=== PATIENT | female | born 1945 | race Caucasian/White ===

== ENCOUNTER 2022-05-23 09:41 | Emergency (ER) | payer MEDICARE, SELFPAY ==
--- NOTE | 2022-05-23 09:43 | ED.EYEPROB ---
HPI - Eye Problem General Chief complaint: Eye Problems Stated complaint: EYE REDNESS Time Seen by Provider: 05/23/22 09:43 Source: patient and RN notes reviewed History of Present Illness HPI Narrative: Patient is 76-year-old female presents the urgent care with her spouse with complaints of ecchymosis to the left eye. Patient states that bruising is unexplained without trauma or injury. Patient denies any vision changes. Denies any headaches, nausea, ear pain. No other acute complaints. No acute distress noted. Patient and spouse aware of the plan of care. Some parts of this dictation were generated by voice recognition software and may contain typographical and/or grammatical inaccuracies. Related Data Home Medications Medication Instructions Recorded Confirmed ascorbic acid (vitamin C) 1,000 mg 1 g PO DAILY 11/01/20 08/03/21 tablet aspirin 81 mg chewable tablet 81 mg PO DAILY 11/01/20 08/03/21 cholecalciferol (vitamin D3) 25 25 mcg PO DAILY 11/01/20 08/03/21 mcg (1,000 unit) capsule multivitamin 1 tablet PO DAILY 11/01/20 08/03/21 zinc 50 mg tablet 50 mg PO DAILY 11/01/20 08/03/21 Allergies Allergy/AdvReac Type Severity Reaction Status Date / Time No Known Allergies Allergy Verified 08/17/21 09:08 Review of Systems Review of Systems: CONSTITUTIONAL: Denies fever, chills, or sweats. EYES: Reports of left eye bruising without trauma or injury ENT: Denies rhinorrhea, congestion, sore throat, or otalgia. CARDIOVASCULAR: Denies chest pain, palpitations, or edema. RESPIRATORY: Denies cough or dyspnea. GASTROINTESTINAL: Denies abdominal pain, nausea, vomiting, or diarrhea. GENITOURINARY: Denies dysuria or hematuria. SKIN: Denies rash or itching. MUSCULOSKELETAL: Denies back pain, joint pain, or myalgia. NEUROLOGIC: Denies headache, numbness, or weakness. All other systems reviewed are negative, except as documented in HPI. [facility] Past Medical History Medical History Memory loss Sleep apnea Surgical History Surgical History H/O abdominal hysterectomy 2005 H/O breast surgery 1967 H/O tubal ligation 1979 History of surgery on arm 2016 Family History Family History Father Malignant neoplasm of prostate Mother Bone cancer Sibling Parkinson disease Social History Social History Smoking status: Never smoker Second hand tobacco smoke exposure: No Alcohol intake: never Substance use: never Gender identity (if verbalized by the patient): Female Spiritual care concerns: No Agree to blood products: Yes Comments At the time of my signature, I reviewed and agree with the nursing past medical, surgical, social, and family history. There is no relevant family history pertinent to the patient complaint. Exam Narrative: GENERAL: This is a well-nourished, well-developed patient, in no apparent distress. HEAD: normocephalic, atraumatic. EYES: PERRL. Sclera clear/white. Vision is grossly intact. Left orbital ecchymosis without trauma or injury EARS: External ears normal, auditory canals clear and without drainage, TMs normal without perforation. Hearing grossly intact. NOSE: External nose normal with no obvious nasal discharge, nares without redness, no rhinorrhea. THROAT: Mucous membranes moist NECK: Neck supple CARDIOVASCULAR: Regular rate and rhythm RESPIRATORY: Clear to auscultation. Breath sounds equal bilaterally. No wheezes, rales, or rhonchi. SKIN: warm, intact with no suspicious lesions or rash, good texture and turgor. NEURO: awake, alert, and oriented to person, place and time. There were no obvious focal neurologic abnormalities. EXTREMITIES: No clubbing, cyanosis, or edema. Course Course Level of Care: Express Care Visit Vital Signs Vit
[2022-05-23 09:52] VITALS: BP 117/73; PULSE 86; RESP 16; TEMP 36.5; O2SAT 98
== END 2022-05-23 10:09 | disposition short-term general hospital (02) ==
PROVIDERS: Emergency Provider Nurse Practitioner Family; PCP Family Medicine
DX: S05.12XA Contusion of eyeball and orbital tissues, left eye, initial encounter (principal); X58.XXXA Exposure to other specified factors, initial encounter; G47.30 Sleep apnea, unspecified; R41.3 Other amnesia
CPT/HCPCS: 99212; G0463

== ENCOUNTER 2022-05-23 10:18 | Emergency (ER) | payer MEDICARE, SELFPAY ==
--- NOTE | ~2022-05-23 | CT_ITS ---
EXAMINATION: CT brain wo con, CT facial bones wo con DATE: 05/23/2022 12:57 INDICATION: head injury with left eye ecchymoses. TECHNIQUE: 1. Computed tomography (CT) of the head was performed without intravenous contrast. Sagittal and whit nal reconstructions were performed. The mA was adjusted according to patient size. Iterative reconstr uction technique was employed. The dose-length product was 605.33 (accession [id number]), 279.37 (accession [id number]) mGy-cm. 2. CT of the maxillofacial bones was performed without intravenous contrast. Sagittal and coronal rec onstructions were performed. Automated exposure control and iterative reconstruction technique were e mployed. The dose length product was 279.37 mGy-cm. COMPARISON: None FINDINGS: Head CT: No calvarial fracture. Small old lacunar infarcts at the head of the right caudate nucleus and at the anterior limb of the left internal capsule and adjacent anterior left lentiform nucleus. Additional moderate scattered white matter hypoattenuation consistent with chronic small vessel ischemic disease . No acute intracranial hemorrhage, acute infarction or abnormal extra axial fluid collection. Ventri cles are normal and symmetric. No mass/mass effect. Maxillofacial CT: No maxillofacial fractures. Normal alignment and mild osteoarthritis at the bilateral temporomandibul ar joints. Likely developmental slight rightward bowing of the nasal septum which parallels the conto urs of the turbinates. Mucosal thickening in the left ethmoid and maxillary sinuses. There is likely fluid/mucus which nearly fills the left maxillary sinus. There is a fracture across the base of one o f the roots of the posterior most remaining left mandibular molar with prominent periapical erosions which extends into the left maxillary sinus. The orbits are normal. The mastoid air cells and middle ear cavities are clear. Moderate to severe spondylosis in the visualized upper cervical spine. IMPRESSION: 1. Fluid versus mucous nearly completely filling the left maxillary sinus suggestive of sinusitis. Th is could be related to a fracture across the base with roots of the posterior most left mandibular mo lar and secondary periapical abscess which appears to erode into the left maxillary sinus 2. No fracture or acute intracranial process. 3. A couple small old lacunar infarcts at the bilateral basal ganglia with scattered additional scatt ered white matter hypoattenuation consistent with chronic small vessel ischemic disease. No other acu te intracranial process. Reviewed, dictated and finalized at location A. IMPRESSION: 1. Fluid versus mucous nearly completely filling the left maxillary sinus sugge stive of sinusitis. This could be related to a fracture across the base with ro ots of the posterior most left mandibular molar and secondary periapical absces s which appears to erode into the left maxillary sinus 2. No fracture or acute intracranial process. 3. A couple small old lacunar infarcts at the bilateral basal ganglia with scat tered additional scattered white matter hypoattenuation consistent with chronic small vessel ischemic disease. No other acute intracranial process.
[2022-05-23 10:22] VITALS: BP 177/85; PULSE 76; RESP 16; TEMP 36.3; O2SAT 98
[2022-05-23 11:15] VITALS: BP 160/83; PULSE 73; RESP 21; O2SAT 98
--- NOTE | 2022-05-23 12:32 | ECG_ITS ---
Measurements Intervals [place] Rate: 66 P: 85 CA: 141 QRS: -10 QRSD: 94 T: 139 QT: 412 QTc: 434 Interpretive Statements SINUS RHYTHM WITH OCCASIONAL SUPRAVENTRICULAR PREMATURE COMPLEXES POSSIBLE RIGHT VENTRICULAR CONDUCTION DELAY [RSR (QR) IN V1/V2] VOLTAGE CRITERIA FOR LVH [MEETS CRITERIA IN ONE OF: R(aVL), S(V1), R(V5), R(V5/V6)+S(V1)] ST DEVIATION AND MODERATE T-WAVE ABNORMALITY, CONSIDER LATERAL ISCHEMIA [-0.1+ mV T WAVE IN I/aVL/V5/V6] ABNORMAL ECG NO PREVIOUS ECG AVAILABLE FOR COMPARISON Electronically Signed On 05-23-2022 13:58:11 CDT by Alan Tinajero M.D.
--- NOTE | 2022-05-23 12:34 | ED.EYEPROB ---
HPI - Eye Problem General Chief complaint: Eye Problems <PANTERA Epstein Last Filed: 05/23/22 14:50> Stated complaint: L. eye bruising <PANTERA Epstein Last Filed: 05/23/22 14:50> Time Seen by Provider: 05/23/22 12:03 <PANTERA Epstein Last Filed: 05/23/22 14:50> Source: patient and family <PANTERA Epstein Last Filed: 05/23/22 14:50> Mode of arrival: ambulatory <PANTERA Epstein Last Filed: 05/23/22 14:50> Limitations: dementia <PANTERA Epstein Last Filed: 05/23/22 14:50> History of Present Illness HPI Narrative: This is a 76 year old female that presents to the ER for left eyelid ecchymosis. Reports no known injury or trauma. Her noted a little bit of bruising around the eye yesterday. When she woke up she had increasing bruising. She denies any pain or any other symptoms. Denies vision changes, vomiting, numbness, or weakness <PANTERA Epstein Last Filed: 05/23/22 14:50> Related Data Home medications: Home Medications Medication Instructions Recorded Confirmed ascorbic acid (vitamin C) 1,000 mg 1 g PO DAILY 11/01/20 08/03/21 tablet aspirin 81 mg chewable tablet 81 mg PO DAILY 11/01/20 08/03/21 cholecalciferol (vitamin D3) 25 25 mcg PO DAILY 11/01/20 08/03/21 mcg (1,000 unit) capsule multivitamin 1 tablet PO DAILY 11/01/20 08/03/21 zinc 50 mg tablet 50 mg PO DAILY 11/01/20 08/03/21 <PANTERA Epstein Last Filed: 05/23/22 14:50> Allergies/adverse reactions: Allergies Allergy/AdvReac Type Severity Reaction Status Date / Time No Known Allergies Allergy Verified 05/23/22 11:15 <PANTERA Epstein Last Filed: 05/23/22 14:50> Review of Systems Review of Systems: CONSTITUTIONAL: Denies fever EYES: Denies visual changes GASTROINTESTINAL: Denies vomiting MUSCULOSKELETAL: Denies joint pain, or myalgia. NEUROLOGIC: Denies headache, numbness, or weak. <Susana Nicholas PA-C - Last Filed: 05/23/22 14:50> All systems reviewed & are unremarkable except as noted in HPI and below <Susana Nicholas PA-C - Last Filed: 05/23/22 14:50> PMFSH Past Medical History Medical History: Medical History Memory loss Sleep apnea <Susana Nicholas PA-C - Last Filed: 05/23/22 14:50> Surgical History Surgical History: Surgical History H/O abdominal hysterectomy 2004 H/O breast surgery 1966 H/O tubal ligation 1979 History of surgery on arm 2015 <Susana Nicholas PA-C - Last Filed: 05/23/22 14:50> Family History Family History: Family History Father Malignant neoplasm of prostate Mother Bone cancer Sibling Parkinson disease <Susana Nicholas PA-C - Last Filed: 05/23/22 14:50> Social History Social History: Social History Smoking status: Never smoker Second hand tobacco smoke exposure: No Alcohol intake: never Substance use: never Gender identity (if verbalized by the patient): Female Spiritual care concerns: No Agree to blood products: Yes <PANTERA Epstein Last Filed: 05/23/22 14:50> Exam Narrative: GENERAL: Well-appearing, well-nourished, and in no acute distress. HEAD: Normocephalic. Left eye ecchymosis EYES: PERRLA and EOMI. ENT: Nares clear, no rhinorrhea or epistaxis. Mucous membranes moist. Oropharynx without tonsillar hypertrophy exudate or other lesions. Bilateral TMs pearly ness non-bulging NECK: Supple. No adenopathy or masses. No midline spinal tenderness CHEST: Clear to auscultation. No respiratory distress. No wheezes rales or rhonchi HEART: Regular rate, irregular rhythm. No murmur heard. Normal peripheral pulses. EXTREMITIES: Normal range of motion. No edema. SKIN: Warm, dry, no rash.
[2022-05-23 12:36] VITALS: BP 132/106; PULSE 67; RESP 18; O2SAT 97
[2022-05-23 13:24] VITALS: BP 134/67; PULSE 78; RESP 18; O2SAT 96
[2022-05-23 13:33] LABS: Basophils Absolute Auto 0.1 K/mm3 (0.0-0.1); Basophils Percent Auto 0.7 % (0.2-1.2); Eosinophils Absolute Auto 0.2 K/mm3 (0-0.3); Eosinophils Percent Auto 2.2 % (0-4.4); Hematocrit 43.8 % (37.0-47.0); Immature Granulocyte Absolute 0.02 K/mm3 (0.00-0.031); Immature Granulocyte Percent A 0.3 % (0-0.5); Lymphocytes Absolute Auto 1.75 K/mm3 (0.9-3.2); Lymphocytes Percent Auto 23.7 % (18.3-44.2); Mean Corpuscular Hemoglobin 29.4 pg (26-34); Mean Platelet Volume 9.8 fl (7.4-10.4); Monocytes Absolute Auto 0.6 K/mm3 (0.1-0.6); Monocytes Percent Auto 7.5 % (2.6-8.5); Neutrophils Absolute Auto 4.8 K/mm3 (1.3-6.7); Neutrophils Percent Auto 65.6 % (45.5-73.1); Platelet Count Result 292 k/mm3 (150-375); Red Blood Count 4.76 M/mm3 (4.2-5.4); Red Cell Distribution Width 14.6 % (11.5-14.5); White Blood Count 7.4 K/mm3 (4.5-10.0)
[2022-05-23 13:41] LABS: Alanine Aminotransferase 17 U/L (6-35); Albumin Level 4.3 g/dL (3.5-5.1); Alkaline Phosphatase 81 U/L (38-126); Anion Gap 8 mmol/L (8-16); Aspartate Amino Transferase 22 U/L (14-36); Bilirubin,Total 0.5 mg/dL (0.2-1.3); Blood Urea Nitrogen 17 mg/dL (7-17); Calcium 9.2 mg/dL (8.4-10.2); Carbon Dioxide 27 mmol/L (22-30); Chloride 105 mmol/L (98-107); Estimated CRCL calculation 41 ml/min; Estimated Glomerular Filt Rate > 60; Glucose 81 mg/dL (65-110); Potassium 3.9 mmol/L (3.4-5.0); Sodium 140 mmol/L (137-145)
[2022-05-23 13:46] LABS: Prothrombin Time 12.5 Seconds (11.1-14.7)
[2022-05-23 13:47] LABS: Partial Thromboplastin Time 27.2 SECONDS (22.3-36.8)
[2022-05-23 14:57] VITALS: BP 114/79; PULSE 78; RESP 14; O2SAT 95
== END 2022-05-23 15:11 | disposition home or self-care (01) ==
PROVIDERS: Physician Assistant; Emergency Provider Emergency Medicine; PCP Family Medicine
DX: R23.3 Spontaneous ecchymoses (principal); K04.7 Periapical abscess without sinus; G47.30 Sleep apnea, unspecified; I49.1 Atrial premature depolarization; R94.31 Abnormal electrocardiogram [ECG] [EKG]
CPT/HCPCS: 36415; 70450; 70486; 80053; 85025; 85610; 85730; 93005; 99284

== ENCOUNTER 2022-06-11 09:17 | Emergency (ER) | payer MEDICARE, SELFPAY ==
--- NOTE | ~2022-06-11 | XR_ITS ---
EXAMINATION: XR foot RT min 3V DATE: 06/11/2022 11:59 INDICATION: Right foot pain. Fall. TECHNIQUE: 4 views of right foot were obtained. COMPARISON: None. FINDINGS: There is an old healed fracture of diaphysis of fifth metatarsal. No acute fracture. There is mild osteoarthritis of talonavicular joint. There is an enthesophyte at plantar aspect of calcanea l tuberosity. IMPRESSION: 1. No acute fracture. Reviewed, dictated and finalized at location A. IMPRESSION: 1. No acute fracture.
--- NOTE | ~2022-06-11 | XR_ITS ---
EXAMINATION: XR knee RT min 4V DATE: 06/11/2022 11:59 INDICATION: Right knee injury and pain. TECHNIQUE: 4 views of right knee were obtained. COMPARISON: None. FINDINGS: Bone alignment is normal. No fracture. There is mild osteoarthritis of medial compartment. No knee joint effusion. IMPRESSION: 1. Mild right knee osteoarthritis. Reviewed, dictated and finalized at location A.
--- NOTE | ~2022-06-11 | US_ITS ---
EXAMINATION: US venous doppler LE RT DATE: 06/11/2022 11:00 INDICATION: Right lower limb swelling. TECHNIQUE: Grayscale ultrasound images without and with compression and Doppler ultrasound images of the right lower extremity veins were obtained. COMPARISON: None. FINDINGS: The visualized portions of right common femoral vein, profunda (deep) femoral vein, femoral vein, pop liteal vein, peroneal veins, posterior tibial veins, and greater saphenous vein outflow are patent. IMPRESSION: 1. No deep venous thrombosis. Reviewed, dictated and finalized at location A.
[2022-06-11 09:25] VITALS: BP 154/84; PULSE 73; TEMP 36.4; O2SAT 100
[2022-06-11 09:33] LABS: Basophils Absolute Auto 0.1 K/mm3 (0.0-0.1); Basophils Percent Auto 0.6 % (0.2-1.2); Eosinophils Absolute Auto 0.2 K/mm3 (0-0.3); Eosinophils Percent Auto 2.7 % (0-4.4); Hematocrit 45.9 % (37.0-47.0); Hemoglobin 14.5 g/dL (12.0-15.0); Immature Granulocyte Absolute 0.03 K/mm3 (0.00-0.031); Immature Granulocyte Percent A 0.4 % (0-0.5); Lymphocytes Absolute Auto 1.86 K/mm3 (0.9-3.2); Lymphocytes Percent Auto 23.8 % (18.3-44.2); Mean Corpuscular HGB Conc 31.6 g/dl (32-36); Mean Corpuscular Hemoglobin 29.2 pg (26-34); Mean Corpuscular Volume 92.4 fl (80-100); Mean Platelet Volume 10.4 fl (7.4-10.4); Monocytes Absolute Auto 0.6 K/mm3 (0.1-0.6); Monocytes Percent Auto 7.7 % (2.6-8.5); Neutrophils Absolute Auto 5.1 K/mm3 (1.3-6.7); Neutrophils Percent Auto 64.8 % (45.5-73.1); Platelet Count Result 286 k/mm3 (150-375); Red Blood Count 4.97 M/mm3 (4.2-5.4); Red Cell Distribution Width 14.7 % (11.5-14.5); White Blood Count 7.8 K/mm3 (4.5-10.0)
[2022-06-11 09:42] LABS: Anion Gap 15 mmol/L (8-16); Blood Urea Nitrogen 16 mg/dL (7-17); Calcium 9.7 mg/dL (8.4-10.2); Carbon Dioxide 29 mmol/L (22-30); Chloride 101 mmol/L (98-107); Estimated CRCL calculation 68 ml/min; Estimated Glomerular Filt Rate > 60; Glucose 98 mg/dL (65-110); Potassium 3.7 mmol/L (3.4-5.0); Sodium 145 mmol/L (137-145)
[2022-06-11 09:53] LABS: Prothrombin Time 12.7 Seconds (11.1-14.7)
[2022-06-11 09:54] LABS: Partial Thromboplastin Time 26.8 SECONDS (22.3-36.8)
--- NOTE | 2022-06-11 10:25 | ED.GENADULT ---
HPI - General Adult General Chief complaint: Extremity Problem,Nontraumatic Stated complaint: right leg/ankle Time Seen by Provider: 06/11/22 09:36 History of Present Illness HPI narrative: 76-year-old female presenting the emergency department for evaluation of lower extremity swelling. Patient states a few weeks ago she did have a fall and injured her right knee. Patient did have some bruising at the right knee swelling at the time but states over the last few days she has developed bruising of her toes and ankle. Patient does have some swelling of the right lower extremity. Related Data Home Medications Medication Instructions Recorded Confirmed ascorbic acid (vitamin C) 1,000 mg 1 g PO DAILY 11/01/20 08/03/21 tablet aspirin 81 mg chewable tablet 81 mg PO DAILY 11/01/20 08/03/21 cholecalciferol (vitamin D3) 25 25 mcg PO DAILY 11/01/20 08/03/21 mcg (1,000 unit) capsule multivitamin 1 tablet PO DAILY 11/01/20 08/03/21 zinc 50 mg tablet 50 mg PO DAILY 11/01/20 08/03/21 Allergies Allergy/AdvReac Type Severity Reaction Status Date / Time No Known Allergies Allergy Verified 05/23/22 11:15 Review of Systems Review of Systems: CONSTITUTIONAL: Denies fever, chills, or sweats. EYES: Denies visual changes, redness, or discharge. ENT: Denies rhinorrhea, congestion, sore throat, or otalgia. CARDIOVASCULAR: Denies chest pain, palpitations, or edema. RESPIRATORY: Denies cough or dyspnea. GASTROINTESTINAL: Denies abdominal pain, nausea, vomiting, or diarrhea. GENITOURINARY: Denies dysuria or hematuria. SKIN: Denies rash or itching. MUSCULOSKELETAL: Right knee swelling and right lower leg edema and ecchymosis NEUROLOGIC: Denies headache, numbness, or weakness. [facility] Past Medical History Medical History Memory loss Sleep apnea Surgical History Surgical History H/O abdominal hysterectomy 2004 H/O breast surgery 1967 H/O tubal ligation 1979 History of surgery on arm 2015 Family History Family History Father Malignant neoplasm of prostate Mother Bone cancer Sibling Parkinson disease Social History Social History Smoking status: Never smoker Second hand tobacco smoke exposure: No Alcohol intake: never Substance use: never Gender identity (if verbalized by the patient): Female Spiritual care concerns: No Agree to blood products: Yes Exam Narrative: APPEARANCE: Well appearing, no pain, no distress, well-nourished. HEAD: normocephalic, atraumatic. EYES: PERRLA/EOMI, conjunctivae clear. NOSE: Normal no drainage NECK: Supple. No adenopathy, no masses. RESPIRATORY: Airway patent, respirations nonlabored. Clear to auscultation bilaterally, no rales, rhonchi, wheezing. CARDIOVASCULAR: Regular rate and rhythm without murmurs rubs or gallops. ABDOMINAL: Soft, nontender, nondistended, normal bowel sounds MUSCULOSKELETAL: Moves all extremities. Edema of right lower extremity. No tenderness to palpation. NEURO: Alert. Cranial nerves II through XII intact. Grossly intact SKIN: Ecchymosis of knee and some ecchymosis of ankle and foot Course Course Emergency Course: Ultrasound was negative for DVTs. X-rays were negative for acute fractures or dislocations. Patient most likely had a resolving hematoma at her knee that when the blood liquefied it tracked down to her foot. Patient and family were updated on the plan for treatment for home. All questions and concerns were addressed. Vital Signs Vital signs: Vital Signs Temperature 97.6 F 06/11/22 09:25 Pulse Rate 73 06/11/22 09:25 Blood Pressure 154/84 H 06/11/22 09:25 Pulse Oximetry 100 06/11/22 09:25 Oxygen Delivery Room Air 06/11/22 09:25 Temperature 97.6 F 06/11/22 09:25 Pulse Rate
[2022-06-11 11:50] VITALS: BP 156/94; PULSE 56; RESP 16; O2SAT 98
== END 2022-06-11 12:25 | disposition home or self-care (01) ==
PROVIDERS: Emergency Provider Emergency Medicine; PCP Family Medicine
DX: M79.89 Other specified soft tissue disorders (principal); G47.30 Sleep apnea, unspecified; Z91.81 History of falling; Z79.82 Long term (current) use of aspirin
CPT/HCPCS: 36415; 73564; 73630; 80048; 85025; 85610; 85730; 93971; 99284

== ENCOUNTER 2022-07-14 22:02 | Observation (INO) | payer MEDICARE, SELFPAY ==
[2022-07-14] VITALS (11 sets, daily range): BP systolic 111–212; BP diastolic 86–114; PULSE 62–93; RESP 17–32; TEMP 36.1; O2SAT 83–100
--- NOTE | ~2022-07-14 | XR_ITS ---
EXAMINATION: XR chest 1V portable DATE: 07/14/2022 22:35 INDICATION: Face and right arm numbness. TECHNIQUE: A single frontal view of the chest was obtained. COMPARISON: None. FINDINGS: There is mild atelectasis in right lower lung zone. No pleural effusion or pneumothorax. Th e heart size is normal. IMPRESSION: 1. Mild atelectasis in right lower lung zone. Reviewed, dictated and finalized at location A.
--- NOTE | ~2022-07-14 | CT_ITS ---
EXAMINATION: CTA brain carotid DATE: 07/15/2022 12:39 INDICATION: Acute infarct in right thalamus. Face and right arm numbness. TECHNIQUE: Computed tomographic angiography (CTA) of the head was performed with 100 mL Omnipaque-350 intravenous contrast. CTA of the neck was performed with intravenous contrast. Automated exposure co ntrol and iterative reconstruction technique were employed. The dose-length product was 960.91 mGy-cm . Maximum intensity projection and volume rendered 3D-reconstructions were created by the [employer] t on a separate workstation. COMPARISON: Head CT 05/23/2022, 07/14/2022, brain MRI 07/15/2022 FINDINGS: HEAD CTA: There is an infarct in right thalamus. There are scattered areas of low attenuation in the cerebral white matter. There is no intracranial hemorrhage or abnormal mass lesion. The orbits are no rmal. There is mild mucosal thickening in left maxillary sinus. The mastoid air cells are normal. The vertebral arteries are codominant. There is no significant stenosis of basilar artery or the posteri or cerebral arteries. There is no significant stenosis of the intracranial internal carotid arteries or anterior or middle cerebral arteries. Anterior communicating artery is normal. The posterior commu nicating arteries are normal. There is no aneurysm. NECK CTA: There are no pathologically enlarged lymph nodes. There is no significant stenosis of the v ertebral arteries. There is plaque in the proximal internal carotid arteries. There is 0% stenosis of the proximal right internal carotid artery relative to normal distal artery lumen diameter (NASCET c riteria). There is 0% stenosis of the proximal left internal carotid artery relative to normal distal artery lumen diameter. There is severe cervical spondylosis. There is a sclerotic lesion in T1 verte bral body, likely a benign bone island. IMPRESSION: 1. 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 2. Extensive nonspecific cerebral white matter disease, which likely represents chronic small vessel ischemic disease. 3. No aneurysm or significant intracranial arterial stenosis. 4. 0% stenosis of the proximal internal carotid arteries relative to normal distal artery lumen diame ters (NASCET criteria). Reviewed, dictated and finalized at location A. IMPRESSION: 1. 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 2. Extensive nonspecific cerebral white matter disease, which likely represents chronic small vessel ischemic disease. 3. No aneurysm or significant intracranial arterial stenosis. 4. 0% stenosis of the proximal internal carotid arteries relative to normal dis susana artery lumen diameters (NASCET criteria).
--- NOTE | ~2022-07-14 | CT_ITS ---
EXAMINATION: CT brain wo con DATE: 07/14/2022 23:10 INDICATION: Face and right arm numbness. TECHNIQUE: Computed tomography (CT) of the head was performed without intravenous contrast. The mA wa s adjusted according to patient size. Iterative reconstruction technique was employed. The dose-lengt h product was 605.33 mGy-cm. COMPARISON: Head CT 05/23/2022 FINDINGS: There are scattered areas of low attenuation in the cerebral white matter. There are old la cunar infarcts in the bilateral basal ganglia. There is no intracranial hemorrhage, acute infarction, or abnormal intracranial mass lesion. The ventricles are normal in size. There is mild mucosal thick ening in the ethmoid sinuses. The orbits are normal. The mastoid air cells are normal. IMPRESSION: 1. Old lacunar infarcts in the bilateral basal ganglia. 2. Stable extensive nonspecific cerebral white matter disease, which likely represents chronic small vessel ischemic disease. Reviewed, dictated and finalized at location A. IMPRESSION: 1. Old lacunar infarcts in the bilateral basal ganglia. 2. Stable extensive nonspecific cerebral white matter disease, which likely rep resents chronic small vessel ischemic disease.
--- NOTE | ~2022-07-14 | US_ITS ---
EXAMINATION: US carotid duplex BI DATE: 07/15/2022 14:04 INDICATION: Acute infarct in right thalamus. TECHNIQUE: Grayscale, color Doppler, and pulsed Doppler images of the cervical carotid arteries were obtained. The degree of vessel stenosis is placed in one of the following categories: normal, <50%, 5 0-69%, >=70% but less than near-occlusion, near-occlusion, or total occlusion. Note that percent sten osis relative to normal distal artery lumen diameter is indirectly measured from velocity measurement s as described by Michael, et al. Radiology 2003; 229:340-346. COMPARISON: None. FINDINGS: There is an arrhythmia. RIGHT: The right common carotid artery (CCA) peak systolic velocity (PSV) is 80 cm/s. The right internal car otid artery (ICA) PSV is 81 cm/s. The right ICA end-diastolic velocity (EDV) is 21 cm/s. The right IC A/CCA PSV ratio is 1.0. Grayscale and color Doppler images yield an estimate of <50% diameter reducti on from plaque in the ICA. There is antegrade flow in the right vertebral artery. LEFT: The left CCA PSV is 160 cm/s. The left ICA PSV is 76 cm/s. The left ICA EDV is 22 cm/s. The left ICA/ CCA PSV ratio is 0.5. Grayscale and color Doppler images yield an estimate of <50% diameter reduction from plaque in the ICA. There is antegrade flow in the left vertebral artery. IMPRESSION: 1. <50% stenosis in the right internal carotid artery. 2. <50% stenosis in the left internal carotid artery. 3. Arrhythmia. Reviewed, dictated and finalized at location A.
--- NOTE | ~2022-07-14 | MR_ITS ---
EXAMINATION: MR brain/brain stem wo con DATE: 07/15/2022 12:22 INDICATION: Cerebrovascular accident. TECHNIQUE: Magnetic resonance imaging (MRI) of the brain and brainstem was performed without intraven ous contrast. COMPARISON: Head CT 07/14/2022 FINDINGS: There is an acute infarct in right thalamus. There is no intracranial hemorrhage or abnorma l mass lesion. There are scattered areas of nonspecific increased T2-weighted signal intensity in the cerebral white matter and sarah. The ventricles are normal in size. The orbits are normal. There is m ild mucosal thickening in the paranasal sinuses. The mastoid air cells are normal. IMPRESSION: 1. 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 2. Extensive nonspecific cerebral white matter disease and pontine disease, which likely represents c hronic small vessel ischemic disease. Reviewed, dictated and finalized at location A. IMPRESSION: 1. 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 2. Extensive nonspecific cerebral white matter disease and pontine disease, whi ch likely represents chronic small vessel ischemic disease.
--- NOTE | 2022-07-14 22:16 | ECG_ITS ---
Measurements Intervals [place] Rate: 61 P: 71 [place]: 158 QRS: 1 QRSD: 93 T: 131 QT: 402 QTc: 407 Interpretive Statements SINUS RHYTHM WITH SUPRAVENTRICULAR PREMATURE COMPLEXES INCOMPLETE RIGHT BUNDLE BRANCH BLOCK LEFT VENTRICULAR HYPERTROPHY AND ST-T CHANGE [VOLTAGE CRITERIA PLUS ST/T ABNORMALITY] COMPARED TO ECG 05/23/2022 12:44:06 NO SIGNIFICANT CHANGES Electronically Signed On 07-15-2022 11:43:29 CDT by Khoi Quiñonez M.D.
--- NOTE | 2022-07-14 22:28 | ED.NEUROSD ---
HPI - Neuro Symptoms/Deficit General Chief Complaint: Neuro Symptoms/Deficit <Susana Parks PA-C - Last Filed: 07/15/22 15:47> Stated Complaint: numbness in mouth <Susana Parks PA-C - Last Filed: 07/15/22 15:47> Time Seen by Provider: 07/14/22 22:10 <Susana Parks PA-C - Last Filed: 07/15/22 15:47> History of Present Illness HPI Narrative: Patient is a 76-year-old female with a history of Alzheimer's dementia here for evaluation of right-sided facial numbness for the past 12 hours. Patient states that she was eating breakfast with her friends in her usual state of health when she noticed that her lips on the right side in addition to her tongue felt numb. She also notes difficulty with gait disturbance; has felt weak and imbalanced. Has been noticed that she has had some difficulty with word finding earlier today as well. Her symptoms have persisted throughout the day which prompted their evaluation. Patient takes a daily baby aspirin and dementia medicine but takes no other medications; is otherwise healthy. Denies fevers, chills, nausea, vomiting, chest pain, shortness of breath. She had a fall with head injury about 3 months ago, was evaluated here and was sent home after head CT was normal. <Susana Parks PA-C - Last Filed: 07/15/22 15:47> Related Data Home Medications: Home Medications Medication Instructions Recorded Confirmed ascorbic acid (vitamin C) 1,000 mg 1 g PO DAILY 11/01/20 07/15/22 tablet aspirin 81 mg chewable tablet 81 mg PO DAILY 11/01/20 07/15/22 cholecalciferol (vitamin D3) 25 25 mcg PO DAILY 11/01/20 07/15/22 mcg (1,000 unit) capsule multivitamin 1 tablet PO DAILY 11/01/20 07/15/22 zinc 50 mg tablet 50 mg PO DAILY 11/01/20 07/15/22 <Susana Parks PA-C - Last Filed: 07/15/22 15:47> Allergies/Adverse Reactions: Allergies Allergy/AdvReac Type Severity Reaction Status Date / Time No Known Allergies Allergy Verified 06/18/22 10:22 <Susana Parks PA-C - Last Filed: 07/15/22 15:47> Review of Systems Review of Systems: Gen: Denies fevers or chills Eyes: Denies eye pain or visual change ENT: Denies congestion Respiratory: Denies shortness of breath or cough CV: Denies chest pain or palpitations GI: Denies abdominal pain nausea, emesis or diarrhea denies burning, urgency, frequency or hematuria Musculoskeletal: Denies back pain or muscle pain Neuro: Reports numbness and tingling to her right side of her face and arm. Reports gait and speech disturbance. Skin: Denies rash Except as documented, all other systems reviewed and negative <PANTERA Prasad Last Filed: 07/15/22 15:47> PMFSH Past Medical History Medical History: Medical History Dementia Sleep apnea Transient global amnesia <PANTERA Prasad Last Filed: 07/15/22 15:47> Surgical History Surgical History: Surgical History H/O abdominal hysterectomy 2004 H/O breast surgery 1967 H/O tubal ligation 1979 History of ankle surgery History of surgery on arm 2015 <PANTERA Prasad Last Filed: 07/15/22 15:47> Family History Family History: Family History Father Malignant neoplasm of prostate Mother Bone cancer Sibling Parkinson disease Other Dementia <PANTERA Prasad Last Filed: 07/15/22 15:47> Social History Social History: Social History Smoking status: Never smoker Second hand tobacco smoke exposure: No Alcohol intake: never Substance use: never Gender identity (if verbalized by the patient): Female Spiritual care concerns: No Agree to blood products: Yes <PANTERA Prasad Last Filed: 07/15/22 15:47> Exam
[2022-07-14 22:50] LABS: Glucose Point of Care 77 mg/dl (65-105)
[2022-07-14 22:56] LABS: Basophils Percent Auto 0.5 % (0.2-1.2); Eosinophils Absolute Auto 0.2 K/mm3 (0-0.3); Eosinophils Percent Auto 3.2 % (0-4.4); Hematocrit 43.5 % (37.0-47.0); Immature Granulocyte Absolute 0.02 K/mm3 (0.00-0.031); Immature Granulocyte Percent A 0.3 % (0-0.5); Lymphocytes Absolute Auto 2.62 K/mm3 (0.9-3.2); Lymphocytes Percent Auto 34.6 % (18.3-44.2); Mean Corpuscular HGB Conc 32.2 g/dl (32-36); Mean Corpuscular Hemoglobin 29.7 pg (26-34); Mean Corpuscular Volume 92.4 fl (80-100); Mean Platelet Volume 10.8 fl (7.4-10.4); Monocytes Absolute Auto 0.7 K/mm3 (0.1-0.6); Neutrophils Percent Auto 52.4 % (45.5-73.1); Platelet Count Result 259 k/mm3 (150-375); Red Blood Count 4.71 M/mm3 (4.2-5.4); Red Cell Distribution Width 14.5 % (11.5-14.5); White Blood Count 7.6 K/mm3 (4.5-10.0)
[2022-07-14 23:06] LABS: Prothrombin Time 12.7 Seconds (11.1-14.7)
[2022-07-14 23:07] LABS: Partial Thromboplastin Time 28.4 SECONDS (22.3-36.8)
[2022-07-14 23:14] LABS: Alanine Aminotransferase 29 U/L (6-35); Albumin Level 4.4 g/dL (3.5-5.1); Alkaline Phosphatase 81 U/L (38-126); Anion Gap 9 mmol/L (8-16); Aspartate Amino Transferase 30 U/L (14-36); Bilirubin,Total 0.4 mg/dL (0.2-1.3); Blood Urea Nitrogen 22 mg/dL (7-17); Calcium 9.7 mg/dL (8.4-10.2); Carbon Dioxide 28 mmol/L (22-30); Chloride 104 mmol/L (98-107); Estimated CRCL calculation 41 ml/min; Estimated Glomerular Filt Rate 54; Glucose 92 mg/dL (65-110); Potassium 3.8 mmol/L (3.4-5.0); Sodium 141 mmol/L (137-145)
[2022-07-14 23:25] LABS: Troponin I 0.014 ng/mL (0.000-0.034)
[2022-07-15] VITALS (7 sets, daily range): BP systolic 144–174; BP diastolic 80–95; PULSE 60–112; RESP 14–20; TEMP 35.6–36.8; O2SAT 95–100; BMI 35.8
--- NOTE | 2022-07-15 | ECHO_ITS ---
Patient Info Name: Olivia Li Age: 76 years : 1945 Gender: Female Ht: 59 in Wt: 177 lbs BSA: 1.87 m2 HR: 86 bpm BP: 165 / 87 mmHg Heart Rhythm: Sinus Rhythm Technical Quality: Fair Exam Date: 07/15/2022 3:00 PM Exam Location: [facility] Pulmonary Patient Status: Outpatient Admit Date: 07/15/2022 Staff Ordering Physician: Valeria Puckett MD Barrel Handler: Maryam Peterson RDCS Attending Provider: Pebbles Cummins MD Referring Physician: Italo APONTE; Exam Type: CA echo dop bubble study w con Study Info Indications - cva Complete two-dimentional, color flow and Doppler transthoracic echocardiogram is performed with agitated saline and with contrast to opacify the left ventricle and to improve the delineation of the left ventricle endocardial borders. Contrast/Agitated Saline Contrast/Ag. Saline: Definity Amount: 3.00 ml Administered By: Maryam Peterson RDCS Existing IV Access: Yes IV Access Condition: patent with no signs of infiltration Contrast/Ag. Saline: Agitated Saline Amount: 20.00 ml Existing IV Access: Yes IV Access Condition: patent with no signs of infiltration Summary 1. Left ventricular systolic function is normal, estimated at 65-70%. 2. The left ventricular diastolic function is grade II diastolic dysfunction. 3. Right ventricular systolic function is normal. 4. Left atrial chamber dimension is mildly enlarged. 5. Intact interatrial septum visualized by color flow and agitated saline imaging. 6. The posterior mitral valve leaflet is heavily calcified. 7. The mitral valve annulus is moderately calcified. 8. There is trace mitral valve regurgitation. 9. There is mild tricuspid valve regurgitation. 10. There is trace aortic valve regurgitation. Left Ventricle Left ventricular chamber dimension is normal. Left ventricular systolic function is normal, estimated at 65-70%. There is no increased left ventricular wall thickness. The left ventricular diastolic function is grade II diastolic dysfunction. Right Ventricle Right ventricular chamber dimension is normal. Right ventricular systolic function is normal. Left Atria Left atrial chamber dimension is mildly enlarged. Right Atria Right atrial chamber dimension is normal. Atrial Septum Intact interatrial septum visualized by color flow and agitated saline imaging. Aortic Valve The aortic valve is not well visualized. There is mild aortic valve sclerosis. There is no aortic valve stenosis. There is trace aortic valve regurgitation. There is mild aortic valve calcification. Pulmonic Valve The pulmonic valve is not well visualized. Mitral Valve The posterior mitral valve leaflet is heavily calcified. The mitral valve has thickened leaflets. There is no mitral valve stenosis. There is trace mitral valve regurgitation. The mitral valve annulus is moderately calcified. Tricuspid Valve The tricuspid valve leaflets are not well visualized. There is mild tricuspid valve regurgitation. Pericardium/Pleural There is no pericardial effusion. Aorta The aortic root size at the sinus of Valsalva is normal. Left Ventricular Outflow Tract Name Value Normal LVO
--- NOTE | 2022-07-15 01:25 | ADMGEN ---
This patient, Olivia Li, was admitted to Medical Room 250-01. Patient/family oriented to hospital policies and general routines including ID bracelet, bed and alarms, visiting hours, pain management, procedures, bathroom and other care routines, personal items, smoking policy, room service/diet, and visiting hours. Information on how to activate the Rapid Response Team has been discussed. Patient/Family are encouraged to report perceived risks to care and to ask questions if they do not understand what they are told or what they should do.
--- NOTE | 2022-07-15 09:30 | WPDNEURCNPN ---
Assessment and Plan Assessment and plan (1) Left facial numbness: Code(s): R20.0 - Anesthesia of skin Status: Acute (2) Dementia: Code(s): F03.90 - Unspecified dementia, unspecified severity, without behavioral disturbance, psychotic disturbance, mood disturbance, and anxiety Status: Acute Plan Ms. Li is a 76 year old female with a history of HTN and dementia presenting with symptoms of L facial/hand numbness and ataxia, noted to have left facial droop, concerning for acute stroke. CT head negative for acute process. She was outside window for tPA. - MRI w/o contrast, CTA head/neck - ASA 81mg daily, if evidence of acute stroke on MRI, will start Plavix 75mg daily - Surface echo, HgbA1c, LDL Consult date: 07/15/22 Time Seen: 09:31 Reason for consult: Concern for stroke HPI: Olivia Li is a 76 year old female with a history of Alzheimer's Dementia who presented yesterday due to left facial and left hand numbness. She presented to [place] ED about 12 hours after the onset of her symptoms. Patient was eating breakfast yesterday morning when she noticed that the left side of her lip and tongue were numb. She also experienced difficulties with her gait as well as problems with word findings. She presented to the ED and had an NIH score of [address] head showed chronic changes but no evidence of acute/ subacute stroke. She had a BP of 214/114. She was outside the window for tPA. Patient reports some persistent numbness in the left hand. No prior history of stroke, but patient had an episode of transient global amnesia about 20 years ago. She was followed by a neurologist at [place] for some time, but now her primary provider is managing her dementia medications. Review of Systems Review of Systems: ROS unobtainable: Yes unobtainable due to medical condition PMFSH Past Medical History Medical History Dementia Sleep apnea Transient global amnesia Surgical History Surgical History H/O abdominal hysterectomy 2004 H/O breast surgery 1967 H/O tubal ligation 1979 History of ankle surgery History of surgery on arm 2016 Family History Family History Father Malignant neoplasm of prostate Mother Bone cancer Sibling Parkinson disease Other Dementia Social History Social History Smoking status: Never smoker Second hand tobacco smoke exposure: No Alcohol intake: never Substance use: never Gender identity (if verbalized by the patient): Female Spiritual care concerns: No Agree to blood products: Yes Meds Home Medications and Allergies Home Medications Medication Instructions Recorded Confirmed Type ascorbic acid (vitamin C) 1,000 mg 1 g PO DAILY 11/01/20 07/15/22 History tablet aspirin 81 mg chewable tablet 81 mg PO DAILY 11/01/20 07/15/22 History cholecalciferol (vitamin D3) 25 25 mcg PO DAILY 11/01/20 07/15/22 History mcg (1,000 unit) capsule multivitamin 1 tablet PO DAILY 11/01/20 07/15/22 History zinc 50 mg tablet 50 mg PO DAILY 11/01/20 07/15/22 History memantine 10 mg tablet See Rx Instructions .Route 03/11/22 07/15/22 Rx .COMPLEX #180 tabs donepezil 10 mg tablet See Rx Instructions .Route 05/24/22 07/15/22 Rx .COMPLEX #90 tabs Allergies Allergy/AdvReac Type Severity Reaction Status Date / Time No Known Allergies Allergy Verified 06/18/22 10:22 Vital Signs Vital Signs - 24 hr 07/14/22 22:12 07/14/22 22:24 07/14/22 22:30 Temperature 36.1 C L Pulse Rate 63 70 64 Respiratory Rate 18 18 21 H Blood Pressure 212/114 H Pulse Oximetry 98 98 Oxygen Delivery Room Air 07/14/22 22:32 07/14/22 22:54 07/14/22 22:33 Temperature Pulse Rate 73 62 65 Respiratory Rate 22 H 21 H Blood Pressure 111/8
--- NOTE | 2022-07-15 10:22 | PM.IMHP ---
H&P: HPI History of Present Illness Date/Time: 07/15/22 10:22 Chief Complaint: lips, face, and finger numbness Narrative: 76yo F w h/o dementia is brought to the ER by her spouse. Pt and her went out for breakfast and on their way back to the car to leave, she suddenly reported periorbital numbness of her lips face and fingers on both hands. Pt tells me she felt her bottom lip was swollen too. They went home that night, cooked dinner together but her was concerned for stroke and decided to seek medical condition. Pts symptoms have completely resolved at the time of my interview. Pt has a hx of Global Transient Amnesia and takes a baby aspirin daily. No prior episodes like this. Review of Systems Review of Systems: All systems reviewed & are unremarkable except as noted in HPI and below PMFSH Past Medical History Medical History (Updated 07/15/22 @ 10:35 by Valeria Puckett MD) Dementia Sleep apnea Transient global amnesia Surgical History Surgical History (Updated 07/15/22 @ 10:35 by Valeria Puckett MD) H/O abdominal hysterectomy 2004 H/O breast surgery 1967 H/O tubal ligation 1979 History of ankle surgery History of surgery on arm 2015 Family History Family History (Updated 07/15/22 @ 10:36 by Valeria Puckett MD) Father Malignant neoplasm of prostate Mother Bone cancer Sibling Parkinson disease Other Dementia Social History Social History Smoking status: Never smoker Second hand tobacco smoke exposure: No Alcohol intake: never Substance use: never Gender identity (if verbalized by the patient): Female Spiritual care concerns: No Agree to blood products: Yes Meds Home Medications and Allergies Home Medications Medication Instructions Recorded Confirmed Type ascorbic acid (vitamin C) 1,000 mg 1 g PO DAILY 11/01/20 07/15/22 History tablet aspirin 81 mg chewable tablet 81 mg PO DAILY 11/01/20 07/15/22 History cholecalciferol (vitamin D3) 25 25 mcg PO DAILY 11/01/20 07/15/22 History mcg (1,000 unit) capsule multivitamin 1 tablet PO DAILY 11/01/20 07/15/22 History zinc 50 mg tablet 50 mg PO DAILY 11/01/20 07/15/22 History memantine 10 mg tablet See Rx Instructions .Route 03/11/22 07/15/22 Rx .COMPLEX #180 tabs donepezil 10 mg tablet See Rx Instructions .Route 05/24/22 07/15/22 Rx .COMPLEX #90 tabs Allergies Allergy/AdvReac Type Severity Reaction Status Date / Time No Known Allergies Allergy Verified 06/18/22 10:22 Vital Signs Vital Signs - 24 hr 07/14/22 22:12 07/14/22 22:24 07/14/22 22:30 Temperature 97.0 F L Pulse Rate 63 70 64 Respiratory Rate 18 18 21 H Blood Pressure 212/114 H Pulse Oximetry 98 98 Oxygen Delivery Room Air 07/14/22 22:32 07/14/22 22:54 07/14/22 22:33 Temperature Pulse Rate 73 62 65 Respiratory Rate 22 H 21 H Blood Pressure 111/87 Pulse Oximetry 100 99 Oxygen Delivery 07/14/22 23:09 07/14/22 23:17 07/14/22 23:27 Temperature Pulse Rate 69 69 93 Respiratory Rate 21 H 32 H 17 Blood Pressure 176/86 H 131/104 H Pulse Oximetry 98 100 83 L Oxygen Delivery 07/14/22 23:30 07/14/22 23:45 07/15/22 00:04 Temperature Pulse Rate 70 62 63 Respiratory Rate 22 H 18 19 Blood Pressure Pulse Oximetry 99 96 95 Oxygen Delivery 07/15/22 01:09 07/15/22 01:19 07/15/22 01:33 Temperature 96.0 F L Pulse Rate 69 60 112 H Respiratory Rate 18 18 20 Blood Pressure 157/80 H 144/95 H 173/84 H Pulse Oximetry 98 96 99 Oxygen Delivery 07/15/22 04:49 Temperature 96.7 F L Pulse Rate 86 Respiratory Rate 20 Blood Pressure 165/87 H Pulse Oximetry 100 Oxygen Delivery Exam Narrative: 76 yo female of apparent age sitting in chair without distress Const: General: comfortable HENMT: Face/Nose/Sinus: Normal nares present Mouth: Yes moist mucous membranes Other: L interior lower lip w
[2022-07-15] MEDS: MEMANTINE 10 MG TABLET PO ×2 (13:48→21:50)
[2022-07-15] MEDS: ASPIRIN 81 MG CHEWABLE TABLET PO (13:48)
[2022-07-15] MEDS: ATORVASTATIN 20 MG TABLET PO (13:48)
[2022-07-15] MEDS: DONEPEZIL HCL 10 MG TABLET PO (13:48)
[2022-07-15] MEDS: PERFLUTREN LIPID MICROSPHERES 1.5 ML VIAL DILUTED TO 10 ML TOTAL VOLUME IV PUSH (15:40)
--- NOTE | 2022-07-15 15:45 | IVDEFINITY ---
Prior to administration of IV Definity the patient was educated on the risks and benefits of the imaging enhancing agent including potential adverse side effects. The patient verbalized understanding. Allergies were verified. No exclusion criteria were identified and at least one of the following inclusion criteria were met: 1) physician request, 2) patient technically difficult to image (per the [place] [employer] guidelines of two or more segments not discernable within the apical view), or 3) questionable left ventricular function. ?
[2022-07-15] MEDS: CLOPIDOGREL BISULFATE 75 MG TABLET PO (18:04)
[2022-07-15] MEDS: amLODIPine BESYLATE 2.5 MG TABLET PO (18:04)
[2022-07-16 07:00] VITALS: BP 155/91; PULSE 79; RESP 18; TEMP 36.4; O2SAT 97
[2022-07-16] MEDS: amLODIPine BESYLATE 2.5 MG TABLET PO (09:33)
[2022-07-16] MEDS: ATORVASTATIN 20 MG TABLET PO (09:33)
[2022-07-16] MEDS: CLOPIDOGREL BISULFATE 75 MG TABLET PO (09:33)
[2022-07-16] MEDS: ASPIRIN 81 MG CHEWABLE TABLET PO (09:34)
[2022-07-16] MEDS: DONEPEZIL HCL 10 MG TABLET PO (09:34)
[2022-07-16] MEDS: MEMANTINE 10 MG TABLET PO (09:34)
--- NOTE | 2022-07-16 09:35 | WPDNEUROPN ---
Progress Note: A&P Assessment and Plan (1) Stroke: Code(s): I63.9 - Cerebral infarction, unspecified Status: Acute (2) Left facial numbness: Code(s): R20.0 - Anesthesia of skin Status: Acute (3) Dementia: Code(s): F03.90 - Unspecified dementia, unspecified severity, without behavioral disturbance, psychotic disturbance, mood disturbance, and anxiety Status: Acute Plan Ms. Li is a 76 year old female with a history of HTN and dementia presenting with symptoms of L facial/hand numbness and ataxia, noted to have left facial droop, concerning for acute stroke. MRI confirmed acute R thalamic stroke. Etiology likely small vessel disease due to uncontrolled HTN. - Surface echo pending - May need to discuss with Cardiology regarding clinical significance of arrhythmia noted on carotid Doppler - Continue ASA 81mg and Plavix 75mg daily x 3 weeks, then ASA 81 mg daily - Continue Lipitor 20mg daily - Follow-up with [facility] Neurology in 3 months Subjective Date/time seen: 07/16/22 09:35 Interval history: Olivia Li is a 76 year old female with a history of Alzheimer's Dementia who presented yesterday due to left facial and left hand numbness. She presented to [place] ED about 12 hours after the onset of her symptoms. Patient was eating breakfast when she noticed that the left side of her lip and tongue were numb. She also experienced difficulties with her gait as well as problems with word findings. She presented to the ED and had an NIH score of [address] head showed chronic changes but no evidence of acute/ subacute stroke.? She had a BP of 214/114. She was outside the window for tPA. Patient reports some persistent numbness in the left hand. CTA showed no evidence of stenosis. Carotid doppler reported arrhythmia but no evidence of stenosis. MRI brain showed acute R thalamic infarct. Patient has some numbness of her limbs, but otherwise feeling well this morning. Review of Systems Constitutional: Constitutional: Reports no additional constitutional complaints Eyes: Eyes: Reports no additional eye complaints ENT: Reports system reviewed and no additional complaints, except as documented Cardiovascular: Cardiovascular: Reports no additional cardiovascular complaints Respiratory: Respiratory: Reports no additional respiratory complaints Gastrointestinal: Gastrointestinal: Reports no additional gastrointestinal complaints Genitourinary: Genitourinary: Reports no additional female genitourinary complaints Musculoskeletal: Musculoskeletal: Reports no additional musculoskeletal complaints Integumentary/Breasts: Skin/Breast: Reports system reviewed and no additional complaints, except as docu Neurologic: Reports Abnormal speech present Psychiatric: Psychiatric: Reports confusion Exam Const: General: comfortable and no acute distress HENMT: Face/Nose/Sinus: Normal nares present Mouth: Yes moist mucous membranes Eyes: General: appearance normal, both eyes and all related structures Sclera: sclerae normal Pupils: Equal, round and reactive pupils present EOM: EOMs intact bilaterally Resp: Effort & Inspection: normal respiratory effort Auscultation: clear to auscultation bilaterally Cardio: Rate: regular rate Rhythm: regular rhythm GI: GI Palp: Yes Soft to palpation Auscultation: normal bowel sounds Skin: General skin exam: normal color Neuro: Other: AOx2 (self, location), Pupils equal and reactive bilaterally, EOMI, left facial droop, tongue protrudes midline, palate midline. Shoulder shrug normal. Strength 5/5 throughout. Sensation intact throughout. Reflexes 1+ in biceps, patellar, and absent AJ bilaterally, FNF normal on right, dysmetria on left. Some problems with naming as well as paraphasic errors. Gait deferred. Extrem: General: normal to inspection Psych: Other: AOx2 Objective Data Vital Signs Vital Signs: Vital Signs - 24 hr 07/15/22 14:
[2022-07-16] MEDS: lisinopriL 10 MG TABLET PO (11:16)
[2022-07-16 12:00] VITALS: PULSE 74
--- NOTE | 2022-07-16 12:34 | PM.IMPN ---
Subjective Date/time seen: 07/16/22 12:34 Objective Data Vital Signs Vital Signs: Vital Signs - 24 hr 07/15/22 14:00 07/15/22 21:41 07/16/22 07:00 Temperature 97.7 F 98.2 F 97.5 F L Pulse Rate 80 77 79 Respiratory Rate 14 18 18 Blood Pressure 162/81 H 174/90 H 155/91 H Pulse Oximetry 96 97 97 Intake/Output Intake/Output: Intake & Output 07/13/22 07/14/22 07/15/22 07/16/22 23:59 23:59 23:59 23:59 Intake Total 630 1160 Output Total 600 Balance 630 560 Meds/Results Medications: Active Medications Generic Name Dose Route Start Last Admin Trade Name Freq PRN Reason Stop Dose Admin Aspirin 81 mg 07/16/22 09:00 07/16/22 09:34 Aspirin 81 Mg Chewable Tablet PO 81 mg DAILY NEHEMIAH Administration Atorvastatin Calcium 20 mg 07/16/22 09:00 07/16/22 09:33 Atorvastatin 20 Mg Tablet PO 20 mg DAILY NEHEMIAH Administration Clopidogrel Bisulfate 75 mg 07/15/22 16:30 07/16/22 09:33 Clopidogrel Bisulfate 75 Mg Tablet PO 75 mg QAM NEHEMIAH Administration Donepezil HCl 10 mg 07/15/22 10:30 07/16/22 09:34 Donepezil Hcl 10 Mg Tablet PO 10 mg DAILY NEHEMIAH Administration Lisinopril 10 mg 07/16/22 09:45 07/16/22 11:16 Lisinopril 10 Mg Tablet PO 10 mg DAILY NEHEMIAH Administration Memantine 10 mg 07/15/22 10:30 07/16/22 09:34 Memantine 10 Mg Tablet PO 10 mg Q12HR NEHEMIAH Administration Radiology Results: ITS Impressions Head CT 07/15/22 06:50 IMPRESSION: 1. Old lacunar infarcts in the bilateral basal ganglia. 2. Stable extensive nonspecific cerebral white matter disease, which likely represents chronic small vessel ischemic disease. Chest X-Ray 07/15/22 07:12 IMPRESSION: 1. Mild atelectasis in right lower lung zone. Brain MRI 07/15/22 12:29 IMPRESSION: 1. 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 2. Extensive nonspecific cerebral white matter disease and pontine disease, which likely represents chronic small vessel ischemic disease. Head/Neck CTA 07/15/22 12:41 IMPRESSION: 1. 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 2. Extensive nonspecific cerebral white matter disease, which likely represents chronic small vessel ischemic disease. 3. No aneurysm or significant intracranial arterial stenosis. 4. 0% stenosis of the proximal internal carotid arteries relative to normal distal artery lumen diameters (NASCET criteria). Carotid Doppler Study 07/15/22 14:06 IMPRESSION: 1. <50% stenosis in the right internal carotid artery. 2. <50% stenosis in the left internal carotid artery. 3. Arrhythmia.
--- NOTE | 2022-07-16 14:36 | ECG_ITS ---
Measurements Intervals [place] Rate: 88 P: 87 CA: 147 QRS: -12 QRSD: 92 T: 127 QT: 358 QTc: 434 Interpretive Statements SINUS RHYTHM WITH SINUS ARRHYTHMIA INCOMPLETE RIGHT BUNDLE BRANCH BLOCK LEFT VENTRICULAR HYPERTROPHY AND ST-T CHANGE [VOLTAGE CRITERIA PLUS ST/T ABNORMALITY] COMPARED TO ECG 07/14/2022 22:20:41 SINUS ARRHYTHMIA NOW PRESENT Electronically Signed On 07-17-2022 14:37:47 CDT by Khoi Quiñonez M.D.
--- NOTE | 2022-07-16 14:53 | PCRCNOTE ---
Spoke with Pt. and about CPAP; Pt. wears one at home but doesn't want to borrow one of our units as they think Pt. is being discharged today.
[2022-07-16 14:56] VITALS: BP 110/44; PULSE 84; RESP 18; TEMP 36.2; O2SAT 94
--- NOTE | 2022-07-16 15:13 | PM.CNCAR ---
Assessment and Plan Assessment and plan (1) Stroke: Code(s): I63.9 - Cerebral infarction, unspecified Status: Acute Assessment and Plan: New small right thalamic stroke, improving. Thought to be secondary to small-vessel disease due to hypertension Evaluate for paroxysmal atrial fibrillation Agree with adding Plavix to aspirin, adding lisinopril, atorvastatin (2) Irregular heartbeat: Code(s): I49.9 - Cardiac arrhythmia, unspecified Status: Acute Assessment and Plan: irregular heartbeats have been noted. EKG is and telemetry show APCs, no atrial fibrillation Recommend home telemetry monitoring for 2 weeks for a longer Winter of observation for underlying PAF. Okay for discharge; my office will call to arrange for outpatient monitoring. (3) APC (adenomatous polyposis coli): Code(s): D12.6 - Benign neoplasm of colon, unspecified Status: Acute Assessment and Plan: Frequent asymptomatic APCs noted. Can be a precursor for paroxysmal atrial fibrillation (4) Hypertension: Code(s): I10 - Essential (primary) hypertension Status: Acute Assessment and Plan: No prior history of hypertension but blood pressure was high on this admission Improved with the addition of lisinopril. OPT FU w/ Dr. Dinh History of Present Illness History of Present Illness Consult date/time: 07/16/22 15:13 Reason For Visit: R Sided Weakness Narrative: Olivia Li 26-year-old female whom I was asked to see at the request of Dr. Puckett for my advice and opinion regarding her irregular heart rhythm and recent stroke, in consultation. History of HTN and dementia. Ms Li presented with symptoms of L facial/hand numbness and ataxia, noted to have left facial droop, concerning for acute stroke. MRI confirmed acute R thalamic stroke. Blood pressure was running 170s-212/70s/ 115 in the emergency room and has gradually improved. Etiology likely small vessel disease due to uncontrolled HTN per neurologist Dr. Mac. Plavix with added to her usual aspirin, and atorvastatin was added. However she was noted to have an irregular heart beats. No history of palpitations, hypertension, diabetes, hyperlipidemia, heart disease, chest pain. Some ABDI. Review of Systems Constitutional: Constitutional: Denies fever(s) ENT: Denies epistaxis Cardiovascular: Cardiovascular: Denies chest pain, Denies pedal edema, Denies lightheadedness and Denies dyspnea Respiratory: Respiratory: Denies chest congestion, Denies dyspnea and Reports dyspnea on exertion ( mild ABDI walking.) Gastrointestinal: Gastrointestinal: Denies abdominal pain and Denies hematochezia Genitourinary: Genitourinary: Denies hematuria and Denies dysuria Musculoskeletal: Musculoskeletal: Reports no additional musculoskeletal complaints Integumentary/Breasts: Skin/Breast: Reports system reviewed and no additional complaints, except as docu and Reports unusual bruising ( Had a bruise on her right ankle a few weeks ago on certain cause) Neurologic: Reports system reviewed and no additional complaints, except as documented, Denies behavioral changes and Reports confusion ( diagnosed with dementia about 3 years ago) Psychiatric: Psychiatric: Denies behavioral changes and Denies confusion [facility] Past Medical History Medical History (Updated 07/16/22 @ 15:59 by Adalgisa Hunt MD) APC (adenomatous polyposis coli) Dementia Hypertension Sleep apnea Transient global amnesia Surgical History Surgical History H/O abdominal hysterectomy 2004 H/O breast surgery 1967 H/O tubal ligation 1979 History of ankle surgery History of surgery on arm 2016 Family History Family History Father Malignant neoplasm of prostate Mother Bone cancer Sibling Parkinson disease Other Demen
[2022-07-16 16:00] VITALS: PULSE 79
[2022-07-16 17:04] VITALS: BP 128/68; PULSE 81
--- NOTE | 2022-07-16 17:15 | PM.DS ---
DS: Admitting Diagnosis Discharge Date 07/16/22 Admitting Diagnosis (1) Right facial numbness: ?Code(s): R20.0 - Anesthesia of skin ?Status:?Acute (2) Lip numbness: ?Code(s): R20.0 - Anesthesia of skin ?Status:?Acute (3) Dementia: ?Code(s): F03.90 - Unspecified dementia, unspecified severity, without behavioral disturbance, psychotic disturbance, mood disturbance, and anxiety ?Status:?Acute (4) Unspecified lesions of oral mucosa: ?Code(s): K13.70 - Unspecified lesions of oral mucosa ?Status:?Acute DS: Discharge Diagnosis Discharge Diagnosis (1) Hypertension: Code(s): I10 - Essential (primary) hypertension Status: Acute (2) APC (adenomatous polyposis coli): Code(s): D12.6 - Benign neoplasm of colon, unspecified Status: Acute (3) Irregular heartbeat: Code(s): I49.9 - Cardiac arrhythmia, unspecified Status: Acute (4) Stroke: Code(s): I63.9 - Cerebral infarction, unspecified Status: Acute (5) Dementia: Code(s): F03.90 - Unspecified dementia, unspecified severity, without behavioral disturbance, psychotic disturbance, mood disturbance, and anxiety Status: Acute DS: Summary Hospital Course Reason for hospitalization: Chief Complaint: lips, face, and finger numbness Narrative: 76yo F w h/o dementia is brought to the ER by her spouse. Pt and her went out for breakfast and on their way back to the car to leave, she suddenly reported periorbital numbness of her lips face and fingers on both hands. Pt tells me she felt her bottom lip was swollen too. They went home that night, cooked dinner together but her was concerned for stroke and decided to seek medical condition. Pts symptoms have completely resolved at the time of my interview. Pt has a hx of Global Transient Amnesia and takes a baby aspirin daily. No prior episodes like this. Hospital Course: 76 yo F presenting w sensory changes. At the time of my evaluation entire lip surfaces upper and lower with b/l finger numbness of both hands is reported. This appears to be a different story than R sided facial numbness reported to ER. Pt w dementia. admit for TIA/CVA rule out neuro monitoring VS per protocol US carotids ECHO w bubble MRI brain asa statin cont home meds neuro consult 07/16/2022 + small right thalamic stroke, patient noted to have arrhythmia on ultrasound cardiology has been consulted. She does have some PVCs but no atrial fibrillation has been identified and she is cleared for discharge home in stable condition with indications to follow-up with the pamphlet distributor office for an event monitor. Additionally, directions have been given for her to follow-up with primary care physician and neurologist. Status at Discharge Functional status at discharge: independent ambulation Time Spent with Patient Time attestation: Total time spent providing and/or coordinating discharge services: Exam Narrative: Narrative:?? 76 yo female of a pparent age lying in bed without dis tress Const:?? General: comfortab le HENMT:?? Face/Nose/Sinus: N ormal nares presen t? Mouth: Yes mois t mucous membranes ? Other: L interio r lower lip w smal l area of erythema appears to be tra umatic Eyes:?? General: appearanc e normal, both eye s and all related structures? Sclera : sclerae normal? EOM: EOMs intact b ilaterally Neck:?? Neck: no JVD? Silva tids: no bruits Chest:?? Other: S1S2 irregu lar rhythm, regula
== END 2022-07-16 17:54 | disposition home or self-care (01) ==
LOC: ANHED 07-15 00:51 → ANH2MED 07-15 01:25
PROVIDERS: Admitting Provider Hospitalist; Emergency Provider Preventive Medicine Aerospace Medicine; PCP Family Medicine; Visit Provider Hospitalist
DX: I63.9 Cerebral infarction, unspecified (principal); I10 Essential (primary) hypertension; D12.6 Benign neoplasm of colon, unspecified; I07.1 Rheumatic tricuspid insufficiency; G45.4 Transient global amnesia; I45.10 Unspecified right bundle-branch block; I49.9 Cardiac arrhythmia, unspecified; J98.11 Atelectasis; R90.82 White matter disease, unspecified; K13.70 Unspecified lesions of oral mucosa; R20.2 Paresthesia of skin; R47.01 Aphasia; G30.9 Alzheimer's disease, unspecified; F02.80 Dementia in other diseases classified elsewhere, unspecified severity, without behavioral disturbance, psychotic disturbance, mood disturbance, and anxiety; Z91.81 History of falling; G47.30 Sleep apnea, unspecified; R29.701 NIHSS score 1; Z81.8 Family history of other mental and behavioral disorders; Z79.82 Long term (current) use of aspirin; Z79.899 Other long term (current) drug therapy
CPT/HCPCS: 36415; 70450; 70496; 70498; 70551; 71045; 80053; 82948; 84484; 85025; 85610; 85730; 93005; 93880; 96374; 96375; 99285; A9270; C8929; G0378; Q9957; Q9967

== ENCOUNTER 2023-11-24 09:09 | Emergency (ER) | payer MEDICARE, SELFPAY ==
--- NOTE | ~2023-11-24 | CT_ITS ---
EXAMINATION: CT brain wo con DATE: 11/24/2023 11:24 INDICATION: -2 weeks of dizziness. Hypertension. TECHNIQUE: Computed tomography (CT) of the head was performed without intravenous contrast. Sagittal and coronal reconstructions were performed. The mA was adjusted according to patient size. Iterative reconstruction technique was employed. The dose-length product was 605.33 mGy-cm. COMPARISON: head CT dated and CTA and MRI of the brain dated 07/15/2022 FINDINGS: No acute intracranial hemorrhage, acute infarction or abnormal extra axial fluid collection. Small ol d lacunar infarcts at the right thalamus and left caudate nucleus. There is moderate scattered white matter hypoattenuation consistent with chronic small vessel ischemic disease. Symmetric prominence of the sulci and ventricles consistent with mild age-appropriate diffuse cerebral volume loss. No mass/ mass effect. Intracranial calcified cerebral atherosclerosis is noted. The orbits, paranasal sinuses and mastoid air cells are normal. IMPRESSION: 1. No acute intracranial process. 2. Small old lacunar infarcts at the right thalamus and left caudate nucleus. 3. Age-related changes including mild diffuse volume loss and moderate scattered white matter hypoatt enuation consistent with chronic small vessel ischemic disease. Reviewed, dictated and finalized at location A. TATION INSPECTOR IMPRESSION: 1. No acute intracranial process. 2. Small old lacunar infarcts at the right thalamus and left caudate nucleus. 3. Age-related changes including mild diffuse volume loss and moderate scattere d white matter hypoattenuation consistent with chronic small vessel ischemic di sease.
--- NOTE | ~2023-11-24 | CT_ITS ---
EXAMINATION: CT diagnostic chest w con DATE: 11/24/2023 13:15 INDICATION: Cough and dizziness TECHNIQUE: Transaxial computed tomographic images of the chest were obtained after the administration of 75 cc of Omnipaque 350 intravenous contrast. The dose-length product (DLP) was 305.63 mGy-cm. Ite rative reconstruction was used. COMPARISON: Chest radiograph from today FINDINGS: There are minimal airspace opacities of the lower lobes, middle lobe, and lingula. No corre late is identified for the masslike opacity described on today's chest radiograph. No pathologically enlarged thoracic lymph nodes are identified. The heart size is normal. Calcified coronary artery ath erosclerosis is noted. There is severe thoracic spondylosis. There is a 5.2 cm cyst of the left kidne y. No pleural effusion or pneumothorax. IMPRESSION: 1. Minimal opacities of the mid and lower lung zones, consistent with atelectasis. 2. No abnormality to correlate with the finding on today's chest radiograph. Finding likely reflects pulmonary vasculature viewed en face. Reviewed, dictated and finalized at location B. TRIC VEHICLE ELECTRICIAN IMPRESSION: 1. Minimal opacities of the mid and lower lung zones, consistent with atelectas is. 2. No abnormality to correlate with the finding on today's chest radiograph. Fi nding likely reflects pulmonary vasculature viewed en face.
--- NOTE | ~2023-11-24 | XR_ITS ---
EXAMINATION: XR chest 2V DATE: 11/24/2023 11:28 INDICATION: Cough and dizziness TECHNIQUE: frontal and lateral views of the chest were obtained. COMPARISON: Chest radiograph dated 07/14/2022 FINDINGS: Several very small patchy airspace opacities in the left lower lung zone suspicious for pneumonia. Sm all calcified nodule in the left lower lung zone with calcified left hilar lymph nodes consistent wit h old granulomatous disease. There is an approximately 3.2 cm masslike opacity projecting over the ri ght heart without evident correlate on the lateral radiograph is indeterminate etiology. No pulmonary edema, pleural effusion or pneumothorax. Heart size is normal. Mild lower thoracic levocurvature wit h severe spondylosis. IMPRESSION: 1. Several very small patchy airspace opacities in the left lower lung zone suspicious for pneumonia. 2. Indeterminate 3.2 cm masslike opacity projecting over the right heart without correlate on the lat eral projection. Would recommend chest CT, preferably with contrast, for further evaluation. Reviewed, dictated and finalized at location A. ERY TECHNICIAN IMPRESSION: 1. Several very small patchy airspace opacities in the left lower lung zone wesley picious for pneumonia. 2. Indeterminate 3.2 cm masslike opacity projecting over the right heart withou t correlate on the lateral projection. Would recommend chest CT, preferably wit h contrast, for further evaluation.
[2023-11-24 09:13] VITALS: BP 180/76; PULSE 77; RESP 18; TEMP 36.2; O2SAT 100
[2023-11-24 10:47] VITALS: BP 162/88; PULSE 80; PULSE 87; RESP 16; O2SAT 98
--- NOTE | 2023-11-24 10:59 | ECG_ITS ---
Measurements Intervals [place] Rate: 74 P: 78 ND: 174 QRS: -9 QRSD: 102 T: 152 QT: 405 QTc: 451 Interpretive Statements SINUS RHYTHM POSSIBLE RIGHT VENTRICULAR CONDUCTION DELAY [RSR (QR) IN V1/V2] LEFT VENTRICULAR HYPERTROPHY AND ST-T CHANGE [VOLTAGE CRITERIA PLUS ST/T ABNORMALITY] VERSUS NONCARDIAC ISCHEMIA ABNORMAL ECG COMPARED TO ECG 07/16/2022 14:48:25 NO SIGNIFICANT CHANGES Electronically Signed On 11-24-2023 18:30:18 METAL CONTROL COORDINATOR by Kirk Carlson M.D.
--- NOTE | 2023-11-24 11:03 | ED.GENADULT ---
HPI - General Adult General Chief complaint: Dizziness Stated complaint: dizzy Time Seen by Provider: 11/24/23 10:43 History of Present Illness HPI narrative: Olivia Li is a 78 y/o female who presents today with her . states pt does have a hx of Dementia and he states that for about a week she keeps getting episodes of dizziness that vary in severity. He states that he has noticed that it comes on when she is up walking to the bathroom and he has to help assist her to walk because she feels dizzy. He has not noticed any unilateral weakness, shes been eating and drinking well - he states she has not complained of any chest pain - he thinks she might be a little winded on exertion. He states that she did complain of a headache this morning and he noticed her b/p to be elevated. Related Data Home Medications Medication Instructions Recorded Confirmed aspirin 81 mg chewable tablet 81 mg PO DAILY 11/01/20 07/15/22 cholecalciferol (vitamin D3) 25 25 mcg PO DAILY 11/01/20 07/15/22 mcg (1,000 unit) capsule multivitamin 1 tablet PO DAILY 11/01/20 07/15/22 Allergies Allergy/AdvReac Type Severity Reaction Status Date / Time No Known Allergies Allergy Verified 11/24/23 10:43 Review of Systems Review of Systems: CONSTITUTIONAL: Denies fever, chills, or sweats. EYES: Denies visual changes, redness, or discharge. ENT: Denies rhinorrhea, congestion, sore throat, or otalgia. CARDIOVASCULAR: Denies chest pain, palpitations, or edema. RESPIRATORY: Denies cough or dyspnea. GASTROINTESTINAL: Denies abdominal pain, nausea, vomiting, or diarrhea. GENITOURINARY: Denies dysuria or hematuria. SKIN: Denies rash or itching. MUSCULOSKELETAL: Denies back pain, joint pain, or myalgia. NEUROLOGIC: Denies headache, numbness, + dizziness with exertion PSYCHIATRIC: Denies anxiety or depression. [facility] Past Medical History Medical History APC (adenomatous polyposis coli) Dementia Hypertension Sleep apnea Transient global amnesia Surgical History Surgical History H/O abdominal hysterectomy 2004 H/O breast surgery 1967 H/O tubal ligation 1979 History of ankle surgery History of surgery on arm 2016 Family History Family History Father Malignant neoplasm of prostate Mother Bone cancer Sibling Parkinson disease Other Dementia Social History Social History Social History: lives with Smoking status: Never smoker Second hand tobacco smoke exposure: No Alcohol intake: never Substance use: never Substance use type: does not use Lack of Transportation: No Lack of Food: Never True Current Housing: I Have Housing Concerned About Future Housing: No Difficulty Paying Gas/Electric Bills: No Difficulty Paying for Meds: No Currently Unemployed: No Education: Bachelor's Degree Difficulty w/ Childcare or Family Care: No Living arrangements: with family Gender identity (if verbalized by the patient): Female Spiritual care concerns: No Agree to blood products: Yes Exam Narrative: GENERAL: Well-appearing, well-nourished, and in no acute distress. HEAD: Normocephalic, atraumatic. EYES: PERRLA and EOMI. ENT: Nares clear, no rhinorrhea or epistaxis. Mucous membranes moist. Oropharynx without tonsillar hypertrophy exudate or other lesions. NECK: Supple. No adenopathy or masses. No carotid bruits or JVD CHEST: Clear to auscultation. No respiratory distress. No wheezes rales or rhonchi HEART: Regular rate and rhythm. No murmur heard. Normal peripheral pulses. ABDOMEN: Soft, nontender, nondistended, normal active bowel sounds. EXTREMITIES: Normal range of motion. No edema. SKIN: Warm, dry, no rash. NEURO: No focal deficits. Alert and oriented x3. PSYCH
[2023-11-24] MEDS: MECLIZINE HCL 25 MG TABLET PO (11:35)
[2023-11-24] MEDS: LACTATED RINGERS 1,000 ML 999 ML IV CONT (11:36)
[2023-11-24 11:44] LABS: Glucose Point of Care 85 mg/dl (65-105)
[2023-11-24 11:46] LABS: Basophils Percent Auto 0.4 % (0.2-1.2); Eosinophils Absolute Auto 0.2 K/mm3 (0-0.3); Eosinophils Percent Auto 2.4 % (0-4.4); Hematocrit 45.2 % (37.0-47.0); Hemoglobin 14.4 g/dL (12.0-15.0); Immature Granulocyte Absolute 0.02 K/mm3 (0.00-0.031); Immature Granulocyte Percent A 0.3 % (0-0.5); Lymphocytes Absolute Auto 1.71 K/mm3 (0.9-3.2); Lymphocytes Percent Auto 22.5 % (18.3-44.2); Mean Corpuscular HGB Conc 31.9 g/dl (32-36); Mean Corpuscular Hemoglobin 29.1 pg (26-34); Mean Corpuscular Volume 91.5 fl (80-100); Mean Platelet Volume 10.2 fl (7.4-10.4); Monocytes Absolute Auto 0.5 K/mm3 (0.1-0.6); Monocytes Percent Auto 6.4 % (2.6-8.5); Neutrophils Absolute Auto 5.2 K/mm3 (1.3-6.7); Platelet Count Result 263 k/mm3 (150-375); Red Blood Count 4.94 M/mm3 (4.2-5.4); Red Cell Distribution Width 14.4 % (11.5-14.5); White Blood Count 7.6 K/mm3 (4.5-10.0)
[2023-11-24 11:58] LABS: Alanine Aminotransferase 18 U/L (6-35); Albumin Level 4.2 g/dL (3.5-5.1); Alkaline Phosphatase 83 U/L (38-126); Anion Gap 2 mmol/L (8-16); Aspartate Amino Transferase 22 U/L (14-36); Bilirubin,Total 0.7 mg/dL (0.2-1.3); Blood Urea Nitrogen 15 mg/dL (7-17); Calcium 9.7 mg/dL (8.4-10.2); Carbon Dioxide 33 mmol/L (22-30); Chloride 105 mmol/L (98-107); Estimated Glomerular Filt Rate > 60; Glucose 96 mg/dL (65-110); Lipase 162 U/L (23-300); Sodium 140 mmol/L (137-145)
[2023-11-24 11:59] LABS: Lactic Acid Reflex 0.9 mmol/L (0.7-2.0)
[2023-11-24 12:01] LABS: Glucose Point of Care 78 mg/dl (65-105)
[2023-11-24 12:08] LABS: Troponin I < 0.012 ng/mL (0.000-0.034)
[2023-11-24 12:17] VITALS: BP 178/98; PULSE 72; RESP 18; O2SAT 100
[2023-11-24 12:40] VITALS: BP 197/105; PULSE 78; RESP 24; O2SAT 100
--- NOTE | 2023-11-24 12:43 | PC.NURSE ---
Fouzia De La Vega APRN gave VORB for pt to take 10mg lisinopril PO that brought from home
[2023-11-24 12:50] LABS: Appearance Urine Clear (Clear); Bilirubin Urine Negative (Negative); Blood Urine Negative (Negative); Color Urine Yellow (Yellow); Glucose Urine UA Negative (Negative); Ketones Urine Negative (Negative); Leukocyte Esterase Ur Negative LEU/UL (Negative); Nitrate Urine Negative (Negative); Protein Urine Negative (Negative); Specific Grav Ur 1.006 (1.001-1.035); pH Urine 7.5 (5.0-9.0)
[2023-11-24 12:55] LABS: Add Urine Microscopic? NO
[2023-11-24 14:17] VITALS: BP 161/90; PULSE 76; RESP 19; O2SAT 100
[2023-11-24 14:55] VITALS: BP 161/90; PULSE 77; RESP 15; TEMP 36.8; O2SAT 100
--- NOTE | 2023-11-24 17:05 | PCCCNOTE ---
CC called to the ED for home health referral for this pt. Pt given the options according to her insurance and they chose [facility]. Her PCP, Dr. Virgil Bryant, was notified and agreed to follow her home health orders. Referral was sent to [facility] and I spoke with Zuri, the contact for them. Abraham is Mimi' POA and ) whose phone number I gave to her as well. He would like to be contacted as soon as possible. I left a message with him, and I will try to call him back on Friday, however they may contact him tomorrow. Their availability isn't until Friday or Friday this week.
== END 2023-11-24 14:57 | disposition home or self-care (01) ==
PROVIDERS: Emergency Provider Nurse Practitioner Family; PCP Family Medicine
DX: R42 Dizziness and giddiness (principal); I10 Essential (primary) hypertension; F03.90 Unspecified dementia, unspecified severity, without behavioral disturbance, psychotic disturbance, mood disturbance, and anxiety; G47.30 Sleep apnea, unspecified; Z90.710 Acquired absence of both cervix and uterus; Z79.82 Long term (current) use of aspirin; R94.31 Abnormal electrocardiogram [ECG] [EKG]; I51.7 Cardiomegaly
CPT/HCPCS: 36415; 70450; 71046; 71260; 80053; 81003; 82948; 83605; 83690; 84484; 85025; 93005; 96360; 99284; A9270; J7120; Q9967

== ENCOUNTER 2023-12-26 13:09 | Emergency (ER) | payer MEDICARE, SELFPAY ==
--- NOTE | 2023-12-26 13:12 | ECG_ITS ---
Measurements Intervals [place] Rate: 92 P: 100 [place]: 145 QRS: -5 QRSD: 109 T: 72 QT: 361 QTc: 447 Interpretive Statements SINUS RHYTHM INCOMPLETE RIGHT BUNDLE BRANCH BLOCK LEFT VENTRICULAR HYPERTROPHY AND ST-T CHANGE BORDERLINE ST-T WAVE ABNORMALITY- ANTEROLATERAL LEADS BASELINE ARTIFACT- I, III, AVR, AVL, AVF, V1-V6 BORDERLINE ECG COMPARED TO ECG 11/24/2023 11:50:15 NO SIGNIFICANT CHANGES Electronically Signed On 12-26-2023 13:50:58 CDT by Bill Nugent D.O.
[2023-12-26 13:30] VITALS: BP 113/91; PULSE 91; RESP 16; TEMP 36.7; O2SAT 100
[2023-12-26 13:32] VITALS: BP 113/94; PULSE 94; RESP 17; TEMP 36.4
[2023-12-26 13:33] LABS: Basophils Percent Auto 0.3 % (0.2-1.2); Eosinophils Absolute Auto 0.1 K/mm3 (0-0.3); Hematocrit 43.2 % (37.0-47.0); Hemoglobin 13.9 g/dL (12.0-15.0); Immature Granulocyte Absolute 0.04 K/mm3 (0.00-0.031); Immature Granulocyte Percent A 0.6 % (0-0.5); Lymphocytes Absolute Auto 1.59 K/mm3 (0.9-3.2); Lymphocytes Percent Auto 23.1 % (18.3-44.2); Mean Corpuscular HGB Conc 32.2 g/dl (32-36); Mean Corpuscular Hemoglobin 29.6 pg (26-34); Mean Corpuscular Volume 91.9 fl (80-100); Mean Platelet Volume 10.3 fl (7.4-10.4); Monocytes Absolute Auto 0.5 K/mm3 (0.1-0.6); Monocytes Percent Auto 6.7 % (2.6-8.5); Neutrophils Absolute Auto 4.6 K/mm3 (1.3-6.7); Neutrophils Percent Auto 67.3 % (45.5-73.1); Platelet Count Result 227 k/mm3 (150-375); Red Cell Distribution Width 14.5 % (11.5-14.5); White Blood Count 6.9 K/mm3 (4.5-10.0)
[2023-12-26 13:48] LABS: Alanine Aminotransferase 18 U/L (6-35); Albumin Level 4.2 g/dL (3.5-5.1); Alkaline Phosphatase 78 U/L (38-126); Anion Gap 4 mmol/L (8-16); Aspartate Amino Transferase 26 U/L (14-36); Bilirubin,Total 0.7 mg/dL (0.2-1.3); Blood Urea Nitrogen 24 mg/dL (7-17); Calcium 9.8 mg/dL (8.4-10.2); Carbon Dioxide 30 mmol/L (22-30); Chloride 107 mmol/L (98-107); Estimated CRCL calculation 33 ml/min; Estimated Glomerular Filt Rate 43; Glucose 142 mg/dL (65-110); Potassium 3.9 mmol/L (3.4-5.0); Sodium 141 mmol/L (137-145)
[2023-12-26] MEDS: ONDANSETRON INJ 4 MG/2 ML VIAL IV PUSH (13:59)
[2023-12-26] MEDS: SODIUM CHLORIDE 0.9% IV 1,000 ML 999 ML IV CONT (14:37)
[2023-12-26 14:38] VITALS: BP 117/71; PULSE 91; RESP 20; TEMP 36.6; O2SAT 93
[2023-12-26 15:15] VITALS: BP 149/99; PULSE 86; RESP 20; TEMP 36.4; O2SAT 96
[2023-12-26 16:00] VITALS: BP 120/80; PULSE 80; RESP 16; TEMP 36.8; O2SAT 98
--- NOTE | 2023-12-26 16:00 | PC.NURSE ---
ambulated in without c/o dizziness or weakness
--- NOTE | 2023-12-26 16:15 | ED.SYNCOPE ---
HPI - Syncope General Chief Complaint: Syncope Stated Complaint: r/o cva Time Seen by Provider: 12/26/23 13:12 History of Present Illness HPI narrative: This is a 78-year-old female, with history of dementia, brought to the emergency department after a rapid response on the floor. The patient states she was visiting her who is currently admitted. She denied chest pain, shortness of breath, though felt lightheaded and lost consciousness. Nursing staff with the patient notes she was found slumped in the chair. She responded to verbal stimulus but appeared to be mumbling. Fingerstick glucose reported at 165. In route to the emergency department the patient became more appropriately responsive and oriented. Related Data Home Medications Medication Instructions Recorded Confirmed aspirin 81 mg chewable tablet 81 mg PO DAILY 11/01/20 07/15/22 cholecalciferol (vitamin D3) 25 25 mcg PO DAILY 11/01/20 07/15/22 mcg (1,000 unit) capsule multivitamin 1 tablet PO DAILY 11/01/20 07/15/22 Allergies Allergy/AdvReac Type Severity Reaction Status Date / Time No Known Allergies Allergy Verified 12/24/23 14:52 Review of Systems Review of Systems: CONSTITUTIONAL: Denies fever, chills, or sweats. CARDIOVASCULAR: Denies chest pain, palpitations, or edema. RESPIRATORY: Denies cough or dyspnea. GASTROINTESTINAL: Denies abdominal pain, nausea, vomiting, or diarrhea. GENITOURINARY: Denies dysuria or hematuria. SKIN: Denies rash or itching. MUSCULOSKELETAL: Denies back pain, joint pain, or myalgia. NEUROLOGIC: Denies headache, numbness, dizziness, or weakness. PSYCHIATRIC: Denies anxiety or depression. [facility] Past Medical History Medical History (Updated 12/26/23 @ 17:14 by Lang Albert MD) Alzheimer disease APC (adenomatous polyposis coli) Dementia Hypertension Sleep apnea Transient global amnesia Surgical History Surgical History H/O abdominal hysterectomy 2004 H/O breast surgery 1967 H/O tubal ligation 1979 History of ankle surgery History of surgery on arm 2016 Family History Family History Father Malignant neoplasm of prostate Mother Bone cancer Sibling Parkinson disease Other Dementia Social History Social History Social History: lives with Smoking status: Never smoker Second hand tobacco smoke exposure: No Alcohol intake: never Substance use: never Substance use type: does not use Lack of Transportation: No Lack of Food: Never True Current Housing: I Have Housing Concerned About Future Housing: No Difficulty Paying Gas/Electric Bills: No Difficulty Paying for Meds: No Currently Unemployed: No Education: Bachelor's Degree Difficulty w/ Childcare or Family Care: No Living arrangements: with family Gender identity (if verbalized by the patient): Female Spiritual care concerns: No Agree to blood products: Yes Exam Narrative: GENERAL: Well-developed, well-nourished, and in no acute distress. HEAD: Normocephalic, atraumatic. EYES: PERRLA and EOMI. ENT: Nares clear, no rhinorrhea or epistaxis. Mucous membranes dry. Oropharynx without tonsillar hypertrophy exudate or other lesions. CHEST: Clear to auscultation. No respiratory distress. No wheezes rales or rhonchi HEART: Regular rate and rhythm. No murmur heard. Normal peripheral pulses. ABDOMEN: Soft, nontender, nondistended, normal active bowel sounds. EXTREMITIES: Normal range of motion. No edema. SKIN: Warm, dry, no rash. NEURO: Alert and oriented x3. No focal deficit. Moving all 4 limbs spontaneously PSYCH: Normal mood and affect. Course Course Emergency Course: 15:58 - Chemistries demonstrate creatinine 1.2 with a baseline of 0.8. The patient was given IV fluids with significant improvement in mental
== END 2023-12-26 16:30 | disposition home or self-care (01) ==
PROVIDERS: Emergency Provider Preventive Medicine Aerospace Medicine; PCP Family Medicine
DX: E86.0 Dehydration (principal); N17.9 Acute kidney failure, unspecified; R55 Syncope and collapse; G30.9 Alzheimer's disease, unspecified; F02.80 Dementia in other diseases classified elsewhere, unspecified severity, without behavioral disturbance, psychotic disturbance, mood disturbance, and anxiety; I10 Essential (primary) hypertension; G47.30 Sleep apnea, unspecified; Z79.82 Long term (current) use of aspirin; Z90.710 Acquired absence of both cervix and uterus; I45.10 Unspecified right bundle-branch block; R94.31 Abnormal electrocardiogram [ECG] [EKG]; I51.7 Cardiomegaly
CPT/HCPCS: 36415; 80053; 85025; 93005; 96361; 96374; 99284; J2405; J7030

== ENCOUNTER 2024-08-17 10:05 | Emergency (ER) | payer MEDICARE, SELFPAY ==
--- NOTE | 2024-08-17 10:34 | ED_ITS ---
HPI - General Adult General Chief complaint: Urogenital-Female Stated complaint: possible dehydration / possible UTI Time Seen by Provider: 08/17/24 10:35 Mode of arrival: ambulatory Related Data Home Medications Medication Instructions Recorded Confirmed aspirin 81 mg chewable tablet 81 mg PO DAILY 11/01/20 07/13/24 Allergies Allergy/AdvReac Type Severity Reaction Status Date / Time No Known Allergies Allergy Verified 07/13/24 08:18 [facility] Past Medical History Medical History Alzheimer disease APC (adenomatous polyposis coli) Hypertension Increase in creatinine Sleep apnea Stroke Transient global amnesia Surgical History Surgical History H/O abdominal hysterectomy 2004 H/O breast surgery 1967 H/O tubal ligation 1978 History of ankle surgery History of surgery on arm 2015 Family History Family History Father Malignant neoplasm of prostate Mother Bone cancer Sibling Parkinson disease Other Dementia Social History Social History Social History: lives with Smoking status: Never smoker Second hand tobacco smoke exposure: No Alcohol intake: never Substance use: never Substance use type: does not use Lack of Transportation: No Lack of Food: Never True Current Housing: I Have Housing Concerned About Future Housing: No Difficulty Paying Gas/Electric Bills: No Difficulty Paying for Meds: No Currently Unemployed: No Education: Bachelor's Degree Difficulty w/ Childcare or Family Care: No Living arrangements: with family Gender identity (if verbalized by the patient): Female Spiritual care concerns: No Agree to blood products: Yes Comments At the time of my signature, I reviewed and agree with the nursing past medical, surgical, social, and family history. There is no relevant family history pertinent to the patient complaint. Exam Const: General: cooperative, comfortable and no acute distress Course Course Emergency Course: Patient presented with and adult son. Presented with concerns for a UTI and dehydration. Went into examine patient, she was in the rest room attempting to give a urine sample. Patient was unable to give urine sample. I explained to and son that we do not do blood work and unable to do IV fluids. Adult son stated we might as well move on. A complete exam was not done due to patient trying to urinate and then patient leaving with family. patient walking Unable to obtain urine sample Level of Care: Express Care Visit Vital Signs Vital signs: Vital Signs Temperature 97.5 F L 08/17/24 10:41 Pulse Rate 87 08/17/24 10:41 Respiratory Rate 16 08/17/24 10:41 Blood Pressure 134/74 08/17/24 10:41 Pulse Oximetry 98 08/17/24 10:41 Oxygen Delivery Room Air 08/17/24 10:41 Temperature 97.5 F L 08/17/24 10:41 Pulse Rate 87 08/17/24 10:41 Respiratory Rate 16 08/17/24 10:41 Blood Pressure 134/74 08/17/24 10:41 Pulse Oximetry 98 08/17/24 10:41 Oxygen Delivery Room Air 08/17/24 10:41 Reviewed Medical Decision Making MDM Narrative Medical decision making narrative: Patient presented with family with concerns for dehydration UTI. Unable to obtain urine sample Family with patient left prior to doing exam. Some parts of this dictation were generated by voice recognition software and may contain typographical and/or grammatical inaccuracies. Medical Records Medical records reviewed: Yes I reviewed the external patient's medical records. Vital Signs Vital Signs: Vital Signs Temperature 97.5 F L 08/17/24 10:41 Pulse Rate 87 08/17/24 10:41 Respiratory Rate 16 08/17/24 10:41 Blood Pressure 134/74 08/17/24 10:41 Pulse Oximetry 98 08/17/24 10:41 Oxygen Delivery Room Air 08/17/24 10:41 Temperature 97.5 F L 08/17/24 10:41 Pulse Rate 87 08/17/24 10:41 Respiratory Rate 16 08/17/24 10:41 Blood Pressure 134/74 08/17/24 10:41 Pulse Oximetry 98 08/17/24 10:41 Oxygen Delivery Room Air 08/17/24 10:41 Reviewed Lab Data Labs: Reviewed Critical Care Time Critical Care Time Critical Care Time: No Discharge Plan Discharge Patient Disposition: Left Without Being Seen Prescriptions: No Action aspirin 81 mg tablet,chewable 81 mg PO DAILY atorvastatin 40 mg tablet 40 mg PO DAILY Qty: 90 1RF donepezil 10 mg tablet 10 mg PO DAILY Qty: 90 0RF memantine 10 mg tablet 10 mg PO BID Qty: 180 0RF lisinopril 10 mg tablet 10 mg PO DAILY Qty: 90 0RF Follow-up/Referrals: Radha Harper APN-C [Primary Care Provider] -
[2024-08-17 10:41] VITALS: BP 134/74; PULSE 87; RESP 16; TEMP 36.4; O2SAT 98
== END 2024-08-17 10:50 | disposition left against medical advice (07) ==
LOC: EXPTROY 10:12
PROVIDERS: Emergency Provider Nurse Practitioner; PCP Nurse Practitioner Family
DX: Z53.21 Procedure and treatment not carried out due to patient leaving prior to being seen by health care provider (principal)
CPT/HCPCS: 99199

== ENCOUNTER 2024-08-17 14:07 | Emergency (ER) | payer MEDICARE, SELFPAY ==
[2024-08-17] VITALS (13 sets, daily range): BP systolic 132–174; BP diastolic 88–97; PULSE 80–119; RESP 18–26; TEMP 36.4–37; O2SAT 99–100
--- NOTE | ~2024-08-17 | CT_ITS ---
EXAMINATION: CT brain wo con DATE: 08/17/2024 14:50 INDICATION: Altered mental status. TECHNIQUE: Computed tomography (CT) of the head was performed without intravenous contrast. The mA wa s adjusted according to patient size. Iterative reconstruction technique was employed. The dose-lengt h product was 605.33 mGy-cm. COMPARISON: Head CT 11/24/2023 FINDINGS: There are scattered areas of low attenuation in the cerebral white matter. There are old in farcts in the bilateral basal ganglia and right thalamus. There is no intracranial hemorrhage, acute infarction, or abnormal intracranial mass lesion. The ventricles are normal in size. The orbits are n ormal. There is mucosal thickening in the paranasal sinuses. There is a trace right mastoid effusion. IMPRESSION: 1. Old lacunar infarcts in the bilateral basal ganglia and right thalamus. 2. Stable extensive nonspecific cerebral white matter disease, which likely represents chronic small vessel ischemic disease. Reviewed, dictated and finalized at location A. [employer] DANCER IMPRESSION: 1. Old lacunar infarcts in the bilateral basal ganglia and right thalamus. 2. Stable extensive nonspecific cerebral white matter disease, which likely rep resents chronic small vessel ischemic disease.
--- NOTE | ~2024-08-17 | XR_ITS ---
EXAMINATION: XR chest 2V DATE: 08/17/2024 14:57 INDICATION: Cough, weakness and confusion TECHNIQUE: frontal and lateral views of the chest were obtained. COMPARISON: Chest radiograph and CT dated 11/24/2023 FINDINGS: Mildly decreased lung volumes. Mild bibasilar opacities including bandlike discoid atelectasis extend ing across the dome of the right hemidiaphragm. No pleural effusion or pneumothorax. Heart size is no rmal. Mild lower thoracic levoscoliosis and partially visualized mild lumbar dextroscoliosis with sev ere spondylosis. IMPRESSION: 1. Decreased lung volumes and mild bibasilar opacities, most likely atelectasis although differential includes pneumonia. Reviewed, dictated and finalized at location B. P DIRECTOR EXPERIENCE
--- NOTE | 2024-08-17 14:31 | ED_ITS ---
HPI - Altered Mental Status General Chief Complaint: Altered Mental Status <Susana Nicholas PA-C - Last Filed: 08/18/24 11:04> Stated Complaint: unsteady gait, AMS? LKW 3 days ago? <Susana Nicholas PA-C - Last Filed: 08/18/24 11:04> Time Seen by Provider: 08/17/24 14:32 <Susana Nicholas PA-C - Last Filed: 08/18/24 11:04> Focused HPI: This is a 79 year old female that presents to the ER for worsening confusion. Ongoing over the last couple of days. Reports she is just not herself . Not sleeping well. Reports urine has a foul smell. GENERAL: Elderly, well-nourished, and in no acute distress. HEAD: Normocephalic, atraumatic. CHEST: Clear to auscultation. ?No respiratory distress. HEART: Regular rate and rhythm.? NEURO: ?Alert and oriented x1. Patient screened in triage and initial orders placed.? ?Additional care and disposition to be based upon?diagnostic testing and treatment. <Susana Nicholas PA-C - Last Filed: 08/18/24 11:04> History of Present Illness HPI narrative: agree with HPI. Has been reports patient has dry cough. Sleeping more than typical. No known sick contacts. <Niko Bledsoe MD - Last Filed: 08/17/24 21:14> Related Data Home Medications: Home Medications Medication Instructions Recorded Confirmed aspirin 81 mg chewable tablet 81 mg PO DAILY 11/01/20 07/13/24 <Susana Nicholas PA-C - Last Filed: 08/18/24 11:04> Allergies/Adverse Reactions: Allergies Allergy/AdvReac Type Severity Reaction Status Date / Time No Known Allergies Allergy Verified 08/17/24 14:08 <Susana Nicholas PA-C - Last Filed: 08/18/24 11:04> Review of Systems Review of Systems: ROS unobtainable: Yes unobtainable due to mental status <PANTERA Epstein Last Filed: 08/18/24 11:04> PMFSH Past Medical History Medical History: Medical History Alzheimer disease APC (adenomatous polyposis coli) Hypertension Increase in creatinine Sleep apnea Stroke Transient global amnesia <Susana Nicholas PA-C - Last Filed: 08/18/24 11:04> Surgical History Surgical History: Surgical History H/O abdominal hysterectomy 2004 H/O breast surgery 1967 H/O tubal ligation 1979 History of ankle surgery History of surgery on arm 2015 <Susana Nicholas PA-C - Last Filed: 08/18/24 11:04> Family History Family History: Family History Father Malignant neoplasm of prostate Mother Bone cancer Sibling Parkinson disease Other Dementia <PANTERA Epstein Last Filed: 08/18/24 11:04> Social History Social History: Social History Social History: lives with Smoking status: Never smoker Second hand tobacco smoke exposure: No Alcohol intake: never Substance use: never Substance use type: does not use Lack of Transportation: No Lack of Food: Never True Current Housing: I Have Housing Concerned About Future Housing: No Difficulty Paying Gas/Electric Bills: No Difficulty Paying for Meds: No Currently Unemployed: No Education: Bachelor's Degree Difficulty w/ Childcare or Family Care: No Living arrangements: with family Gender identity (if verbalized by the patient): Female Spiritual care concerns: No Agree to blood products: Yes <Susana Nicholas PA-C - Last Filed: 08/18/24 11:04> Exam Narrative: GENERAL: Chronically ill-appearing, well-nourished, and in no acute distress. HEAD: Normocephalic, atraumatic. ENT: Mucous membranes moist. CHEST: Clear to auscultation. No respiratory distress. HEART: Regular rate and rhythm. Normal peripheral pulses. ABDOMEN: Soft, nontender, nondistended. EXTREMITIES: Normal range of motion. No edema. SKIN: Warm, dry, no rash. NEURO: Alert and oriented x 1. ambulates with a steady gait. PSYCH: Normal mood and affect. <Niko Bledsoe MD - Last Filed: 08/17/24 21:14> Course Course Emergency Course: patient hydrated with 1 L normal saline. Up and ambulatory. No hypoxia while walking. Lab work reassuring. Urinalysis without infection. Patient is COVID positive. Will place on Paxlovid. <Niko Bledsoe MD - Last Filed: 10/17/23 21:14> Vital Signs Vital signs: Vital Signs Temperature 97.6 F 08/17/24 14:12 Pulse Rate 85 08/17/24 14:12 Respiratory Rate 18 08/17/24 14:12 Blood Pressure 163/97 H 08/17/24 14:12 Pulse Oximetry 100 08/17/24 14:12 Oxygen Delivery Room Air 08/17/24 14:12 Temperature 98.6 F 08/17/24 21:51 Pulse Rate 98 08/17/24 21:51 Respiratory Rate 20 08/17/24 21:51 Blood Pressure 146/88 H 08/17/24 21:51 Pulse Oximetry 99 08/17/24 21:51 Oxygen Delivery Room Air 08/17/24 14:12 <Susana Nicholas PA-C - Last Filed: 08/18/24 11:04> Vital Signs Temperature 97.6 F 08/17/24 14:12 Pulse Rate 85 08/17/24 14:12 Respiratory Rate 18 08/17/24 14:12 Blood Pressure 163/97 H 08/17/24 14:12 Pulse Oximetry 100 08/17/24 14:12 Oxygen Delivery Room Air 08/17/24 14:12 Temperature 98.6 F 08/17/24 21:51 Pulse Rate 98 08/17/24 21:51 Respiratory Rate 20 08/17/24 21:51 Blood Pressure 146/88 H 08/17/24 21:51 Pulse Oximetry 99 08/17/24 21:51 Oxygen Delivery Room Air 08/17/24 14:12 <Niko Bledsoe MD - Last Filed: 08/17/24 21:14> MDM - Altered Mental Status Lab Data Result diagrams: 08/17/24 15:17 08/17/24 15:17 <Susana Nicholas PA-C - Last Filed: 08/18/24 11:04> Labs: Lab Results 08/17/24 08/17/24 Range/Units 15:17 18:27 WBC 8.6 (4.5-10.0) K/mm3 RBC 4.63 (4.2-5.4) M/mm3 Hgb 13.7 (12.0-15.0) g/dL Hct 42.7 (37.0-47.0) % MCV 92.2 (80-100) fl MCH 29.6 (26-34) pg MCHC 32.1 (32-36) g/dl RDW 15.1 H (11.5-14.5) % Plt Count 233 (150-375) k/mm3 MPV 10.3 (7.4-10.4) fl Immature Gran % (Auto) 0.2 (0-0.5) % Neut % (Auto) 64.3 (45.5-73.1) % Lymph % (Auto) 19.9 (18.3-44.2) % [place] % (Auto) 14.9 H (2.6-8.5) % Eos % (Auto) 0.2 (0-4.4) % Baso % (Auto) 0.5 (0.2-1.2) % Lymph # (Auto) 1.71 (0.9-3.2) K/mm3 [place] # (Auto) 1.3 H (0.1-0.6) K/mm3 Eos # (Auto) 0.0 (0-0.3) K/mm3 Baso # (Auto) 0.0 (0.0-0.1) K/mm3 Abs Immat Gran (auto) 0.02 (0.00-0.031) K/mm3 Absolute Neuts (auto) 5.5 (1.3-6.7) K/mm3 Absolute Nucleated RBC 0.000 (0.0-0.012) K/mm3 Nucleated RBC % 0.0 (0.0-0.2) % PT 13.2 (11.1-14.7) Seconds INR 1.0 APTT 26.6 (22.3-36.8) Seconds Sodium 137 (137-145) mmol/L Potassium 3.8 (3.4-5.0) mmol/L Chloride 103 (98-107) mmol/L Carbon Dioxide 27 (22-30) mmol/L Anion Gap 7 (4-12) mmol/L BUN 17 (7-17) mg/dL Creatinine 0.90 (0.7-1.0) mg/dL Estim Creat Clear Calc Not Reportable Estimated GFR 60 (59 - ) Glucose 99 (65-110) mg/dL Calcium 9.1 (8.4-10.2) mg/dL Total Bilirubin 0.7 (0.2-1.3) mg/dL AST 21 (14-36) U/L ALT 14 (6-35) U/L Alkaline Phosphatase 84 (38-126) U/L Total Protein 8.0 (6.3-8.2) g/dL Albumin 4.3 (3.5-5.1) g/dL Urine Color Yellow (Yellow) Urine Appearance Cloudy H (Clear) Urine pH 5.5 (5.0-9.0) Ur Specific [place] 1.021 (1.001-1.035) Urine Protein Trace (Negative) mg/dL Urine Glucose (UA) Negative (Negative) mg/dL Urine Ketones Trace H (Negative) mg/dL Ur Blood (Man) Negative (Negative) Urine Nitrate Negative (Negative) Urine Bilirubin Negative (Negative) Urine Urobilinogen 1.0 (<2.0) mg/dL Add Ur Microanalysis Reviewed Leukocyte Esterase Rfl Negative (Negative) RAFITA/UL Urine RBC 0-2 (0-2) /hpf Urine WBC 0-5 (0-3) /hpf Ur Squamous Epith Cells None seen (Few) /hpf Urine Bacteria None seen /hpf Urine Casts 0-2 Influenza A (RT-PCR) Negative (Negative) Influenza B (RT-PCR) Negative (Negative) RSV (RT-PCR) Negative (Negative) SARS-CoV-2 RNA (RT-PCR) Positive A (Negative) <Susana Nicholas PA-C - Last Filed: 08/18/24 11:04> Lab Results 08/17/24 08/17/24 Range/Units 15:17 18:27 WBC 8.6 (4.5-10.0) K/mm3 RBC 4.63 (4.2-5.4) M/mm3 Hgb 13.7 (12.0-15.0) g/dL Hct 42.7 (37.0-47.0) % MCV 92.2 (80-100) fl MCH 29.6 (26-34) pg MCHC 32.1 (32-36) g/dl RDW 15.1 H (11.5-14.5) % Plt Count 233 (150-375) k/mm3 MPV 10.3 (7.4-10.4) fl Immature Gran % (Auto) 0.2 (0-0.5) % Neut % (Auto) 64.3 (45.5-73.1) % Lymph % (Auto) 19.9 (18.3-44.2) % [place] % (Auto) 14.9 H (2.6-8.5) % Eos % (Auto) 0.2 (0-4.4) % Baso % (Auto) 0.5 (0.2-1.2) % Lymph # (Auto) 1.71 (0.9-3.2) K/mm3 [place] # (Auto) 1.3 H (0.1-0.6) K/mm3 Eos # (Auto) 0.0 (0-0.3) K/mm3 Baso # (Auto) 0.0 (0.0-0.1) K/mm3 Abs Immat Gran (auto) 0.02 (0.00-0.031) K/mm3 Absolute Neuts (auto) 5.5 (1.3-6.7) K/mm3 Absolute Nucleated RBC 0.000 (0.0-0.012) K/mm3 Nucleated RBC % 0.0 (0.0-0.2) % PT 13.2 (11.1-14.7) Seconds INR 1.0 APTT 26.6 (22.3-36.8) Seconds Sodium 137 (137-145) mmol/L Potassium 3.8 (3.4-5.0) mmol/L Chloride 103 (98-107) mmol/L Carbon Dioxide 27 (22-30) mmol/L Anion Gap 7 (4-12) mmol/L BUN 17 (7-17) mg/dL Creatinine 0.90 (0.7-1.0) mg/dL Estim Creat Clear Calc Not Reportable Estimated GFR 60 (59 - ) Glucose 99 (65-110) mg/dL Calcium 9.1 (8.4-10.2) mg/dL Total Bilirubin 0.7 (0.2-1.3) mg/dL AST 21 (14-36) U/L ALT 14 (6-35) U/L Alkaline Phosphatase 84 (38-126) U/L Total Protein 8.0 (6.3-8.2) g/dL Albumin 4.3 (3.5-5.1) g/dL Urine Color Yellow (Yellow) Urine Appearance Cloudy H (Clear) Urine pH 5.5 (5.0-9.0) Ur Specific [place] 1.021 (1.001-1.035) Urine Protein Trace (Negative) mg/dL Urine Glucose (UA) Negative (Negative) mg/dL Urine Ketones Trace H (Negative) mg/dL Ur Blood (Man) Negative (Negative) Urine Nitrate Negative (Negative) Urine Bilirubin Negative (Negative) Urine Urobilinogen 1.0 (<2.0) mg/dL Add Ur Microanalysis Reviewed Leukocyte Esterase Rfl Negative (Negative) RAFITA/UL Urine RBC 0-2 (0-2) /hpf Urine WBC 0-5 (0-3) /hpf Ur Squamous Epith Cells None seen (Few) /hpf Urine Bacteria None seen /hpf Urine Casts 0-2 Influenza A (RT-PCR) Negative (Negative) Influenza B (RT-PCR) Negative (Negative) RSV (RT-PCR) Negative (Negative) SARS-CoV-2 RNA (RT-PCR) Positive A (Negative) <Niko Bledsoe MD - Last Filed: 08/17/24 21:14> Imaging Data Radiologist's impression: ITS Impressions Head CT 08/17/24 14:51 IMPRESSION: 1. Old lacunar infarcts in the bilateral basal ganglia and right thalamus. 2. Stable extensive nonspecific cerebral white matter disease, which likely represents chronic small vessel ischemic disease. Chest X-Ray 08/17/24 15:07 IMPRESSION: 1. Decreased lung volumes and mild bibasilar opacities, most likely atelectasis although differential includes pneumonia. <Niko Bledsoe MD - Last Filed: 08/17/24 21:14> ECG Data EKG #1: ECG completion date: 08/17/24 <Niko Bledsoe MD - Last Filed: 08/17/24 21:14> ECG completion time: 15:10 <Niko Bledsoe MD - Last Filed: 08/17/24 21:14> EKG Interpretation: normal rate (89), sinus rhythm, non-specific ST changes, normal QRS, normal QT and NL axis <Niko Bledsoe MD - Last Filed: 08/17/24 21:14> Critical Care Time Critical Care Time Critical Care Time: No <Susana Nicholas PA-C - Last Filed: 08/18/24 11:04> Discharge Plan Discharge Clinical Impression: COVID <Susana Nicholas PA-C - Last Filed: 08/18/24 11:04> Patient Disposition: Home, Self-Care <Susana Nicholas PA-C - Last Filed: 08/18/24 11:04> Condition: Stable <Susana Nicholas PA-C - Last Filed: 08/18/24 11:04> Instructions: COVID-19 (Coronavirus Disease 2019) (ED) <Susana Nicholas PA-C - Last Filed: 08/18/24 11:04> Additional Instructions: You have a COVID infection. Make sure to stay hydrated. Take Tylenol for fever. Take Paxlovid to help with recovery. return to the ER if you are having increased weakness or shortness of breath, you cannot keep down food /water / medication, or you have additional concerns. <Susana Nicholas PA-C - Last Filed: 08/18/24 11:04> Prescriptions: New Paxlovid 300 mg (150 mg x 2)-100 mg tablets,dose pack See Rx Instructions .ROUTE .COMPLEX Qty: 30 0RF Rx Instructions: take TWO 150 mg tablets of nirmatrelvir with ONE 100 mg tablet of ritonavir twice daily for 5 days Held atorvastatin 40 mg tablet 40 mg PO DAILY Qty: 90 1RF Hold Instructions: Hold until finishing Paxlovid No Action aspirin 81 mg tablet,chewable 81 mg PO DAILY donepezil 10 mg tablet 10 mg PO DAILY Qty: 90 0RF memantine 10 mg tablet 10 mg PO BID Qty: 180 0RF lisinopril 10 mg tablet 10 mg PO DAILY Qty: 90 0RF <Susana Nicholas PA-C - Last Filed: 08/18/24 11:04> Follow-up/Referrals: Radha Harper APN-C [Primary Care Provider] - 1 Week <Susana Nicholas PA-C - Last Filed: 08/18/24 11:04>
--- NOTE | 2024-08-17 14:33 | ECG_ITS ---
Test Date: 2024-08-17 15:10:47 Measurements Intervals [place] Rate: 89 P: 72 CT: 148 QRS: 9 QRSD: 94 T: 149 QT: 365 QTc: 446 Interpretive Statements SINUS RHYTHM WITH SINUS ARRHYTHMIA INCOMPLETE RIGHT BUNDLE BRANCH BLOCK LEFT VENTRICULAR HYPERTROPHY AND ST-T CHANGE BORDERLINE T WAVE ABNORMALITY- ANTEROLATERAL LEADS BASELINE ARTIFACT- I, II, III, AVR, AVL, V5-V6 BORDERLINE ECG No previous ECG available for comparison Electronically Signed On 08-17-2024 15:41:15 [employer] by Bill Nugent D.O.
[2024-08-17 15:27] LABS: Basophils Percent Auto 0.5 % (0.2-1.2); Eosinophils Percent Auto 0.2 % (0-4.4); Hematocrit 42.7 % (37.0-47.0); Hemoglobin 13.7 g/dL (12.0-15.0); Immature Granulocyte Absolute 0.02 K/mm3 (0.00-0.031); Immature Granulocyte Percent A 0.2 % (0-0.5); Lymphocytes Absolute Auto 1.71 K/mm3 (0.9-3.2); Lymphocytes Percent Auto 19.9 % (18.3-44.2); Mean Corpuscular HGB Conc 32.1 g/dl (32-36); Mean Corpuscular Hemoglobin 29.6 pg (26-34); Mean Corpuscular Volume 92.2 fl (80-100); Mean Platelet Volume 10.3 fl (7.4-10.4); Monocytes Absolute Auto 1.3 K/mm3 (0.1-0.6); Monocytes Percent Auto 14.9 % (2.6-8.5); Neutrophils Absolute Auto 5.5 K/mm3 (1.3-6.7); Neutrophils Percent Auto 64.3 % (45.5-73.1); Platelet Count Result 233 k/mm3 (150-375); Red Blood Count 4.63 M/mm3 (4.2-5.4); Red Cell Distribution Width 15.1 % (11.5-14.5); White Blood Count 8.6 K/mm3 (4.5-10.0)
[2024-08-17 15:42] LABS: Alanine Aminotransferase 14 U/L (6-35); Albumin Level 4.3 g/dL (3.5-5.1); Alkaline Phosphatase 84 U/L (38-126); Anion Gap 7 mmol/L (4-12); Aspartate Amino Transferase 21 U/L (14-36); Bilirubin,Total 0.7 mg/dL (0.2-1.3); Blood Urea Nitrogen 17 mg/dL (7-17); Calcium 9.1 mg/dL (8.4-10.2); Carbon Dioxide 27 mmol/L (22-30); Chloride 103 mmol/L (98-107); Estimated Glomerular Filt Rate 60; Glucose 99 mg/dL (65-110); Potassium 3.8 mmol/L (3.4-5.0); Sodium 137 mmol/L (137-145)
[2024-08-17 16:02] LABS: Influenza A QL RT-PCR Negative (Negative); Influenza B QL RT-PCR Negative (Negative); RSV RNA, RT-PCR Negative (Negative); SARS-CoV-2 RNA PCR Positive (Negative)
[2024-08-17 16:06] LABS: Prothrombin Time 13.2 Seconds (11.1-14.7)
[2024-08-17 16:07] LABS: Partial Thromboplastin Time 26.6 Seconds (22.3-36.8)
[2024-08-17] MEDS: SODIUM CHLORIDE 0.9% IV 1,000 ML 999 ML IV CONT (18:37)
[2024-08-17 19:02] LABS: Add Urine Microscopic? YES; Appearance Urine Cloudy (Clear); Bacteria Urine None Seen /hpf; Bilirubin Urine Negative (Negative); Blood Urine Negative (Negative); Color Urine Yellow (Yellow); Glucose Urine UA Negative (Negative); Ketones Urine Trace mg/dL (Negative); Leukocyte Esterase Ur Negative LEU/UL (Negative); Need Manual Microscopic Reviewed; Nitrate Urine Negative (Negative); Non Pathogenic Casts 0-2; Protein Urine Trace mg/dL (Negative); RBC Urine 0-2 /hpf (0-2); Specific Grav Ur 1.021 (1.001-1.035); Squamous Epithelial Cell Urine None Seen /hpf (Few); WBC Urine 0-5 /hpf (0-3); pH Urine 5.5 (5.0-9.0)
== END 2024-08-17 21:54 | disposition home or self-care (01) ==
PROVIDERS: Physician Assistant; Emergency Provider Emergency Medicine; PCP Nurse Practitioner Family
DX: U07.1 COVID-19 (principal); G30.9 Alzheimer's disease, unspecified; F02.80 Dementia in other diseases classified elsewhere, unspecified severity, without behavioral disturbance, psychotic disturbance, mood disturbance, and anxiety; I10 Essential (primary) hypertension; G47.30 Sleep apnea, unspecified; Z86.73 Personal history of transient ischemic attack (TIA), and cerebral infarction without residual deficits; R90.82 White matter disease, unspecified; I45.10 Unspecified right bundle-branch block; Z90.710 Acquired absence of both cervix and uterus; Z79.82 Long term (current) use of aspirin; Z79.899 Other long term (current) drug therapy; R94.31 Abnormal electrocardiogram [ECG] [EKG]; I51.7 Cardiomegaly
CPT/HCPCS: 36415; 70450; 71046; 80053; 81001; 85025; 85610; 85730; 87637; 93005; 96360; 99284; J7030

== ENCOUNTER 2025-06-24 09:48 | Emergency (ER) | payer MEDICARE, SELFPAY ==
--- OUTSIDE RECORDS SUMMARY | 2025-06-24 09:51 | XMS_ITS | Clinical Summary ---
Author Organization [facility] Address [address] [place] [address] Care Team Providers Care Telecommunications Facility Examiner Name Role Phone Yana Cleary [facility] Primary Care Provider + Allergies No known active allergies Medications fish oil 1000 MG Cap capsule Take 1 capsule by mouth daily. Active Multiple Vitamin (MULTI-VITAMIN DAILY OR) Active aspirin 81 MG tablet Take 1 tablet by mouth daily. 06/29/2014 Active Cholecalciferol (VITAMIN D3) 50 MCG (2000 UT) Cap Active donepezil 10 MG TabIndications: Mild cognitive disorder Take 1 tablet (10 mg total) by mouth nightly at bedtime. 90 tablet 1 04/13/2020 Active clorazepate 3.75 MG tabletIndicatio ns:Migraine aura, persistent Take one and a half pills twice a day as needed for Migraine. 60 tablet 05/05/2020 Active Active Problems Problem Noted Date Diagnosed Date Migraine aura, persistent 05/27/2018 Obstructive sleep apnea syndrome, severe 018 Overview (04/13/2020): Onset: 01/09/2018; Annotation - [id number]: CPAP 12 Insomnia 12/02/2017 Memory difficulties 12/02/2017 Neuroforaminal stenosis of cervical spine 2016 Numbness and tingling of right upper extremity 0 04/15/2017 Shoulder pain, right 04/15/2017 Osteoporosis, postmenopausal 12/20/2015 Acid reflux disease 06/29/2014 Synovial cyst 01/05/2014 Overview (04/13/2020): Impression - [id number] Sharona Collins: right wrist Hyperlipidemia 07/14/2013 Hypertension 07/14/2013 Menopausal symptoms 07/14/2013 Immunizations Immunization Administration Dates Next Due Fluarix 07/06/2015 Fluzone High Dose - >Age 65 (Prefilled Syringe) 07/09/2019,06/20/2018,06/24/2017,2015 Influenza (Generic) 06/25/2017,07/08/2013,2011 Influenza Adult (Generic) 07/10/2020,07/04/2014 MODERNA COVID-19 (12+) MRNA, LNP-S, PF, 100 MCG/ 0.5 ML DOSE 12/15/2020,11/17/2020 Pneumococcal (Pneumovax 23) 05/08/2011 Pneumococcal (Prevnar 13) 12/20/2015 Tdap (Generic) 08/17/2012 Zoster (Zostavax) 00882 Unt/0.65Ml 01/08/2012 Family History Medical History Relation Comments Alcohol Abuse Brother Heart Disease Brother Parkinson's Disease Brother Cancer Father prostate ca Parkinson's Disease Maternal Grandfather Cancer Mother bone ca Dementia Paternal Uncle Breast Cancer Neg Hx Relation Status Comments Brother Alive Daughter Alive Father Maternal Grandfather Mother Paternal Uncle Sister Alive Son Alive Social History Tobacco Use Types Packs/Day Years Used Date Smoking Tobacco: Never Smokeless Tobacco: Never Alcohol Use Standard Drinks/Week Comments Not Currently 0 (1 standard drink = 0.6 oz pur e alcohol) Comments No Sex and Gender Information Value Date Recorded Sex Assigned at Not on file Legal Sex Female 5:50 PM CDT Gender Identity Not on file Sexual Orientation Not on file Last Filed Vital Signs Vital Sign Reading Time Taken Comments Blood Pressure 146/60 04/13/2020 9:20 AM CDT Pulse 60 04/13/2020 9:20 AM CDT Temperature 36.7 C (98.1 F) 04/13/2020 9:20 AM CDT Respiratory Rate 20 04/13/2020 9:20 AM CDT Oxygen Saturation 96% 04/13/2020 9:20 AM CDT Inhaled Oxygen Concentration - - Weight 78.9 kg (174 lb) 04/13/2020 9:20 AM CDT Height 157.5 cm (5' 2) 04/13/2020 9:20 AM CDT Body Mass Index 31.83 04/13/2020 9:20 AM CDT Plan of Treatment Health Maintenance Due Date Last Done Comments Annual Medicare Wellness Visit 2009 Zoster Vaccines (2 of 3) 03/04/2012 01/08/2012 RSV Immunization or 60+ Years (1 - 1-dose 75+ series) 2019 DTaP, Tdap and Td Vaccines ( 2 - Td or Tdap) 08/17/2022 08/17/2012 COVID-19 Vaccine (3 - 2024-2 6 season) 2025 12/15/2020, 11/17/2020 Pneumococcal Vaccine: 50+ Years Completed 12/20/2015, 05/08/2011 Dexa Scan (General) Completed 11/02/2020, 12/22/2015 Meningococcal B Vaccine Aged Out No l onger eligible based on patient's age to complete this topic Meningococcal Vaccine Aged Out No james radha eligible based on patient's age to complete this topic RSV Immunizations Under 20 Months Aged Out No longer eligible b ased on patient's age to complete this topic Procedures Procedure Name Priority Date/Time Associated Diagnosis Comments BONE DENSITY/DEXA Routine 11/02/2020 1:3 5 PM HOT FRAME TENDER Post-menopausal from Last 3 Months or Most Recently Relevant to Health Maintenance Results * BONE DENSITY/DEXA (11/02/2020 1:35 PM HOT FRAME TENDER) Anatomical Region Laterality Modality Bone Bone Density 11/02/2020 1:37 PM HOT FRAME TENDER Impressions 11/02/2020 1:38 PM HOT FRAME TENDER IMPRESSION: LUMBAR SPINE L2-L4: BMD: 1.072 g/sq cm. T-score: -0.1. Prior T score: -1.5. WHO classification: Normal young adult range. Fracture risk: Very low fracture risk. FEMORAL NECK: BMD: 0.732 g/sq cm. T-score: -1.1. Prior T score: 0.8. WHO classification: Mild osteopenia. Fracture risk: Very low fracture risk. Interpreted By: Kurt Jasmine, 11/02/2020 1:37 PM Narrative 11/02/2020 1:38 PM HOT FRAME TENDER IMAGING STUDIES: BONE DENSITY/DEXA DATE: 11/02/2020 12:56 PM INDICATION: Osteoporosis. Asymptomatic menopausal state. COMPARISON:No comparison. Procedure Note Kurt Jasmine MD - 11/02/2020 IMAGING STUDIES: BONE DENSITY/DEXA DATE: 11/02/2020 12:56 PM INDICATION: Osteoporosis. Asymptomatic menopausal state. COMPARISON:No comparison. IMPRESSION: LUMBAR SPINE L2-L4: BMD: 1.072 g/sq cm. T-score: -0.1. Prior T score: -1.5. WHO classification: Normal young adult range. Fracture risk: Very low fracture risk. FEMORAL NECK: BMD: 0.732 g/sq cm. T-score: -1.1. Prior T score: 0.8. WHO classification: Mild osteopenia. Fracture risk: Very low fracture risk. Interpreted By: Kurt Jasmine, 11/02/2020 1:37 PM Alison Persaud MD DEXA Final Result from Last 3 Months or Most Recently Relevant to Health Maintenance Insurance AETNA Care Teams Telecommunications Facility Examiner Relationship Specialty Start Date End Date Yana Cleary, SUPERVISOR FACEPIECE LINE- [address] [place], [place] [id number] PCP - General NURSE PRACTITIONER 01/12/24
--- OUTSIDE RECORDS SUMMARY | 2025-06-24 09:51 | XMS_ITS | Clinical Summary ---
Author Organization [facility] Address [address] [place] [address] Care Team Providers Care Belt Tender Name Role Phone Mac Hensley MD Unavailable [phone] Virgil Bryant MD Primary Care Provider [phone] Allergies No known active allergies Medications donepeziL (ARICEPT) 5 mg tablet Take 1 tablet (5 mg total) by mouth daily with breakfast 30 tablet 6 0 Active lisinopriL (PRINIVIL,ZESTR IL) 10 mg tablet Take 1 tablet (10 mg total) by mouth daily 2 Active atorvastatin (LIPITOR) 40 mg tablet Take 1 tablet (40 mg total) by mouth daily 2 Active aspirin 81 mg enteric coated tablet Take 1 tablet (81 mg total) by mouth daily 4 Active memantine (NAMENDA) 10 mg tablet Take 1 tablet (10 mg total) by mouth 2 (two) times a day 2 Active Active Problems Problem Noted Date Diagnosed Date H/O: CVA (cerebrovascular accident) 03/02/2023 Abnormal patient-activated cardiac event monitor 03/02/2023 Essential hypertension 03/02/2023 BMI 32.0-32.9,adult 07/07/2019 Mild cognitive impairment 06/10/2019 H/O abdominal hysterectomy 05/16/2019 Obstructive sleep apnea 05/16/2019 Assessment & Plan (08/31/2024 10:11 AM LINE SERVICE SUPERVISOR): Patient continue to wear her CPAP at 13 cm water pressure while sleeping. Her DME is [facility] Assessment & Plan (06/01/2024 9:26 AM CDT): The patient has been successfully treated with CPAP at 12 cm water pressure for ongoing symptoms of HELEN. Her AHI is slightly elevated at 6.2. Her DME supplier in the past was [facility] in [facility]. I will have her sign a release so we can obtain a copy of her diagnostic nocturnal polysomnogram which occurred in December 2017 at [facility] in [facility]. I will order a new CPAP unit for her set at 13 cm water pressure through [facility] in [facility]. She will follow up here in 3 months. Transient global amnesia 05/16/2019 Overview (05/16/2019): resolved Surgical History Surgery Date Site/Laterality Comments HYSTERECTOMY N/A Medical History Medical History Date Comments Hypertension Stroke (HCC) Family History Medical History Relation Name Comments No Known Problems Father No Known Problems Mother Relation Name Status Comments Father Mother Social History Tobacco Use Types Packs/Day Years Used Date Smoking Tobacco: Never Smokeless Tobacco: Never Tobacco Cessation:Counseling Given: Not Answered AUDIT-C Answer Date Recorded Frequency of Alcohol Consumption Not on file 06/01/2024 Q2: How many drinks containi ng alcohol do you have on a typical day when you are drinking? Patient does not drink Frequency of Binge Drinking Not on file 05/07 Comments Unknown Sex and Gender Information Value Date Recorded Sex Assigned at Not on file Legal Sex Female 12:15 AM LINE SERVICE SUPERVISOR Gender Identity Not on file Sexual Orientation Not on file Obstetrics History Last Filed Vital Signs Vital Sign Reading Time Taken Comments Blood Pressure 150/82 08/31/2024 9:37 AM LINE SERVICE SUPERVISOR Pulse 86 08/31/2024 9:37 AM LINE SERVICE SUPERVISOR Temperature 36.2 C (97.1 F) 08/31/2024 9:37 AM LINE SERVICE SUPERVISOR Respiratory Rate 18 08/31/2024 9:37 AM LINE SERVICE SUPERVISOR Oxygen Saturation 98% 08/31/2024 9:37 AM LINE SERVICE SUPERVISOR Inhaled Oxygen Concentration - - Weight 78.9 kg (174 lb) 08/31/2024 9:37 AM LINE SERVICE SUPERVISOR Height 149.9 cm (4' 11) 08/31/2024 9:37 AM LINE SERVICE SUPERVISOR Body Mass Index 35.14 08/31/2024 9:37 AM LINE SERVICE SUPERVISOR Plan of Treatment Health Maintenance Due Date Last Done Comments Depression Screening 1944 Fall Risk Assessment 1944 Hepatitis B Screening 1962 Well Visit 65+ 2009 Zoster Vaccine (2 of 3) 03/04/2012 01/08/2012 DTaP/Tdap/Td Vaccine (2 - Td or Tdap) 08/17/2022 08/17/2012 Osteoporosis Screening-Bone Density Scan 11/02/2022 11/02/2020 Covid-19 Vaccine (3 - 2024-2 6 season) 2025 12/15/2020, 11/17/2020 Influenza Vaccine (#1) 2025 , 07/09/2019, 06/20/2018, Additional history exists Pneumococcal vaccine 65+ Completed 12/20/2015, 12/2010 Insurance UHC MEDICARE ADVANTAGE AENA MEDICARE AETNA MEDICARE Care Teams Belt Tender Relationship Specialty Start Date End Date Virgil Bryant MD [address] [place] [address] [id number] PCP - General Family Medicine 08/15/22 Mac Hensley MD [address] [place] [address] Referring Physician Neurology 07/07/19
--- OUTSIDE RECORDS SUMMARY | 2025-06-24 09:51 | XMS_ITS | Clinical Summary ---
Author Organization [facility] Address [address] [place] [address] Care Team Providers Care Passenger Train Braker Name Role Phone Sharona Collins MD Primary Care Provider [phone] Allergies No known active allergies Medications fish oil-omega-3 fatty acids 340-1,000 mg Capsule Take 1 Capsule by mouth daily. Active atorvastatin (LIPITOR) 40 mg tablet Take 40 mg by mouth daily. Active lisinopriL (PRINIVIL) 10 mg tablet Take 10 mg by mouth daily. Active memantine (NAMENDA) 10 mg Tablet Take 10 mg by mouth 2 times daily. Active donepeziL (ARICEPT) 10 mg tablet Take 1 Tablet by mouth daily. 05/23/2024 Active aspirin (ECOTRIN EC) 81 mg Tablet, Delayed Release (E.C.) Take 81 mg by mouth daily. Active vit A/vit C/vit E/zinc/copper (PRESERVISION AREDS ORAL) Take by mouth. Active Active Problems Problem Noted Date Diagnosed Date H/O: CVA (cerebrovascular accident) 03/02/2023 Mild cognitive impairment 06/10/2019 H/O abdominal hysterectomy 05/16/2019 Migraine aura, persistent 05/27/2018 Obstructive sleep apnea syndrome 01/09/2018 Overview (06/22/2024): Onset: 01/09/2018; Annotation - [id number]: CPAP 12 Insomnia 12/02/2017 Memory difficulties 12/02/2017 Numbness and tingling of right upper extremity 0 04/15/2017 Acid reflux disease 06/29/2014 Hyperlipidemia 07/14/2013 Essential hypertension 07/14/2013 Encounters Date Type Department Care Team Description 06/16/[address] [facility] Heart and Vascular - [phone] [facility] [phone] [facility] [address] [place] [phone] Anna Choe Appointment Verification 06/16/[address] [facility] Heart and Vascular - [phone] [facility] [phone] [facility] [address] [place] [address] Naomy Mac MD new pt referral 06/07/2025 External Device Data ST[facility] ABSTRACTION Provider, Abstract 05/25/2025 External Device Data [facility] ABSTRACTION Provider, Abstract 05/11/2025 External Device Data [facility] ABSTRACTION Provider, Abstract 04/25/2025 3:30 PM CDT Office Visit [facility] Neurology [phone] [facility] [address] [facility] [address] [place] [phone] Naomy Mac MD Severe Alzheimer's dementia, unspecified timing of dementia onset, unspecified whether behavioral, psychotic, or mood disturbance or anxiety (CMS/HCC); Gait instability; H/O: CVA (cerebrovascular accident); Atrial fibrillation, unspecified type (CMS/HCC); HELEN (obstructive sleep apnea) 04/20/2025 External Device Data ST[facility] ABSTRACTION Provider, Abstract 04/20/2025 External Device Data [facility] ABSTRACTION Provider, Abstract 04/19/2025 External Device Data [facility] ABSTRACTION Provider, Abstract from Last 3 Months Social History Tobacco Use Types Packs/Day Years Used Date Smoking Tobacco: Never Smokeless Tobacco: Never Tobacco Cessation:Counseling Given: Not Answered Alcohol Use Standard Drinks/Week Comments No 0 (1 standard drink = 0.6 oz pur e alcohol) Comments No Sex and Gender Information Value Date Recorded Sex Assigned at Not on file Legal Sex Female 1:57 PM CDT Gender Identity Not on file Sexual Orientation Not on file Last Filed Vital Signs Vital Sign Reading Time Taken Comments Blood Pressure 128/85 04/25/2025 3:24 PM CDT Pulse 67 04/25/2025 3:24 PM CDT Temperature 36.9 C (98.5 F) 07/06/2016 1:50 PM CDT Respiratory Rate 16 07/06/2016 1:50 PM CDT Oxygen Saturation 96% 10/26/2024 10:37 AM FIREMAN HELPER Inhaled Oxygen Concentration - - Weight 79.8 kg (176 lb) 04/25/2025 3:24 PM CDT Height 149.9 cm (4' 11) 04/25/2025 3:24 PM CDT Body Mass Index 35.55 04/25/2025 3:24 PM CDT Plan of Treatment Upcoming Encounters Date Type Department Care Team (Late st Contact Info) Description 04/25/2026 1:00 PM CDT Office Visit [facility] Neurology [address] [place] [phone] Naomy Mac MD [address] [place] [phone] Health Maintenance Due Date Last Done Comments ZOSTER VACCINE (2 of 3) 03/04/2012 01/08/2012 RSV VACCINE (60+ or ) (1 - 1-dose 75+ series) 2019 DTAP/TDAP/TD VACCINES (2 - T d or Tdap) 08/17/2022 08/17/2012 INFLUENZA VACCINE (#1) 2025 9, 06/20/2018, 06/24/2017, Additional history exists COVID-19 Vaccine (3 - 2024-2 6 season) 2025 12/15/2020, 11/17/2020 OSTEOPOROSIS SCREENING 11/02/2025 , 11/02/2020, 12/22/2015 PNEUMOCOCCAL VACCINE 50+ YEARS Completed 12/20/2015 , 05/08/2011 Medical Devices Implanted Type Area Air Analysis Engineering Technician Device Identifier Shelf Expiration Date Model / Serial / Lot Putty Dbx Dbm 1ml 51703 - [id number] Implanted:Qty: 1 on 07/06/2016 by Estefani Quinonez MD at [facility] Bone Left: Wrist MUSCULOSKELETAL TRANSPLANT FOU 01/28/2018 [id number] / [id number] / Description:po#[id number] Plate Lcp 5h 2.0mm 247.345 - [id number] Implanted:Qty: 1 on 07/06/2016 by Estefani Quinonez MD at [facility] Plate SYNTHES STRATEC 247.345 / / Plate Vdr Va-Lcp 2clmn 2.4mm 02.111.631 - Ssterilized July 05, 2016 And Load #27 Implanted:Qty: 1 on 07/06/2016 by Estefani Quinonez MD at [facility] Plate SYNTHES STRATEC 02.111.63 1 / STERILIZED 2015 AND LOAD #27 / Screw Va Loc Strdr 2.4x14mm 02.210.114 - Ssterilized July 05, 2016 And Load #27 Implanted:Qty: 1 on 07/06/2016 by Estefani Quinonez MD at [facility] Screw SYNTHES STRATEC 02.210.11 4 / STERILIZED 2015 AND LOAD #27 / Screw Va Loc Strdr 2.4x16mm 02.210.116 - Ssterilized July 05, 2016 And Load #27 Implanted:Qty: 2 on 07/06/2016 by Estefani Quinonez MD at [facility] Screw SYNTHES STRATEC 02.210.11 6 / STERILIZED 2015 AND LOAD #27 / Screw Va Loc Strdr 2.4x22mm 02.210.122 - Ssterilized July 05, 2016 And Load #27 Implanted:Qty: 3 on 07/06/2016 by Estefani Quinonez MD at [facility] Screw SYNTHES STRATEC 02.210.12 2 / STERILIZED 2015 AND LOAD #27 / Screw St T8 2.7x14mm 202.874 - Ssterilized July 05, 2016 And Load #27 Implanted:Qty: 3 on 07/06/2016 by Estefani Quinonez MD at [facility] Screw SYNTHES STRATEC 202.874 / STERILIZED 2015 AND LOAD #27 / Screw St 2.0x12mm 201.362.97 - [id number] Implanted:Qty: 2 on 07/06/2016 by Estefani Quinonez MD at [facility] Screw SYNTHES STRATEC 201.362.9 7 / / Screw St 2.0x14mm 201.364.97 - [id number] Implanted:Qty: 2 on 07/06/2016 by Estefani Quinonez MD at [facility] Screw SYNTHES STRATEC 201.364.9 7 / / Explanted Type Area Air Analysis Engineering Technician Device Identifier Shelf Expiration Date Model / Serial / Lot Screw St 2.0x10mm 201.360.97 - [id number] Implanted:Estefani Quinonez MD (Quantity not on file) Explanted:Qty: 1 on 07/06/2016 by Estefani Quinonez MD at [facility] Screw SYNTHES STRATEC 201.360.9 7 / / Wire K Trocar Pt [id number] 292.12 - Ssterilized July 05, 2016 And Load #27 Implanted:Estefani Quinonez MD (Quantity not on file) Explanted:Qty: 2 on 07/06/2016 by Estefani Quinonez MD at [facility] Wire SYNTHES STRATEC 292.12 / STERILIZED 2015 AND LOAD #27 / Insurance AETNA PPO MCR Advance Directives For more information, please contact: [phone] Documents on File Type Date Recorded Patient Search Engine Marketing Specialist Expl anation Advance Directive POA 07/06/2016 5:11 AM S EE ADVANCED DIRECTIVE Advance Directive Living Will 07/06/2016 5:10 AM Advance Directive Living Will Care Teams Passenger Train Braker Relationship Specialty Start Date End Date Sharona Collins MD PCP - General Internal Medicine 07/01/16
--- NOTE | 2025-06-24 10:02 | ED_ITS ---
HPI - Eye Problem General Chief complaint: Eye Problems Stated complaint: left eye problem Time Seen by Provider: 06/24/25 10:10 Source: patient, family, RN notes reviewed and old records reviewed Mode of arrival: ambulatory Limitations: no limitations History of Present Illness HPI Narrative: 79 year old female presents to [facility] care accompanied by spouse with complaints of left eye redness for the past 3 days.Patient has redness to the left lower eye lid with small raised rd lesion with some redness to the conjunctiva of her left eye. Patient reports no acute pain or changes in vision.No drainage noted from the left eye. Patient unable to perform visual acuity due to Alzheimers. chief complaint: eye redness Onset (ago): day(s) (3) Onset description: gradual Eye Symptoms: redness and other (swelling and lesion lower eyelid left eye) Severity: mild Treatments Prior to Arrival: none Related Data Home Medications ?Medication ?Instructions ?Recorded ?Confirmed ?Last Taken ?Type aspirin 81 mg chewable tablet 81 mg PO DAILY 11/01/20 06/24/25 Unknown History Allergies Allergy/AdvReac Type Severity Reaction Status Date / Time No Known Allergies Allergy Verified 06/24/25 10:06 Review of Systems Review of Systems: CONSTITUTIONAL: Denies fever, chills, or sweats. EYES: Denies visual changes. Reports redness,, irritation, to left lower eyelid with small red raised lesion ENT: Denies rhinorrhea, congestion, sore throat, or otalgia. CARDIOVASCULAR: Denies chest pain, palpitations, or edema. RESPIRATORY: Denies cough or dyspnea. SKIN: Denies rash or itching. NEUROLOGIC: Denies headache All systems reviewed & are unremarkable except as noted in HPI and below PMFSH Past Medical History Medical History Increase in creatinine Alzheimer disease Hypertension APC (adenomatous polyposis coli) Stroke Transient global amnesia Sleep apnea Surgical History Surgical History History of ankle surgery History of surgery on arm 2016 H/O abdominal hysterectomy 2005 H/O tubal ligation 1979 H/O breast surgery 1967 Family History Family History Father Malignant neoplasm of prostate Mother Bone cancer Sibling Parkinson disease Other Dementia Social History Social History Social History: lives with 05/24/25 very confident with medical forms Smoking status: Never smoker Second hand tobacco smoke exposure: No Alcohol intake: never Substance use: never Substance use type: does not use Lack of Transportation: No Lack of Food: Never True Current Housing: I Have Housing Concerned About Future Housing: No Difficulty Paying Gas/Electric Bills: No Difficulty Paying for Meds: No Currently Unemployed: No Education: High School Diploma/GED Difficulty w/ Childcare or Family Care: No Living arrangements: with family Gender identity (if verbalized by the patient): Female Spiritual care concerns: No Agree to blood products: Yes Comments At time of signature, agree with nursing past medical, surgical, social and family history. There is no relevant family history pertinent to the presenting complaint Exam Narrative: GENERAL: Well-appearing, well-nourished, and in no acute distress. HEAD: Normocephalic, atraumatic. EYES: PERRLA and EOMI. Upper and lower eyelids unremarkable to right eye Left eye has small red raised lesion on the lower eyelid mid aspect. No periorbital cellulitis noted. conjunctivae injected left eye ENT: Nares clear, no rhinorrhea or epistaxis. Mucous membranes moist.TM's normal throat pink with no swelling or drainage NECK: Supple.no lymphadenopathy CHEST: Clear to auscultation. No respiratory distress.SAO2 95% on room HEART: Regular rate and rhythm. No murmur heard. Normal peripheral pulses. SKIN: Warm, dry, no rash. NEURO: No focal deficits. Alert and pleasant has Alzheimer disease Course Course Emergency Course: Patient is aware of diagnosis, understands and agrees to treatment plan. Anticipatory guidance given. Patient agrees to follow-up as directed and is aware of reasons to seek care at the emergency department. Portions of this record may have been created with voice recognition software Level of Care: Express Care Visit Vital Signs Vital signs: Vital Signs Temperature 35.7 C L 06/24/25 10:03 Pulse Rate 75 06/24/25 10:03 Respiratory Rate 18 06/24/25 10:03 Blood Pressure 150/87 H 06/24/25 10:03 Pulse Oximetry 95 06/24/25 10:03 Oxygen Delivery Room Air 06/24/25 10:03 Temperature 35.7 C L 06/24/25 10:03 Pulse Rate 75 06/24/25 10:03 Respiratory Rate 18 06/24/25 10:03 Blood Pressure 150/87 H 06/24/25 10:03 Pulse Oximetry 95 06/24/25 10:03 Oxygen Delivery Room Air 06/24/25 10:03 Reviewed MDM - Eye Problem MDM Narrative Medical decision making narrative: Consideration of the following conditions may be warranted for the presenting problem, they are not final diagnoses: Bacterial conjunctivitis, allergic conjunctivitis, viral conjunctivitis, foreign body, blepharitis, chalazion, hordeolum, corneal abrasion.? Exam findings show no acute concerns or changes; patient is non-toxic appearing and is in no distress.? Patient is appropriate for outpatient treatment and follow-up. Differential Diagnosis Differential diagnosis: Likely conjunctivitis, subconjunctival hemorrhage and other (hordeoleum left lower eyelid) Medical Records Attestation: I reviewed the patient's medical records. Critical Care Time Critical Care Time Critical Care Time: No Discharge Plan Discharge Clinical Impression: Hordeolum externum left lower eyelid Patient Disposition: Home Condition: Stable Instructions: Antibiotic Jaleesa, Kym (ED) Additional Instructions: Cold compresses to the eyes for comfort May need warm compresses to remove debris in the morning When cleaning the eyes used a washcloth in one direction then change washcloths or use a cotton ball in one direction and then his cotton balls Eyedrops as directed--may be more soothing if left in the refrigerator Do not share medicine--do not touch the eye with the medicine Tylenol or ibuprofen for pain Avoid screen time--television, computer, tablet or phone. Also no reading or driving Follow-up with PCP or milling/polishing operator as directed if no improvement in 72 hours If your symptoms persist, change or worsen significantly before you can contact your personal physician then please, without delay, go to the emergency department for further evaluation. Follow-up with PCP in 7-10 days or sooner if needed Follow up with PCP soon in regards to your blood pressure which is elevated above threshold for referral. Blood pressure above 120/80 may indicate pre- hypertension. 150/ 87 Patient Language: Urdu Prescriptions: New ofloxacin 0.3 % drops See Rx Instructions .ROUTE .COMPLEX Qty: 10 0RF Rx Instructions: put 1-2 drps into affected eye(s) every 2-4 h x 2 days, then 1-2 drps 4 times/day days 3-7 No Action aspirin 81 mg tablet,chewable 81 mg PO DAILY atorvastatin 40 mg tablet 40 mg PO DAILY Qty: 90 1RF memantine 10 mg tablet 10 mg PO BID Qty: 180 0RF donepezil 10 mg tablet 10 mg PO DAILY Qty: 90 0RF lisinopril 10 mg tablet 10 mg PO DAILY Qty: 90 1RF Follow-up/Referrals: Radha Harper, PLASTIC PARTS FABRICATOR-C [Primary Care Provider, [facility]] Time of Disposition: 10:24 Quality Nini Coma Scale Eyes: Open Verbal: Oriented and Alert Motor: Follows Commands Neola Coma Total Score: 15
[2025-06-24 10:03] VITALS: BP 150/87; PULSE 75; RESP 18; TEMP 35.7; O2SAT 95
== END 2025-06-24 10:25 | disposition home or self-care (01) ==
PROVIDERS: Emergency Provider Registered Nurse; PCP Nurse Practitioner Family
DX: H00.015 Hordeolum externum left lower eyelid (principal); G30.9 Alzheimer's disease, unspecified; F02.80 Dementia in other diseases classified elsewhere, unspecified severity, without behavioral disturbance, psychotic disturbance, mood disturbance, and anxiety; I10 Essential (primary) hypertension; Z86.73 Personal history of transient ischemic attack (TIA), and cerebral infarction without residual deficits; Z79.82 Long term (current) use of aspirin
CPT/HCPCS: 99213; G0463

== ENCOUNTER 2025-07-21 19:09 | Inpatient (IN) | payer MEDICARE, SELFPAY ==
--- NOTE | ~2025-07-21 | CT_ITS ---
CT brain wo con HISTORY:fall, hi, dementia COMPARISON: None. TECHNIQUE: Axial images were obtained of the head without intravenous contrast. FINDINGS: No acute intracranial hemorrhage, mass effect or midline shift. No extra-axial fluid collections. There is extensive chronic white matter microangiopathic changes in the periventricular and subcortical white matter. Generalized atrophy is noted.Visualized paranasal sinuses and mastoid air cells are clear. IMPRESSION: No acute intracranial hemorrhage or extra axial fluid collections. Chronic white matter microangiopathic changes and generalized atrophy. All CT scans at this facility are performed using low dose modulation techniques as appropriate to perform exam including the following: automated exposure control; use of iterative reconstruction technique; adjustment of the mA and/or kV according to patient size (this includes techniques or standardized protocols for targeted exams where dose is matched to indication/reason for exam). Reviewed, dictated and finalized at location S. IMPRESSION: No acute intracranial hemorrhage or extra axial fluid collections. Chronic white matter microangiopathic changes and generalized atrophy. All CT scans at this facility are performed using low dose modulation techniqu es as appropriate to perform exam including the following: automated exposure c ontrol; use of iterative reconstruction technique; adjustment of the mA and/or kV according to patient size (this includes techniques or standardized protocol s for targeted exams where dose is matched to indication/reason for exam).
--- NOTE | ~2025-07-21 | XR_ITS ---
XR hip RT 2V w AP pelvis INDICATION: pain COMPARISON: None FINDINGS: AP view the pelvis and 2 views of the right hip demonstrate acute displaced subcapital fracture of the right femoral neck. IMPRESSION: Acute displaced subcapital fracture of the right femoral neck. Reviewed, dictated and finalized at location S.
--- NOTE | ~2025-07-21 | XR_ITS ---
XR chest 1V INDICATION:. 79 years Female pre op COMPARISON: None FINDINGS: A single view of the chest demonstrates normal heart size. Mild interstitial thickening is noted. No focal consolidation. There is no evidence of pneumothorax or pleural effusion. IMPRESSION: No acute pulmonary findings. Reviewed, dictated and finalized at location S.
--- NOTE | ~2025-07-21 | XR_ITS ---
EXAMINATION: XR hip RT min 2V, 07/22/2025 16:55 CDT HISTORY: POST OP COMPARISON: No comparisons available. Findings: No acute fracture or malalignment. Arthroplasty intact Soft tissues unremarkable. Impression: No acute fracture or malalignment. Reviewed, dictated and finalized at location P. Impression: No acute fracture or malalignment.
--- NOTE | ~2025-07-21 | CT_ITS ---
CT cervical spine wo con HISTORY: fall, hi, dementia COMPARISON: None TECHNIQUE: Axial images of the cervical spine were obtained. Multiplanar reconstruction in the coronal, sagittal and axial reformats to evaluate for cervical fracture. FINDINGS: The images demonstrate no acute fracture or paravertebral soft tissue swelling. Multilevel degenerative changes with disc space narrowing, endplate sclerosis and uncovertebral hypertrophy. There are facet joint arthropathy. There is a sclerotic lesion in the left T1 vertebral body. The visualized aspect of the upper lungs are clear. IMPRESSION: Multilevel degenerative changes. Sclerotic lesion in the left T1 vertebral body is noted. Follow-up bone scan can be done to exclude malignancy. No acute fracture or subluxation. All CT scans at this facility are performed using low dose modulation techniques as appropriate to perform exam including the following: automated exposure control; adjustment of the mA and/or kV according to patient size (this includes techniques or standardized protocols for targeted exams where does is matched to indication/reason for exam; i.e. extremities or head); use of iterative reconstruction technique). Reviewed, dictated and finalized at location S. IMPRESSION: Multilevel degenerative changes. Sclerotic lesion in the left T1 vertebral body is noted. Follow-up bone scan ca n be done to exclude malignancy. No acute fracture or subluxation. All CT scans at this facility are performed using low dose modulation techniqu es as appropriate to perform exam including the following: automated exposure c ontrol; adjustment of the mA and/or kV according to patient size (this includes techniques or standardized protocols for targeted exams where does is matched to indication/reason for exam; i.e. extremities or head); use of iterative haider nstruction technique).
[2025-07-21 19:12] VITALS: BP 167/105; PULSE 82; RESP 22; TEMP 37.2; O2SAT 92
--- NOTE | 2025-07-21 20:28 | ECG_ITS ---
Test Date: 2025-07-21 20:39:33 Measurements Intervals [place] Rate: 77 P: 60 SC: 157 QRS: 28 QRSD: 94 T: 163 QT: 375 QTc: 424 Interpretive Statements SINUS RHYTHM WITH SUPRAVENTRICULAR BIGEMINY INCOMPLETE RIGHT BUNDLE BRANCH BLOCK LEFT VENTRICULAR HYPERTROPHY WITH ST-T CHANGE BORDERLINE ST-T WAVE ABNORMALITY- ANTEROLATERAL LEADS BASELINE ARTIFACT- I, II, III, AVR, AVL, AVF ABNORMAL ECG Compared to ECG 08/17/2024 15:10:47 SUPRAVENTRICULAR BIGEMINY NOW PRESENT Electronically Signed On 07-21-2025 20:45:33 CDT by Bill Nugent D.O.
--- NOTE | 2025-07-21 20:37 | ED_ITS ---
HPI - Fall General Chief Complaint: Fall <PANTERA Gray Last Filed: 07/21/25 22:08> Stated Complaint: fall, hip pain <PANTERA Gray Last Filed: 07/21/25 22:08> Time Seen by Provider: 07/21/25 19:11 <PANTERA Gray Last Filed: 07/21/25 22:08> Source: patient and family <PANTERA Gray Last Filed: 07/21/25 22:08> Mode of arrival: EMS <PANTERA Gray Last Filed: 07/21/25 22:08> Limitations: dementia <PANTERA Gray Last Filed: 07/21/25 22:08> History of Present Illness HPI Narrative: Patient is an 79-year-old female who presents the ED via EMS with report of a fall. Patient has hx of dementia, lives at home with her . at bedside assisted in providing information. Reports patient tripped and fell down 2 [address] in their garage. Fell backwards, hitting her head against a garbage can. Was found laying flat on her back. C/o pain to her R hip, unable to ambulate. Typically ambulatory w/o assistance. Patient unable to provide any information. Does not complain of pain anywhere else. Takes aspirin 81 mg daily. No other blood thinners. <PANTERA Gray Last Filed: 07/21/25 22:08> Related Data Home Medications: Home Medications ?Medication ?Instructions ?Recorded ?Confirmed ?Last Taken ?Type aspirin 81 mg chewable tablet 81 mg PO DAILY 11/01/20 07/21/25 07/20/25 History docusate sodium 100 mg tablet 100 mg PO BID 07/21/25 1 07/20/25 History (Stool Softener) senna-docusate sodium tablet 1 tablet PO DAILY PRN con stipation 07/21/25 07/21/25 Unknown History <PANTERA Gray Last Filed: 07/21/25 22:08> Allergies/Adverse Reactions: Allergies Allergy/AdvReac Type Severity Reaction Status Date / Time No Known Allergies Allergy Verified 07/21/25 23:32 <Rebeca Chacko PA-C - Last Filed: 07/21/25 22:08> Review of Systems 2 Review of Systems: All systems reviewed & are unremarkable except as noted in HPI. <Rebeca Chacko PA-C - Last Filed: 07/21/25 22:08> All systems reviewed & are unremarkable except as noted in HPI and below < Rebeca Chacko PA-C - Last Filed: 07/21/25 22:08> FOR[facility]LY [facility] Past Medical History Medical History: Medical History Increase in creatinine Alzheimer disease Hypertension APC (adenomatous polyposis coli) Stroke Transient global amnesia Sleep apnea <Rebeca Chacko PA-C - Last Filed: 07/21/25 22:08> Surgical History Surgical History: Surgical History History of ankle surgery History of surgery on arm 2015 H/O abdominal hysterectomy 2004 H/O tubal ligation 1978 H/O breast surgery 1966 <Rebeca Chacko PA-C - Last Filed: 07/21/25 22:08> Family History Family History: Family History (Updated 07/21/25 @ 23:36 by Mariam Anand RN) Father Malignant neoplasm of prostate Mother Bone cancer Sibling Parkinson disease Diabetes mellitus Dementia Grandparent Dementia Other Dementia <Rebeca Chacko PA-C - Last Filed: 07/21/25 22:08> Social History Social History: Social History Social History: lives with 05/24/25 very confident with medical forms Smoking status: Never smoker Second hand tobacco smoke exposure: No Alcohol intake: never Substance use: never Substance use type: does not use Lack of Transportation: No Lack of Food: Never True Current Housing: I Have Housing Concerned About Future Housing: No Difficulty Paying Gas/Electric Bills: No Difficulty Paying for Meds: No Currently Unemployed: No Education: High School Diploma/GED Difficulty w/ Childcare or Family Care: No Living arrangements: with family Gender identity (if verbalized by the patient): Female Spiritual care concerns: No Agree to blood products: Yes <Rebeca Chacko PA-C - Last Filed: 07/21/25 22:08> Exam 2 Narrative: GENERAL: Elderly, well appearing, well-nourished, non-toxic, in no acute distress. HEAD: Normocephalic, atraumatic. RESPIRATORY: Airway patent, respirations nonlabored. Clear to auscultation bilaterally, no rales, rhonchi, wheezing. CARDIOVASCULAR: Regular rate and rhythm without murmurs, rubs, or gallops. Pedal pulses are intact and easily palpable. MUSCULOSKELETAL: Limited ROM of RLE d/t pain. Shortening and external rotation noted of RLE. Sensation intact throughout right lower extremity. Able to wiggle toes. Tenderness to palpation over right lateral hip joint. SKIN: Warm, dry, normal color. NEURO: Alert, speech is garbled, jibberish, mumbling. Able to answer some questions, follow some commands. Cranial nerves II-XII grossly intact. No ataxic movements. PSYCHIATRIC: Appropriate mood and affect. Normal interaction. <Rebeca Chacko PA-C - Last Filed: 07/21/25 22:08> Course USED CAR SALES SUPERVISOR/PA Physician Supervision This visit was performed by both a physician and an APC. I performed all aspects of the MDM as documented. <Luke Marcelo MD - Last Filed: 07/22/25 06:33> Vital Signs Vital signs: Vital Signs Temperature 37.2 C 07/21/25 19:12 Pulse Rate 82 07/21/25 19:12 Respiratory Rate 22 H 07/21/25 19:12 Blood Pressure 167/105 H 07/21/25 19:12 Pulse Oximetry 92 07/21/25 19:12 Oxygen Delivery Room Air 07/21/25 19:12 Temperature 36.0 C L 07/22/25 05:40 Pulse Rate 94 07/22/25 05:40 Respiratory Rate 20 07/22/25 05:40 Blood Pressure 128/78 07/21/25 23:50 Pulse Oximetry 99 07/22/25 05:40 Oxygen Delivery Nasal Cannula 07/21/25 22:09 Oxygen Flow Rate 4 07/21/25 22:09 <Rebeca Chacko PA-C - Last Filed: 07/21/25 22:08> Vital Signs Temperature 37.2 C 07/21/25 19:12 Pulse Rate 82 07/21/25 19:12 Respiratory Rate 22 H 07/21/25 19:12 Blood Pressure 167/105 H 07/21/25 19:12 Pulse Oximetry 92 07/21/25 19:12 Oxygen Delivery Room Air 07/21/25 19:12 Temperature 36.0 C L 07/22/25 05:40 Pulse Rate 94 07/22/25 05:40 Respiratory Rate 20 07/22/25 05:40 Blood Pressure 128/78 07/21/25 23:50 Pulse Oximetry 99 07/22/25 05:40 Oxygen Delivery Nasal Cannula 07/21/25 22:09 Oxygen Flow Rate 4 07/21/25 22:09 <Luke Marcelo MD - Last Filed: 07/22/25 06:33> MDM - Fall MDM Narrative Medical decision making narrative: Patient presented to ED status post ground level mechanical fall, head injury, pain to right hip. Vital signs are stable upon arrival. Patient in no acute distress. History of dementia, unable to provide any information. Able to answer some questions. Shortening and external rotation noted to right lower extremity. X-ray right hip confirming right femoral neck fracture. CT brain and cervical spine without traumatic findings. Chest x-ray clear. Patient's son is a physical therapist and works with Dr. Cooper's patients frequently. Requested Dr. Cooper as cheese specialist. Advised he is not currently cotton baler and patient is not an established patient, but will attempt to talk to him. Discussed case with Dr. Cooper, orthopedics, agreeable to consult, will see patient in the am. Family very pleased, in agreement with plan. Discussed case with Mariela AGUIRRE hospitalist, accepted patient for admission. Pre-op w/u initiated, catheter placed. CBC w/ WBC 16.1. Neutrophil predominance. CMP unremarkable. UA with possible infection, positive nitrate, 1+ leuk esterase, 11-20 WBC. Sent for culture. Given dose of Rocephin in the ED. EKG w/ sinus rhythm, frequent pvc in bigeminy pattern. <Rebeca Chacko PA-C - Last Filed: 07/21/25 22:08> Medical Records Attestation: I reviewed the patient's medical records. <Rebeca Chacko PA-C - Last Filed: 07/21/25 22:08> Lab Data Attestation: I reviewed the patient's lab results. <Rebeca Chacko PA-C - Last Filed: 07/21/25 22:08> Result diagrams: 07/21/25 20:44 07/21/25 20:44 <Rebeca Chacko PA-C - Last Filed: 07/21/25 22:08> Labs: Lab Results 07/21/25 Range/Units 20:44 WBC 16.1 H (4.5-10.0) K/mm3 RBC 4.58 (4.2-5.4) M/mm3 Hgb 13.4 (12.0-15.0) g/dL Hct 42.3 (37.0-47.0) % MCV 92.4 (80-100) fl MCH 29.3 (26-34) pg MCHC 31.7 L (32-36) g/dl RDW 15.2 H (11.5-14.5) % Plt Count 229 (150-375) k/mm3 MPV 10.3 (7.4-10.4) fl Immature Gran % (Auto) 0.7 H (0-0.5) % Neut % (Auto) 82.8 H (45.5-73.1) % Lymph % (Auto) 9.5 L (18.3-44.2) % Scurry % (Auto) 5.5 (2.6-8.5) % Eos % (Auto) 1.3 (0-4.4) % Baso % (Auto) 0.2 (0.2-1.2) % Lymph # (Auto) 1.53 (0.9-3.2) K/mm3 Scurry # (Auto) 0.9 H (0.1-0.6) K/mm3 Eos # (Auto) 0.2 (0-0.3) K/mm3 Baso # (Auto) 0.0 (0.0-0.1) K/mm3 Abs Immat Gran (auto) 0.11 H (0.00-0.031) K/mm3 Absolute Neuts (auto) 13.3 H (1.3-6.7) K/mm3 Absolute Nucleated RBC 0.000 (0.0-0.012) K/mm3 Nucleated RBC % 0.0 (0.0-0.2) % PT 12.5 (11.1-14.7) Seconds INR 0.9 APTT 25.5 (22.3-36.8) Seconds Sodium 137 (137-145) mmol/L Potassium 4.2 (3.4-5.0) mmol/L Chloride 104 (98-107) mmol/L Carbon Dioxide 29 (22-30) mmol/L Anion Gap 4 (4-12) mmol/L BUN 22 H (7-17) mg/dL Creatinine 0.94 (0.7-1.0) mg/dL Estim Creat Clear Calc Not Reportable Estimated GFR 57 L (59 - ) Glucose 112 H (65-110) mg/dL Calcium 9.4 (8.4-10.2) mg/dL Total Bilirubin 0.4 (0.2-1.3) mg/dL AST 28 (14-36) U/L ALT 18 (6-35) U/L Alkaline Phosphatase 98 (38-126) U/L Total Protein 6.9 (6.3-8.2) g/dL Albumin 4.0 (3.5-5.1) g/dL <Rebeca Chacko PA-C - Last Filed: 07/21/25 22:08> Lab Results 07/21/25 Range/Units 20:44 WBC 16.1 H (4.5-10.0) K/mm3 RBC 4.58 (4.2-5.4) M/mm3 Hgb 13.4 (12.0-15.0) g/dL Hct 42.3 (37.0-47.0) % MCV 92.4 (80-100) fl MCH 29.3 (26-34) pg MCHC 31.7 L (32-36) g/dl RDW 15.2 H (11.5-14.5) % Plt Count 229 (150-375) k/mm3 MPV 10.3 (7.4-10.4) fl Immature Gran % (Auto) 0.7 H (0-0.5) % Neut % (Auto) 82.8 H (45.5-73.1) % Lymph % (Auto) 9.5 L (18.3-44.2) % Scurry % (Auto) 5.5 (2.6-8.5) % Eos % (Auto) 1.3 (0-4.4) % Baso % (Auto) 0.2 (0.2-1.2) % Lymph # (Auto) 1.53 (0.9-3.2) K/mm3 Scurry # (Auto) 0.9 H (0.1-0.6) K/mm3 Eos # (Auto) 0.2 (0-0.3) K/mm3 Baso # (Auto) 0.0 (0.0-0.1) K/mm3 Abs Immat Gran (auto) 0.11 H (0.00-0.031) K/mm3 Absolute Neuts (auto) 13.3 H (1.3-6.7) K/mm3 Absolute Nucleated RBC 0.000 (0.0-0.012) K/mm3 Nucleated RBC % 0.0 (0.0-0.2) % PT 12.5 (11.1-14.7) Seconds INR 0.9 APTT 25.5 (22.3-36.8) Seconds Sodium 137 (137-145) mmol/L Potassium 4.2 (3.4-5.0) mmol/L Chloride 104 (98-107) mmol/L Carbon Dioxide 29 (22-30) mmol/L Anion Gap 4 (4-12) mmol/L BUN 22 H (7-17) mg/dL Creatinine 0.94 (0.7-1.0) mg/dL Estim Creat Clear Calc Not Reportable Estimated GFR 57 L (59 - ) Glucose 112 H (65-110) mg/dL Calcium 9.4 (8.4-10.2) mg/dL Total Bilirubin 0.4 (0.2-1.3) mg/dL AST 28 (14-36) U/L ALT 18 (6-35) U/L Alkaline Phosphatase 98 (38-126) U/L Total Protein 6.9 (6.3-8.2) g/dL Albumin 4.0 (3.5-5.1) g/dL <Luke Marcelo MD - Last Filed: 07/22/25 06:33> Imaging Data Attestation: I personally reviewed and interpreted this imaging study as follows: < Rebeca Chacko PA-C - Last Filed: 07/21/25 22:08> Radiologist's impression: ITS Impressions Chest X-Ray 07/21/25 20:18 IMPRESSION: No acute pulmonary findings. Head CT 07/21/25 20:22 IMPRESSION: No acute intracranial hemorrhage or extra axial fluid collections. Chronic white matter microangiopathic changes and generalized atrophy. All CT scans at this facility are performed using low dose modulation techniques as appropriate to perform exam including the following: automated exposure control; use of iterative reconstruction technique; adjustment of the mA and/or kV according to patient size (this includes techniques or standardized protocols for targeted exams where dose is matched to indication/reason for exam). Hip/Pelvis X-Ray 07/21/25 20:23 IMPRESSION: Acute displaced subcapital fracture of the right femoral neck. Cervical Spine CT 07/21/25 20:28 IMPRESSION: Multilevel degenerative changes. Sclerotic lesion in the left T1 vertebral body is noted. Follow-up bone scan can be done to exclude malignancy. No acute fracture or subluxation. All CT scans at this facility are performed using low dose modulation techniques as appropriate to perform exam including the following: automated exposure control; adjustment of the mA and/or kV according to patient size (this includes techniques or standardized protocols for targeted exams where does is matched to indication/reason for exam; i.e. extremities or head); use of iterative reconstruction technique). <Rebeca Chacko PA-C - Last Filed: 07/21/25 22:08> ECG Data EKG #1: Attestation: I personally reviewed and interpreted this ECG as follows: <PANTERA Gray Last Filed: 07/21/25 22:08> ECG completion date: 07/21/25 <PANTERA Gray Last Filed: 07/21/25 22:08> ECG completion time: 20:39 <PANTERA Gray Last Filed: 07/21/25 22:08> EKG Interpretation: normal rate (77), sinus rhythm, PVCs (bimeny) and non-specific ST changes <Rebeca Chacko PA-C - Last Filed: 07/21/25 22:08> Discharge Plan Discharge Clinical Impression: Closed displaced fracture of right femoral neck, Fall from ground level, Frequent PVCs, Abnormal finding on urinalysis Closed head injury Qualifiers: Encounter type: initial encounter Qualified Code(s): S09.90XA - Unspecified injury of head, initial encounter Dementia Qualifiers: Dementia type: unspecified type Dementia severity: unspecified severity D ementia behavioral or psychological symptom: unspecified whether behavioral, psychotic, or mood disturbance or anxiety Qualified Code(s): F03.90 - Unspecified dementia, unspecified severity, without behavioral disturbance, psychotic disturbance, mood disturbance, and anxiety <Rebeca Chacko PA-C - Last Filed: 07/21/25 22:08> Patient Disposition: Still a Patient <Rebeca Chacko PA-C - Last Filed: 07/21/25 22:08> Condition: Stable <Rebeca Chacko PA-C - Last Filed: 07/21/25 22:08>
[2025-07-21 20:57] LABS: Hematocrit 42.3 % (37.0-47.0); Hemoglobin 13.4 g/dL (12.0-15.0); Immature Granulocyte Percent A 0.7 % (0-0.5); Lymphocytes Absolute Auto 1.53 K/mm3 (0.9-3.2); Mean Corpuscular HGB Conc 31.7 g/dl (32-36); Mean Corpuscular Hemoglobin 29.3 pg (26-34); Mean Corpuscular Volume 92.4 fl (80-100); Nucleated Red Blood Cells Absolute Auto 0.000 K/mm3 (0.0-0.012); Nucleated Red Blood Cells Perc 0.0 % (0.0-0.2); Platelet Count Result 229 k/mm3 (150-375); Red Blood Count 4.58 M/mm3 (4.2-5.4); White Blood Count 16.1 K/mm3 (4.5-10.0)
[2025-07-21 21:07] LABS: Alanine Aminotransferase 18 U/L (6-35); Albumin Level 4.0 g/dL (3.5-5.1); Alkaline Phosphatase 98 U/L (38-126); Anion Gap 4 mmol/L (4-12); Aspartate Amino Transferase 28 U/L (14-36); Bilirubin,Total 0.4 mg/dL (0.2-1.3); Blood Urea Nitrogen 22 mg/dL (7-17); Calcium 9.4 mg/dL (8.4-10.2); Carbon Dioxide 29 mmol/L (22-30); Chloride 104 mmol/L (98-107); Estimated Glomerular Filt Rate 57; Glucose 112 mg/dL (65-110); Potassium 4.2 mmol/L (3.4-5.0); Sodium 137 mmol/L (137-145); Total Protein 6.9 g/dL (6.3-8.2)
[2025-07-21 21:09] LABS: INR 0.9; Partial Thromboplastin Time 25.5 Seconds (22.3-36.8); Prothrombin Time 12.5 Seconds (11.1-14.7)
[2025-07-21 21:34] LABS: Add Urine Microscopic? YES; Appearance Urine Cloudy (Clear); Glucose Urine UA Negative (Negative); Leukocyte Esterase Ur 1+ LEU/UL (Negative); Nitrate Urine Positive (Negative); Non Pathogenic Casts 0-2; Specific Grav Ur 1.013 (1.001-1.035)
[2025-07-21] MEDS: MORPHINE SULFATE (*CRX) 4 MG/ML INJ 2 MG IV PUSH (21:41)
[2025-07-21 22:09] VITALS: O2SAT 92
--- NOTE | 2025-07-21 22:57 | ADMGEN ---
This patient, Olivia Li, was admitted to [facility] Surg Room 320-01. Patient/family oriented to hospital policies and general routines including ID bracelet, bed and alarms, visiting hours, pain management, procedures, bathroom and other care routines, personal items, smoking policy, room service/diet, and visiting hours. Information on how to activate the Rapid Response Team has been discussed. Patient/Family are encouraged to report perceived risks to care and to ask questions if they do not understand what they are told or what they should do.
[2025-07-21 23:17] VITALS: BMI 36.6
[2025-07-21 23:50] VITALS: BP 128/78; PULSE 103; RESP 20; TEMP 36; O2SAT 95
[2025-07-22] VITALS (15 sets, daily range): BP systolic 103–192; BP diastolic 56–118; PULSE 65–113; RESP 18–22; TEMP 36–37; O2SAT 91–100
[2025-07-22] MEDS: cefTRIAXone 1 GM in SODIUM CHLORIDE 0.9% IV 50 ML 100 ML IVPB (01:37)
[2025-07-22 07:50] LABS: Hematocrit 42.9 % (37.0-47.0); Hemoglobin 13.6 g/dL (12.0-15.0); Immature Granulocyte Percent A 0.5 % (0-0.5); Lymphocytes Absolute Auto 1.50 K/mm3 (0.9-3.2); Mean Corpuscular HGB Conc 31.7 g/dl (32-36); Mean Corpuscular Hemoglobin 29.1 pg (26-34); Mean Corpuscular Volume 91.9 fl (80-100); Nucleated Red Blood Cells Absolute Auto 0.000 K/mm3 (0.0-0.012); Nucleated Red Blood Cells Perc 0.0 % (0.0-0.2); Platelet Count Result 230 k/mm3 (150-375); Red Blood Count 4.67 M/mm3 (4.2-5.4); White Blood Count 14.8 K/mm3 (4.5-10.0)
--- NOTE | 2025-07-22 07:50 | PM.IMHP ---
H&P: HPI History of Present Illness Date/Time: 07/22/25 07:50 Chief Complaint: Fall with right hip pain Narrative: This is an 79-year-old female patient who has a history of dementia and CVA. She lives with her and he is providing information for the patient's medical history. Is reported that the patient tripped and fell down 2 steps in their garage. She fell backwards hitting her head against a garbage can. The patient was found lying flat on her back. She was unable to ambulate after this and her right leg was noted to be shortened. She does not take any anticoagulation but does take an aspirin daily. Her white count was noted to be 16.1. Urinalysis shows positive nitrates and 1+ leukocyte esterase. WBCs 11-20. 2+ urine bacteria in the urine. The patient was started on Rocephin in the emergency room. Head CT was read as no acute intracranial hemorrhage or extra-axial fluid collections. Chronic white matter microangiopathic changes and generalized atrophy. Right hip x-ray was read as acute displaced subcapital fracture of the right femoral neck. Cervical spine CT was read as multilevel degenerative change. Sclerotic lesion in the left T1 vertebral body is noted. Follow-up bone scan can be done to exclude malignancy. No acute fracture or subluxation.Patient's son is a physical therapist and works with Dr. Cooper's patients frequently. Requested Dr. Cooper as customer acquisition specialist. Advised he is not currently formation testing operator and patient is not an established patient, but will attempt to talk to him. Discussed case with Dr. Cooper, orthopedics, agreeable to consult, will see patient in the am. Family very pleased, in agreement with plan. The patient also became hypoxic in the emergency room when oxygen was applied at 4 L per nasal cannula. According to the the patient has sleep apnea and he believes this is why her oxygen level became low. The patient is being admitted to observation status on the date of service 07/22/2025. Review of Systems Constitutional: Constitutional: Reports as per HPI and Reports no additional constitutional complaints Eyes: Eyes: Reports as per HPI and Reports no additional eye complaints ENT: Reports system reviewed and no additional complaints, except as documented and Reports Normal hearing present Cardiovascular: Cardiovascular: Reports no additional cardiovascular complaints Respiratory: Respiratory: Reports as per HPI and Reports no additional respiratory complaints Gastrointestinal: Gastrointestinal: Reports as per HPI and Reports no additional gastrointestinal complaints Genitourinary: Genitourinary: Reports no additional female genitourinary complaints Musculoskeletal: Musculoskeletal: Reports no additional musculoskeletal complaints Integumentary/Breasts: Skin/Breast: Reports system reviewed and no additional complaints, except as docu Neurologic: Reports system reviewed and no additional complaints, except as documented and Reports Normal hearing present Psychiatric: Psychiatric: Reports no additional psychiatric complaints and Reports as per HPI Hematologic/Lymphatic: Hematologic/Lymphatic: Reports no additional hematologic/lymphatic complaints Allergic/Immunologic: Allergic/Immunologic: Reports no additional allergic/immunologic complaints [facility] Past Medical History Medical History (Updated 07/28/25 @ 16:53 by Mac Booker APRN) GERD (gastroesophageal reflux disease) Increase in creatinine Alzheimer disease Hypertension APC (adenomatous polyposis coli) Stroke Transient global amnesia Sleep apnea Surgical History Surgical History History of ankle surgery History of surgery on arm 2015 H/O abdominal hysterectomy 2004 H/O tubal ligation 1978 H/O breast surgery 1967 Family History Family History Father Malignant neoplasm of prostate Mother Bone cancer Sibling Parkinson disease Diabetes mellitus Dementia Grandparent Dementia Other Dementia Social History Social History Social History: She lives with her . Code status: Full code 05/24/25 very confident with medical forms Smoking status: Never smoker Second hand tobacco smoke exposure: No Alcohol intake: never Substance use: never Substance use type: does not use Lack of Transportation: No Lack of Food: Never True Current Housing: I Have Housing Concerned About Future Housing: No Difficulty Paying Gas/Electric Bills: No Difficulty Paying for Meds: No Currently Unemployed: No Education: High School Diploma/GED Difficulty w/ Childcare or Family Care: No Living arrangements: with family Gender identity (if verbalized by the patient): Female Spiritual care concerns: No Agree to blood products: Yes Meds Home Medications and Allergies Home Medications ?Medication ?Instructions ?Recorded ?Confirmed ?Type aspirin 81 mg chewable tablet 81 mg PO DAILY 11/01/20 07/28/25 History atorvastatin 40 mg tablet 40 mg PO DAILY #90 tabs 04/27/25 07/28/25 Rx lisinopril 10 mg tablet 10 mg PO DAILY #90 tabs 05/09/25 07/28/25 Rx docusate sodium 100 mg tablet 100 mg PO BID 07/21/25 07/28/25 History (Stool Softener) cephalexin 500 mg capsule 500 mg PO Q12HR #5 caps 07/28/25 07/28/25 Rx donepezil 10 mg tablet 10 mg PO DAILY #90 tabs 08/03/25 Rx memantine 10 mg tablet 10 mg PO BID #180 tabs 08/03/25 Rx Allergies Allergy/AdvReac Type Severity Reaction Status Date / Time No Known Allergies Allergy Verified 07/21/25 23:32 Vital Signs Vital Signs - 24 hr 07/21/25 19:12 07/21/25 22:09 07/21/25 23:50 Temperature 99.0 F 96.8 F L Pulse Rate 82 103 H Respiratory Rate 22 H 20 Blood Pressure 167/105 H 128/78 Pulse Oximetry 92 92 95 Oxygen Delivery Room Air Nasal Cannula Oxygen Flow Rate 4 07/22/25 05:40 Temperature 96.8 F L Pulse Rate 94 Respiratory Rate 20 Blood Pressure Pulse Oximetry 99 Oxygen Delivery Oxygen Flow Rate Exam Const: General: cooperative, no acute distress, awake, Physically active, average body habitus and well nourished Nutritional Appearance: average body habitus and well nourished HENMT: Head: normal to inspection and No palpable skull fracture present Eyes: General: appearance normal, both eyes and all related structures Alignment and Position: alignment normal Neck: Neck: normal visual inspection and full ROM Chest: Chest palpation & inspection: normal inspection of the chest Resp: Effort & Inspection: normal respiratory effort Cardio: Palpation: normal PMI Rate: regular rate Rhythm: regular rhythm Heart sounds: S1 normal heart sound present and S2 normal heart sound present Peripheral pulses: Peripheral pulses 2+ throughout GI: Inspection: normal to inspection Percussion: Yes normal to percussion Urinary Catheter: Urinary Catheter: urine clear Back/Spine/Pelvis: Back: no CVA tenderness Skin: General skin exam: normal color Lesions: no lesions Rashes: no rashes Trauma: no lacerations or abrasions Wounds: no wounds Hair: normal Nails: normal Neuro: General: oriented to person Other: The patient is noncommunicative. Extrem: General: normal to inspection Right upper extremity: normal to inspection and shoulder/upper arm Left upper extremity: normal to inspection and shoulder/upper arm Right lower extremity: normal to inspection Left lower extremity: normal to inspection Other: Right leg is shortened and externally rotated. Psych: Appearance: grossly normal Attitude: cooperative H&P: Results Labs Labs: Short CBC 07/21/25 Range/Units 20:44 WBC 16.1 H (4.5-10.0) K/mm3 Hgb 13.4 (12.0-15.0) g/dL Hct 42.3 (37.0-47.0) % Plt Count 229 (150-375) k/mm3 BMP 07/21/25 20:44 Sodium 137 Potassium 4.2 Chloride 104 Carbon Dioxide 29 BUN 22 H Creatinine 0.94 Glucose 112 H Calcium 9.4 Liver Function 07/21/25 Range/Units 20:44 Total Bilirubin 0.4 (0.2-1.3) mg/dL AST 28 (14-36) U/L ALT 18 (6-35) U/L Alkaline Phosphatase 98 (38-126) U/L Albumin 4.0 (3.5-5.1) g/dL Urine 07/21/25 Range/Units 21:22 Urine Color Yellow (Yellow) Urine Appearance Cloudy H (Clear) Urine pH 5.5 (5.0-9.0) Ur Specific [place] 1.013 (1.001-1.035) Urine Protein Negative (Negative) mg/dL Urine Glucose (UA) Negative (Negative) mg/dL ECG Interpretation: SINUS RHYTHM WITH SUPRAVENTRICULAR BIGEMINY INCOMPLETE RIGHT BUNDLE BRANCH BLOCK LEFT VENTRICULAR HYPERTROPHY WITH ST-T CHANGE BORDERLINE ST-T WAVE ABNORMALITY- ANTEROLATERAL LEADS BASELINE ARTIFACT- I, II, III, AVR, AVL, AVF ABNORMAL ECG Compared to ECG 08/17/2024 15:10:47 SUPRAVENTRICULAR BIGEMINY NOW PRESENT Electronically Signed On 07-21-2025 20:45:33 CDT by Bill Nugent D.O. Imaging CT scan - head: Radiologist's impression: Impressions Chest X-Ray 07/21/25 20:18 IMPRESSION: No acute pulmonary findings. Head CT 07/21/25 20:22 IMPRESSION: No acute intracranial hemorrhage or extra axial fluid collections. Chronic white matter microangiopathic changes and generalized atrophy. All CT scans at this facility are performed using low dose modulation techniques as appropriate to perform exam including the following: automated exposure control; use of iterative reconstruction technique; adjustment of the mA and/or kV according to patient size (this includes techniques or standardized protocols for targeted exams where dose is matched to indication/reason for exam). Hip/Pelvis X-Ray 07/21/25 20:23 IMPRESSION: ITS Impressions Chest X-Ray 07/21/25 20:18 IMPRESSION: No acute pulmonary findings. Head CT 07/21/25 20:22 IMPRESSION: No acute intracranial hemorrhage or extra axial fluid collections. Chronic white matter microangiopathic changes and generalized atrophy. All CT scans at this facility are performed using low dose modulation techniques as appropriate to perform exam including the following: automated exposure control; use of iterative reconstruction technique; adjustment of the mA and/or kV according to patient size (this includes techniques or standardized protocols for targeted exams where dose is matched to indication/reason for exam). Hip/Pelvis X-Ray 07/21/25 20:23 IMPRESSION: Acute displaced subcapital fracture of the right femoral neck. Cervical Spine CT 07/21/25 20:28 IMPRESSION: Multilevel degenerative changes. Sclerotic lesion in the left T1 vertebral body is noted. Follow-up bone scan can be done to exclude malignancy. No acute fracture or subluxation. All CT scans at this facility are performed using low dose modulation techniques as appropriate to perform exam including the following: automated exposure control; adjustment of the mA and/or kV according to patient size (this includes techniques or standardized protocols for targeted exams where does is matched to indication/reason for exam; i.e. extremities or head); use of iterative reconstruction technique). Hip X-Ray 07/22/25 17:06 Impression: No acute fracture or malalignment. Cervical Spine CT 07/21/25 20:28 IMPRESSION: Multilevel degenerative changes. Sclerotic lesion in the left T1 vertebral body is noted. Follow-up bone scan can be done to exclude malignancy. No acute fracture or subluxation. All CT scans at this facility are performed using low dose modulation techniques as appropriate to perform exam including the following: automated exposure control; adjustment of the mA and/or kV according to patient size (this includes techniques or standardized protocols for targeted exams where does is matched to indication/reason for exam; i.e. extremities or head); use of iterative reconstruction technique). Assessment and Plan Assessment and plan (1) Closed displaced fracture of right femoral neck: Code(s): S72.001A - Fracture of unspecified part of neck of right femur, initial encounter for closed fracture Status: Acute Assessment and Plan: -ortho has been consulted. -Acute displaced subcapital fracture of the right femoral neck -the had multiple questions concerning possible surgery. I explained to him about quality of life. We discussed the lytic lesion which could possibly be metastatic cancer. I also explained to him that are unable to do a bone scan while she is inpatient. Also she has dementia and has had a previous stroke. She is unable to communicate. The is the durable power health care attorney. He stated that he would like for her to have surgery if at all possible. It was explained that there are a lot of risk involved with that and the pros and cons will need to be weighed out. I explained to him that ultimately it will be up to the surgeon. The decision will be made based on several factors.Sclerotic lesion in the left T1 vertebral body is noted. Follow-up bone scan can be done to exclude malignancy. -continue with pain medication. However the patient became hypoxic after pain medication and needed to be on oxygen at 4 L per nasal cannula. (2) Dementia: Qualifiers: Dementia behavioral or psychological symptom: unspecified whether behavioral, psychotic, or mood disturbance or anxiety Dementia severity: unspecified severity Dementia type: unspecified type Qualified Code(s): F03.90 - Unspecified dementia, unspecified severity, without behavioral disturbance, psychotic disturbance, mood disturbance, and anxiety Code(s): F03.90 - Unspecified dementia, unspecified severity, without behavioral disturbance, psychotic disturbance, mood disturbance, and anxiety Status: Acute Assessment and Plan: -patient's Namenda and Aricept on hold at this time as she is NPO. -the patient is unable to communicate. She is able to mumble some words. (3) UTI (urinary tract infection): Code(s): N39.0 - Urinary tract infection, site not specified Status: Acute Assessment and Plan: -the patient was started on Rocephin. -blood in urine cultures are pending. (4) Hypertension: Qualifiers: Hypertension type: primary hypertension Qualified Code(s): I10 - Essential (primary) hypertension Code(s): I10 - Essential (primary) hypertension Status: Acute Assessment and Plan: -the patient is improved this time in her lisinopril was placed on hold. -her blood pressure is currently 128/78. (5) HLD (hyperlipidemia): Qualifiers: Hyperlipidemia type: mixed hyperlipidemia Qualified Code(s): E78.2 - Mixed hyperlipidemia Code(s): E78.5 - Hyperlipidemia, unspecified Status: Acute Assessment and Plan: -the patient is on atorvastatin but is NPO at this time. Quality If No VTE Prophylaxis Answer both mechanical and pharmacologic: Reason no pharmacologic proph: medical contraindication
[2025-07-22 08:04] LABS: Alanine Aminotransferase 21 U/L (6-35); Albumin Level 4.1 g/dL (3.5-5.1); Alkaline Phosphatase 96 U/L (38-126); Anion Gap 7 mmol/L (4-12); Aspartate Amino Transferase 26 U/L (14-36); Bilirubin,Total 0.8 mg/dL (0.2-1.3); Blood Urea Nitrogen 20 mg/dL (7-17); Calcium 9.2 mg/dL (8.4-10.2); Carbon Dioxide 28 mmol/L (22-30); Chloride 105 mmol/L (98-107); Estimated Glomerular Filt Rate > 60; Glucose 114 mg/dL (65-110); Potassium 4.3 mmol/L (3.4-5.0); Sodium 140 mmol/L (137-145); Total Protein 7.1 g/dL (6.3-8.2)
--- NOTE | 2025-07-22 08:16 | P.PNIM_ITS ---
Progress Note: A&P Assessment and Plan (1) Closed displaced fracture of right femoral neck: Code(s): S72.001A - Fracture of unspecified part of neck of right femur, initial encounter for closed fracture Status: Acute Assessment and Plan: * Acute displaced subcapital fracture of the right femoral neck * the had multiple questions concerning possible surgery. I explained to him about quality of life. We discussed the lytic lesion which could possibly be metastatic cancer. I also explained to him that are unable to do a bone scan while she is inpatient. * Also she has dementia and has had a previous stroke. She is unable to communicate. 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 He stated that he would like for her to have surgery if at all possible. It was explained that there are a lot of risk involved with that and the pros and cons will need to be weighed out. I explained to him that ultimately it will be up to the surgeon. The decision will be made based on several factors.Sclerotic lesion in the left T1 vertebral body is noted. Follow-up bone scan can be done to exclude malignancy. * continue with pain medication. However the patient became hypoxic after pain medication and needed to be on oxygen at 4 L per nasal cannula. * Ortho has been consulted * Plan for right bipolar hip replacement today at 3:00 p.m. (2) Dementia: Qualifiers: Dementia behavioral or psychological symptom: unspecified whether behavioral, psychotic, or mood disturbance or anxiety Dementia severity: unspecified severity Dementia type: unspecified type Qualified Code(s): F03.90 - Unspecified dementia, unspecified severity, without behavioral disturbance, psychotic disturbance, mood disturbance, and anxiety Code(s): F03.90 - Unspecified dementia, unspecified severity, without behavioral disturbance, psychotic disturbance, mood disturbance, and anxiety Status: Acute Assessment and Plan: * Patient's Namenda and Aricept on hold at this time as she is NPO. * Patient is unable to communicate. She is able to mumble some words. (3) UTI (urinary tract infection): Code(s): N39.0 - Urinary tract infection, site not specified Status: Acute Assessment and Plan: * UA: Positive nitrates, 1+ leukocyte esterase, 11-20 urine WBC, 2+ bacteria * Started on Rocephin * Blood and urine cultures are pending (4) Hypertension: Qualifiers: Hypertension type: primary hypertension Qualified Code(s): I10 - Essential (primary) hypertension Code(s): I10 - Essential (primary) hypertension Status: Acute Assessment and Plan: * The patient is improved this time in her lisinopril was placed on hold. * 128/78. (5) HLD (hyperlipidemia): Qualifiers: Hyperlipidemia type: mixed hyperlipidemia Qualified Code(s): E78.2 - Mixed hyperlipidemia Code(s): E78.5 - Hyperlipidemia, unspecified Status: Acute Assessment and Plan: * Patient is on atorvastatin but is NPO at this time. Subjective Date/time seen: 07/22/25 08:16 Interval history: 79-year-old female patient who has a history of dementia and CVA. She lives with her and he is providing information for the patient's medical history. Is reported that the patient tripped and fell down 2 steps in their garage. She fell backwards hitting her head against a garbage can. The patient was found lying flat on her back. 07/22/2025 Patient sitting comfortably in bed at time of examination. Denies any pain or complaints at this time. Plan for right bipolar hip replacement today at 3:00 p.m.. Discussed with /son regarding lytic lesion, will advice to follow up outpatient for further assessment. Review of Systems Constitutional: Constitutional: Reports as per HPI and Reports no additional constitutional complaints Eyes: Eyes: Reports as per HPI and Reports no additional eye complaints ENT: Reports system reviewed and no additional complaints, except as documented and Reports Normal hearing present Cardiovascular: Cardiovascular: Reports no additional cardiovascular complaints Respiratory: Respiratory: Reports as per HPI and Reports no additional respiratory complaints Gastrointestinal: Gastrointestinal: Reports as per HPI and Reports no addit ional gastrointestinal complaints Genitourinary: Genitourinary: Reports no additional female genitourinary complaints Musculoskeletal: Musculoskeletal: Reports no additional musculoskeletal complaints Integumentary/Breasts: Skin/Breast: Reports system reviewed and no additional complaints, except as docu Neurologic: Reports system reviewed and no additional complaints, except as documented and Reports Normal hearing present Psychiatric: Psychiatric: Reports no additional psychiatric complaints and Reports as per HPI Hematologic/Lymphatic: Hematologic/Lymphatic: Reports no additional hematologic/lymphatic complaints Allergic/Immunologic: Allergic/Immunologic: Reports no additional allergic/immunologic complaints Exam Const: General: cooperative, no acute distress, awake, Physically active, average body habitus and well nourished Nutritional Appearance: average body habitus and well nourished Orientation/consciousness: oriented to person HENMT: Head: normal to inspection and No palpable skull fracture present Eyes: General: appearance normal, both eyes and all related structures Alignment and Position: alignment normal Neck: Neck: normal visual inspection and full ROM Chest: Chest palpation & inspection: normal inspection of the chest Resp: Effort & Inspection: normal respiratory effort Cardio: Palpation: normal PMI Rate: regular rate Rhythm: regular rhythm Heart sounds: S1 normal heart sound present and S2 normal heart sound present Peripheral pulses: Peripheral pulses 2+ throughout GI: Inspection: normal to inspection : General: Yes no CVA tenderness Urinary Catheter: Urinary Catheter: urine clear Back/Spine/Pelvis: Back: no CVA tenderness Skin: General skin exam: normal color Lesions: no lesions Rashes: no rashes Trauma: no lacerations or abrasions Wounds: no wounds Hair: normal Nails: normal Neuro: General: oriented to person Cranial nerves: Yes Normal hearing present Other: The patient is noncommunicative. Extrem: General: normal to inspection Right upper extremity: normal to inspection and shoulder/upper arm Left upper extremity: normal to inspection and shoulder/upper arm Right lower extremity: normal to inspection Left lower extremity: normal to inspection Other: Right leg is shortened and externally rotated. Psych: Appearance: grossly normal Attitude: cooperative Objective Data Vital Signs Vital Signs: Vital Signs - 24 hr 07/21/25 19:12 07/21/25 22:09 07/21/25 23:50 Temperature 99.0 F 96.8 F L Pulse Rate 82 103 H Respiratory Rate 22 H 20 Blood Pressure 167/105 H 128/78 Pulse Oximetry 92 92 95 Oxygen Delivery Room Air Nasal Cannula Oxygen Flow Rate 4 07/22/25 05:40 Temperature 96.8 F L Pulse Rate 94 Respiratory Rate 20 Blood Pressure Pulse Oximetry 99 Oxygen Delivery Oxygen Flow Rate Intake/Output Intake/Output: Intake & Output 07/19/25 07/20/25 07/21/25 07/22/25 23:59 23:59 23:59 23:59 Intake Total 0 Output Total 600 Balance -600 Meds/Results Medications: Active Medications Generic Name Dose Route Start Last Admin Trade Name Freq PRN Reason Stop Dose Admin Acetaminophen 650 mg 07/21/25 20:53 Acetaminophen 325 Mg Tablet PO Q4H PRN Mild Pain (1-3) or Fever Dextrose 12.5 gm 07/21/25 20:53 Dextrose 50% 25 Gm/50 Ml Syringe IV PUSH PRN PRN Hypoglycemia Protocol Glucagon 1 mg 07/21/25 20:53 Glucagon For Inj 1 Mg Vial IM PRN PRN Hypoglycemia Protocol Glucose 15 gm 07/21/25 20:53 Glucose Oral Gel 15 Gm Of Glucse In 37.5 Gm Tube PO PRN PRN Hypoglycemia Protocol Dextrose 1,000 mls @ 100 mls/hr 07/21/25 20:53 Dextrose 5% 1,000 Ml IVPB PRN PRN Hypoglycemia Protocol Ceftriaxone Sodium 1 gm/ 50 mls @ 100 mls/hr 07/22/25 02:00 07/22/25 01:37 Sodium Chloride IVPB 100 mls/hr Q24H NEHEMIAH Administration Morphine Sulfate 2 mg 07/21/25 21:07 07/21/25 21:41 Morphine Sulfate (*Crx) 4 Mg/Ml Inj IV PUSH 2 mg Q2H PRN Administration Pain Rated 7-10 Ondansetron HCl 4 mg 07/21/25 20:53 Ondansetron Inj 4 Mg/2 Ml Vial IV PUSH Q4H PRN Nausea Radiology Results: ITS Impressions Chest X-Ray 07/21/25 20:18 IMPRESSION: No acute pulmonary findings. Head CT 07/21/25 20:22 IMPRESSION: No acute intracranial hemorrhage or extra axial fluid collections. Chronic white matter microangiopathic changes and generalized atrophy. All CT scans at this facility are performed using low dose modulation techniques as appropriate to perform exam including the following: automated exposure control; use of iterative reconstruction technique; adjustment of the mA and/or kV according to patient size (this includes techniques or standardized protocols for targeted exams where dose is matched to indication/reason for exam). Hip/Pelvis X-Ray 07/21/25 20:23 IMPRESSION: Acute displaced subcapital fracture of the right femoral neck. Cervical Spine CT 07/21/25 20:28 IMPRESSION: Multilevel degenerative changes. Sclerotic lesion in the left T1 vertebral body is noted. Follow-up bone scan can be done to exclude malignancy. No acute fracture or subluxation. All CT scans at this facility are performed using low dose modulation techniques as appropriate to perform exam including the following: automated exposure control; adjustment of the mA and/or kV according to patient size (this includes techniques or standardized protocols for targeted exams where does is matched to indication/reason for exam; i.e. extremities or head); use of iterative reconstruction technique). Labs Labs: Laboratory Results - last 24 hr 07/21/25 07/21/25 07/22/25 20:44 21:22 07:10 WBC 16.1 H 14.8 H RBC 4.58 4.67 Hgb 13.4 13.6 Hct 42.3 42.9 MCV 92.4 91.9 MCH 29.3 29.1 MCHC 31.7 L 31.7 L RDW 15.2 H 15.1 H Plt Count 229 230 MPV 10.3 11.0 H Immature Gran % (Auto) 0.7 H 0.5 Neut % (Auto) 82.8 H 82.8 H Lymph % (Auto) 9.5 L 10.1 L [place] % (Auto) 5.5 5.5 Eos % (Auto) 1.3 0.8 Baso % (Auto) 0.2 0.3 Lymph # (Auto) 1.53 1.50 [place] # (Auto) 0.9 H 0.8 H Eos # (Auto) 0.2 0.1 Baso # (Auto) 0.0 0.0 Abs Immat Gran (auto) 0.11 H 0.07 H Absolute Neuts (auto) 13.3 H 12.3 H Absolute Nucleated RBC 0.000 0.000 Nucleated RBC % 0.0 0.0 PT 12.5 INR 0.9 APTT 25.5 Sodium 137 140 Potassium 4.2 4.3 Chloride 104 105 Carbon Dioxide 29 28 Anion Gap 4 7 BUN 22 H 20 H Creatinine 0.94 0.87 Estim Creat Clear Calc Not Reportable Not Reportable Estimated GFR 57 L > 60 Glucose 112 H 114 H Calcium 9.4 9.2 Total Bilirubin 0.4 0.8 AST 28 26 ALT 18 21 Alkaline Phosphatase 98 96 Total Protein 6.9 7.1 Albumin 4.0 4.1 Urine Color Yellow Urine Appearance Cloudy H Urine pH 5.5 Ur Specific [place] 1.013 Urine Protein Negative Urine Glucose (UA) Negative Urine Ketones Negative Ur Blood (Man) Negative Urine Nitrate Positive H Urine Bilirubin Negative Urine Urobilinogen 1.0 Leukocyte Esterase Rfl 1+ H Urine RBC 0-2 Urine WBC 11-20 H Ur Squamous Epith Cells None seen Urine Bacteria 2+ H Urine Casts 0-2 Quality VTE Prophylaxis VTE prophylaxis: mechanical ordered
--- NOTE | 2025-07-22 08:21 | PM.CNOR ---
Assessment and Plan Assessment and plan (1) Closed displaced fracture of right femoral neck: Code(s): S72.001A - Fracture of unspecified part of neck of right femur, initial encounter for closed fracture Status: Acute (2) Dementia: Qualifiers: Dementia behavioral or psychological symptom: unspecified whether behavioral, psychotic, or mood disturbance or anxiety Dementia severity: unspecified severity Dementia type: unspecified type Qualified Code(s): F03.90 - Unspecified dementia, unspecified severity, without behavioral disturbance, psychotic disturbance, mood disturbance, and anxiety Code(s): F03.90 - Unspecified dementia, unspecified severity, without behavioral disturbance, psychotic disturbance, mood disturbance, and anxiety Status: Acute Plan Displaced femoral neck fracture. I reviewed the proposed procedure with the . Risks, benefits, and alternatives discussed. Proceed with bipolar hemiarthroplasty right hip. History of Present Illness HPI Consult date: 07/22/25 Chief complaint: R femoral neck fx Narrative: Patient complains of acute hip pain. Missed a couple steps and fell from standing height Admitted through the emergency department for definitive management. No previous hip pain. Comfortable at rest. No numbness, tingling, or other associated symptoms. Lives at home with dementia. Ambulatory previously. Review of Systems Review of Systems: ROS unobtainable: Yes unobtainable due to mental status PMFSH Past Medical History Medical History Increase in creatinine Alzheimer disease Hypertension APC (adenomatous polyposis coli) Stroke Transient global amnesia Sleep apnea Surgical History Surgical History History of ankle surgery History of surgery on arm 2016 H/O abdominal hysterectomy 2005 H/O tubal ligation 1978 H/O breast surgery 1967 Family History Family History Father Malignant neoplasm of prostate Mother Bone cancer Sibling Parkinson disease Diabetes mellitus Dementia Grandparent Dementia Other Dementia Social History Social History Social History: She lives with her . Code status: Full code 05/24/25 very confident with medical forms Smoking status: Never smoker Second hand tobacco smoke exposure: No Alcohol intake: never Substance use: never Substance use type: does not use Lack of Transportation: No Lack of Food: Never True Current Housing: I Have Housing Concerned About Future Housing: No Difficulty Paying Gas/Electric Bills: No Difficulty Paying for Meds: No Currently Unemployed: No Education: High School Diploma/GED Difficulty w/ Childcare or Family Care: No Living arrangements: with family Gender identity (if verbalized by the patient): Female Spiritual care concerns: No Agree to blood products: Yes Meds Home Medications and Allergies Home Medications ?Medication ?Instructions ?Recorded ?Confirmed ?Type aspirin 81 mg chewable tablet 81 mg PO DAILY 11/01/20 07/21/25 History atorvastatin 40 mg tablet 40 mg PO DAILY #90 tabs 04/27/25 07/21/25 Rx donepezil 10 mg tablet 10 mg PO DAILY #90 tabs 05/09/25 07/21/25 Rx lisinopril 10 mg tablet 10 mg PO DAILY #90 tabs 05/09/25 07/21/25 Rx memantine 10 mg tablet 10 mg PO BID #180 tabs 05/09/25 07/21/25 Rx docusate sodium 100 mg tablet 100 mg PO BID 07/21/25 07/21/25 History (Stool Softener) senna-docusate sodium tablet 1 tablet PO DAILY PRN constipation 07/21/25 07/21/25 History Allergies Allergy/AdvReac Type Severity Reaction Status Date / Time No Known Allergies Allergy Verified 07/21/25 23:32 Vital Signs Vital Signs - 24 hr 07/21/25 19:12 07/21/25 22:09 07/21/25 23:50 Temperature 37.2 C 36.0 C L Pulse Rate 82 103 H Respiratory Rate 22 H 20 Blood Pressure 167/105 H 128/78 Pulse Oximetry 92 92 95 Oxygen Delivery Room Air Nasal Cannula Oxygen Flow Rate 4 07/22/25 05:40 Temperature 36.0 C L Pulse Rate 94 Respiratory Rate 20 Blood Pressure Pulse Oximetry 99 Oxygen Delivery Oxygen Flow Rate Exam Narrative: Lower extremity shortened and externally rotated. Const: General: no acute distress Eyes: General: appearance normal, both eyes and all related structures Resp: Effort & Inspection: normal respiratory effort GI: GI Palp: Yes Soft to palpation and No Guarding due to palpation present (GI) Urinary Catheter: Urinary Catheter: patent and draining and urine clear Skin: General skin exam: no rashes or lesions noted Neuro: Speech: normal speech Other: Wiggles toes well. Capillary refill brisk. Distal light touch sensation intact. Dorsalis pedis pulse palpable. Extrem: Other: No edema. Psych: Mental Status: mental status grossly normal Results Labs 07/22/25 07:10 07/22/25 07:10 Labs: Abnormal lab results 07/21/25 07/21/25 07/22/25 Range/Units 20:44 21:22 07:10 WBC 16.1 H 14.8 H (4.5-10.0) K/mm3 MCHC 31.7 L 31.7 L (32-36) g/dl RDW 15.2 H 15.1 H (11.5-14.5) % MPV 11.0 H (7.4-10.4) fl Immature Gran % (Auto) 0.7 H (0-0.5) % Neut % (Auto) 82.8 H 82.8 H (45.5-73.1) % Lymph % (Auto) 9.5 L 10.1 L (18.3-44.2) % [place] # (Auto) 0.9 H 0.8 H (0.1-0.6) K/mm3 Abs Immat Gran (auto) 0.11 H 0.07 H (0.00-0.031) K/mm3 Absolute Neuts (auto) 13.3 H 12.3 H (1.3-6.7) K/mm3 BUN 22 H 20 H (7-17) mg/dL Estimated GFR 57 L (59 - ) Glucose 112 H 114 H (65-110) mg/dL Urine Appearance Cloudy H (Clear) Urine Nitrate Positive H (Negative) Leukocyte Esterase Rfl 1+ H (Negative) RAFITA/UL Urine WBC 11-20 H (0-3) /hpf Urine Bacteria 2+ H /hpf H & H 07/21/25 07/22/25 Range/Units 20:44 07:10 Hgb 13.4 13.6 (12.0-15.0) g/dL Hct 42.3 42.9 (37.0-47.0) % Coagulation 07/21/25 Range/Units 20:44 INR 0.9 All other labs normal. Quality VTE Prophylaxis VTE prophylaxis: mechanical ordered
--- NOTE | 2025-07-22 13:24 | WPDANESEPPF ---
Anes - Initial Pre Proc Eval Procedure: Operation Date: 07/22/25 15:00 Proposed Procedures p Right Bipolar Hip Replacement(Right) - Kris Cooper MD Date/Time: 07/22/25 13:24 Surgeon: Yanni Hough MD Pre Op Diagnosis: R femoral neck fx Patient Data Age: 79 Gender: F Height: 1.5 m Weight: 82.3 kg Last Vital Signs Temp 36.0 C L 07/22/25 05:40 Pulse 94 07/22/25 05:40 Resp 20 07/22/25 05:40 BP 128/78 07/21/25 23:50 Pulse Ox 99 07/22/25 05:40 O2 Del Method Nasal Cannula 07/21/25 22:09 O2 Flow Rate 4 07/21/25 22:09 Allergies Allergy/AdvReac Type Severity Reaction Status Date / Time No Known Allergies Allergy Verified 07/21/25 23:32 Home Medications ?Medication ?Instructions ?Recorded ?Confirmed ?Type aspirin 81 mg chewable tablet 81 mg PO DAILY 11/01/20 07/21/25 History atorvastatin 40 mg tablet 40 mg PO DAILY #90 tabs 04/27/25 07/21/25 Rx donepezil 10 mg tablet 10 mg PO DAILY #90 tabs 05/09/25 07/21/25 Rx lisinopril 10 mg tablet 10 mg PO DAILY #90 tabs 05/09/25 07/21/25 Rx memantine 10 mg tablet 10 mg PO BID #180 tabs 05/09/25 07/21/25 Rx docusate sodium 100 mg tablet 100 mg PO BID 07/21/25 07/21/25 History (Stool Softener) senna-docusate sodium tablet 1 tablet PO DAILY PRN constipation 07/21/25 07/21/25 History Laboratory Tests 07/21/25 07/21/25 07/22/25 20:44 21:22 07:10 WBC 16.1 H K/mm3 14.8 H K/mm3 (4.5-10.0) (4.5-10.0) RBC 4.58 M/mm3 4.67 M/mm3 (4.2-5.4) (4.2-5.4) Hgb 13.4 g/dL 13.6 g/dL (12.0-15.0) (12.0-15.0) Hct 42.3 % 42.9 % (37.0-47.0) (37.0-47.0) MCV 92.4 fl 91.9 fl (80-100) (80-100) MCH 29.3 pg 29.1 pg (26-34) (26-34) MCHC 31.7 L g/dl 31.7 L g/dl (32-36) (32-36) RDW 15.2 H % 15.1 H % (11.5-14.5) (11.5-14.5) Plt Count 229 k/mm3 230 k/mm3 (150-375) (150-375) MPV 10.3 fl 11.0 H fl (7.4-10.4) (7.4-10.4) Immature Gran % (Auto) 0.7 H % 0.5 % (0-0.5) (0-0.5) Neut % (Auto) 82.8 H % 82.8 H % (45.5-73.1) (45.5-73.1) Lymph % (Auto) 9.5 L % 10.1 L % (18.3-44.2) (18.3-44.2) [place] % (Auto) 5.5 % 5.5 % (2.6-8.5) (2.6-8.5) Eos % (Auto) 1.3 % 0.8 % (0-4.4) (0-4.4) Baso % (Auto) 0.2 % 0.3 % (0.2-1.2) (0.2-1.2) Lymph # (Auto) 1.53 K/mm3 1.50 K/mm3 (0.9-3.2) (0.9-3.2) [place] # (Auto) 0.9 H K/mm3 0.8 H K/mm3 (0.1-0.6) (0.1-0.6) Eos # (Auto) 0.2 K/mm3 0.1 K/mm3 (0-0.3) (0-0.3) Baso # (Auto) 0.0 K/mm3 0.0 K/mm3 (0.0-0.1) (0.0-0.1) Abs Immat Gran (auto) 0.11 H K/mm3 0.07 H K/mm3 (0.00-0.031) (0.00-0.031) Absolute Neuts (auto) 13.3 H K/mm3 12.3 H K/mm3 (1.3-6.7) (1.3-6.7) Absolute Nucleated RBC 0.000 K/mm3 0.000 K/mm3 (0.0-0.012) (0.0-0.012) Nucleated RBC % 0.0 % 0.0 % (0.0-0.2) (0.0-0.2) PT 12.5 Seconds (11.1-14.7) INR 0.9 APTT 25.5 Seconds (22.3-36.8) Sodium 137 mmol/L 140 mmol/L (137-145) (137-145) Potassium 4.2 mmol/L 4.3 mmol/L (3.4-5.0) (3.4-5.0) Chloride 104 mmol/L 105 mmol/L (98-107) (98-107) Carbon Dioxide 29 mmol/L 28 mmol/L (22-30) (22-30) Anion Gap 4 mmol/L 7 mmol/L (4-12) (4-12) BUN 22 H mg/dL 20 H mg/dL (7-17) (7-17) Creatinine 0.94 mg/dL 0.87 mg/dL (0.7-1.0) (0.7-1.0) Estim Creat Clear Calc Not Reportable Not Reportable Estimated GFR 57 L > 60 (59 - ) (59 - ) Glucose 112 H mg/dL 114 H mg/dL (65-110) (65-110) Calcium 9.4 mg/dL 9.2 mg/dL (8.4-10.2) (8.4-10.2) Total Bilirubin 0.4 mg/dL 0.8 mg/dL (0.2-1.3) (0.2-1.3) AST 28 U/L 26 U/L (14-36) (14-36) ALT 18 U/L 21 U/L (6-35) (6-35) Alkaline Phosphatase 98 U/L 96 U/L (38-126) (38-126) Total Protein 6.9 g/dL 7.1 g/dL (6.3-8.2) (6.3-8.2) Albumin 4.0 g/dL 4.1 g/dL (3.5-5.1) (3.5-5.1) Urine Color Yellow (Yellow) Urine Appearance Cloudy H (Clear) Urine pH 5.5 (5.0-9.0) Ur Specific [place] 1.013 (1.001-1.035) Urine Protein Negative mg/dL (Negative) Urine Glucose (UA) Negative mg/dL (Negative) Urine Ketones Negative mg/dL (Negative) Ur Blood (Man) Negative (Negative) Urine Nitrate Positive H (Negative) Urine Bilirubin Negative (Negative) Urine Urobilinogen 1.0 mg/dL (<2.0) Leukocyte Esterase Rfl 1+ H RAFITA/UL (Negative) Urine RBC 0-2 /hpf (0-2) Urine WBC 11-20 H /hpf (0-3) Ur Squamous Epith Cells None seen /hpf (Few) Urine Bacteria 2+ H /hpf Urine Casts 0-2 Blood Type Antibody Screen 07/22/25 09:00 WBC RBC Hgb Hct MCV MCH MCHC RDW Plt Count MPV Immature Gran % (Auto) Neut % (Auto) Lymph % (Auto) [place] % (Auto) Eos % (Auto) Baso % (Auto) Lymph # (Auto) [place] # (Auto) Eos # (Auto) Baso # (Auto) Abs Immat Gran (auto) Absolute Neuts (auto) Absolute Nucleated RBC Nucleated RBC % PT INR APTT Sodium Potassium Chloride Carbon Dioxide Anion Gap BUN Creatinine Estim Creat Clear Calc Estimated GFR Glucose Calcium Total Bilirubin AST ALT Alkaline Phosphatase Total Protein Albumin Urine Color Urine Appearance Urine pH Ur Specific [place] Urine Protein Urine Glucose (UA) Urine Ketones Ur Blood (Man) Urine Nitrate Urine Bilirubin Urine Urobilinogen Leukocyte Esterase Rfl Urine RBC Urine WBC Ur Squamous Epith Cells Urine Bacteria Urine Casts Blood Type A Positive Antibody Screen Negative Patient hx anesthesia problems: none Family hx anesthesia problems: none Results Review: All pre-operative results and documents have been reviewed as part of the pre-operative evaluation. [facility] Past Medical History Medical History (Updated 07/22/25 @ 13:25 by Martin Wilkerson DO) GERD (gastroesophageal reflux disease) Increase in creatinine Alzheimer disease Hypertension APC (adenomatous polyposis coli) Stroke Transient global amnesia Sleep apnea Surgical History Surgical History History of ankle surgery History of surgery on arm 2016 H/O abdominal hysterectomy 2004 H/O tubal ligation 1979 H/O breast surgery 1967 Family History Family History Father Malignant neoplasm of prostate Mother Bone cancer Sibling Parkinson disease Diabetes mellitus Dementia Grandparent Dementia Other Dementia Social History Social History Social History: She lives with her . Code status: Full code 05/24/25 very confident with medical forms Smoking status: Never smoker Second hand tobacco smoke exposure: No Alcohol intake: never Substance use: never Substance use type: does not use Lack of Transportation: No Lack of Food: Never True Current Housing: I Have Housing Concerned About Future Housing: No Difficulty Paying Gas/Electric Bills: No Difficulty Paying for Meds: No Currently Unemployed: No Education: High School Diploma/GED Difficulty w/ Childcare or Family Care: No Living arrangements: with family Gender identity (if verbalized by the patient): Female Spiritual care concerns: No Agree to blood products: Yes Anes - Eval Final PreProcedure Day of Procedure 07/22/25 13:24 Patient weight: obese Heart: regular rate and rhythm Lungs: clear to auscultation Airway: Mallampati scale class II Neurological: alert and oriented Last oral intake: >/= 8 hours ASA classification: IV Emergent: no Anesthetic plan: proceed Anesthesia type and monitoring: general ETT and standard monitoring Results Review: All pre-operative results and documents have been reviewed as part of the pre-operative evaluation. Informed Consent: The patient's anesthetic plan and its attendant risks and benefits were discussed with the patient/family/POA. Questions were solicited and answers provided to the satisfaction of the patient/family/POA.
[2025-07-22] MEDS: TRANEXAMIC ACID 1,000MG/ISO100 1,000 MG/100 ML BAG 200 MG IVPB (14:03)
[2025-07-22] MEDS: LACTATED RINGERS 1,000 ML 30 ML IV CONT (14:25)
--- NOTE | 2025-07-22 14:45 | WPDHPUPDATE1 ---
History and Physical Update Update Date/Time: 07/22/25 14:45 History and Physical has been reviewed, including an updated exam of the patient. There are NO changes in the patient's condition. Risks, benefits, and alternatives have been discussed and questions answered. Patient agrees to proceed with procedure.
--- NOTE | 2025-07-22 14:58 | SUR.PREOP ---
HAIR REMOVAL AND SCRUB DEFERRED DUE TO AGITATION.
[2025-07-22] MEDS: ceFAZolin 2 GM in SODIUM CHLORIDE 0.9% IV 50 ML 100 ML IVPB ×2 (15:07→22:43)
[2025-07-22] MEDS: BUPIVACAINE/EPINEPHRINE 0.5% 50 ML VIAL 30 ML INFILTRATE (15:46)
--- NOTE | 2025-07-22 16:51 | W.PM.PROC2 ---
Procedure Note - Detailed Date of Procedure 07/22/25 Pre-op Diagnosis R femoral neck fx Post-op Diagnosis Same Procedure Performed Bipolar hemiarthroplasty right hip. Surgeon Kris Cooper MD Anesthesia General Description of Procedure A general anesthetic was administered. The patient was carefully placed in the lateral decubitus position on the peg board positioner. An axillary roll was placed. The hip was prepped and draped in the usual sterile fashion. A minimally invasive optimized posterior approach to the hip was performed. An L shaped capsulotomy was created along the upper border of the piriformis. The short external rotators were tagged with number 2 high strength suture for later repair. The labrum was preserved. The femoral neck cut was performed. The femoral head was removed and sized. The acetabular floor was cleared of debris and loose tissue. The femur was sequentially broached. Trial was assessed for leg length and stability. The real component was impacted into position, trialed again, and the final head and bipolar component were assembled. The hip was reduced after copious irrigation. The short external rotators and capsule were repaired through drill holes in the posterior trochanter. The wound was closed in layers with 1 vicryl, 2,0, and 2-0 running barbed suture. Adhesive tapes were placed on the skin, followed by a sterile gauze dressing. The patient was extubated and brought to the recovery room. Implants [place] Accolate 2 hip stem 127 degree, size 4, UH are bipolar component outer diameter size 45, inner metal ball size 28 mm +0 Estimated Blood Loss 300 Drains No Pathology None sent Complications No immediate complications Condition Stable Disposition PACU [facility] Billing Surgery - Charge Forward: Surgery Billing
--- NOTE | 2025-07-22 17:31 | SUR.PHASEI ---
Pt BP is not reading accuratly as of 1724 due to patient moving. Patient is A+Ox0 and does not follow commands. Pt is more awake now and is not wanting to sit still for BP. Family at bedside in PACU
[2025-07-22] MEDS: SODIUM CHLORIDE 0.9% IV 1,000 ML 125 ML IV CONT (18:25)
--- NOTE | 2025-07-22 18:58 | PC.NURSE ---
Pt will drink water but refuses to swallow pills. The tried to help and he says she normally takes them whole but she spit them out.
[2025-07-22] MEDS: ACETAMINOPHEN 325 MG TABLET 650 MG PO (19:47)
[2025-07-22] MEDS: FAMOTIDINE 20 MG TABLET PO (22:43)
[2025-07-23] MEDS: ACETAMINOPHEN 325 MG TABLET 650 MG PO ×5 (00:46→22:00)
[2025-07-23] MEDS: cefTRIAXone 1 GM in SODIUM CHLORIDE 0.9% IV 50 ML 100 ML IVPB (01:02)
[2025-07-23 05:20] VITALS: BP 102/54; PULSE 85; RESP 20; TEMP 36.9; O2SAT 93
[2025-07-23] MEDS: ceFAZolin 2 GM in SODIUM CHLORIDE 0.9% IV 50 ML 100 ML IVPB ×2 (05:24→13:07)
[2025-07-23 06:36] LABS: Hematocrit 36.3 % (37.0-47.0); Hemoglobin 11.3 g/dL (12.0-15.0); Immature Granulocyte Percent A 0.5 % (0-0.5); Lymphocytes Absolute Auto 0.98 K/mm3 (0.9-3.2); Mean Corpuscular HGB Conc 31.1 g/dl (32-36); Mean Corpuscular Hemoglobin 29.0 pg (26-34); Mean Corpuscular Volume 93.1 fl (80-100); Nucleated Red Blood Cells Absolute Auto 0.000 K/mm3 (0.0-0.012); Nucleated Red Blood Cells Perc 0.0 % (0.0-0.2); Platelet Count Result 163 k/mm3 (150-375); Red Blood Count 3.90 M/mm3 (4.2-5.4); White Blood Count 12.7 K/mm3 (4.5-10.0)
[2025-07-23 07:02] LABS: Alanine Aminotransferase 16 U/L (6-35); Albumin Level 3.3 g/dL (3.5-5.1); Alkaline Phosphatase 77 U/L (38-126); Anion Gap 4 mmol/L (4-12); Aspartate Amino Transferase 31 U/L (14-36); Bilirubin,Total 0.9 mg/dL (0.2-1.3); Blood Urea Nitrogen 16 mg/dL (7-17); Calcium 8.3 mg/dL (8.4-10.2); Carbon Dioxide 26 mmol/L (22-30); Chloride 106 mmol/L (98-107); Estimated Glomerular Filt Rate > 60; Glucose 114 mg/dL (65-110); Potassium 3.7 mmol/L (3.4-5.0); Sodium 136 mmol/L (137-145); Total Protein 5.9 g/dL (6.3-8.2)
--- NOTE | 2025-07-23 07:10 | P.PNIM_ITS ---
Progress Note: A&P Assessment and Plan (1) Closed displaced fracture of right femoral neck: Code(s): S72.001A - Fracture of unspecified part of neck of right femur, initial encounter for closed fracture Status: Acute Assessment and Plan: * Acute displaced subcapital fracture of the right femoral neck * the had multiple questions concerning possible surgery. I explained to him about quality of life. We discussed the lytic lesion which could possibly be metastatic cancer. I also explained to him that are unable to do a bone scan while she is inpatient. * Also she has dementia and has had a previous stroke. She is unable to communicate. The is the durable power regulatory attorney. He stated that he would like for her to have surgery if at all possible. It was explained that there are a lot of risk involved with that and the pros and cons will need to be weighed out. I explained to him that ultimately it will be up to the surgeon. The decision will be made based on several factors.Sclerotic lesion in the left T1 vertebral body is noted. Follow-up bone scan can be done to exclude malignancy. * continue with pain medication. However the patient became hypoxic after pain medication and needed to be on oxygen at 4 L per nasal cannula. * Ortho has been consulted * POD 1 right bipolar hip replacement * PT/OT evals - likely SNF (2) Dementia: Qualifiers: Dementia behavioral or psychological symptom: unspecified whether behavioral, psychotic, or mood disturbance or anxiety Dementia severity: unspecified severity Dementia type: unspecified type Qualified Code(s): F03.90 - Unspecified dementia, unspecified severity, without behavioral disturbance, psychotic disturbance, mood disturbance, and anxiety Code(s): F03.90 - Unspecified dementia, unspecified severity, without behavioral disturbance, psychotic disturbance, mood disturbance, and anxiety Status: Acute Assessment and Plan: * Patient's Namenda and Aricept on hold at this time as she is NPO. * Patient is unable to communicate. She is able to mumble some words. (3) UTI (urinary tract infection): Code(s): N39.0 - Urinary tract infection, site not specified Status: Acute Assessment and Plan: * UA: Positive nitrates, 1+ leukocyte esterase, 11-20 urine WBC, 2+ bacteria * Started on Rocephin * Blood and urine cultures are pending (4) Hypertension: Qualifiers: Hypertension type: primary hypertension Qualified Code(s): I10 - Essential (primary) hypertension Code(s): I10 - Essential (primary) hypertension Status: Acute Assessment and Plan: * The patient is improved this time in her lisinopril was placed on hold. * 128/78. (5) HLD (hyperlipidemia): Qualifiers: Hyperlipidemia type: mixed hyperlipidemia Qualified Code(s): E78.2 - Mixed hyperlipidemia Code(s): E78.5 - Hyperlipidemia, unspecified Status: Acute Assessment and Plan: * Patient is on atorvastatin but is NPO at this time. Subjective Date/time seen: 07/23/25 07:10 Interval history: 79-year-old female patient who has a history of dementia and CVA. She lives with her and he is providing information for the patient's medical history. Is reported that the patient tripped and fell down 2 steps in their garage. She fell backwards hitting her head against a garbage can. The patient was found lying flat on her back. 07/23/2025 Patient sitting comfortably in bed at time of examination. POD 1 Bipolar hemiarthroplasty right hip. Received morphine this morning as patient was yelling out, however after discussing with patient's spouse, likely some component of confused agitation as the patient becomes agitated at small interactions, such changing the bed sheets or blood draws. We will continue to give PRN pain medication as appropriate. PT/OT evals recommend further rehab services - will likely benefit from SNF. Review of Systems Review of Systems: ROS unobtainable: Yes unobtainable due to mental status Constitutional: Constitutional: Reports as per HPI and Reports no additional constitutional complaints Eyes: Eyes: Reports as per HPI and Reports no additional eye complaints ENT: Reports system reviewed and no additional complaints, except as documented and Reports Normal hearing present Cardiovascular: Cardiovascular: Reports no additional cardiovascular complaints Respiratory: Respiratory: Reports as per HPI and Reports no additional respiratory complaints Gastrointestinal: Gastrointestinal: Reports as per HPI and Reports no additi onal gastrointestinal complaints Genitourinary: Genitourinary: Reports no additional female genitourinary complaints Musculoskeletal: Musculoskeletal: Reports no additional musculoskeletal complaints Integumentary/Breasts: Skin/Breast: Reports system reviewed and no additional complaints, except as docu Neurologic: Reports system reviewed and no additional complaints, except as documented and Reports Normal hearing present Psychiatric: Psychiatric: Reports no additional psychiatric complaints and Reports as per HPI Hematologic/Lymphatic: Hematologic/Lymphatic: Reports no additional hematologic/lymphatic complaints Allergic/Immunologic: Allergic/Immunologic: Reports no additional allergic/immunologic complaints Exam Const: General: cooperative, no acute distress, awake, Physically active, average body habitus and well nourished Nutritional Appearance: average body habitus and well nourished Orientation/consciousness: oriented to person HENMT: Head: normal to inspection and No palpable skull fracture present Eyes: General: appearance normal, both eyes and all related structures Alignment and Position: alignment normal Neck: Neck: normal visual inspection and full ROM Chest: Chest palpation & inspection: normal inspection of the chest Resp: Effort & Inspection: normal respiratory effort Cardio: Palpation: normal PMI Rate: regular rate Rhythm: regular rhythm Heart sounds: S1 normal heart sound present and S2 normal heart sound present Peripheral pulses: Peripheral pulses 2+ throughout GI: Inspection: normal to inspection : General: Yes no CVA tenderness Urinary Catheter: Urinary Catheter: urine clear Back/Spine/Pelvis: Back: no CVA tenderness Skin: General skin exam: normal color Lesions: no lesions Rashes: no rashes Trauma: no lacerations or abrasions Wounds: no wounds Hair: normal Nails: normal Neuro: General: oriented to person Cranial nerves: Yes Normal hearing present Other: The patient is noncommunicative. Extrem: General: normal to inspection Right upper extremity: normal to inspection and shoulder/upper arm Left upper extremity: normal to inspection and shoulder/upper arm Right lower extremity: normal to inspection Left lower extremity: normal to inspection Other: Right leg is shortened and externally rotated. Psych: Appearance: grossly normal Attitude: cooperative Objective Data Vital Signs Vital Signs: Vital Signs - 24 hr 07/22/25 09:30 07/22/25 14:00 07/22/25 14:30 Temperature 98.6 F 97.0 F L Pulse Rate 96 113 H Respiratory Rate 18 Blood Pressure 139/90 192/118 H Pulse Oximetry 99 99 96 Oxygen Delivery Nasal Cannula Nasal Cannula Oxygen Flow Rate 4 4 07/22/25 16:40 07/22/25 16:55 07/22/25 17:10 Temperature 98.3 F Pulse Rate 107 H 107 H 106 H Respiratory Rate 22 H 20 21 H Blood Pressure 103/58 L 106/56 L 119/61 Pulse Oximetry 100 97 100 Oxygen Delivery Simple Face Mask Nasal Cannula Nasal Cannula Oxygen Flow Rate 8 4 4 07/22/25 17:25 07/22/25 17:37 07/22/25 18:00 Temperature 97.6 F Pulse Rate 104 H 103 H 94 Respiratory Rate 19 19 18 Blood Pressure 128/86 120/72 Pulse Oximetry 94 100 95 Oxygen Delivery Nasal Cannula Nasal Cannula Oxygen Flow Rate 4 4 07/22/25 18:05 07/22/25 19:20 07/22/25 21:20 Temperature 97.6 F 98.5 F 98.3 F Pulse Rate 95 98 75 Respiratory Rate 18 20 20 Blood Pressure 142/72 H 132/74 Pulse Oximetry 98 96 94 Oxygen Delivery Oxygen Flow Rate 07/22/25 21:47 07/22/25 23:35 07/23/25 05:20 Temperature 98.6 F 98.5 F Pulse Rate 65 85 Respiratory Rate 18 20 Blood Pressure 155/84 H 102/54 L Pulse Oximetry 91 93 Oxygen Delivery Oxygen Flow Rate Intake/Output Intake/Output: Intake & Output 07/20/25 07/21/25 07/22/25 07/23/25 23:59 23:59 23:59 23:59 Intake Total 561.5 185.3 Output Total 920 475 Balance -358.5 -289.7 Meds/Results Medications: Active Medications Generic Name Dose Route Start Last Admin Trade Name Freq PRN Reason Stop Dose Admin Acetaminophen 650 mg 07/21/25 20:53 07/22/25 19:47 Acetaminophen 325 Mg Tablet PO 650 mg Q4H PRN Administration Mild Pain (1-3) or Fever Acetaminophen 650 mg 07/22/25 18:00 07/23/25 05:25 Acetaminophen 325 Mg Tablet PO 650 mg Q6HR NEHEMIAH Administration Dextrose 12.5 gm 07/21/25 20:53 Dextrose 50% 25 Gm/50 Ml Syringe IV PUSH PRN PRN Hypoglycemia Protocol Enoxaparin Sodium 40 mg 07/23/25 09:00 Enoxaparin 40 Mg/0.4 Ml Syringe SUB-Q DAILY NEHEMIAH Famotidine 20 mg 07/22/25 21:00 07/22/25 22:43 Famotidine 20 Mg Tablet PO 20 mg Q12HR NEHEMIAH Administration Fentanyl Citrate 25 mcg 07/22/25 13:26 Fentanyl Citrate Inj (*Crx) 100 Mcg/2 Ml Vial IV PUSH Q2M PRN Pain Glucagon 1 mg 07/21/25 20:53 Glucagon For Inj 1 Mg Vial IM PRN PRN Hypoglycemia Protocol Glucose 15 gm 07/21/25 20:53 Glucose Oral Gel 15 Gm Of Glucse In 37.5 Gm Tube PO PRN PRN Hypoglycemia Protocol Hydroxyzine Pamoate 50 mg 07/22/25 17:50 Hydroxyzine Pamoate 25 Mg Capsule PO Q4H PRN Itching Dextrose 1,000 mls @ 100 mls/hr 07/21/25 20:53 Dextrose 5% 1,000 Ml IVPB PRN PRN Hypoglycemia Protocol Ceftriaxone Sodium 1 gm/ 50 mls @ 100 mls/hr 07/22/25 02:00 07/23/25 01:02 Sodium Chloride IVPB 100 mls/hr Q24H NEHEMIAH Administration Lactated Ringer's 1,000 mls @ 30 mls/hr 07/22/25 13:30 07/22/25 17:22 Lr - Lactated Ringers Iv IV CONT Infused .Q24H NEHEMIAH Infusion Lactated Ringer's 1,000 mls @ 30 mls/hr 07/22/25 13:30 07/22/25 23:40 Lr - Lactated Ringers Iv IV CONT Not Given .Q24H NEHEMIAH Cefazolin Sodium 2 gm/ Sodium 50 mls @ 100 mls/hr 07/22/25 22:00 07/23/25 05:24 Chloride IVPB 07/23/25 14:29 100 mls/hr Q8HR NEHEMIAH Administration Sodium Chloride 1,000 mls @ 125 mls/hr 07/22/25 17:50 07/23/25 00:25 Normal Saline Iv IV CONT 80 mls/hr .Q8H NEHEMIAH Infusion Morphine Sulfate 2 mg 07/21/25 21:07 07/21/25 21:41 Morphine Sulfate (*Crx) 4 Mg/Ml Inj IV PUSH 2 mg Q2H PRN Administration Pain Rated 7-10 Naloxone HCl 0.1 mg 07/22/25 17:50 Naloxone Hcl 0.4 Mg/Ml Vial IV PUSH Q2M PRN Opiate Reversal Ondansetron HCl 4 mg 07/21/25 20:53 Ondansetron Inj 4 Mg/2 Ml Vial IV PUSH Q4H PRN Nausea Ondansetron HCl 4 mg 07/22/25 13:26 Ondansetron Inj 4 Mg/2 Ml Vial IV PUSH ONCE PRN Nausea Ondansetron HCl 4 mg 07/22/25 17:50 Ondansetron Inj 4 Mg/2 Ml Vial IV PUSH Q4H PRN Nausea And Vomiting Polyethylene Glycol 17 gm 07/23/25 09:00 Polyethylene Glycol 3350 17 Gm Powd.Pack PO QAM [facility] Senna/Docusate Sodium 1 tab 07/22/25 17:00 Senna/Docusate Sodium Tablet PO PRN PRN Constipation Senna/Docusate Sodium 2 tab 07/22/25 17:50 07/22/25 18:57 Senna/Docusate Sodium Tablet PO Not Given BID [facility] Radiology Results: ITS Impressions Chest X-Ray 07/21/25 20:18 IMPRESSION: No acute pulmonary findings. Head CT 07/21/25 20:22 IMPRESSION: No acute intracranial hemorrhage or extra axial fluid collections. Chronic white matter microangiopathic changes and generalized atrophy. All CT scans at this facility are performed using low dose modulation techniques as appropriate to perform exam including the following: automated exposure control; use of iterative reconstruction technique; adjustment of the mA and/or kV according to patient size (this includes techniques or standardized protocols for targeted exams where dose is matched to indication/reason for exam). Hip/Pelvis X-Ray 07/21/25 20:23 IMPRESSION: Acute displaced subcapital fracture of the right femoral neck. Cervical Spine CT 07/21/25 20:28 IMPRESSION: Multilevel degenerative changes. Sclerotic lesion in the left T1 vertebral body is noted. Follow-up bone scan can be done to exclude malignancy. No acute fracture or subluxation. All CT scans at this facility are performed using low dose modulation techniques as appropriate to perform exam including the following: automated exposure control; adjustment of the mA and/or kV according to patient size (this includes techniques or standardized protocols for targeted exams where does is matched to indication/reason for exam; i.e. extremities or head); use of iterative reconstruction technique). Hip X-Ray 07/22/25 17:06 Impression: No acute fracture or malalignment. Labs Labs: Laboratory Results - last 24 hr 07/22/25 07/22/25 07/23/25 07:10 09:00 06:10 WBC 14.8 H 12.7 H RBC 4.67 3.90 L Hgb 13.6 11.3 L Hct 42.9 36.3 L MCV 91.9 93.1 MCH 29.1 29.0 MCHC 31.7 L 31.1 L RDW 15.1 H 15.1 H Plt Count 230 163 MPV 11.0 H 11.1 H Immature Gran % (Auto) 0.5 0.5 Neut % (Auto) 82.8 H 81.0 H Lymph % (Auto) 10.1 L 7.7 L Morton % (Auto) 5.5 9.1 H Eos % (Auto) 0.8 1.5 Baso % (Auto) 0.3 0.2 Lymph # (Auto) 1.50 0.98 Morton # (Auto) 0.8 H 1.2 H Eos # (Auto) 0.1 0.2 Baso # (Auto) 0.0 0.0 Abs Immat Gran (auto) 0.07 H 0.06 H Absolute Neuts (auto) 12.3 H 10.3 H Absolute Nucleated RBC 0.000 0.000 Nucleated RBC % 0.0 0.0 Sodium 140 136 L Potassium 4.3 3.7 Chloride 105 106 Carbon Dioxide 28 26 Anion Gap 7 4 BUN 20 H 16 Creatinine 0.87 0.85 Estim Creat Clear Calc Not Reportable Not Reportable Estimated GFR > 60 > 60 Glucose 114 H 114 H Calcium 9.2 8.3 L Total Bilirubin 0.8 0.9 AST 26 31 ALT 21 16 Alkaline Phosphatase 96 77 Total Protein 7.1 5.9 L Albumin 4.1 3.3 L Blood Type A Positive Antibody Screen Negative Quality VTE Prophylaxis VTE prophylaxis: mechanical ordered
[2025-07-23] MEDS: MORPHINE SULFATE (*CRX) 4 MG/ML INJ 2 MG IV PUSH (09:00)
[2025-07-23 11:35] VITALS: BP 114/73; PULSE 90; RESP 18; TEMP 37.7; O2SAT 98
--- NOTE | 2025-07-23 11:48 | PCOTNOTE ---
Attempted to see pt. for occupational therapy evaluation. Pt. sleeping with CPAP on, spouse requesting to let her rest.
[2025-07-23] MEDS: SODIUM CHLORIDE 0.9% IV 1,000 ML 125 ML IV CONT (12:54)
[2025-07-23] MEDS: ENOXAPARIN 40 MG/0.4 ML SYRINGE SUB-Q (12:55)
[2025-07-23] MEDS: FAMOTIDINE 20 MG TABLET PO ×2 (12:55→22:00)
[2025-07-23 15:35] VITALS: BP 110/75; PULSE 90; RESP 18; TEMP 37.6; O2SAT 98
[2025-07-23 15:40] VITALS: O2SAT 96
--- NOTE | 2025-07-23 15:56 | ECG_ITS ---
Test Date: 2025-07-23 22:34:32 Measurements Intervals [place] Rate: 100 P: 54 PA: 121 QRS: 117 QRSD: 129 T: 0 QT: 362 QTc: 469 Interpretive Statements SINUS TACHYCARDIA RIGHT BUNDLE BRANCH BLOCK MINIMAL Q WAVES- INFERIOR LEADS BASELINE ARTIFACT- I, II, AVR, AVL, V1 ABNORMAL ECG Compared to ECG 07/21/2025 20:39:33 HEART RATE HAS INCREASED SUPRAVENTRICULAR BIGEMINY NO LONGER PRESENT Electronically Signed On 07-24-2025 08:38:31 CDT by Bill Nugent D.O.
--- NOTE | 2025-07-23 16:40 | PC.NURSE ---
, Abraham, would like to refuse EKG. There were concerns with a fib with her pulse ox HR jumping between 40 and 150 with a palpated irregular heartbeat. He states she has had a full workup for a fib after her stroke with multiple EKGs and a holter monitor for two weeks, so he would like to hold off on the EKG at this time.
--- NOTE | 2025-07-23 16:53 | PCRCNOTE ---
Patient's refused EKG at this time. RN is aware.
[2025-07-23 19:40] VITALS: BP 151/90; PULSE 92; RESP 18; TEMP 35.9; O2SAT 94
[2025-07-23 20:12] VITALS: PULSE 80; RESP 24; O2SAT 90
[2025-07-23] MEDS: HYDROcodone/acetaminophen (*CRX) 5-325 MG TABLET 1 TAB PO (21:59)
[2025-07-24] VITALS (10 sets, daily range): BP systolic 105–142; BP diastolic 64–93; PULSE 85–104; RESP 16–26; TEMP 36.1–36.4; O2SAT 90–97; BMI 11.0
[2025-07-24] MEDS: SODIUM CHLORIDE 0.9% IV 1,000 ML 70 ML IV CONT (00:54)
[2025-07-24] MEDS: cefTRIAXone 1 GM in SODIUM CHLORIDE 0.9% IV 50 ML 100 ML IVPB (01:00)
[2025-07-24] MEDS: HYDROcodone/acetaminophen (*CRX) 5-325 MG TABLET 1 TAB PO (04:25)
[2025-07-24 06:17] LABS: Hematocrit 34.9 % (37.0-47.0); Hemoglobin 10.9 g/dL (12.0-15.0); Immature Granulocyte Percent A 0.4 % (0-0.5); Lymphocytes Absolute Auto 1.10 K/mm3 (0.9-3.2); Mean Corpuscular HGB Conc 31.2 g/dl (32-36); Mean Corpuscular Hemoglobin 29.2 pg (26-34); Mean Corpuscular Volume 93.6 fl (80-100); Nucleated Red Blood Cells Absolute Auto 0.000 K/mm3 (0.0-0.012); Nucleated Red Blood Cells Perc 0.0 % (0.0-0.2); Platelet Count Result 135 k/mm3 (150-375); Red Blood Count 3.73 M/mm3 (4.2-5.4); White Blood Count 12.3 K/mm3 (4.5-10.0)
[2025-07-24 06:29] LABS: Alanine Aminotransferase 11 U/L (6-35); Albumin Level 3.0 g/dL (3.5-5.1); Alkaline Phosphatase 77 U/L (38-126); Anion Gap 4 mmol/L (4-12); Aspartate Amino Transferase 27 U/L (14-36); Bilirubin,Total 0.5 mg/dL (0.2-1.3); Blood Urea Nitrogen 16 mg/dL (7-17); Calcium 8.2 mg/dL (8.4-10.2); Carbon Dioxide 25 mmol/L (22-30); Chloride 109 mmol/L (98-107); Estimated Glomerular Filt Rate > 60; Glucose 119 mg/dL (65-110); Potassium 3.9 mmol/L (3.4-5.0); Sodium 138 mmol/L (137-145); Total Protein 5.7 g/dL (6.3-8.2)
--- NOTE | 2025-07-24 07:07 | P.PNIM_ITS ---
Progress Note: A&P Assessment and Plan (1) Closed displaced fracture of right femoral neck: Code(s): S72.001A - Fracture of unspecified part of neck of right femur, initial encounter for closed fracture Status: Acute Assessment and Plan: * Acute displaced subcapital fracture of the right femoral neck * the had multiple questions concerning possible surgery. I explained to him about quality of life. We discussed the lytic lesion which could possibly be metastatic cancer. I also explained to him that are unable to do a bone scan while she is inpatient. * Also she has dementia and has had a previous stroke. She is unable to communicate. 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 He stated that he would like for her to have surgery if at all possible. It was explained that there are a lot of risk involved with that and the pros and cons will need to be weighed out. I explained to him that ultimately it will be up to the surgeon. The decision will be made based on several factors.Sclerotic lesion in the left T1 vertebral body is noted. Follow-up bone scan can be done to exclude malignancy. * continue with pain medication. However the patient became hypoxic after pain medication and needed to be on oxygen at 4 L per nasal cannula. * Ortho has been consulted * POD 2 right bipolar hip replacement * PT/OT evals - likely SNF * is agreeable to SNT, would like patient to go to [place] for swing bed (2) Dementia: Qualifiers: Dementia behavioral or psychological symptom: unspecified whether behavioral, psychotic, or mood disturbance or anxiety Dementia severity: unspecified severity Dementia type: unspecified type Qualified Code(s): F03.90 - Unspecified dementia, unspecified severity, without behavioral disturbance, psychotic disturbance, mood disturbance, and anxiety Code(s): F03.90 - Unspecified dementia, unspecified severity, without behavioral disturbance, psychotic disturbance, mood disturbance, and anxiety Status: Acute Assessment and Plan: * restart home Namenda and Aricept * Patient is unable to communicate. She is able to mumble some words. (3) UTI (urinary tract infection): Code(s): N39.0 - Urinary tract infection, site not specified Status: Acute Assessment and Plan: * UA: Positive nitrates, 1+ leukocyte esterase, 11-20 urine WBC, 2+ bacteria * Started on Rocephin - stop * Blood cultures are pending * urine culture with no growth * ruled out (4) Hypertension: Qualifiers: Hypertension type: primary hypertension Qualified Code(s): I10 - Essential (primary) hypertension Code(s): I10 - Essential (primary) hypertension Status: Acute Assessment and Plan: * restart home lisinopril * Monitor blood pressure (5) HLD (hyperlipidemia): Qualifiers: Hyperlipidemia type: mixed hyperlipidemia Qualified Code(s): E78.2 - Mixed hyperlipidemia Code(s): E78.5 - Hyperlipidemia, unspecified Status: Acute Assessment and Plan: * restart home atorvastatin Subjective Date/time seen: 07/24/25 07:07 Interval history: 79-year-old female patient who has a history of dementia and CVA. She lives with her and he is providing information for the patient's medical history. Is reported that the patient tripped and fell down 2 steps in their garage. She fell backwards hitting her head against a garbage can. The patient was found lying flat on her back. 07/24/2025 patient is here for follow-up visit. Patient lying in bed, no signs of Distress. Patient is POD 2 bipolar hemiarthroplasty right hip. Patient's is at bedside. Patient is calm during exam and answers questions. Patient denies pain when asked. PT/ OT is recommending SNF. Discussed with and he is interested in a swing bed at [facility]. Continue PT/OT. Review of Systems Review of Systems: ROS unobtainable: Yes unobtainable due to mental status Exam Const: General: cooperative, no acute distress, awake, Physically active, average body habitus and well nourished Nutritional Appearance: average body habitus and well nourished Orientation/consciousness: oriented to person HENMT: Head: normal to inspection Eyes: General: appearance normal, both eyes and all related structures Alignment and Position: alignment normal Neck: Neck: normal visual inspection and full ROM Resp: Effort & Inspection: normal respiratory effort Auscultation: clear to auscultation bilaterally Cardio: Rate: regular rate Rhythm: regular rhythm GI: GI Palp: Yes Soft to palpation Auscultation: normal bowel sounds Urinary Catheter: Urinary Catheter: urine clear Back/Spine/Pelvis: Back: no CVA tenderness Skin: General skin exam: normal color Lesions: no lesions Rashes: no rashes Trauma: no lacerations or abrasions Wounds: no wounds Hair: normal Nails: normal Neuro: General: oriented to person Cranial nerves: Yes Normal hearing present Extrem: General: normal to inspection Left lower extremity: normal to inspection Other: Right leg is shortened and externally rotated. Psych: Appearance: grossly normal Attitude: cooperative Objective Data Vital Signs Vital Signs: Vital Signs - 24 hr 07/23/25 08:30 07/23/25 08:36 07/23/25 11:35 Temperature 99.9 F H Pulse Rate 90 Respiratory Rate 18 Blood Pressure 114/73 Pulse Oximetry 98 Oxygen Delivery Nasal Cannula Nasal Cannula Oxygen Flow Rate 1 1 07/23/25 15:35 07/23/25 15:40 07/23/25 19:40 Temperature 99.6 F 96.6 F L Pulse Rate 90 92 Respiratory Rate 18 18 Blood Pressure 110/75 151/90 H Pulse Oximetry 98 96 94 Oxygen Delivery Nasal Cannula Oxygen Flow Rate 2 07/23/25 20:12 07/24/25 00:55 07/24/25 01:28 Temperature 96.9 F L Pulse Rate 80 104 H 85 Respiratory Rate 24 H 16 26 H Blood Pressure 131/93 H Pulse Oximetry 90 96 90 Oxygen Delivery Autopap Autopap Oxygen Flow Rate 07/24/25 04:38 07/24/25 06:13 Temperature 97.2 F L Pulse Rate 94 94 Respiratory Rate 24 H 17 Blood Pressure 105/64 Pulse Oximetry 90 92 Oxygen Delivery Autopap Oxygen Flow Rate Intake/Output Intake/Output: Intake & Output 07/21/25 07/22/25 07/23/25 07/24/25 23:59 23:59 23:59 23:59 Intake Total 561.5 2647.0 306.8 Output Total 920 475 520 Balance -358.5 2172.0 -213.2 Meds/Results Medications: Active Medications Generic Name Dose Route Start Last Admin Trade Name Freq PRN Reason Stop Dose Admin Acetaminophen 650 mg 07/21/25 20:53 07/23/25 22:00 Acetaminophen 325 Mg Tablet PO 650 mg Q4H PRN Administration Mild Pain (1-3) or Fever Acetaminophen 650 mg 07/22/25 18:00 07/24/25 06:26 Acetaminophen 325 Mg Tablet PO Not Given Q6HR NEHEMIAH Hydrocodone Bitart/Acetaminophen 1 tab 07/23/25 17:14 07/24/25 04:25 Hydrocodone/Acetaminophen (*Crx) 5-325 Mg Tablet PO 1 tab Q4H PRN Administration Pain Rated 4-6 Dextrose 12.5 gm 07/21/25 20:53 Dextrose 50% 25 Gm/50 Ml Syringe IV PUSH PRN PRN Hypoglycemia Protocol Enoxaparin Sodium 40 mg 07/23/25 09:00 07/23/25 12:55 Enoxaparin 40 Mg/0.4 Ml Syringe SUB-Q 40 mg DAILY NEHEMIAH Administration Famotidine 20 mg 07/22/25 21:00 07/23/25 22:00 Famotidine 20 Mg Tablet PO 20 mg Q12HR NEHEMIAH Administration Fentanyl Citrate 25 mcg 07/22/25 13:26 Fentanyl Citrate Inj (*Crx) 100 Mcg/2 Ml Vial IV PUSH Q2M PRN Pain Glucagon 1 mg 07/21/25 20:53 Glucagon For Inj 1 Mg Vial IM PRN PRN Hypoglycemia Protocol Glucose 15 gm 07/21/25 20:53 Glucose Oral Gel 15 Gm Of Glucse In 37.5 Gm Tube PO PRN PRN Hypoglycemia Protocol Hydroxyzine Pamoate 50 mg 07/22/25 17:50 Hydroxyzine Pamoate 25 Mg Capsule PO Q4H PRN Itching Dextrose 1,000 mls @ 100 mls/hr 07/21/25 20:53 Dextrose 5% 1,000 Ml IVPB PRN PRN Hypoglycemia Protocol Ceftriaxone Sodium 1 gm/ 50 mls @ 100 mls/hr 07/22/25 02:00 07/24/25 01:00 Sodium Chloride IVPB 100 mls/hr Q24H NEHEMIAH Administration Sodium Chloride 1,000 mls @ 125 mls/hr 07/22/25 17:50 07/24/25 05:17 Normal Saline Iv IV CONT 20 mls/hr .Q8H NEHEMIAH Infusion Morphine Sulfate 2 mg 07/21/25 21:07 07/23/25 09:00 Morphine Sulfate (*Crx) 4 Mg/Ml Inj IV PUSH 2 mg Q2H PRN Administration Pain Rated 7-10 Naloxone HCl 0.1 mg 07/22/25 17:50 Naloxone Hcl 0.4 Mg/Ml Vial IV PUSH Q2M PRN Opiate Reversal Ondansetron HCl 4 mg 07/21/25 20:53 Ondansetron Inj 4 Mg/2 Ml Vial IV PUSH Q4H PRN Nausea Ondansetron HCl 4 mg 10/17/25 13:26 Ondansetron Inj 4 Mg/2 Ml Vial IV PUSH ONCE PRN Nausea Ondansetron HCl 4 mg 07/22/25 17:50 Ondansetron Inj 4 Mg/2 Ml Vial IV PUSH Q4H PRN Nausea And Vomiting Polyethylene Glycol 17 gm 07/23/25 09:00 07/23/25 09:03 Polyethylene Glycol 3350 17 Gm Powd.Pack PO Not Given QAM NEHEMIAH Senna/Docusate Sodium 1 tab 07/22/25 17:00 Senna/Docusate Sodium Tablet PO PRN PRN Constipation Senna/Docusate Sodium 2 tab 07/22/25 17:50 07/23/25 17:36 Senna/Docusate Sodium Tablet PO Not Given BID NEHEM[facility] Radiology Results: ITS Impressions Chest X-Ray 07/21/25 20:18 IMPRESSION: No acute pulmonary findings. Head CT 07/21/25 20:22 IMPRESSION: No acute intracranial hemorrhage or extra axial fluid collections. Chronic white matter microangiopathic changes and generalized atrophy. All CT scans at this facility are performed using low dose modulation techniques as appropriate to perform exam including the following: automated exposure control; use of iterative reconstruction technique; adjustment of the mA and/or kV according to patient size (this includes techniques or standardized protocols for targeted exams where dose is matched to indication/reason for exam). Hip/Pelvis X-Ray 07/21/25 20:23 IMPRESSION: Acute displaced subcapital fracture of the right femoral neck. Cervical Spine CT 07/21/25 20:28 IMPRESSION: Multilevel degenerative changes. Sclerotic lesion in the left T1 vertebral body is noted. Follow-up bone scan can be done to exclude malignancy. No acute fracture or subluxation. All CT scans at this facility are performed using low dose modulation techniques as appropriate to perform exam including the following: automated exposure control; adjustment of the mA and/or kV according to patient size (this includes techniques or standardized protocols for targeted exams where does is matched to indication/reason for exam; i.e. extremities or head); use of ite rative reconstruction technique). Hip X-Ray 07/22/25 17:06 Impression: No acute fracture or malalignment. Labs Labs: Laboratory Results - last 24 hr 07/23/25 07/24/25 16:28 05:52 WBC 12.3 H RBC 3.73 L Hgb 10.9 L Hct 34.9 L MCV 93.6 MCH 29.2 MCHC 31.2 L RDW 15.0 H Plt Count 135 L MPV 10.5 H Immature Gran % (Auto) 0.4 Neut % (Auto) 80.4 H Lymph % (Auto) 9.0 L Wilkin % (Auto) 9.0 H Eos % (Auto) 1.0 Baso % (Auto) 0.2 Lymph # (Auto) 1.10 Wilkin # (Auto) 1.1 H Eos # (Auto) 0.1 Baso # (Auto) 0.0 Abs Immat Gran (auto) 0.05 H Absolute Neuts (auto) 9.9 H Absolute Nucleated RBC 0.000 Nucleated RBC % 0.0 Sodium 138 Potassium 3.9 Chloride 109 H Carbon Dioxide 25 Anion Gap 4 BUN 16 Creatinine 0.79 Estim Creat Clear Calc Not Reportable Estimated GFR > 60 Glucose 119 H Lactic Acid 1.0 Calcium 8.2 L Total Bilirubin 0.5 AST 27 ALT 11 Alkaline Phosphatase 77 Total Protein 5.7 L Albumin 3.0 L Quality VTE Prophylaxis VTE prophylaxis: mechanical ordered
[2025-07-24] MEDS: ACETAMINOPHEN 325 MG TABLET 650 MG PO ×2 (11:48→18:18)
[2025-07-24] MEDS: ENOXAPARIN 40 MG/0.4 ML SYRINGE SUB-Q (11:48)
[2025-07-24] MEDS: SENNA/DOCUSATE SODIUM TABLET 2 TAB PO (18:18)
[2025-07-25 04:35] VITALS: PULSE 96; RESP 20; TEMP 36.4; O2SAT 92
[2025-07-25] MEDS: SODIUM CHLORIDE 0.9% IV 1,000 ML 20 ML IV CONT ×2 (05:17→20:50)
[2025-07-25] MEDS: ACETAMINOPHEN 325 MG TABLET 650 MG PO ×3 (05:19→17:35)
[2025-07-25 06:08] LABS: Hematocrit 34.3 % (37.0-47.0); Hemoglobin 10.6 g/dL (12.0-15.0); Immature Granulocyte Percent A 0.3 % (0-0.5); Lymphocytes Absolute Auto 1.55 K/mm3 (0.9-3.2); Mean Corpuscular HGB Conc 30.9 g/dl (32-36); Mean Corpuscular Hemoglobin 29.0 pg (26-34); Mean Corpuscular Volume 94.0 fl (80-100); Nucleated Red Blood Cells Absolute Auto 0.000 K/mm3 (0.0-0.012); Nucleated Red Blood Cells Perc 0.0 % (0.0-0.2); Platelet Count Result 156 k/mm3 (150-375); Red Blood Count 3.65 M/mm3 (4.2-5.4); White Blood Count 11.7 K/mm3 (4.5-10.0)
[2025-07-25 06:14] VITALS: BP 167/86; RESP 20
[2025-07-25 06:53] LABS: Alanine Aminotransferase 10 U/L (6-35); Albumin Level 3.1 g/dL (3.5-5.1); Alkaline Phosphatase 92 U/L (38-126); Anion Gap 6 mmol/L (4-12); Aspartate Amino Transferase 26 U/L (14-36); Bilirubin,Total 0.8 mg/dL (0.2-1.3); Blood Urea Nitrogen 16 mg/dL (7-17); Calcium 8.5 mg/dL (8.4-10.2); Carbon Dioxide 21 mmol/L (22-30); Chloride 110 mmol/L (98-107); Estimated Glomerular Filt Rate > 60; Glucose 100 mg/dL (65-110); Potassium 3.6 mmol/L (3.4-5.0); Sodium 137 mmol/L (137-145); Total Protein 6.0 g/dL (6.3-8.2)
--- NOTE | 2025-07-25 07:15 | P.PNIM_ITS ---
Progress Note: A&P Assessment and Plan (1) Closed displaced fracture of right femoral neck: Code(s): S72.001A - Fracture of unspecified part of neck of right femur, initial encounter for closed fracture Status: Acute Assessment and Plan: * Acute displaced subcapital fracture of the right femoral neck * the had multiple questions concerning possible surgery. I explained to him about quality of life. We discussed the lytic lesion which could possibly be metastatic cancer. I also explained to him that are unable to do a bone scan while she is inpatient. * Also she has dementia and has had a previous stroke. She is unable to communicate. 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 He stated that he would like for her to have surgery if at all possible. It was explained that there are a lot of risk involved with that and the pros and cons will need to be weighed out. I explained to him that ultimately it will be up to the surgeon. The decision will be made based on several factors.Sclerotic lesion in the left T1 vertebral body is noted. Follow-up bone scan can be done to exclude malignancy. * continue with pain medication. However the patient became hypoxic after pain medication and needed to be on oxygen at 4 L per nasal cannula. * Ortho has been consulted * POD 3 right bipolar hip replacement * PT/OT evals - likely SNF * is agreeable to SNT, would like patient to go to [facility] for swing bed * PT notes state that patient is fearful and having pain, discussed with to request pain medication in the morning to see if better pain control makes it easier for patient to participate, in agreement with plan (2) Dementia: Qualifiers: Dementia behavioral or psychological symptom: unspecified whether behavioral, psychotic, or mood disturbance or anxiety Dementia severity: unspecified severity Dementia type: unspecified type Qualified Code(s): F03.90 - Unspecified dementia, unspecified severity, without behavioral disturbance, psychotic disturbance, mood disturbance, and anxiety Code(s): F03.90 - Unspecified dementia, unspecified severity, without behavioral disturbance, psychotic disturbance, mood disturbance, and anxiety Status: Acute Assessment and Plan: * restart home Namenda and Aricept * Patient is able to understand easy questions and answer with 1-2 word replies. Patient also speaks word salad often and is difficult to understand at times. (3) UTI (urinary tract infection): Code(s): N39.0 - Urinary tract infection, site not specified Status: Acute Assessment and Plan: * UA: Positive nitrates, 1+ leukocyte esterase, 11-20 urine WBC, 2+ bacteria * Started on Rocephin - stop * Blood cultures are pending * urine culture with no growth * ruled out (4) Hypertension: Qualifiers: Hypertension type: primary hypertension Qualified Code(s): I10 - Essential (primary) hypertension Code(s): I10 - Essential (primary) hypertension Status: Acute Assessment and Plan: * restart home lisinopril * Monitor blood pressure (5) HLD (hyperlipidemia): Qualifiers: Hyperlipidemia type: mixed hyperlipidemia Qualified Code(s): E78.2 - Mixed hyperlipidemia Code(s): E78.5 - Hyperlipidemia, unspecified Status: Acute Assessment and Plan: * restart home atorvastatin Subjective Date/time seen: 07/25/25 07:15 Interval history: 79-year-old female patient who has a history of dementia and CVA. She lives with her and he is providing information for the patient's medical history. Is reported that the patient tripped and fell down 2 steps in their garage. She fell backwards hitting her head against a garbage can. The patient was found lying flat on her back. 07/25/2025 Patient seen for a follow up visit. Patient lying in bed, in no acute distress. Patient very talkative today and happy. Patient denies acute pain. PT notes state that patient is fearful and is in pain. Discussed with to ask for pain medication for patient in the morning to prepare for therapy to see if she participates more if pain is better controlled, spouse agrees with this plan. Patients labs reviewed. Orthopedic surgery following patient. Patient will need swing bed at [facility] on discharge. Review of Systems Review of Systems: ROS unobtainable: Yes unobtainable due to mental status Exam Const: General: cooperative, no acute distress, awake, Physically active, average body habitus and well nourished Nutritional Appearance: average body habitus and well nourished Orientation/consciousness: oriented to person HENMT: Head: normal to inspection Eyes: General: appearance normal, both eyes and all related structures Alignment and Position: alignment normal Neck: Neck: normal visual inspection and full ROM Resp: Effort & Inspection: normal respiratory effort Auscultation: clear to auscultation bilaterally Cardio: Rate: regular rate Rhythm: regular rhythm GI: GI Palp: Yes Soft to palpation Auscultation: normal bowel sounds Urinary Catheter: Urinary Catheter: urine clear Back/Spine/Pelvis: Back: no CVA tenderness Skin: General skin exam: normal color Lesions: no lesions Rashes: no rashes Trauma: no lacerations or abrasions Wounds: no wounds Hair: normal Nails: normal Neuro: General: oriented to person Cranial nerves: Yes Normal hearing present Extrem: General: normal to inspection Left lower extremity: normal to inspection Other: Right leg is shortened and externally rotated. Psych: Appearance: grossly normal Attitude: cooperative Objective Data Vital Signs Vital Signs: Vital Signs - 24 hr 07/24/25 10:30 07/24/25 15:56 07/24/25 20:00 Temperature 97.5 F L Pulse Rate 97 93 Respiratory Rate 18 21 H Blood Pressure 142/64 H Pulse Oximetry 94 97 94 Oxygen Delivery Autopap CPAP Oxygen Flow Rate 2 07/24/25 20:10 07/24/25 20:40 07/24/25 20:41 Temperature 97.1 F L Pulse Rate 98 93 Respiratory Rate 18 21 H Blood Pressure 137/93 H Pulse Oximetry 95 91 94 Oxygen Delivery Autopap Nasal Cannula Oxygen Flow Rate 3 07/25/25 04:35 07/25/25 06:14 Temperature 97.6 F Pulse Rate 96 Respiratory Rate 20 20 Blood Pressure 167/86 H Pulse Oximetry 92 Oxygen Delivery Oxygen Flow Rate Intake/Output Intake/Output: Intake & Output 07/22/25 07/23/25 07/24/25 07/25/25 23:59 23:59 23:59 23:59 Intake Total 561.5 2647.0 1026.8 580 Output Total 920 475 720 250 Balance -358.5 2172.0 306.8 330 Meds/Results Medications: Active Medications Generic Name Dose Route Start Last Admin Trade Name Freq PRN Reason Stop Dose Admin Acetaminophen 650 mg 07/21/25 20:53 07/23/25 22:00 Acetaminophen 325 Mg Tablet PO 650 mg Q4H PRN Administration Mild Pain (1-3) or Fever Acetaminophen 650 mg 07/22/25 18:00 07/25/25 05:19 Acetaminophen 325 Mg Tablet PO 650 mg Q6HR NEHEMIAH Administration Hydrocodone Bitart/Acetaminophen 1 tab 07/23/25:14 07/24/25 04:25 Hydrocodone/Acetaminophen (*Crx) 5-325 Mg Tablet PO 1 tab Q4H PRN Administration Pain Rated 4-6 Aspirin 81 mg 07/25/25 09:00 Aspirin 81 Mg Chewable Tablet PO DAILY [facility] Atorvastatin Calcium 40 mg 07/25/25 09:00 Atorvastatin 40 Mg Tablet PO DAILY [facility] Dextrose 12.5 gm 07/21/25 20:53 Dextrose 50% 25 Gm/50 Ml Syringe IV PUSH PRN PRN Hypoglycemia Protocol Donepezil HCl 10 mg 07/25/25 09:00 Donepezil Hcl 10 Mg Tablet PO DAILY [facility] Enoxaparin Sodium 40 mg 07/23/25 09:00 07/24/25 11:48 Enoxaparin 40 Mg/0.4 Ml Syringe SUB-Q 40 mg DAILY NEHEMIAH Administration Famotidine 20 mg 07/22/25 21:00 07/24/25 21:15 Famotidine 20 Mg Tablet PO Not Given Q12HR [facility] Glucagon 1 mg 07/21/25 20:53 Glucagon For Inj 1 Mg Vial IM PRN PRN Hypoglycemia Protocol Glucose 15 gm 07/21/25 20:53 Glucose Oral Gel 15 Gm Of Glucse In 37.5 Gm Tube PO PRN PRN Hypoglycemia Protocol Hydroxyzine Pamoate 50 mg 07/22/25 17:50 Hydroxyzine Pamoate 25 Mg Capsule PO Q4H PRN Itching Dextrose 1,000 mls @ 100 mls/hr 07/21/25 20:53 Dextrose 5% 1,000 Ml IVPB PRN PRN Hypoglycemia Protocol Sodium Chloride 1,000 mls @ 75 mls/hr 07/22/25 17:50 07/25/25 05:17 Normal Saline Iv IV CONT 20 mls/hr .[id number] NEHEMIAH Administration Lisinopril 10 mg 07/25/25 09:00 Lisinopril 10 Mg Tablet PO DAILY [facility] Memantine 10 mg 07/25/25 17:30 Memantine 10 Mg Tablet PO BID [facility] Morphine Sulfate 2 mg 07/21/25 21:07 07/23/25 09:00 Morphine Sulfate (*Crx) 4 Mg/Ml Inj IV PUSH 2 mg Q2H PRN Administration Pain Rated 7-10 Naloxone HCl 0.1 mg 07/22/25 17:50 Naloxone Hcl 0.4 Mg/Ml Vial IV PUSH Q2M PRN Opiate Reversal Ondansetron HCl 4 mg 07/22/25 17:50 Ondansetron Inj 4 Mg/2 Ml Vial IV PUSH Q4H PRN Nausea And Vomiting Polyethylene Glycol 17 gm 07/23/25 09:00 07/24/25 11:47 Polyethylene Glycol 3350 17 Gm Powd.Pack PO Not Given QAM NEHEMIAH Senna/Docusate Sodium 1 tab 07/22/25 17:00 Senna/Docusate Sodium Tablet PO PRN PRN Constipation Senna/Docusate Sodium 2 tab 07/22/25 17:50 07/24/25 18:18 Senna/Docusate Sodium Tablet PO 2 tab BID NEHEMIAH Administration Radiology Results: ITS Impressions Chest X-Ray 07/21/25 20:18 IMPRESSION: No acute pulmonary findings. Head CT 07/21/25 20:22 IMPRESSION: No acute intracranial hemorrhage or extra axial fluid collections. Chronic white matter microangiopathic changes and generalized atrophy. All CT scans at this facility are performed using low dose modulation techniques as appropriate to perform exam including the following: automated exposure control; use of iterative reconstruction technique; adjustment of the mA and/or kV according to patient size (this includes techniques or standardized protocols for targeted exams where dose is matched to indication/reason for exam). Hip/Pelvis X-Ray 07/21/25 20:23 IMPRESSION: Acute displaced subcapital fracture of the right femoral neck. Cervical Spine CT 07/21/25 20:28 IMPRESSION: Multilevel degenerative changes. Sclerotic lesion in the left T1 vertebral body is noted. Follow-up bone scan can be done to exclude malignancy. No acute fracture or subluxation. All CT scans at this facility are performed using low dose modulation techniques as appropriate to perform exam including the following: automated exposure control; adjustment of the mA and/or kV according to patient size (this includes techniques or standardized protocols for targeted exams where does is matched to indication/reason for exam; i.e. extremities or head); use of iterative reconstruction technique). Hip X-Ray 07/22/25 17:06 Impression: No acute fracture or malalignment. Labs Labs: Laboratory Results - last 24 hr 07/25/25 05:41 WBC 11.7 H RBC 3.65 L Hgb 10.6 L Hct 34.3 L MCV 94.0 MCH 29.0 MCHC 30.9 L RDW 14.6 H Plt Count 156 MPV 10.8 H Immature Gran % (Auto) 0.3 Neut % (Auto) 75.0 H Lymph % (Auto) 13.2 L Dewitt % (Auto) 8.8 H Eos % (Auto) 2.4 Baso % (Auto) 0.3 Lymph # (Auto) 1.55 Dewitt # (Auto) 1.0 H Eos # (Auto) 0.3 Baso # (Auto) 0.0 Abs Immat Gran (auto) 0.04 H Absolute Neuts (auto) 8.8 H Absolute Nucleated RBC 0.000 Nucleated RBC % 0.0 Sodium 137 Potassium 3.6 Chloride 110 H Carbon Dioxide 21 L Anion Gap 6 BUN 16 Creatinine 0.69 L Estim Creat Clear Calc Not Reportable Estimated GFR > 60 Glucose 100 Calcium 8.5 Total Bilirubin 0.8 AST 26 ALT 10 Alkaline Phosphatase 92 Total Protein 6.0 L Albumin 3.1 L Quality VTE Prophylaxis VTE prophylaxis: mechanical ordered
[2025-07-25] MEDS: SENNA/DOCUSATE SODIUM TABLET 2 TAB PO ×2 (08:39→17:35)
[2025-07-25] MEDS: DONEPEZIL HCL 10 MG TABLET PO (08:39)
[2025-07-25] MEDS: FAMOTIDINE 20 MG TABLET PO ×2 (08:40→20:52)
[2025-07-25] MEDS: ASPIRIN 81 MG CHEWABLE TABLET PO (08:40)
[2025-07-25] MEDS: ATORVASTATIN 40 MG TABLET PO (08:40)
[2025-07-25] MEDS: ENOXAPARIN 40 MG/0.4 ML SYRINGE SUB-Q (08:40)
[2025-07-25] MEDS: HYDROcodone/acetaminophen (*CRX) 5-325 MG TABLET 1 TAB PO ×3 (08:44→20:52)
[2025-07-25 08:51] VITALS: BMI 10.0
--- NOTE | 2025-07-25 11:52 | P.PNOP_ITS ---
Progress Note: A&P Assessment and Plan (1) Closed displaced fracture of right femoral neck: Code(s): S72.001A - Fracture of unspecified part of neck of right femur, initial encounter for closed fracture Status: Acute (2) Fall from ground level: Code(s): W18.30XA - Fall on same level, unspecified, initial encounter Status: Acute Plan Postop day 3: Bipolar hemiarthroplasty right hip. Patient tolerated procedure well. No complications. Some bleeding from incision. Replaced Mepilex. No active bleeding. Patient severely demented. Typically lives at home. Has been falling a lot. She will benefit from SNF at discharge. Continue PT/OT as able. Abduction pillow in place to help with dislocation risk given her dementia. Ortho instructions: DOS: 07/22/25. Bipolar hemiarthroplasty right hip. * D/C to SNF/rehab * Follow up in office or virtually in 4-6 weeks. * Remove Mepilex dressing at 7 days post op. Remove steristrips at 14 days post op. May shower. No soaking. * PT: Weight bearing as tolerated with a walker. * DVT prophylaxis: continue Lovenox for 30 days total * Pain medication: Tylenol. Limit narcotics due to dementia. Subjective Subjective Date/Time Seen: 07/25/25 11:52 Interval history: Patient resting comfortably. Denies pain. Patient demented. Patient's family in the room. Review of Systems Review of Systems: ROS unobtainable: Yes unobtainable due to medical condition Exam Narrative: Confused 79 y/o overweight female. Resting comfortably in bed. No acute distress. slight erythema at the inferior edge of the incision. Moderate swelling. No ecchymosis. Some blood on the dressing. Mepilex changed today. ROM limited to pain. Calf nontender. Distal pulses palpable. Normal capillary refill. Patient able to move and wiggle toes. Light touch sensation intact. Objective Data Vital Signs Vital Signs: Vital Signs - 24 hr 07/24/25 15:56 07/24/25 20:00 07/24/25 20:10 Temperature 97.5 F L 97.1 F L Pulse Rate 97 93 98 Respiratory Rate 18 21 H 18 Blood Pressure 142/64 H 137/93 H Pulse Oximetry 97 94 95 Oxygen Delivery CPAP Oxygen Flow Rate 07/24/25 20:40 07/24/25 20:41 07/25/25 04:35 Temperature 97.6 F Pulse Rate 93 96 Respiratory Rate 21 H 20 Blood Pressure Pulse Oximetry 91 94 92 Oxygen Delivery Autopap Nasal Cannula Oxygen Flow Rate 3 07/25/25 06:14 07/25/25 08:00 Temperature Pulse Rate Respiratory Rate 20 Blood Pressure 167/86 H Pulse Oximetry Oxygen Delivery Room Air Oxygen Flow Rate Intake/Output Intake/Output: Intake & Output 07/22/25 07/23/25 07/24/25 07/25/25 23:59 23:59 23:59 23:59 Intake Total 561.5 2647.0 1026.8 700 Output Total 920 475 720 250 Balance -358.5 2172.0 306.8 450 Meds/Results Medications: Active Medications Generic Name Dose Route Start Last Admin Trade Name Freq PRN Reason Stop Dose Admin Acetaminophen 650 mg 07/21/25 20:53 07/23/25 22:00 Acetaminophen 325 Mg Tablet PO 650 mg Q4H PRN Administration Mild Pain (1-3) or Fever Acetaminophen 650 mg 07/22/25 18:00 07/25/25 05:19 Acetaminophen 325 Mg Tablet PO 650 mg Q6HR NEHEMIAH Administration Hydrocodone Bitart/Acetaminophen 1 tab 07/23/25 17:14 07/25/25 08:44 Hydrocodone/Acetaminophen (*Crx) 5-325 Mg Tablet PO 1 tab Q4H PRN Administration Pain Rated 4-6 Aspirin 81 mg 07/25/25 09:00 07/25/25 08:40 Aspirin 81 Mg Chewable Tablet PO 81 mg DAILY NEHEMIAH Administration Atorvastatin Calcium 40 mg 07/25/25 09:00 07/25/25 08:40 Atorvastatin 40 Mg Tablet PO 40 mg DAILY NEHEMIAH Administration Dextrose 12.5 gm 07/21/25 20:53 Dextrose 50% 25 Gm/50 Ml Syringe IV PUSH PRN PRN Hypoglycemia Protocol Donepezil HCl 10 mg 07/25/25 09:00 07/25/25 08:39 Donepezil Hcl 10 Mg Tablet PO 10 mg DAILY NEHEMIAH Administration Enoxaparin Sodium 40 mg 07/23/25 09:00 07/25/25 08:40 Enoxaparin 40 Mg/0.4 Ml Syringe SUB-Q 40 mg DAILY NEHEMIAH Administration Famotidine 20 mg 07/22/25 21:00 07/25/25 08:40 Famotidine 20 Mg Tablet PO 20 mg Q12HR NEHEMIAH Administration Glucagon 1 mg 07/21/25 20:53 Glucagon For Inj 1 Mg Vial IM PRN PRN Hypoglycemia Protocol Glucose 15 gm 07/21/25 20:53 Glucose Oral Gel 15 Gm Of Glucse In 37.5 Gm Tube PO PRN PRN Hypoglycemia Protocol Hydroxyzine Pamoate 50 mg 07/22/25 17:50 Hydroxyzine Pamoate 25 Mg Capsule PO Q4H PRN Itching Dextrose 1,000 mls @ 100 mls/hr 07/21/25 20:53 Dextrose 5% 1,000 Ml IVPB PRN PRN Hypoglycemia Protocol Sodium Chloride 1,000 mls @ 75 mls/hr 07/22/25 17:50 07/25/25 05:17 Normal Saline Iv IV CONT 20 mls/hr .[id number] NEHEMIAH Administration Lisinopril 10 mg 07/25/25 09:00 07/25/25 08:40 Lisinopril 10 Mg Tablet PO 10 mg DAILY NEHEMIAH Administration Memantine 10 mg 07/25/25 17:30 Memantine 10 Mg Tablet PO BID NEHEMIAH Morphine Sulfate 2 mg 07/21/25 21:07 07/23/25 09:00 Morphine Sulfate (*Crx) 4 Mg/Ml Inj IV PUSH 2 mg Q2H PRN Administration Pain Rated 7-10 Naloxone HCl 0.1 mg 07/22/25 17:50 Naloxone Hcl 0.4 Mg/Ml Vial IV PUSH Q2M PRN Opiate Reversal Ondansetron HCl 4 mg 07/22/25 17:50 Ondansetron Inj 4 Mg/2 Ml Vial IV PUSH Q4H PRN Nausea And Vomiting Polyethylene Glycol 17 gm 07/23/25 09:00 07/25/25 08:39 Polyethylene Glycol 3350 17 Gm Powd.Pack PO 17 gm QAM NEHEMIAH Administration Senna/Docusate Sodium 1 tab 07/22/25 17:00 Senna/Docusate Sodium Tablet PO PRN PRN Constipation Senna/Docusate Sodium 2 tab 07/22/25 17:50 07/25/25 08:39 Senna/Docusate Sodium Tablet PO 2 tab BID NEHEMIAH Administration Radiology Results: ITS Impressions Chest X-Ray 07/21/25 20:18 IMPRESSION: No acute pulmonary findings. Head CT 07/21/25 20:22 IMPRESSION: No acute intracranial hemorrhage or extra axial fluid collections. Chronic white matter microangiopathic changes and generalized atrophy. All CT scans at this facility are performed using low dose modulation techniques as appropriate to perform exam including the following: automated exposure control; use of iterative reconstruction technique; adjustment of the mA and/or kV according to patient size (this includes techniques or standardized protocols for targeted exams where dose is matched to indication/reason for exam). Hip/Pelvis X-Ray 07/21/25 20:23 IMPRESSION: Acute displaced subcapital fracture of the right femoral neck. Cervical Spine CT 07/21/25 20:28 IMPRESSION: Multilevel degenerative changes. Sclerotic lesion in the left T1 vertebral body is noted. Follow-up bone scan can be done to exclude malignancy. No acute fracture or subluxation. All CT scans at this facility are performed using low dose modulation techniques as appropriate to perform exam including the following: automated exposure control; adjustment of the mA and/or kV according to patient size (this includes techniques or standardized protocols for targeted exams where does is matched to indication/reason for exam; i.e. extremities or head); use of iterative reconstruction technique). Hip X-Ray 07/22/25 17:06 Impression: No acute fracture or malalignment. Labs Labs: Laboratory Results - last 24 hr 07/25/25 05:41 WBC 11.7 H RBC 3.65 L Hgb 10.6 L Hct 34.3 L MCV 94.0 MCH 29.0 MCHC 30.9 L RDW 14.6 H Plt Count 156 MPV 10.8 H Immature Gran % (Auto) 0.3 Neut % (Auto) 75.0 H Lymph % (Auto) 13.2 L [place] % (Auto) 8.8 H Eos % (Auto) 2.4 Baso % (Auto) 0.3 Lymph # (Auto) 1.55 [place] # (Auto) 1.0 H Eos # (Auto) 0.3 Baso # (Auto) 0.0 Abs Immat Gran (auto) 0.04 H Absolute Neuts (auto) 8.8 H Absolute Nucleated RBC 0.000 Nucleated RBC % 0.0 Sodium 137 Potassium 3.6 Chloride 110 H Carbon Dioxide 21 L Anion Gap 6 BUN 16 Creatinine 0.69 L Estim Creat Clear Calc Not Reportable Estimated GFR > 60 Glucose 100 Calcium 8.5 Total Bilirubin 0.8 AST 26 ALT 10 Alkaline Phosphatase 92 Total Protein 6.0 L Albumin 3.1 L
[2025-07-25 13:50] VITALS: BP 127/76; PULSE 92; RESP 20; TEMP 36.3; O2SAT 95
[2025-07-25 20:00] VITALS: PULSE 73; RESP 20; O2SAT 100
[2025-07-25 22:00] VITALS: BP 154/96; PULSE 73; RESP 20; TEMP 36.4; O2SAT 100
[2025-07-25 23:05] VITALS: RESP 16
[2025-07-26 05:55] VITALS: BP 164/82; PULSE 51; RESP 18; TEMP 36.6; O2SAT 100
[2025-07-26 06:25] LABS: Hematocrit 37.5 % (37.0-47.0); Hemoglobin 11.3 g/dL (12.0-15.0); Immature Granulocyte Percent A 0.4 % (0-0.5); Lymphocytes Absolute Auto 1.43 K/mm3 (0.9-3.2); Mean Corpuscular HGB Conc 30.1 g/dl (32-36); Mean Corpuscular Hemoglobin 29.1 pg (26-34); Mean Corpuscular Volume 96.6 fl (80-100); Nucleated Red Blood Cells Absolute Auto 0.000 K/mm3 (0.0-0.012); Nucleated Red Blood Cells Perc 0.0 % (0.0-0.2); Platelet Count Result 188 k/mm3 (150-375); Red Blood Count 3.88 M/mm3 (4.2-5.4); White Blood Count 9.4 K/mm3 (4.5-10.0)
[2025-07-26 06:47] LABS: Alanine Aminotransferase 15 U/L (6-35); Albumin Level 3.1 g/dL (3.5-5.1); Alkaline Phosphatase 80 U/L (38-126); Anion Gap 4 mmol/L (4-12); Aspartate Amino Transferase 32 U/L (14-36); Bilirubin,Total 0.7 mg/dL (0.2-1.3); Blood Urea Nitrogen 16 mg/dL (7-17); Calcium 8.4 mg/dL (8.4-10.2); Carbon Dioxide 24 mmol/L (22-30); Chloride 111 mmol/L (98-107); Estimated Glomerular Filt Rate > 60; Glucose 95 mg/dL (65-110); Potassium 3.9 mmol/L (3.4-5.0); Sodium 139 mmol/L (137-145); Total Protein 5.9 g/dL (6.3-8.2)
--- NOTE | 2025-07-26 07:46 | P.PNIM_ITS ---
Progress Note: A&P Assessment and Plan (1) Closed displaced fracture of right femoral neck: Code(s): S72.001A - Fracture of unspecified part of neck of right femur, initial encounter for closed fracture Status: Acute Assessment and Plan: - XR with acute displaced subcapital fracture of the right femoral neck - s/p R bipolar hip replacement by Dr. Cooper 07/22 - ortho recs: * D/C to SNF/rehab * Follow up in office or virtually in 4-6 weeks. * Remove Mepilex dressing at 7 days post op. Remove steristrips at 14 days post op. May shower. No soaking. * PT: Weight bearing as tolerated with a walker. * DVT prophylaxis: continue Lovenox for 30 days total * Pain medication: Tylenol. Limit narcotics due to dementia. - care coordination following for placement. Awaiting auth for [facility] bed. (2) UTI (urinary tract infection): Code(s): N39.0 - Urinary tract infection, site not specified Status: Acute Assessment and Plan: -UA: Positive nitrates, 1+ leukocyte esterase, 11-20 urine WBC, 2+ bacteria - urine culture 07/21 with gram negative bacilli - afebrile, no leukocytosis - family concerned about increased confusion - restart IV Rocephin, await final urine culture results (3) Dementia: Qualifiers: Dementia behavioral or psychological symptom: unspecified whether behavioral, psychotic, or mood disturbance or anxiety Dementia severity: unspecified severity Dementia type: unspecified type Qualified Code(s): F03.90 - Unspecified dementia, unspecified severity, without behavioral disturbance, psychotic disturbance, mood disturbance, and anxiety Code(s): F03.90 - Unspecified dementia, unspecified severity, without behavioral disturbance, psychotic disturbance, mood disturbance, and anxiety Status: Acute Assessment and Plan: -Patient is able to understand easy questions and answer with 1-2 word replies. Patient also speaks word salad often and is difficult to understand at times. - continue Namenda and Aricept (4) Hypertension: Qualifiers: Hypertension type: primary hypertension Qualified Code(s): I10 - Essential (primary) hypertension Code(s): I10 - Essential (primary) hypertension Status: Acute Assessment and Plan: -restart home lisinopril -Monitor blood pressure (5) HLD (hyperlipidemia): Qualifiers: Hyperlipidemia type: mixed hyperlipidemia Qualified Code(s): E78.2 - Mixed hyperlipidemia Code(s): E78.5 - Hyperlipidemia, unspecified Status: Acute Assessment and Plan: * restart home atorvastatin (6) Bone lesion: Code(s): M89.9 - Disorder of bone, unspecified Status: Acute Assessment and Plan: - admit CT C-spine with sclerotic lesion in the left T1 vertebral body is noted. Follow-up bone scan can be done to exclude malignancy. - will need bone scan as outpatient. Plan Code status: full code DVT prophylaxis: Lovenox Dispo: D/C to [facility] once auth approved Subjective Date/time seen: 07/26/25 07:46 Interval history: 79-year-old female patient who has a history of dementia and CVA. She lives with her and he is providing information for the patient's medical history. Is reported that the patient tripped and fell down 2 steps in their garage. She fell backwards hitting her head against a garbage can. The patient was found lying flat on her back. Patient seen and examined at bedside. Alert and oriented x1. Family having some concerns that she is more confused than baseline. Awaiting auth for [place] [facility] bed. Review of Systems Review of Systems: All systems reviewed & are unremarkable except as noted in HPI and below Exam Narrative: General: NAD Eyes: EOMI ENT: neck supple Cardiovascular: Regular rate and rhythm Respiratory: Clear to auscultation, respirations even and unlabored on RA Gastrointestinal: Soft, non tender Genitourinary: no suprapubic tenderness Musculoskeletal: No edema Skin: warm, dry Neuro: Alert and oriented x1. Psych: Mood appropriate Objective Data Vital Signs Vital Signs: Vital Signs - 24 hr 07/25/25 08:00 07/25/25 13:50 07/25/25 20:00 Temperature 97.4 F L Pulse Rate 92 73 Respiratory Rate 20 20 Blood Pressure 127/76 Pulse Oximetry 95 100 Oxygen Delivery Room Air CPAP Oxygen Flow Rate 2 07/25/25 22:00 07/25/25 23:05 07/26/25 05:55 Temperature 97.5 F L 97.9 F Pulse Rate 73 51 L Respiratory Rate 20 16 18 Blood Pressure 154/96 H 164/82 H Pulse Oximetry 100 100 Oxygen Delivery Autopap Oxygen Flow Rate Intake/Output Intake/Output: Intake & Output 07/23/25 07/24/25 07/25/25 07/26/25 23:59 23:59 23:59 23:59 Intake Total 2647.0 1026.8 1761 Output Total 475 720 250 225 Balance 2172.0 306.8 1511 -225 Meds/Results Medications: Active Medications Generic Name Dose Route Start Last Admin Trade Name Freq PRN Reason Stop Dose Admin Acetaminophen 650 mg 07/21/25 20:53 07/23/25 22:00 Acetaminophen 325 Mg Tablet PO 650 mg Q4H PRN Administration Mild Pain (1-3) or Fever Acetaminophen 650 mg 07/22/25 18:00 07/26/25 05:33 Acetaminophen 325 Mg Tablet PO Not Given Q6HR NEHEMIAH Hydrocodone Bitart/Acetaminophen 1 tab 07/23/25 17:14 07/25/25 20:52 Hydrocodone/Acetaminophen (*Crx) 5-325 Mg Tablet PO 1 tab Q4H PRN Administration Pain Rated 4-6 Aspirin 81 mg 07/25/25 09:00 07/25/25 08:40 Aspirin 81 Mg Chewable Tablet PO 81 mg DAILY NEHEMIAH Administration Atorvastatin Calcium 40 mg 07/25/25 09:00 07/25/25 08:40 Atorvastatin 40 Mg Tablet PO 40 mg DAILY NEHEMIAH Administration Dextrose 12.5 gm 07/21/25 20:53 Dextrose 50% 25 Gm/50 Ml Syringe IV PUSH PRN PRN Hypoglycemia Protocol Donepezil HCl 10 mg 07/25/25 09:00 07/25/25 08:39 Donepezil Hcl 10 Mg Tablet PO 10 mg DAILY NEHEMIAH Administration Enoxaparin Sodium 40 mg 07/23/25 09:00 07/25/25 08:40 Enoxaparin 40 Mg/0.4 Ml Syringe SUB-Q 40 mg DAILY NEHEMIAH Administration Famotidine 20 mg 07/22/25 21:00 07/25/25 20:52 Famotidine 20 Mg Tablet PO 20 mg Q12HR NEHEMIAH Administration Glucagon 1 mg 07/21/25 20:53 Glucagon For Inj 1 Mg Vial IM PRN PRN Hypoglycemia Protocol Glucose 15 gm 07/21/25 20:53 Glucose Oral Gel 15 Gm Of Glucse In 37.5 Gm Tube PO PRN PRN Hypoglycemia Protocol Hydroxyzine Pamoate 50 mg 07/22/25 17:50 Hydroxyzine Pamoate 25 Mg Capsule PO Q4H PRN Itching Dextrose 1,000 mls @ 100 mls/hr 07/21/25 20:53 Dextrose 5% 1,000 Ml IVPB PRN PRN Hypoglycemia Protocol Sodium Chloride 1,000 mls @ 75 mls/hr 07/22/25 17:50 07/25/25 20:50 Normal Saline Iv IV CONT 20 mls/hr .[id number] NEHEMIAH Administration Lisinopril 10 mg 10/20/25 09:00 07/25/25 08:40 Lisinopril 10 Mg Tablet PO 10 mg DAILY NEHEMIAH Administration Memantine 10 mg 07/25/25 17:30 07/25/25 17:36 Memantine 10 Mg Tablet PO Not Given BID NEHEMIAH Morphine Sulfate 2 mg 07/21/25 21:07 07/23/25 09:00 Morphine Sulfate (*Crx) 4 Mg/Ml Inj IV PUSH 2 mg Q2H PRN Administration Pain Rated 7-10 Naloxone HCl 0.1 mg 07/22/25 17:50 Naloxone Hcl 0.4 Mg/Ml Vial IV PUSH Q2M PRN Opiate Reversal Ondansetron HCl 4 mg 07/22/25 17:50 Ondansetron Inj 4 Mg/2 Ml Vial IV PUSH Q4H PRN Nausea And Vomiting Polyethylene Glycol 17 gm 07/23/25 09:00 07/25/25 08:39 Polyethylene Glycol 3350 17 Gm Powd.Pack PO 17 gm QAM NEHEMIAH Administration Senna/Docusate Sodium 1 tab 07/22/25 17:00 Senna/Docusate Sodium Tablet PO PRN PRN Constipation Senna/Docusate Sodium 2 tab 07/22/25 17:50 07/25/25 17:35 Senna/Docusate Sodium Tablet PO 2 tab BID NEHEMIAH Administration Radiology Results: ITS Impressions Chest X-Ray 07/21/25 20:18 IMPRESSION: No acute pulmonary findings. Head CT 07/21/25 20:22 IMPRESSION: No acute intracranial hemorrhage or extra axial fluid collections. Chronic white matter microangiopathic changes and generalized atrophy. All CT scans at this facility are performed using low dose modulation techniques as appropriate to perform exam including the following: automated exposure control; use of iterative reconstruction technique; adjustment of the mA and/or kV according to patient size (this includes techniques or standardized protocols for targeted exams where dose is matched to indication/reason for exam). Hip/Pelvis X-Ray 07/21/25 20:23 IMPRESSION: Acute displaced subcapital fracture of the right femoral neck. Cervical Spine CT 07/21/25 20:28 IMPRESSION: Multilevel degenerative changes. Sclerotic lesion in the left T1 vertebral body is noted. Follow-up bone scan can be done to exclude malignancy. No acute fracture or subluxation. All CT scans at this facility are performed using low dose modulation techniques as appropriate to perform exam including the following: automated exposure control; adjustment of the mA and/or kV according to patient size (this includes techniques or standardized protocols for targeted exams where does is matched to indication/reason for exam; i.e. extremities or head); use of iterative reconstruction technique). Hip X-Ray 07/22/25 17:06 Impression: No acute fracture or malalignment. Labs Labs: Laboratory Results - last 24 hr 07/26/25 05:58 WBC 9.4 RBC 3.88 L Hgb 11.3 L Hct 37.5 MCV 96.6 MCH 29.1 MCHC 30.1 L RDW 14.8 H Plt Count 188 MPV 11.2 H Immature Gran % (Auto) 0.4 Neut % (Auto) 70.1 Lymph % (Auto) 15.2 L [place] % (Auto) 9.2 H Eos % (Auto) 4.8 H Baso % (Auto) 0.3 Lymph # (Auto) 1.43 [place] # (Auto) 0.9 H Eos # (Auto) 0.5 H Baso # (Auto) 0.0 Abs Immat Gran (auto) 0.04 H Absolute Neuts (auto) 6.6 Absolute Nucleated RBC 0.000 Nucleated RBC % 0.0 Sodium 139 Potassium 3.9 Chloride 111 H Carbon Dioxide 24 Anion Gap 4 BUN 16 Creatinine 0.59 L Estim Creat Clear Calc Not Reportable Estimated GFR > 60 Glucose 95 Calcium 8.4 Total Bilirubin 0.7 AST 32 ALT 15 Alkaline Phosphatase 80 Total Protein 5.9 L Albumin 3.1 L Quality VTE Prophylaxis VTE prophylaxis: mechanical ordered
[2025-07-26 08:00] VITALS: O2SAT 93
[2025-07-26] MEDS: SENNA/DOCUSATE SODIUM TABLET 2 TAB PO ×2 (08:35→16:49)
[2025-07-26] MEDS: FAMOTIDINE 20 MG TABLET PO ×2 (08:36→19:57)
[2025-07-26] MEDS: ASPIRIN 81 MG CHEWABLE TABLET PO (08:36)
[2025-07-26] MEDS: ATORVASTATIN 40 MG TABLET PO (08:38)
[2025-07-26] MEDS: ENOXAPARIN 40 MG/0.4 ML SYRINGE SUB-Q (08:43)
--- NOTE | 2025-07-26 10:50 | P.PNOP_ITS ---
Progress Note: A&P Assessment and Plan (1) Closed displaced fracture of right femoral neck: Code(s): S72.001A - Fracture of unspecified part of neck of right femur, initial encounter for closed fracture Status: Acute (2) Fall from ground level: Code(s): W18.30XA - Fall on same level, unspecified, initial encounter Status: Acute Plan Postop day 4: Bipolar hemiarthroplasty right hip. Patient tolerated procedure well. No complications. Dressing dry and intact today. Sitting up at the side of the bed with assistance. Pleasantly confused and singing at the time of my visit. Patient severely demented. Typically lives at home. Has been falling a lot. She will benefit from SNF at discharge. Continue PT/OT as able. Abduction pillow in place to help with dislocation risk given her dementia. Ortho instructions: DOS: 07/22/25. Bipolar hemiarthroplasty right hip. * D/C to SNF/rehab * Follow up in office or virtually in 4-6 weeks. * Remove Mepilex dressing at 7 days post op. Remove steristrips at 14 days post op. May shower. No soaking. * PT: Weight bearing as tolerated with a walker. * DVT prophylaxis: continue Lovenox for 30 days total * Pain medication: Tylenol. Limit narcotics due to dementia. Subjective Subjective Date/Time Seen: 07/26/25 10:50 Interval history: Patient sitting up at the edge of the bed assisted by the therapist, nurse, and family member at the time of my visit. Patient pleaseantly confused. Singing. Denies pain. Review of Systems Review of Systems: ROS unobtainable: Yes unobtainable due to medical condition Exam Narrative: Confused 79 y/o overweight female. Resting comfortably in bed. No acute distress. slight erythema at the inferior edge of the incision. Moderate swelling. No ecchymosis. Dressing dry and intact without drainage. ROM limited to pain. Calf nontender. Distal pulses palpable. Normal capillary refill. Patient able to move and wiggle toes. Light touch sensation intact. Objective Data Vital Signs Vital Signs: Vital Signs - 24 hr 07/25/25 13:50 07/25/25 20:00 07/25/25 22:00 Temperature 97.4 F L 97.5 F L Pulse Rate 92 73 73 Respiratory Rate 20 20 20 Blood Pressure 127/76 154/96 H Pulse Oximetry 95 100 100 Oxygen Delivery CPAP Oxygen Flow Rate 2 07/25/25 23:05 07/26/25 05:55 Temperature 97.9 F Pulse Rate 51 L Respiratory Rate 16 18 Blood Pressure 164/82 H Pulse Oximetry 100 Oxygen Delivery Autopap Oxygen Flow Rate Intake/Output Intake/Output: Intake & Output 07/23/25 07/24/25 07/25/25 07/26/25 23:59 23:59 23:59 23:59 Intake Total 2647.0 1026.8 1761 100 Output Total 475 720 250 225 Balance 2172.0 306.8 1511 -125 Meds/Results Medications: Active Medications Generic Name Dose Route Start Last Admin Trade Name Freq PRN Reason Stop Dose Admin Acetaminophen 650 mg 07/21/25 20:53 07/23/25 22:00 Acetaminophen 325 Mg Tablet PO 650 mg Q4H PRN Administration Mild Pain (1-3) or Fever Acetaminophen 650 mg 07/22/25 18:00 07/26/25 05:33 Acetaminophen 325 Mg Tablet PO Not Given Q6HR [facility] Hydrocodone Bitart/Acetaminophen 1 tab 07/23/25 17:14 07/25/25 20:52 Hydrocodone/Acetaminophen (*Crx) 5-325 Mg Tablet PO 1 tab Q4H PRN Administration Pain Rated 4-6 Aspirin 81 mg 07/25/25 09:00 07/26/25 08:36 Aspirin 81 Mg Chewable Tablet PO 81 mg DAILY NEHEMIAH Administration Atorvastatin Calcium 40 mg 07/25/25 09:00 07/26/25 08:38 Atorvastatin 40 Mg Tablet PO 40 mg DAILY NEHEMIAH Administration Dextrose 12.5 gm 07/21/25 20:53 Dextrose 50% 25 Gm/50 Ml Syringe IV PUSH PRN PRN Hypoglycemia Protocol Donepezil HCl 10 mg 07/25/25 09:00 07/26/25 08:39 Donepezil Hcl 10 Mg Tablet PO Not Given DAILY NEHEMIAH Enoxaparin Sodium 40 mg 07/23/25 09:00 07/26/25 08:43 Enoxaparin 40 Mg/0.4 Ml Syringe SUB-Q 40 mg DAILY NEHEMIAH Administration Famotidine 20 mg 07/22/25 21:00 07/26/25 08:36 Famotidine 20 Mg Tablet PO 20 mg Q12HR NEHEMIAH Administration Glucagon 1 mg 07/21/25 20:53 Glucagon For Inj 1 Mg Vial IM PRN PRN Hypoglycemia Protocol Glucose 15 gm 07/21/25 20:53 Glucose Oral Gel 15 Gm Of Glucse In 37.5 Gm Tube PO PRN PRN Hypoglycemia Protocol Hydroxyzine Pamoate 50 mg 07/22/25 17:50 Hydroxyzine Pamoate 25 Mg Capsule PO Q4H PRN Itching Dextrose 1,000 mls @ 100 mls/hr 07/21/25 20:53 Dextrose 5% 1,000 Ml IVPB PRN PRN Hypoglycemia Protocol Sodium Chloride 1,000 mls @ 75 mls/hr 07/22/25 17:50 07/25/25 20:50 Normal Saline Iv IV CONT 20 mls/hr .[id number] NEHEMIAH Administration Lisinopril 10 mg 07/25/25 09:00 07/26/25 08:38 Lisinopril 10 Mg Tablet PO 10 mg DAILY NEHEMIAH Administration Memantine 10 mg 07/25/25 17:30 07/26/25 08:37 Memantine 10 Mg Tablet PO Not Given BID [facility] Morphine Sulfate 2 mg 07/21/25 21:07 07/23/25 09:00 Morphine Sulfate (*Crx) 4 Mg/Ml Inj IV PUSH 2 mg Q2H PRN Administration Pain Rated 7-10 Naloxone HCl 0.1 mg 07/22/25 17:50 Naloxone Hcl 0.4 Mg/Ml Vial IV PUSH Q2M PRN Opiate Reversal Ondansetron HCl 4 mg 07/22/25 17:50 Ondansetron Inj 4 Mg/2 Ml Vial IV PUSH Q4H PRN Nausea And Vomiting Polyethylene Glycol 17 gm 07/23/25 09:00 07/26/25 08:32 Polyethylene Glycol 3350 17 Gm Powd.Pack PO 17 gm QAM NEHEMIAH Administration Senna/Docusate Sodium 1 tab 07/22/25 17:00 Senna/Docusate Sodium Tablet PO PRN PRN Constipation Senna/Docusate Sodium 2 tab 07/22/25 17:50 07/26/25 08:35 Senna/Docusate Sodium Tablet PO 2 tab BID NEHEMIAH Administration Radiology Results: ITS Impressions Chest X-Ray 07/21/25 20:18 IMPRESSION: No acute pulmonary findings. Head CT 07/21/25 20:22 IMPRESSION: No acute intracranial hemorrhage or extra axial fluid collections. Chronic white matter microangiopathic changes and generalized atrophy. All CT scans at this facility are performed using low dose modulation techni ques as appropriate to perform exam including the following: automated exposure control; use of iterative reconstruction technique; adjustment of the mA and/or kV according to patient size (this includes techniques or standardized protocols for targeted exams where dose is matched to indication/reason for exam). Hip/Pelvis X-Ray 07/21/25 20:23 IMPRESSION: Acute displaced subcapital fracture of the right femoral neck. Cervical Spine CT 07/21/25 20:28 IMPRESSION: Multilevel degenerative changes. Sclerotic lesion in the left T1 vertebral body is noted. Follow-up bone scan can be done to exclude malignancy. No acute fracture or subluxation. All CT scans at this facility are performed using low dose modulation techniques as appropriate to perform exam including the following: automated exposure control; adjustment of the mA and/or kV according to patient size (this includes techniques or standardized protocols for targeted exams where does is matched to indication/reason for exam; i.e. extremities or head); use of iterative reconstruction technique). Hip X-Ray 07/22/25 17:06 Impression: No acute fracture or malalignment. Labs Labs: Laboratory Results - last 24 hr 07/26/25 05:58 WBC 9.4 RBC 3.88 L Hgb 11.3 L Hct 37.5 MCV 96.6 MCH 29.1 MCHC 30.1 L RDW 14.8 H Plt Count 188 MPV 11.2 H Immature Gran % (Auto) 0.4 Neut % (Auto) 70.1 Lymph % (Auto) 15.2 L Luna % (Auto) 9.2 H Eos % (Auto) 4.8 H Baso % (Auto) 0.3 Lymph # (Auto) 1.43 Luna # (Auto) 0.9 H Eos # (Auto) 0.5 H Baso # (Auto) 0.0 Abs Immat Gran (auto) 0.04 H Absolute Neuts (auto) 6.6 Absolute Nucleated RBC 0.000 Nucleated RBC % 0.0 Sodium 139 Potassium 3.9 Chloride 111 H Carbon Dioxide 24 Anion Gap 4 BUN 16 Creatinine 0.59 L Estim Creat Clear Calc Not Reportable Estimated GFR > 60 Glucose 95 Calcium 8.4 Total Bilirubin 0.7 AST 32 ALT 15 Alkaline Phosphatase 80 Total Protein 5.9 L Albumin 3.1 L
[2025-07-26] MEDS: ACETAMINOPHEN 325 MG TABLET 650 MG PO ×2 (11:22→16:56)
[2025-07-26] MEDS: cefTRIAXone 1 GM in SODIUM CHLORIDE 0.9% IV 50 ML 100 ML IVPB (13:31)
[2025-07-26 13:56] VITALS: BP 121/67; PULSE 83; RESP 16; TEMP 36.1; O2SAT 96
[2025-07-26 20:22] VITALS: BP 141/80; PULSE 92; RESP 16; TEMP 37.1; O2SAT 100
[2025-07-26 22:58] VITALS: PULSE 88; RESP 19; O2SAT 91
[2025-07-27] MEDS: ACETAMINOPHEN 325 MG TABLET 650 MG PO ×3 (05:12→17:00)
[2025-07-27 06:55] LABS: Hematocrit 33.3 % (37.0-47.0); Hemoglobin 10.8 g/dL (12.0-15.0); Immature Granulocyte Percent A 0.6 % (0-0.5); Lymphocytes Absolute Auto 1.24 K/mm3 (0.9-3.2); Mean Corpuscular HGB Conc 32.4 g/dl (32-36); Mean Corpuscular Hemoglobin 29.4 pg (26-34); Mean Corpuscular Volume 90.7 fl (80-100); Nucleated Red Blood Cells Absolute Auto 0.000 K/mm3 (0.0-0.012); Nucleated Red Blood Cells Perc 0.0 % (0.0-0.2); Platelet Count Result 256 k/mm3 (150-375); Red Blood Count 3.67 M/mm3 (4.2-5.4); White Blood Count 9.7 K/mm3 (4.5-10.0)
[2025-07-27 07:31] LABS: Alanine Aminotransferase 15 U/L (6-35); Albumin Level 2.9 g/dL (3.5-5.1); Alkaline Phosphatase 84 U/L (38-126); Anion Gap 6 mmol/L (4-12); Aspartate Amino Transferase 27 U/L (14-36); Bilirubin,Total 0.9 mg/dL (0.2-1.3); Blood Urea Nitrogen 12 mg/dL (7-17); Calcium 8.5 mg/dL (8.4-10.2); Carbon Dioxide 25 mmol/L (22-30); Chloride 108 mmol/L (98-107); Estimated Glomerular Filt Rate > 60; Glucose 97 mg/dL (65-110); Potassium 3.0 mmol/L (3.4-5.0); Sodium 139 mmol/L (137-145); Total Protein 5.8 g/dL (6.3-8.2)
--- NOTE | 2025-07-27 08:30 | P.PNOP_ITS ---
Progress Note: A&P Assessment and Plan (1) Closed displaced fracture of right femoral neck: Code(s): S72.001A - Fracture of unspecified part of neck of right femur, initial encounter for closed fracture Status: Acute (2) Fall from ground level: Code(s): W18.30XA - Fall on same level, unspecified, initial encounter Status: Acute Plan Postop day 5: Bipolar hemiarthroplasty right hip. Patient tolerated procedure well. No complications. Dressing dry and intact today. Laying comfortably in bed. Discussed care plan with family. Patient sev erely demented. Typically lives at home with her . Has been falling a lot. She will benefit from SNF at discharge. Continue PT/OT as able. Abduction pillow to help with dislocation risk given her dementia. Ortho instructions: DOS: 07/22/25. Bipolar hemiarthroplasty right hip. * D/C to SNF/rehab * Follow up in office or virtually in 4-6 weeks. * Remove Mepilex dressing at 7 days post op. Remove steristrips at 14 days post op. May shower. No soaking. * PT: Weight bearing as tolerated with a walker. * DVT prophylaxis: continue Lovenox for 30 days total * Pain medication: Tylenol. Limit narcotics due to dementia. Subjective Subjective Date/Time Seen: 07/27/25 08:30 Interval history: Patient resting comfortably in bed. No distress. Confused. Family at bedside. Denies pain. Review of Systems Review of Systems: ROS unobtainable: Yes unobtainable due to medical condition Exam Narrative: Confused 79 y/o overweight female. Resting comfortably in bed. No acute distress. Slight erythema at the inferior edge of the incision. Moderate swelling. Mild warmth. No ecchymosis. Dressing dry and intact without drainage. ROM limited to pain. Hip flexion to 80 degrees without pain. Calf nontender. Distal pulses palpable. Normal capillary refill. Patient able to move and wiggle toes. Light touch sensation intact. Objective Data Vital Signs Vital Signs: Vital Signs - 24 hr 07/26/25 13:56 07/26/25 20:22 07/26/25 22:58 Temperature 97.0 F L 98.8 F Pulse Rate 83 92 88 Respiratory Rate 16 16 19 Blood Pressure 121/67 141/80 H Pulse Oximetry 96 100 91 Oxygen Delivery Autopap Intake/Output Intake/Output: Intake & Output 07/24/25 07/25/25 07/26/25 07/27/25 23:59 23:59 23:59 23:59 Intake Total 1026.8 1761 1200 Output Total 720 250 225 Balance 306.8 1511 975 Meds/Results Medications: Active Medications Generic Name Dose Route Start Last Admin Trade Name Freq PRN Reason Stop Dose Admin Acetaminophen 650 mg 07/22/25 18:00 07/27/25 05:12 Acetaminophen 325 Mg Tablet PO 650 mg Q6HR NEHEMIAH Administration Hydrocodone Bitart/Acetaminophen 1 tab 07/23/25 17:14 07/25/25 20:52 Hydrocodone/Acetaminophen (*Crx) 5-325 Mg Tablet PO 1 tab Q4H PRN Administration Pain Rated 6 or Greater Aspirin 81 mg 07/25/25 09:00 07/26/25 08:36 Aspirin 81 Mg Chewable Tablet PO 81 mg DAILY NEHEMIAH Administration Atorvastatin Calcium 40 mg 07/25/25 09:00 07/26/25 08:38 Atorvastatin 40 Mg Tablet PO 40 mg DAILY NEHEMIAH Administration Dextrose 12.5 gm 07/21/25 20:53 Dextrose 50% 25 Gm/50 Ml Syringe IV PUSH PRN PRN Hypoglycemia Protocol Donepezil HCl 10 mg 07/25/25 09:00 07/26/25 08:39 Donepezil Hcl 10 Mg Tablet PO Not Given DAILY NEHEMIAH Enoxaparin Sodium 40 mg 07/23/25 09:00 07/26/25 08:43 Enoxaparin 40 Mg/0.4 Ml Syringe SUB-Q 40 mg DAILY NEHEMIAH Administration Famotidine 20 mg 07/22/25 21:00 07/26/25 19:57 Famotidine 20 Mg Tablet PO 20 mg Q12HR NEHEMIAH Administration Glucagon 1 mg 07/21/25 20:53 Glucagon For Inj 1 Mg Vial IM PRN PRN Hypoglycemia Protocol Glucose 15 gm 07/21/25 20:53 Glucose Oral Gel 15 Gm Of Glucse In 37.5 Gm Tube PO PRN PRN Hypoglycemia Protocol Hydroxyzine HCl 10 mg 07/26/25 14:10 07/26/25 19:57 Hydroxyzine Hcl 10 Mg Tablet PO 10 mg Q6H PRN Administration Anxiety Dextrose 1,000 mls @ 100 mls/hr 07/21/25 20:53 Dextrose 5% 1,000 Ml IVPB PRN PRN Hypoglycemia Protocol Ceftriaxone Sodium 1 gm/ 50 mls @ 100 mls/hr 07/26/25 12:55 07/26/25 14:01 Sodium Chloride IVPB Infused QAM NEHEMIAH Infusion Lisinopril 10 mg 07/25/25 09:00 07/26/25 08:38 Lisinopril 10 Mg Tablet PO 10 mg DAILY NEHEMIAH Administration Memantine 10 mg 07/25/25 17:30 07/26/25 16:48 Memantine 10 Mg Tablet PO Not Given BID NEHEMIAH Naloxone HCl 0.1 mg 07/22/25 17:50 Naloxone Hcl 0.4 Mg/Ml Vial IV PUSH Q2M PRN Opiate Reversal Ondansetron HCl 4 mg 07/22/25 17:50 Ondansetron Inj 4 Mg/2 Ml Vial IV PUSH Q4H PRN Nausea And Vomiting Polyethylene Glycol 17 gm 07/23/25 09:00 07/27/25 07:43 Polyethylene Glycol 3350 17 Gm Powd.Pack PO Not Given QAM NEHEMIAH Senna/Docusate Sodium 1 tab 07/22/25 17:00 Senna/Docusate Sodium Tablet PO PRN PRN Constipation Senna/Docusate Sodium 2 tab 07/22/25 17:50 07/26/25 16:49 Senna/Docusate Sodium Tablet PO 2 tab BID NEHEMIAH Administration Radiology Results: ITS Impressions Chest X-Ray 07/21/25 20:18 IMPRESSION: No acute pulmonary findings. Head CT 07/21/25 20:22 IMPRESSION: No acute intracranial hemorrhage or extra axial fluid collections. Chronic white matter microangiopathic changes and generalized atrophy. All CT scans at this facility are performed using low dose modulation techniques as appropriate to perform exam including the following: automated exposure control; use of iterative reconstruction technique; adjustment of the mA and/or kV according to patient size (this includes techniques or standardized protocols for targeted exams where dose is matched to indication/reason for exam). Hip/Pelvis X-Ray 07/21/25 20:23 IMPRESSION: Acute displaced subcapital fracture of the right femoral neck. Cervical Spine CT 07/21/25 20:28 IMPRESSION: Multilevel degenerative changes. Sclerotic lesion in the left T1 vertebral body is noted. Follow-up bone scan can be done to exclude malignancy. No acute fracture or subluxation. All CT scans at this facility are performed using low dose modulation techniques as appropriate to perform exam including the following: automated exposure control; adjustment of the mA and/or kV according to patient size (this includes techniques or standardized protocols for targeted exams where does is matched to indication/reason for exam; i.e. extremities or head); use of iterative reconstruction technique). Hip X-Ray 07/22/25 17:06 Impression: No acute fracture or malalignment. Labs Labs: Laboratory Results - last 24 hr 07/27/25 06:15 WBC 9.7 RBC 3.67 L Hgb 10.8 L Hct 33.3 L MCV 90.7 D MCH 29.4 MCHC 32.4 RDW 14.7 H Plt Count 256 MPV 10.4 Immature Gran % (Auto) 0.6 H Neut % (Auto) 73.2 H Lymph % (Auto) 12.8 L [place] % (Auto) 9.0 H Eos % (Auto) 4.0 Baso % (Auto) 0.4 Lymph # (Auto) 1.24 [place] # (Auto) 0.9 H Eos # (Auto) 0.4 H Baso # (Auto) 0.0 Abs Immat Gran (auto) 0.06 H Absolute Neuts (auto) 7.1 H Absolute Nucleated RBC 0.000 Nucleated RBC % 0.0 Sodium 139 Potassium 3.0 L Chloride 108 H Carbon Dioxide 25 Anion Gap 6 BUN 12 Creatinine 0.64 L Estim Creat Clear Calc Not Reportable Estimated GFR > 60 Glucose 97 Calcium 8.5 Total Bilirubin 0.9 AST 27 ALT 15 Alkaline Phosphatase 84 Total Protein 5.8 L Albumin 2.9 L
[2025-07-27] MEDS: POTASSIUM CHLORIDE 20 MEQ PACKET (FOR LIQUID) 40 MEQ PO (08:37)
[2025-07-27] MEDS: HYDROcodone/acetaminophen (*CRX) 5-325 MG TABLET 1 TAB PO ×2 (08:39→17:53)
[2025-07-27] MEDS: ASPIRIN 81 MG CHEWABLE TABLET PO (08:40)
[2025-07-27] MEDS: ATORVASTATIN 40 MG TABLET PO (08:41)
[2025-07-27] MEDS: FAMOTIDINE 20 MG TABLET PO (08:41)
[2025-07-27] MEDS: SENNA/DOCUSATE SODIUM TABLET 2 TAB PO (08:41)
[2025-07-27] MEDS: MEMANTINE 10 MG TABLET PO ×2 (08:41→16:52)
[2025-07-27] MEDS: DONEPEZIL HCL 10 MG TABLET PO (08:41)
[2025-07-27] MEDS: ENOXAPARIN 40 MG/0.4 ML SYRINGE SUB-Q (08:42)
[2025-07-27] MEDS: cefTRIAXone 1 GM in SODIUM CHLORIDE 0.9% IV 50 ML 100 ML IVPB (08:48)
--- NOTE | 2025-07-27 11:08 | P.PNIM_ITS ---
Progress Note: A&P Assessment and Plan (1) Closed displaced fracture of right femoral neck: Code(s): S72.001A - Fracture of unspecified part of neck of right femur, initial encounter for closed fracture Status: Acute Assessment and Plan: - XR with acute displaced subcapital fracture of the right femoral neck - s/p R bipolar hip replacement by Dr. Cooper 07/22 - ortho recs: * D/C to SNF/rehab * Follow up in office or virtually in 4-6 weeks. * Remove Mepilex dressing at 7 days post op. Remove steristrips at 14 days post op. May shower. No soaking. * PT: Weight bearing as tolerated with a walker. * DVT prophylaxis: continue Lovenox for 30 days total * Pain medication: Tylenol. Limit narcotics due to dementia. - care coordination following for placement. Awaiting auth for [facility] bed. (2) UTI (urinary tract infection): Code(s): N39.0 - Urinary tract infection, site not specified Status: Acute Assessment and Plan: -UA: Positive nitrates, 1+ leukocyte esterase, 11-20 urine WBC, 2+ bacteria - urine culture 07/21 with gram negative bacilli - afebrile, no leukocytosis - family concerned about increased confusion - restart IV Rocephin, await final urine culture results (3) Dementia: Qualifiers: Dementia behavioral or psychological symptom: unspecified whether behavioral, psychotic, or mood disturbance or anxiety Dementia severity: unspecified severity Dementia type: unspecified type Qualified Code(s): F03.90 - Unspecified dementia, unspecified severity, without behavioral disturbance, psychotic disturbance, mood disturbance, and anxiety Code(s): F03.90 - Unspecified dementia, unspecified severity, without behavioral disturbance, psychotic disturbance, mood disturbance, and anxiety Status: Acute Assessment and Plan: -Patient is able to understand easy questions and answer with 1-2 word replies. Patient also speaks word salad often and is difficult to understand at times. - continue Namenda and Aricept (4) Hypertension: Qualifiers: Hypertension type: primary hypertension Qualified Code(s): I10 - Essential (primary) hypertension Code(s): I10 - Essential (primary) hypertension Status: Acute Assessment and Plan: -restart home lisinopril -Monitor blood pressure (5) HLD (hyperlipidemia): Qualifiers: Hyperlipidemia type: mixed hyperlipidemia Qualified Code(s): E78.2 - Mixed hyperlipidemia Code(s): E78.5 - Hyperlipidemia, unspecified Status: Acute Assessment and Plan: * restart home atorvastatin (6) Bone lesion: Code(s): M89.9 - Disorder of bone, unspecified Status: Acute Assessment and Plan: - admit CT C-spine with sclerotic lesion in the left T1 vertebral body is noted. Follow-up bone scan can be done to exclude malignancy. - will need bone scan as outpatient. Plan Code status: full code DVT prophylaxis: Lovenox Dispo: [facility] once auth approved Subjective Date/time seen: 07/27/25 11:08 Interval history: Patient examined in bed. Remains A&O x1, accompanied by family at bedside. Family remains concerned that patient is more confused than her baseline. Patient appears pleasant and smiling in bed, denies any complaints at this time. Still pending authorization for [facility] bed. Review of Systems Review of Systems: ROS unobtainable: Yes unobtainable due to mental status Constitutional: Constitutional: Reports as per HPI and Reports no additional constitutional complaints Eyes: Eyes: Reports as per HPI and Reports no additional eye complaints ENT: Reports system reviewed and no additional complaints, except as documented and Reports Normal hearing present Cardiovascular: Cardiovascular: Reports no additional cardiovascular complaints Respiratory: Respiratory: Reports as per HPI and Reports no additional respiratory complaints Gastrointestinal: Gastrointestinal: Reports as per HPI and Reports no additional gastrointestinal complaints Genitourinary: Genitourinary: Reports no additional female genitourinary complaints Musculoskeletal: Musculoskeletal: Reports no additional musculoskeletal complaints Integumentary/Breasts: Skin/Breast: Reports system reviewed and no additional complaints, except as docu Neurologic: Reports system reviewed and no additional complaints, except as documented and Reports Normal hearing present Psychiatric: Psychiatric: Reports no additional psychiatric complaints and Reports as per HPI Hematologic/Lymphatic: Hematologic/Lymphatic: Reports no additional hematologic/lymphatic complaints Allergic/Immunologic: Allergic/Immunologic: Reports no additional allergic/immunologic complaints Exam Narrative: General: NAD Eyes: EOMI ENT: neck supple Cardiovascular: Regular rate and rhythm Respiratory: Clear to auscultation, respirations even and unlabored on RA Gastrointestinal: Soft, non tender Genitourinary: no suprapubic tenderness Musculoskeletal: No edema Skin: warm, dry Neuro: Alert and oriented x1. Psych: Mood appropriate Const: General: cooperative, no acute distress, awake, Physically active, average body habitus and well nourished Nutritional Appearance: average body habitus and well nourished Orientation/consciousness: oriented to person HENMT: Head: normal to inspection and No palpable skull fracture present Eyes: General: appearance normal, both eyes and all related structures Alignment and Position: alignment normal Neck: Neck: normal visual inspection and full ROM Chest: Chest palpation & inspection: normal inspection of the chest Resp: Effort & Inspection: normal respiratory effort Auscultation: clear to auscultation bilaterally Cardio: Palpation: normal PMI Rate: regular rate Rhythm: regular rhythm Heart sounds: S1 normal heart sound present and S2 normal heart sound present Peripheral pulses: Peripheral pulses 2+ throughout GI: Inspection: normal to inspection Auscultation: normal bowel sounds : General: Yes no CVA tenderness Urinary Catheter: Urinary Catheter: urine clear Back/Spine/Pelvis: Back: no CVA tenderness Skin: General skin exam: normal color Lesions: no lesions Rashes: no rashes Trauma: no lacerations or abrasions Wounds: no wounds Hair: normal Nails: normal Neuro: General: oriented to person Cranial nerves: Yes Normal hearing present Other: The patient is noncommunicative. Extrem: General: normal to inspection Right upper extremity: normal to inspection and shoulder/upper arm Left upper extremity: normal to inspection and shoulder/upper arm Right lower extremity: normal to inspection Left lower extremity: normal to inspection Other: Right leg is shortened and externally rotated. Psych: Appearance: grossly normal Attitude: cooperative Objective Data Vital Signs Vital Signs: Vital Signs - 24 hr 07/26/25 13:56 07/26/25 20:22 07/26/25 22:58 Temperature 97.0 F L 98.8 F Pulse Rate 83 92 88 Respiratory Rate 16 16 19 Blood Pressure 121/67 141/80 H Pulse Oximetry 96 100 91 Oxygen Delivery Autopap Intake/Output Intake/Output: Intake & Output 07/24/25 07/25/25 07/26/25 07/27/25 23:59 23:59 23:59 23:59 Intake Total 1026.8 1761 1200 50 Output Total 720 250 225 Balance 306.8 1511 975 50 Meds/Results Medications: Active Medications Generic Name Dose Route Start Last Admin Trade Name Freq PRN Reason Stop Dose Admin Acetaminophen 650 mg 07/22/25 18:00 07/27/25 05:12 Acetaminophen 325 Mg Tablet PO 650 mg Q6HR NEHEMIAH Administration Hydrocodone Bitart/Acetaminophen 1 tab 07/23/25 17:14 07/27/25 08:39 Hydrocodone/Acetaminophen (*Crx) 5-325 Mg Tablet PO 1 tab Q4H PRN Administration Pain Rated 6 or Greater Aspirin 81 mg 07/25/25 09:00 07/27/25 08:40 Aspirin 81 Mg Chewable Tablet PO 81 mg DAILY NEHEMIAH Administration Atorvastatin Calcium 40 mg 07/25/25 09:00 07/27/25 08:41 Atorvastatin 40 Mg Tablet PO 40 mg DAILY NEHEMIAH Administration Dextrose 12.5 gm 07/21/25 20:53 Dextrose 50% 25 Gm/50 Ml Syringe IV PUSH PRN PRN Hypoglycemia Protocol Donepezil HCl 10 mg 07/25/25 09:00 07/27/25 08:41 Donepezil Hcl 10 Mg Tablet PO 10 mg DAILY NEHEMIAH Administration Enoxaparin Sodium 40 mg 07/23/25 09:00 07/27/25 08:42 Enoxaparin 40 Mg/0.4 Ml Syringe SUB-Q 40 mg DAILY NEHEMIAH Administration Famotidine 20 mg 07/22/25 21:00 07/27/25 08:41 Famotidine 20 Mg Tablet PO 20 mg Q12HR NEHEMIAH Administration Glucagon 1 mg 07/21/25 20:53 Glucagon For Inj 1 Mg Vial IM PRN PRN Hypoglycemia Protocol Glucose 15 gm 07/21/25 20:53 Glucose Oral Gel 15 Gm Of Glucse In 37.5 Gm Tube PO PRN PRN Hypoglycemia Protocol Hydroxyzine HCl 10 mg 07/26/25 14:10 07/26/25 19:57 Hydroxyzine Hcl 10 Mg Tablet PO 10 mg Q6H PRN Administration Anxiety Dextrose 1,000 mls @ 100 mls/hr 07/21/25 20:53 Dextrose 5% 1,000 Ml IVPB PRN PRN Hypoglycemia Protocol Ceftriaxone Sodium 1 gm/ 50 mls @ 100 mls/hr 07/26/25 12:55 07/27/25 09:18 Sodium Chloride IVPB Infused QAM NEHEMIAH Infusion Lisinopril 10 mg 07/25/25 09:00 07/27/25 08:40 Lisinopril 10 Mg Tablet PO 10 mg DAILY NEHEMIAH Administration Memantine 10 mg 07/25/25 17:30 07/27/25 08:41 Memantine 10 Mg Tablet PO 10 mg BID NEHEMIAH Administration Naloxone HCl 0.1 mg 07/22/25 17:50 Naloxone Hcl 0.4 Mg/Ml Vial IV PUSH Q2M PRN Opiate Reversal Ondansetron HCl 4 mg 07/22/25 17:50 Ondansetron Inj 4 Mg/2 Ml Vial IV PUSH Q4H PRN Nausea And Vomiting Polyethylene Glycol 17 gm 07/23/25 09:00 07/27/25 07:43 Polyethylene Glycol 3350 17 Gm Powd.Pack PO Not Given QAM NEHEMIAH Senna/Docusate Sodium 1 tab 07/22/25 17:00 Senna/Docusate Sodium Tablet PO PRN PRN Constipation Senna/Docusate Sodium 2 tab 07/22/25 17:50 07/27/25 08:41 Senna/Docusate Sodium Tablet PO 2 tab BID NEHEMIAH Administration Radiology Results: ITS Impressions Chest X-Ray 07/21/25 20:18 IMPRESSION: No acute pulmonary findings. Head CT 07/21/25 20:22 IMPRESSION: No acute intracranial hemorrhage or extra axial fluid collections. Chronic white matter microangiopathic changes and generalized atrophy. All CT scans at this facility are performed using low dose modulation techniques as appropriate to perform exam including the following: automated exposure control; use of iterative reconstruction technique; adjustment of the mA and/or kV according to patient size (this includes techniques or standardized protocols for targeted exams where dose is matched to indication/reason for exam). Hip/Pelvis X-Ray 07/21/25 20:23 IMPRESSION: Acute displaced subcapital fracture of the right femoral neck. Cervical Spine CT 07/21/25 20:28 IMPRESSION: Multilevel degenerative changes. Sclerotic lesion in the left T1 vertebral body is noted. Follow-up bone scan can be done to exclude malignancy. No acute fracture or subluxation. All CT scans at this facility are performed using low dose modulation techniques as appropriate to perform exam including the following: automated exposure control; adjustment of the mA and/or kV according to patient size (this includes techniques or standardized protocols for targeted exams where does is matched to indication/reason for exam; i.e. extremities or head); use of iterative reconstruction technique). Hip X-Ray 07/22/25 17:06 Impression: No acute fracture or malalignment. Labs Labs: Laboratory Results - last 24 hr 07/27/25 06:15 WBC 9.7 RBC 3.67 L Hgb 10.8 L Hct 33.3 L MCV 90.7 D MCH 29.4 MCHC 32.4 RDW 14.7 H Plt Count 256 MPV 10.4 Immature Gran % (Auto) 0.6 H Neut % (Auto) 73.2 H Lymph % (Auto) 12.8 L Harper % (Auto) 9.0 H Eos % (Auto) 4.0 Baso % (Auto) 0.4 Lymph # (Auto) 1.24 Harper # (Auto) 0.9 H Eos # (Auto) 0.4 H Baso # (Auto) 0.0 Abs Immat Gran (auto) 0.06 H Absolute Neuts (auto) 7.1 H Absolute Nucleated RBC 0.000 Nucleated RBC % 0.0 Sodium 139 Potassium 3.0 L Chloride 108 H Carbon Dioxide 25 Anion Gap 6 BUN 12 Creatinine 0.64 L Estim Creat Clear Calc Not Reportable Estimated GFR > 60 Glucose 97 Calcium 8.5 Total Bilirubin 0.9 AST 27 ALT 15 Alkaline Phosphatase 84 Total Protein 5.8 L Albumin 2.9 L Quality VTE Prophylaxis VTE prophylaxis: mechanical ordered
[2025-07-27 14:00] VITALS: BP 123/79; PULSE 93; RESP 18; TEMP 36.2; O2SAT 92
[2025-07-27 19:38] VITALS: PULSE 62; RESP 16; O2SAT 96
[2025-07-27 20:19] VITALS: BP 133/75; PULSE 46; RESP 16; TEMP 36.1; O2SAT 97
[2025-07-27 23:45] VITALS: RESP 21
[2025-07-28 05:47] VITALS: BP 189/78; PULSE 95; RESP 16; TEMP 36.6; O2SAT 92
[2025-07-28] MEDS: ACETAMINOPHEN 325 MG TABLET 650 MG PO ×2 (05:51→12:18)
[2025-07-28 06:01] LABS: Hematocrit 35.5 % (37.0-47.0); Hemoglobin 11.4 g/dL (12.0-15.0); Immature Granulocyte Percent A 0.4 % (0-0.5); Lymphocytes Absolute Auto 1.50 K/mm3 (0.9-3.2); Mean Corpuscular HGB Conc 32.1 g/dl (32-36); Mean Corpuscular Hemoglobin 29.1 pg (26-34); Mean Corpuscular Volume 90.6 fl (80-100); Nucleated Red Blood Cells Absolute Auto 0.000 K/mm3 (0.0-0.012); Nucleated Red Blood Cells Perc 0.0 % (0.0-0.2); Platelet Count Result 278 k/mm3 (150-375); Red Blood Count 3.92 M/mm3 (4.2-5.4); White Blood Count 10.4 K/mm3 (4.5-10.0)
[2025-07-28 06:28] LABS: Alanine Aminotransferase 18 U/L (6-35); Albumin Level 3.0 g/dL (3.5-5.1); Alkaline Phosphatase 92 U/L (38-126); Anion Gap 6 mmol/L (4-12); Aspartate Amino Transferase 27 U/L (14-36); Bilirubin,Total 0.7 mg/dL (0.2-1.3); Blood Urea Nitrogen 15 mg/dL (7-17); Calcium 8.7 mg/dL (8.4-10.2); Carbon Dioxide 26 mmol/L (22-30); Chloride 109 mmol/L (98-107); Estimated Glomerular Filt Rate > 60; Glucose 102 mg/dL (65-110); Potassium 3.5 mmol/L (3.4-5.0); Sodium 141 mmol/L (137-145); Total Protein 5.8 g/dL (6.3-8.2)
[2025-07-28] MEDS: ASPIRIN 81 MG CHEWABLE TABLET PO (09:05)
[2025-07-28] MEDS: MEMANTINE 10 MG TABLET PO (09:05)
[2025-07-28] MEDS: ATORVASTATIN 40 MG TABLET PO (09:05)
[2025-07-28] MEDS: FAMOTIDINE 20 MG TABLET PO (09:05)
[2025-07-28] MEDS: CEPHALEXIN 500 MG CAPSULE PO (09:06)
[2025-07-28] MEDS: DONEPEZIL HCL 10 MG TABLET PO (09:06)
--- NOTE | 2025-07-28 09:48 | P.DS_ITS ---
DS: Admitting Diagnosis Discharge Date 07/28/2025 Admitting Diagnosis Closed displaced fracture of the right femoral neck DS: Discharge Diagnosis Discharge Diagnosis (1) Closed displaced fracture of right femoral neck: Code(s): S72.001A - Fracture of unspecified part of neck of right femur, initial encounter for closed fracture Status: Acute Assessment and Plan: - XR with acute displaced subcapital fracture of the right femoral neck - s/p R bipolar hip replacement by Dr. Cooper 07/22 - ortho recs: * D/C to SNF/rehab * Follow up in office or virtually in 4-6 weeks. * Remove Mepilex dressing at 7 days post op. Remove steristrips at 14 days post op. May shower. No soaking. * PT: Weight bearing as tolerated with a walker. * DVT prophylaxis: continue Lovenox for 30 days total * Pain medication: Tylenol. Limit narcotics due to dementia. - care coordination following for placement. Awaiting auth for [facility] bed. (2) UTI (urinary tract infection): Code(s): N39.0 - Urinary tract infection, site not specified Status: Acute Assessment and Plan: -UA: Positive nitrates, 1+ leukocyte esterase, 11-20 urine WBC, 2+ bacteria - urine culture 07/21 with gram negative bacilli - afebrile, no leukocytosis - family concerned about increased confusion - restart IV Rocephin, await final urine culture results (3) Dementia: Qualifiers: Dementia behavioral or psychological symptom: unspecified whether behavioral, psychotic, or mood disturbance or anxiety Dementia severity: unspecified severity Dementia type: unspecified type Qualified Code(s): F03.90 - Unspecified dementia, unspecified severity, without behavioral disturbance, psychotic disturbance, mood disturbance, and anxiety Code(s): F03.90 - Unspecified dementia, unspecified severity, without behavioral disturbance, psychotic disturbance, mood disturbance, and anxiety Status: Acute Assessment and Plan: -Patient is able to understand easy questions and answer with 1-2 word replies. Patient also speaks word salad often and is difficult to understand at times. - continue Namenda and Aricept (4) Hypertension: Qualifiers: Hypertension type: primary hypertension Qualified Code(s): I10 - Essential (primary) hypertension Code(s): I10 - Essential (primary) hypertension Status: Acute Assessment and Plan: -restart home lisinopril -Monitor blood pressure (5) HLD (hyperlipidemia): Qualifiers: Hyperlipidemia type: mixed hyperlipidemia Qualified Code(s): E78.2 - Mixed hyperlipidemia Code(s): E78.5 - Hyperlipidemia, unspecified Status: Acute Assessment and Plan: * restart home atorvastatin (6) Bone lesion: Code(s): M89.9 - Disorder of bone, unspecified Status: Acute Assessment and Plan: - admit CT C-spine with sclerotic lesion in the left T1 vertebral body is noted. Follow-up bone scan can be done to exclude malignancy. - will need bone scan as outpatient. Plan Code status: full code DVT prophylaxis: Kayla Dispo: D/C to [facility] once auth approved DS: Summary Hospital Course Reason for hospitalization: Fall Hospital Course: Per HPI: This is an 79-year-old female patient who has a history of dementia and CVA. She lives with her and he is providing information for the patient's medical history. Is reported that the patient tripped and fell down 2 steps in their garage. She fell backwards hitting her head against a garbage can. The patient was found lying flat on her back. She was unable to ambulate after this and her right leg was noted to be shortened. She does not take any anticoagulation but does take an aspirin daily. Her white count was noted to be 16.1. Urinalysis shows positive nitrates and 1+ leukocyte esterase. WBCs 11- 20. 2+ urine bacteria in the urine. The patient was started on Rocephin in the emergency room. Head CT was read as no acute intracranial hemorrhage or extra- axial fluid collections. Chronic white matter microangiopathic changes and generalized atrophy. Right hip x-ray was read as acute displaced subcapital fracture of the right femoral neck. Cervical spine CT was read as multilevel degenerative change. Sclerotic lesion in the left T1 vertebral body is noted. Follow-up bone scan can be done to exclude malignancy. No acute fracture or subluxation.Patient's son is a physical therapist and works with Dr. Cooper's patients frequently. Requested Dr. Cooper as specialist managers. Advised he is not currently continuity editor and patient is not an established patient, but will attempt to talk to him. Discussed case with Dr. Cooper, orthopedics, agreeable to consult, will see patient in the am. Family very pleased, in agreement with plan. The patient also became hypoxic in the emergency room when oxygen was applied at 4 L per nasal cannula. According to the the patient has sleep apnea and he believes this is why her oxygen level became low. The patient is being admitted to observation status on the date of service 07/22/2025. Hospital course: Orthopedics is consulted regarding closed displaced fracture right femoral neck. Plan to proceed with bipolar hemiarthroplasty right hip. This was performed on 07/22 without complications. Patient was then ordered PT/OT evaluations for continued rehab care and they recommended further rehab assistance upon discharge. Patient was monitored throughout hospitalization by hospitalist team and Orthopedics team. She progressed slowly and was recommended to follow-up in the outpatient setting virtually or in office in 4-6 weeks with Orthopedics. He also recommended weight-bearing as tolerated with a walker and DVT prophylaxis with Lovenox for the next 30 days. Has been was agreeable to continued rehab care with a [facility] and the patient was finally accepted for a bed and able to be discharged on 07/28. She has slowly progressed with PT/OT throughout hospitalization and initially refused to work with them but eventually was able to demonstrate improved strength and participation with transfers from bed and chair. Blood work and vital signs have remained stable that the past several days and patient has been cleared for discharge from an orthopedic standpoint. Plan for discharge at this time. Status at Discharge Functional status at discharge: uses cane/walker Overall status at discharge: patient is progressing back to baseline Time Spent with Patient Time attestation: Total time spent providing and/or coordinating discharge services: 34 Exam Narrative: General: NAD Eyes: EOMI ENT: neck supple Cardiovascular: Regular rate and rhythm Respiratory: Clear to auscultation, respirations even and unlabored on RA Gastrointestinal: Soft, non tender Genitourinary: no suprapubic tenderness Musculoskeletal: No edema Skin: warm, dry Neuro: Alert and oriented x1. Psych: Mood appropriate Const: General: cooperative, no acute distress, awake, Physically active, average body habitus and well nourished Nutritional Appearance: average body habitus and well nourished Orientation/consciousness: oriented to person HENMT: Head: normal to inspection and No palpable skull fracture present Eyes: General: appearance normal, both eyes and all related structures Alignment and Position: alignment normal Neck: Neck: normal visual inspection and full ROM Chest: Chest palpation & inspection: normal inspection of the chest Resp: Effort & Inspection: normal respiratory effort Auscultation: clear to auscultation bilaterally Cardio: Palpation: normal PMI Rate: regular rate Rhythm: regular rhythm Heart sounds: S1 normal heart sound present and S2 normal heart sound present Peripheral pulses: Peripheral pulses 2+ throughout GI: Inspection: normal to inspection Auscultation: normal bowel sounds : General: Yes no CVA tenderness Urinary Catheter: Urinary Catheter: urine clear Back/Spine/Pelvis: Back: no CVA tenderness Skin: General skin exam: normal color Lesions: no lesions Rashes: no rashes Trauma: no lacerations or abrasions Wounds: no wounds Hair: normal Nails: normal Neuro: General: oriented to person Cranial nerves: Yes Normal hearing present Other: The patient is noncommunicative. Extrem: General: normal to inspection Right upper extremity: normal to inspection and shoulder/upper arm Left upper extremity: normal to inspection and shoulder/upper arm Right lower extremity: normal to inspection Left lower extremity: normal to inspection Other: Right leg is shortened and externally rotated. Psych: Appearance: grossly normal Attitude: cooperative DS: Data Data Completed and Pending Labs on day of discharge: Labs from last 24 hours 07/28/25 05:52 WBC 10.4 H RBC 3.92 L Hgb 11.4 L Hct 35.5 L MCV 90.6 MCH 29.1 MCHC 32.1 RDW 14.7 H Plt Count 278 MPV 10.2 Immature Gran % (Auto) 0.4 Neut % (Auto) 70.6 Lymph % (Auto) 14.5 L [place]ergus % (Auto) 8.1 Eos % (Auto) 6.0 H Baso % (Auto) 0.4 Lymph # (Auto) 1.50 [place] # (Auto) 0.8 H Eos # (Auto) 0.6 H Baso # (Auto) 0.0 Abs Immat Gran (auto) 0.04 H Absolute Neuts (auto) 7.3 H Absolute Nucleated RBC 0.000 Nucleated RBC % 0.0 Sodium 141 Potassium 3.5 Chloride 109 H Carbon Dioxide 26 Anion Gap 6 BUN 15 Creatinine 0.65 L Estim Creat Clear Calc Not Reportable Estimated GFR > 60 Glucose 102 Calcium 8.7 Total Bilirubin 0.7 AST 27 ALT 18 Alkaline Phosphatase 92 Total Protein 5.8 L Albumin 3.0 L Preliminary micro results at discharge 07/22/25 08:44 Blood Culture - Preliminary Blood 07/22/25 08:44 Blood Culture - Preliminary Blood Discharge Plan Discharge Attending physician on discharge: Kehinde Betancourt Consulting providers: Ambrose Rangel; Kris Cooper; Melony Guillen Discharging Clinician: Ambrose Rangel Anticipated Discharge Date/Time: 07/28/25 09:45 Patient Disposition: SNF Activity: as tolerated and follow weight bearing status Diet: regular Discharge Instructions: Ortho instructions: DOS: 07/22/25. Bipolar hemiarthroplasty right hip. * D/C to SNF/rehab * Follow up in office or virtually in 4-6 weeks with xrays. Please call [facility] for appointment details. * Remove Mepilex dressing at 7 days post op. Remove steristrips at 14 days post op. May shower. No soaking. * PT: Weight bearing as tolerated with a walker. Abduction pillow when at rest to decrease risk of dislocation. * DVT prophylaxis: continue Lovenox for 30 days total * Pain medication: Tylenol. Limit narcotics due to dementia. Patient Language: Pashto Stand Alone Forms: General Discharge Information Follow-up/Referrals: Ivonne Zaragoza PA [Physician Communications Department Head, Orthopedics] Radha Harper APRN [Primary Care Provider, [facility]] Discharge Medications: New cephalexin 500 mg Capsule 500 mg PO Q12HR Qty: 5 0RF Patient Comments: 5 days more then DC Continued aspirin 81 mg tablet,chewable 81 mg PO DAILY docusate sodium [Stool Softener] 100 mg tablet 100 mg PO BID atorvastatin 40 mg tablet 40 mg PO DAILY Qty: 90 1RF memantine 10 mg tablet 10 mg PO BID Qty: 180 0RF donepezil 10 mg tablet 10 mg PO DAILY Qty: 90 0RF lisinopril 10 mg tablet 10 mg PO DAILY Qty: 90 1RF Discontinued senna-docusate sodium Tablet 1 tablet PO DAILY PRN (Reason: constipation) Date of admission: 07/22/25 09:02 Primary Care Provider: Radha Harper Admitting Provider: Yanni Hough Attending physician on admission: Yanni Hough Condition: Stable Quality VTE Prophylaxis VTE prophylaxis: mechanical ordered
[2025-07-28] MEDS: ENOXAPARIN 40 MG/0.4 ML SYRINGE SUB-Q (11:46)
== END 2025-07-28 12:58 | DRG 522 ==
LOC: ANHED 19:58 → ANH3MEDSUR 21:45
PROVIDERS: Orthopaedic Surgery; Admitting Provider Internal Medicine; Emergency Provider Physician Assistant; PCP Nurse Practitioner Family; Visit Provider Physician Assistant
PROC: 0SRR01Z Replacement of Right Hip Joint, Femoral Surface with Metal Synthetic Substitute, Open Approach (ICD-10-PCS; CPT 27125; principal; 2025-07-22 15:00)
DX: S72.011A Unspecified intracapsular fracture of right femur, initial encounter for closed fracture (principal); N39.0 Urinary tract infection, site not specified; G30.9 Alzheimer's disease, unspecified; F02.80 Dementia in other diseases classified elsewhere, unspecified severity, without behavioral disturbance, psychotic disturbance, mood disturbance, and anxiety; M21.761 Unequal limb length (acquired), right tibia; E78.5 Hyperlipidemia, unspecified; I10 Essential (primary) hypertension; R09.02 Hypoxemia; G45.4 Transient global amnesia; E66.9 Obesity, unspecified; G47.33 Obstructive sleep apnea (adult) (pediatric); K21.9 Gastro-esophageal reflux disease without esophagitis; B96.1 Klebsiella pneumoniae [K. pneumoniae] as the cause of diseases classified elsewhere; M50.30 Other cervical disc degeneration, unspecified cervical region; M89.9 Disorder of bone, unspecified; Z74.1 Need for assistance with personal care; W10.8XXA Fall (on) (from) other stairs and steps, initial encounter; Z79.82 Long term (current) use of aspirin; Z86.0101 Personal history of adenomatous and serrated colon polyps; I69.321 Dysphasia following cerebral infarction; Z68.36 Body mass index [BMI] 36.0-36.9, adult; Z91.81 History of falling
CPT/HCPCS: 36415; 70450; 71045; 72125; 73502; 80053; 81001; 83605; 85025; 85610; 85730; 86850; 86900; 86901; 87040; 87086; 87186; 93005; 97110; 97161; 97166; 97530; 97535; 99285; J0690; A9270; C1776; J0696; J1650; J2270; J2405; J2704; J3010; J3290; J7030; J7120

== ENCOUNTER 2025-07-28 13:40 | Inpatient (IN) | payer MEDICARE, SELFPAY ==
--- NOTE | ~2025-07-28 | CT_ITS ---
CT HEAD CTA NECK, CTA HEAD Clinical History: CVA symptoms, Lt. facial drooping, AMS Comparison: CT brain 07/21/2025 TECHNIQUE: Unenhanced axial images skull base to vertex Coronal, sagittal reformats Helical images thoracic inlet to vertex 100 mL Omnipaque 350 Coronal, sagittal reformats. Multiplanar MIPS. CT images acquired with automatic exposure control for dose reduction DLP: 1902 mGy-cm Findings: CT HEAD Age-related atrophy. Extensive white matter chronic microvascular ischemic changes. Sulci, ventricles: Unremarkable. No intracerebral hemorrhage. No evidence acute territorial infarct. No mass effect, midline shift. Bony calvarium intact. Visualized paranasal sinuses: Clear. Mastoid air cells: Clear. No abnormal foci of contrast enhancement. Patent dural venous sinuses. CTA NECK NASCET Criteria utilized Aortic arch: No aneurysm or dissection. Atherosclerotic disease Great vessel origins: No stenosis. CCAs: No dissection. No stenosis. Cervical ICAs: No dissection. No stenosis. Bulb calcifications. Vertebral Arteries: Patent. Lung Apices: Pleural effusions. Interlobular septal thickening. Coronary artery calcifications. Thyroid: Unremarkable. Nodes: No enlarged nodes. Bones: No acute bony abnormality. CTA HEAD: Aneurysms: 1 mm aneurysm right P1 segment. Axial series 6 image 140. 1 mm aneurysm right P-comm. Series 6 image 131. Intracranial ICAs: Patent. A few tiny foci of ectasia. ACAs and their distal branches: Patent, unremarkable. A-Comm: Identified. Patent, unremarkable. MCAs and their distal branches: Patent, unremarkable. Basilar artery: Patent, unremarkable. commercial finance analyst and their distal branches: Patent. P-Comms: Identified. IMPRESSION: CT HEAD: 1. No acute intracranial findings. CTA NECK: 1. No ICA stenosis or other acute arterial abnormality. CTA HEAD: 1. No large vessel arterial occlusive disease or other acute findings. 2. 1 mm aneurysm right P-comm. 3. 1 mm aneurysm right P1 segment. Reviewed, dictated and finalized at location R.
--- NOTE | ~2025-07-28 | XR_ITS ---
Examination: XR chest 1V portable Clinical History: ams, possible aspiration Comparison: 07/21/2025 Technique: Portable AP Findings: Heart size upper limit of normal. Mild bibasilar opacities. No acute bony abnormality. IMPRESSION: 1. Mild bibasilar atelectasis but mild airspace disease not excluded. Consider PA and lateral films with deep inspiration. Reviewed, dictated and finalized at location R. E PICKER
[2025-07-28 13:53] VITALS: BMI 36.3
--- OUTSIDE RECORDS SUMMARY | 2025-07-28 14:39 | XMS_ITS | Clinical Summary ---
Author Organization [facility] Address [address] [place] [address] Care Team Providers Care Engineering Documentation Specialist Name Role Phone Sharona Collins MD Primary Care Provider [phone] Allergies No known active allergies Medications fish [...] 01/09/2018 Overview (06/22/2024): Onset: 01/09/2018; Annotation - [id number]: CPAP 12 Insomnia 12/02/2017 Memory difficulties 12/02/2017 Numbness and tingling of right upper extremity 0 04/15/2017 Acid reflux disease 06/29/2014 Hyperlipidemia 07/14/2013 Essential hypertension 07/14/2013 Encounters Date Type Department Care Team Description 07/26/2025 External Device Data STL ABSTRACTION Provider, Abstract 06/16/2025 Telephone [facility] Heart and Vascular - [id number] [facility] [phone] [facility] [address] [place] [address] Anna Choe Appointment Verification 06/16/2025 Telephone [facility] Heart and Vascular - [address] [facility] [phone] [facility] [address] [place] [address] Naomy Mac MD new pt referral 06/07/2025 [...] CDT Oxygen Saturation 96% 10/26/2024 10:37 AM FREIGHT RATE SPECIALIST Inhaled Oxygen Concentration - - Weight 79.8 kg (176 lb) 04/25/2025 3:24 PM CDT Height 149.9 cm (4' 11) 04/25/2025 3:24 PM CDT Body Mass Index 35.55 04/25/2025 3:24 PM CDT Plan of Treatment Upcoming Encounters Date Type Department Care Team (Late st Contact Info) Description 04/25/2026 1:00 PM CDT Office Visit [facility] Neurology [address] [facility] [address] [facility] [address] [place] [address] [place] [address] [address] Health Maintenance Due Date Last Done [...] , 05/08/2011 Medical Devices Implanted Type Area Rent And Housing Investigator Device Identifier Shelf Expiration Date Model / Serial / Lot Putty Dbx Dbm 1ml 03921 - [id number] Implanted:Qty: 1 on 07/06/2016 by Estefani Quinonez MD at [facility] Bone Left: Wrist MUSCULOSKELETAL TRANSPLANT FOU 01/28/2018 [id number] / [id number] / Description:[id number] Plate Lcp 5h 2.0mm 247.345 - [id number] Implanted:Qty: 1 on 07/06/2016 by Estefani Quinonez MD at [facility] Plate SYNTHES STRATEC 247.345 / / Plate Vdr Va-Lcp 2clmn 2.4mm 02.111.631 - Ssterilized July 05, 2016 And Load #27 Implanted:Qty: 1 on 07/06/2016 by Estefani Quinonez MD at [facility] Plate SYNTHES STRATEC 02.111.63 1 / STERILIZED 2015 AND LOAD #27 / Screw Va Loc Strdr 2.4x14mm 02.210.114 - Ssterilized July 05, 2016 And Load #27 Implanted:Qty: 1 on 07/06/2016 by Estefani Quinonez MD at [facility] Screw SYNTHES STRATEC .11 4 / STERILIZED 2015 AND LOAD #27 / Screw Va Loc Strdr 2.4x16mm 210.116 - Ssterilized July 05, 2016 And Load #27 Implanted:Qty: 2 on 07/06/2016 by Estefani Quinonez MD at [facility] Screw SYNTHES STRATEC .11 6 / STERILIZED 2015 AND LOAD #27 / Screw Va Loc Strdr 2.4x22mm .122 - Ssterilized July 05, 2016 And Load #27 Implanted:Qty: 3 on 07/06/2016 by Estefani Quinonez MD at [facility] Screw SYNTHES STRATEC . 2 / STERILIZED 2015 AND LOAD #27 / Screw St T8 2.7x14mm 202.874 - Ssterilized July 05, 2016 And Load #27 Implanted:Qty: 3 on 07/06/2016 by Estefani Quinonez MD at [facility] Screw SYNTHES STRATEC 202.874 / STERILIZED 2015 AND LOAD #27 / Screw St 2.0x12mm 201.362.97 - [id number] Implanted:Qty: 2 on 07/06/2016 by Estefani Quinonez MD at [facility] Screw SYNTHES STRATEC 201.362.9 7 / / Screw St 2.0x14mm 201.364.97 - [id number] Implanted:Qty: 2 on 07/06/2016 by Estefani Quinonez MD at [facility] Screw SYNTHES STRATEC 201.364.9 7 / / Explanted Type Area Rent And Housing Investigator Device Identifier Shelf Expiration Date Model / Serial / Lot Screw St 2.0x10mm 201.360.97 - [id number] Implanted:Estefani Quinonez MD (Quantity not on file) Explanted:Qty: 1 on 07/06/2016 by Estefani Quinonez MD at [facility] Screw SYNTHES STRATEC 201.360.9 7 / / Wire K Trocar Pt [id number] 292.12 - Ssterilized July 05, 2016 And Load #27 Implanted:Estefani Quinonez MD (Quantity not on file) Explanted:Qty: 2 on 07/06/2016 by Estefani Quinonez MD at [facility] Wire SYNTHES STRATEC 292.12 / STERILIZED 2015 AND LOAD #27 / Insurance AET[employer] PPO [facility] Advance Directives For more information, please contact: [phone] Documents on File Type Date Recorded Patient Contract Sheltered Workshop Supervisor Expl anation Advance Directive POA 07/06/2016 5:11 AM S EE ADVANCED DIRECTIVE Advance Directive Living Will 07/06/2016 5:10 AM Advance Directive Living Will Care Teams Engineering Documentation Specialist Relationship Specialty Start Date End Date Sharona Collins MD PCP - General Internal Medicine 07/01/16
--- OUTSIDE RECORDS SUMMARY | 2025-07-28 14:39 | XMS_ITS | Encounter Summary ---
Author Organization [facility] Address [address] [place] [address] Care Team Providers Care Lining Ironer Name Role Phone Sharona Collins MD Primary Care Provider [phone] Encounter Details Date Type Department Care Team (Late st Contact Info) Description 07/26/2025 External Device Data STL ABSTRACTION Provider, Abstract NO ADDRESS ON FILE Social History Tobacco Use Types Packs/Day Years Used Date Smoking Tobacco: Never Smokeless Tobacco: Never Alcohol Use Standard Drinks/Week Comments No 0 (1 standard drink = 0.6 oz pur e alcohol) Comments No Sex and Gender Information Value Date Recorded Sex Assigned at Not on file Legal Sex Female 1:57 PM CDT Gender Identity Not on file Sexual Orientation Not on file documented as of this encounter Plan of Treatment Upcoming Encounters Date Type Department Care Team (Late st Contact Info) Description 04/25/2026 1:00 PM CDT Office Visit [facility] Neurology [address] [place] [id number] [place] [address] Naomy Mac MD [address] [place] [address] documented as of this encounter Visit Diagnoses Not on filedocumented in this encounter Care Teams Lining Ironer Relationship Specialty Start Date End Date Sharona Collins MD PCP - General Internal Medicine 07/01/16 documented as of this encounter
--- OUTSIDE RECORDS SUMMARY | 2025-07-28 14:39 | XMS_ITS | Clinical Summary ---
Author Organization [facility] Address [address] [place] [address] Care Team Providers Care Juke Box Servicer Name Role Phone Mac Hensley MD Unavailable [phone] Virgil Bryant MD Primary Care Provider [phone] Allergies No known active allergies Medications donepeziL [...] 05/16/2019 Assessment & Plan (08/31/2024 10:11 AM COMBINER): Patient continue to wear her CPAP at 13 cm water pressure while sleeping. Her DME is [facility] Assessment & Plan (06/01/2024 9:26 AM CDT): The patient has been successfully treated with CPAP at 12 cm water pressure for ongoing symptoms of HELEN. Her AHI is slightly elevated at 6.2. Her DME supplier in the past was [facility] in [facility]. I will have her sign a release so we can obtain a copy of her diagnostic nocturnal polysomnogram which occurred in December 2017 at [facility] in [facility]. I will order a new CPAP unit for her set at 13 cm water pressure through [facility] in [facility]. She will follow up here in 3 [...] on file Legal Sex Female 12:15 AM COMBINER Gender Identity Not on file Sexual Orientation Not on file Obstetrics History Last Filed Vital Signs Vital Sign Reading Time Taken Comments Blood Pressure 150/82 08/31/2024 9:37 AM COMBINER Pulse 86 08/31/2024 9:37 AM COMBINER Temperature 36.2 C (97.1 F) 08/31/2024 9:37 AM COMBINER Respiratory Rate 18 08/31/2024 9:37 AM COMBINER Oxygen Saturation 98% 08/31/2024 9:37 AM COMBINER Inhaled Oxygen Concentration - - Weight 78.9 kg (174 lb) 08/31/2024 9:37 AM COMBINER Height 149.9 cm (4' 11) 08/31/2024 9:37 AM COMBINER Body Mass Index 35.14 08/31/2024 9:37 AM COMBINER Plan of Treatment Health Maintenance Due Date [...] Completed 12/20/2015, 12/2010 Insurance UHC MEDICARE ADVANTAGE [facility] MEDICARE Address: [facility] [address] [place] [address] AENA MEDICARE AETNA MEDICARE Care Teams Juke Box Servicer Relationship Specialty Start Date End Date Virgil Bryant MD [address] [place] [address] [phone] PCP - General Family Medicine 08/15/22 Mac Hensley MD [address] [place] [address] Referring Physician Neurology 07/07/19
--- NOTE | 2025-07-28 14:45 | PC.NURSE ---
Patient admitted to room 207 today at 1340 escorted by 2 EMS staff via ambulance from [facility] [place]. Patient AOx1, has surgical dressing to right hip, coccyx has friction area with Mepilex placed on skin assessment.No pain assessed per Huber Greer scale. Patient us unable to communicate, has word salad conversations. CPap brought in by who wishes to set up every night for her and informs if it comes off just leave it off, it will be OK, she is 80. Per Teodoro () it is OK to give any information to my daughter Mary or son Ulysses.
--- NOTE | 2025-07-28 15:30 | PM.IMHP ---
H&P: HPI History of Present Illness Date/Time: 07/28/25 15:30 Chief Complaint: Weakness Narrative: Patient is an 79 yo female with PMH for Dementia and CVA who was admitted to [facility] from 07/22-07/28/25 after a fall at home. She fell backwards after going up 2 steps in the garage hitting her head against a garbage can. The patient was found lying flat on her back on the garage floor. She was unable to ambulate after this and her right leg was noted to be shortened. XR Ray of the Right leg found a right femoral neck fracture. CT head did not indicate any acute Intracranial injury, pt was not on blood thinners prior to the fall. Orthopedics Dr Cooper was consulted for the right femoral neck fracture and patient underwent Bipolar hemiarthroplasty right hip on 07/22/25. Orthopedics has indicated that patient can be WBAT to the RLE. Patient does require Lovenox for 30 days total from the date of surgery. While admitted the patient was also noted to have a urinary tract infection which she was treated with Rocephin, urine culture grew Klebsiella pneumoniae which was susceptible to ceftriaxone. Patient does have dementia, she is mostly pleasant and cooperative. Family's goal is for patient to return home where her provides care. She will need extensive PT and OT prior to returning home and therefore was accepted for swing bed therapy admission. Review of Systems Review of Systems: All systems reviewed & are unremarkable except as noted in HPI and below PMFSH Past Medical History Medical History (Updated 07/28/25 @ 16:53 by Mac Booker APRN) GERD (gastroesophageal reflux disease) Increase in creatinine Alzheimer disease Hypertension APC (adenomatous polyposis coli) Stroke Transient global amnesia Sleep apnea Surgical History Surgical History History of ankle surgery History of surgery on arm 2016 H/O abdominal hysterectomy 2004 H/O tubal ligation 1978 H/O breast surgery 1966 Family History Family History Father Malignant neoplasm of prostate Mother Bone cancer Sibling Parkinson disease Diabetes mellitus Dementia Grandparent Dementia Other Dementia Social History Social History Social History: She lives with her . Code status: Full code 05/24/25 very confident with medical forms Smoking status: Never smoker Second hand tobacco smoke exposure: No Alcohol intake: never Substance use: never Substance use type: does not use Lack of Transportation: No Lack of Food: Never True Current Housing: I Have Housing Concerned About Future Housing: No Difficulty Paying Gas/Electric Bills: No Difficulty Paying for Meds: No Currently Unemployed: No Education: High School Diploma/GED Difficulty w/ Childcare or Family Care: No Living arrangements: with family Gender identity (if verbalized by the patient): Female Spiritual care concerns: No Agree to blood products: Yes Meds Home Medications and Allergies Home Medications ?Medication ?Instructions ?Recorded ?Confirmed ?Type aspirin 81 mg chewable tablet 81 mg PO DAILY 11/01/20 07/28/25 History atorvastatin 40 mg tablet 40 mg PO DAILY #90 tabs 04/27/25 07/28/25 Rx donepezil 10 mg tablet 10 mg PO DAILY #90 tabs 05/09/25 07/28/25 Rx lisinopril 10 mg tablet 10 mg PO DAILY #90 tabs 05/09/25 07/28/25 Rx memantine 10 mg tablet 10 mg PO BID #180 tabs 05/09/25 07/28/25 Rx docusate sodium 100 mg tablet 100 mg PO BID 07/21/25 07/28/25 History (Stool Softener) cephalexin 500 mg capsule 500 mg PO Q12HR #5 caps 07/28/25 07/28/25 Rx Allergies Allergy/AdvReac Type Severity Reaction Status Date / Time No Known Allergies Allergy Verified 07/21/25 23:32 Exam Const: General: comfortable and no acute distress Eyes: General: appearance normal, both eyes and all related structures Neck: Neck: supple Resp: Effort & Inspection: normal respiratory effort Auscultation: clear to auscultation bilaterally Cardio: Rate: regular rate Rhythm: regular rhythm GI: GI Palp: Yes Soft to palpation Auscultation: normal bowel sounds Skin: General skin exam: normal color Neuro: Other: Speech disorganized but clear, strength 4 for throughout, upper extremity tremors noted Extrem: Other: right lateral thigh surgical dressing CDI, right thigh is soft and nontender to palpation Psych: Other: calm and cooperative Assessment and Plan Assessment and plan (1) Encounter for rehabilitation: Code(s): Z51.89 - Encounter for other specified aftercare Status: Acute Assessment and Plan: PT/OT eval and treat Speech consulted due to family reporting patient has trouble swallowing at times * Regular, Thin Liquids recommended * Patient will need assistance with feedings * Aspiration Precautions ordered Family is aware that her dementia may be a barrier to her rehabilitation, discussion with the spouse and family at bedside she will still need to meet therapy goals to remain in a swing bed program Spouse reports his main goal is for patient to stand and transfer to wheelchair and be able to walk short distances (2) Closed displaced fracture of right femoral neck: Code(s): S72.001A - Fracture of unspecified part of neck of right femur, initial encounter for closed fracture Status: Acute Assessment and Plan: 07/21 - Fall at home 07/22 - s/p Bipolar hemiarthroplasty right hip with Orthopedics Dr Cooper Activity: WBAT RLE DVT ppx: Lovenox 40 mg daily for 30 days total, EOT 08/26, Continue ASA 81 mg daily (Hx CVA) Dressing: Remove Mepilex 7 days post-op (07/29), Steri strips can be removed 08/05. OK to shower PT/OT ordered Follow-up with Dr Cooper in 4-6 weeks (3) Hypertension: Qualifiers: Hypertension type: primary hypertension Qualified Code(s): I10 - Essential (primary) hypertension Code(s): I10 - Essential (primary) hypertension Status: Acute Assessment and Plan: Continue Lisinopril 10 mg daily VS q 8 hr (4) UTI (urinary tract infection): Code(s): N39.0 - Urinary tract infection, site not specified Status: Acute Assessment and Plan: 07/21 Urine Cx positive for Klebsiella pneumoniae Continue Keflex 500 mg, EOT 08/02 (5) Alzheimer disease: Code(s): G30.9 - Alzheimer's disease, unspecified; F02.80 - Dementia in other diseases classified elsewhere, unspecified severity, without behavioral disturbance, psychotic disturbance, mood disturbance, and anxiety Status: Acute Assessment and Plan: Continue Donepezil 10 mg& Memantine 10 mg daily Added Melatonin 5 mg bedtime for sleep Practice Day night cycles
[2025-07-28 16:00] VITALS: BP 156/67; PULSE 75; RESP 18; TEMP 36.1; O2SAT 95
--- NOTE | 2025-07-28 17:01 | PC.NURSE ---
Today at 1640 Patient discharged to home. Escorted out of facility via WC to transport Van in route to home in [place]. Patient able to ambulate from walker up ramp to van to seated position in the Van without difficulty.
[2025-07-28] MEDS: MEMANTINE 5 MG TABLET 10 MG PO (17:25)
[2025-07-28] MEDS: ACETAMINOPHEN 325 MG TABLET 650 MG PO (17:25)
[2025-07-28 17:35] VITALS: BMI 10.0
[2025-07-28] MEDS: CEPHALEXIN 500 MG CAPSULE PO (20:17)
[2025-07-28] MEDS: MELATONIN 5 MG TABLET PO (20:18)
[2025-07-28] MEDS: HYDROcodone/acetaminophen (*CRX) 5-325 MG TABLET 1 TAB PO (20:18)
[2025-07-28 23:23] VITALS: BP 142/99; PULSE 113; RESP 15; TEMP 36.4; O2SAT 92
[2025-07-29] MEDS: ACETAMINOPHEN 325 MG TABLET 650 MG PO ×4 (06:47→17:12)
[2025-07-29 08:05] VITALS: BP 132/71; PULSE 140; RESP 18; TEMP 36.1; O2SAT 93
[2025-07-29] MEDS: DONEPEZIL HCL 5 MG TABLET 10 MG PO (09:10)
[2025-07-29] MEDS: CEPHALEXIN 500 MG CAPSULE PO ×2 (09:10→20:24)
[2025-07-29] MEDS: MEMANTINE 5 MG TABLET 10 MG PO ×2 (09:10→17:12)
[2025-07-29] MEDS: ASPIRIN 81 MG CHEWABLE TABLET PO (09:10)
[2025-07-29] MEDS: ATORVASTATIN 40 MG TABLET PO (09:10)
[2025-07-29] MEDS: TOLNAFTATE 1% POWDER 45 GM BTL 1 APPLIC TOPICAL ×2 (09:11→20:26)
[2025-07-29] MEDS: ENOXAPARIN 40 MG/0.4 ML SYRINGE SUB-Q (09:11)
--- NOTE | 2025-07-29 09:55 | PC.NURSE ---
Mepilex removed per order of Ortho from [facility], wound has scant drainage that is clear yellow in color with no odor or redness noted. 4 steri strips replaced that came off during removal of mepilex. Patient tolerated well.
[2025-07-29 16:00] VITALS: BP 140/90; PULSE 65; RESP 18; TEMP 36.6; O2SAT 96
[2025-07-29] MEDS: DOCUSATE SODIUM 100 MG CAPSULE PO (20:09)
[2025-07-29] MEDS: HYDROcodone/acetaminophen (*CRX) 5-325 MG TABLET 1 TAB PO (20:24)
[2025-07-29] MEDS: MELATONIN 5 MG TABLET PO (20:26)
[2025-07-30] VITALS: BP 145/88; PULSE 79; RESP 18; TEMP 36.3; O2SAT 95
--- NOTE | 2025-07-30 04:58 | PC.NURSE ---
Patient's stated not to wake patient for her 0000 dose of Tylenol, not to wake her to T&P and not to wake her to check for incontinence. He stated that he wanted her to sleep all night if she could and said that she lets him know when she has been incontinent. sleeping in room with patient. Q 2 hour purposeful rounding done. Patient has slept well.
[2025-07-30] MEDS: ACETAMINOPHEN 325 MG TABLET 650 MG PO ×3 (05:39→18:35)
[2025-07-30 08:00] VITALS: BP 138/80; PULSE 79; RESP 18; TEMP 35.7; O2SAT 91
[2025-07-30] MEDS: ENOXAPARIN 40 MG/0.4 ML SYRINGE SUB-Q (08:40)
[2025-07-30] MEDS: CEPHALEXIN 500 MG CAPSULE PO ×2 (08:41→20:07)
[2025-07-30] MEDS: ATORVASTATIN 40 MG TABLET PO (08:41)
[2025-07-30] MEDS: MEMANTINE 5 MG TABLET 10 MG PO ×2 (08:41→16:29)
[2025-07-30] MEDS: ASPIRIN 81 MG CHEWABLE TABLET PO (08:42)
[2025-07-30] MEDS: DONEPEZIL HCL 5 MG TABLET 10 MG PO (08:43)
[2025-07-30] MEDS: SENNOSIDES 8.6 MG TABLET PO (08:44)
[2025-07-30] MEDS: TOLNAFTATE 1% POWDER 45 GM BTL 1 APPLIC TOPICAL ×2 (08:46→21:13)
[2025-07-30] MEDS: DOCUSATE SODIUM 100 MG CAPSULE PO (08:46)
--- NOTE | 2025-07-30 09:23 | PM.IMPN ---
Progress Note: A&P Assessment and Plan (1) Encounter for rehabilitation: Code(s): Z51.89 - Encounter for other specified aftercare Status: Acute Assessment and Plan: PT/OT eval and treat Speech consulted due to family reporting patient has trouble swallowing at times * Regular, Thin Liquids recommended * Patient will need assistance with feedings * Aspiration Precautions ordered Family is aware that her dementia may be a barrier to her rehabilitation, discussion with the spouse and family at bedside she will still need to meet therapy goals to remain in a swing bed program Spouse reports his main goal is for patient to stand and transfer to wheelchair and be able to walk short distances (2) Closed displaced fracture of right femoral neck: Code(s): S72.001A - Fracture of unspecified part of neck of right femur, initial encounter for closed fracture Status: Acute Assessment and Plan: 07/21 - Fall at home 07/22 - s/p Bipolar hemiarthroplasty right hip with Orthopedics Dr Cooper Activity: WBAT RLE DVT ppx: Lovenox 40 mg daily for 30 days total, EOT 08/26, Continue ASA 81 mg daily (Hx CVA) Dressing: Remove Mepilex 7 days post-op (07/29), Steri strips can be removed 08/05. OK to shower PT/OT ordered Follow-up with Dr Cooper in 4-6 weeks (3) Hypertension: Qualifiers: Hypertension type: primary hypertension Qualified Code(s): I10 - Essential (primary) hypertension Code(s): I10 - Essential (primary) hypertension Status: Acute Assessment and Plan: Continue Lisinopril 10 mg daily VS q 8 hr (4) UTI (urinary tract infection): Code(s): N39.0 - Urinary tract infection, site not specified Status: Acute Assessment and Plan: 07/21 Urine Cx positive for Klebsiella pneumoniae Continue Keflex 500 mg, EOT 08/02 (5) Alzheimer disease: Code(s): G30.9 - Alzheimer's disease, unspecified; F02.80 - Dementia in other diseases classified elsewhere, unspecified severity, without behavioral disturbance, psychotic disturbance, mood disturbance, and anxiety Status: Acute Assessment and Plan: Continue Donepezil 10 mg& Memantine 10 mg daily Added Melatonin 5 mg bedtime for sleep Practice Day night cycles Time Spent With Patient Time with patient: 15 - 25 minutes Subjective Date/time seen: 07/30/25 09:23 Interval history: Patient is sitting up in the chair this morning, she reports no complaints, remains AOx1-2 which is baseline. is present, himself and family have rotating and staying with patient the majority of the time. reports he is pleased with her progress and has anticipation that she will be able to walk as well as she did prior to her fall. reports patient has been sleeping much better at night since adding Melatonin. Review of Systems Review of Systems: All systems reviewed & are unremarkable except as noted in HPI and below Exam Const: General: comfortable and no acute distress Eyes: General: appearance normal, both eyes and all related structures Neck: Neck: supple Resp: Effort & Inspection: normal respiratory effort Auscultation: clear to auscultation bilaterally Cardio: Rate: regular rate Rhythm: regular rhythm GI: Auscultation: normal bowel sounds Skin: General skin exam: normal color Neuro: Other: Speech disorganized but clear, strength 4 for throughout, upper extremity tremors noted Extrem: Other: right lateral thigh surgical dressing CDI, right thigh is soft and nontender to palpation Psych: Other: calm and cooperative Objective Data Vital Signs Vital Signs: Vital Signs - 24 hr 07/29/25 16:00 07/30/25 00:00 07/30/25 08:00 Temperature 97.8 F 97.4 F L 96.2 F L Pulse Rate 65 79 79 Respiratory Rate 18 18 18 Blood Pressure 140/90 145/88 H 138/80 Pulse Oximetry 96 95 91 Oxygen Delivery Room Air Room Air Room Air Intake/Output Intake/Output: Intake & Output 07/27/25 07/28/25 07/29/25 07/30/25 23:59 23:59 23:59 23:59 Intake Total 300 860 450 Balance 300 860 450 Meds/Results Medications: Active Medications Generic Name Dose Route Start Last Admin Trade Name Freq PRN Reason Stop Dose Admin Acetaminophen 650 mg 07/28/25 18:00 07/30/25 05:39 Acetaminophen 325 Mg Tablet PO 650 mg Q6HR NEHEMIAH Administration Hydrocodone Bitart/Acetaminophen 1 tab 07/28/25 15:18 07/29/25 20:24 Hydrocodone/Acetaminophen (*Crx) 5-325 Mg Tablet PO 1 tab Q4H PRN Administration Moderate Pain (4-6) Aspirin 81 mg 07/29/25 09:00 07/30/25 08:42 Aspirin 81 Mg Chewable Tablet PO 81 mg DAILY NEHEMIAH Administration Atorvastatin Calcium 40 mg 07/29/25 09:00 07/30/25 08:41 Atorvastatin 40 Mg Tablet PO 40 mg DAILY NEHEMIAH Administration Cephalexin HCl 500 mg 07/28/25 21:00 07/30/25 08:41 Cephalexin 500 Mg Capsule PO 08/02/25 20:59 500 mg Q12HR NEHEMIAH Administration Docusate Sodium 100 mg 07/29/25 21:00 07/30/25 08:46 Docusate Sodium 100 Mg Capsule PO 100 mg Q12HR NEHEMIAH Administration Donepezil HCl 10 mg 07/29/25 09:00 07/30/25 08:43 Donepezil Hcl 5 Mg Tablet PO 10 mg DAILY NEHEMIAH Administration Enoxaparin Sodium 40 mg 07/29/25 09:00 07/30/25 08:40 Enoxaparin 40 Mg/0.4 Ml Syringe SUB-Q 08/26/25 08:59 40 mg DAILY NEHEMIAH Administration Lisinopril 10 mg 07/29/25 09:00 07/30/25 08:43 Lisinopril 10 Mg Tablet PO 10 mg DAILY NEHEMIAH Administration Melatonin 5 mg 07/28/25 21:00 07/29/25 20:26 Melatonin 5 Mg Tablet PO 5 mg HS NEHEMIAH Administration Memantine 10 mg 07/28/25 17:00 07/30/25 08:41 Memantine 5 Mg Tablet PO 10 mg BID NEHEMIAH Administration Senna 8.6 mg 07/28/25 17:50 07/30/25 08:44 Sennosides 8.6 Mg Tablet PO 8.6 mg DAILY PRN Administration Constipation Tolnaftate 1 applic 07/29/25 09:00 07/30/25 08:46 Tolnaftate 1% Powder 45 Gm Btl TOPICAL 1 applic Q12HR NEHEMIAH Administration
[2025-07-30 16:22] VITALS: BP 82/67; PULSE 84; RESP 18; TEMP 36; O2SAT 91
[2025-07-30 20:00] VITALS: PULSE 84; RESP 18; O2SAT 91
[2025-07-30] MEDS: HYDROcodone/acetaminophen (*CRX) 5-325 MG TABLET 1 TAB PO (20:07)
[2025-07-30] MEDS: MELATONIN 5 MG TABLET PO (20:08)
[2025-07-31] VITALS: BP 145/66; PULSE 95; RESP 18; TEMP 36.4; O2SAT 93
[2025-07-31] MEDS: ACETAMINOPHEN 325 MG TABLET 650 MG PO ×4 (01:00→17:04)
[2025-07-31 08:00] VITALS: BP 153/87; PULSE 91; RESP 18; TEMP 35.8; O2SAT 92
[2025-07-31] MEDS: DOCUSATE SODIUM 100 MG CAPSULE PO (08:49)
[2025-07-31] MEDS: ASPIRIN 81 MG CHEWABLE TABLET PO (08:49)
[2025-07-31] MEDS: CEPHALEXIN 500 MG CAPSULE PO ×2 (08:51→19:12)
[2025-07-31] MEDS: ATORVASTATIN 40 MG TABLET PO (08:52)
[2025-07-31] MEDS: ENOXAPARIN 40 MG/0.4 ML SYRINGE SUB-Q (08:53)
[2025-07-31] MEDS: TOLNAFTATE 1% POWDER 45 GM BTL 1 APPLIC TOPICAL ×2 (08:56→19:14)
[2025-07-31 16:00] VITALS: BP 135/83; PULSE 84; RESP 18; TEMP 35.8; O2SAT 93
[2025-07-31] MEDS: HYDROcodone/acetaminophen (*CRX) 5-325 MG TABLET 1 TAB PO (19:11)
[2025-07-31] MEDS: SENNOSIDES 8.6 MG TABLET PO (19:12)
[2025-07-31] MEDS: MELATONIN 5 MG TABLET PO (19:12)
--- NOTE | 2025-07-31 19:29 | PC.NURSE ---
Today was patient's birthday. She had many visitors, and also had therapy. She was very tired after therapy, and it took assist of 3 to get her back to bed. Patient's , Teodoro, requested that she get her night time medicines now. Patient was given scheduled medications, and two PRNs right after 1900. Patient was checked, and was still dry. She has been readied for bed. Teodoro requested that she not be bothered during the night if she is sleeping. He agreed that her 0000 dose of Tylenol can be given if she is awake, but held if she is asleep. Teodoro takes care of the patient when she is at home, and is well aware of her needs.
[2025-07-31 20:00] VITALS: PULSE 84; RESP 18; O2SAT 93
[2025-08-01] VITALS: BP 113/86; PULSE 68; RESP 18; TEMP 36.4; O2SAT 93
[2025-08-01] MEDS: ACETAMINOPHEN 325 MG TABLET 650 MG PO ×3 (06:00→17:23)
[2025-08-01 07:35] VITALS: BP 144/71; PULSE 76; RESP 16; TEMP 35.8; O2SAT 95
[2025-08-01 08:30] VITALS: PULSE 76; RESP 16; O2SAT 95
[2025-08-01] MEDS: CEPHALEXIN 500 MG CAPSULE PO ×2 (08:55→19:00)
[2025-08-01] MEDS: ASPIRIN 81 MG CHEWABLE TABLET PO (08:58)
[2025-08-01] MEDS: DOCUSATE SODIUM 100 MG CAPSULE PO (08:59)
[2025-08-01] MEDS: TOLNAFTATE 1% POWDER 45 GM BTL 1 APPLIC TOPICAL ×2 (09:00→18:58)
[2025-08-01] MEDS: ENOXAPARIN 40 MG/0.4 ML SYRINGE SUB-Q (09:00)
--- NOTE | 2025-08-01 10:05 | P.PNIM_ITS ---
Progress Note: A&P Assessment and Plan (1) Encounter for rehabilitation: Code(s): Z51.89 - Encounter for other specified aftercare Status: Acute Assessment and Plan: PT/OT eval and treat Speech consulted due to family reporting patient has trouble swallowing at times * Regular, Thin Liquids recommended * Patient will need assistance with feedings * Aspiration Precautions ordered Family is aware that her dementia may be a barrier to her rehabilitation, discussion with the spouse and family at bedside she will still need to meet therapy goals to remain in a swing bed program Spouse reports his main goal is for patient to stand and transfer to wheelchair and be able to walk short distances (2) Closed displaced fracture of right femoral neck: Code(s): S72.001A - Fracture of unspecified part of neck of right femur, initial encounter for closed fracture Status: Acute Assessment and Plan: 07/21 - Fall at home 07/22 - s/p Bipolar hemiarthroplasty right hip with Orthopedics Dr Cooper Activity: WBAT RLE DVT ppx: Lovenox 40 mg daily for 30 days total, EOT 08/26, Continue ASA 81 mg daily (Hx CVA) Dressing: Remove Mepilex 7 days post-op (07/29), Steri strips can be removed 08/05. OK to shower PT/OT ordered Follow-up with Dr Cooper in 4-6 weeks Pain appears controlled, monitor for reports of pain from patient (3) Hypertension: Qualifiers: Hypertension type: primary hypertension Qualified Code(s): I10 - Essential (primary) hypertension Code(s): I10 - Essential (primary) hypertension Status: Acute Assessment and Plan: Continue Lisinopril 10 mg daily VS q 8 hr blood pressures reviewed and appear stable (4) UTI (urinary tract infection): Code(s): N39.0 - Urinary tract infection, site not specified Status: Acute Assessment and Plan: 07/21 Urine Cx positive for Klebsiella pneumoniae Continue Keflex 500 mg, EOT 08/02 (5) Alzheimer disease: Code(s): G30.9 - Alzheimer's disease, unspecified; F02.80 - Dementia in other diseases cl assified elsewhere, unspecified severity, without behavioral disturbance, psychotic disturbance, mood disturbance, and anxiety Status: Acute Assessment and Plan: Continue Donepezil 10 mg& Memantine 10 mg daily Continue Melatonin 5 mg bedtime for sleep Practice Day night cycles Subjective Date/time seen: 08/01/25 10:05 Interval history: Patient seen for a follow up visit and assuming care. Patient sitting up in recliner, in no acute distress. Patient's and daughter at bedside. Patient is very talkative, denies acute pain or complaints when asked. Patient was participating with therapy prior to my visit. Patient has not had a bowel movement per , will be taking another dose of senna this evening. If this is not effective will consider a dose of lactulose tomorrow. Patient continues on cephalexin for UTI. Check CBC and CMP in am. Review of Systems Review of Systems: All systems reviewed & are unremarkable except as noted in HPI and below Exam Const: General: comfortable and no acute distress Eyes: General: appearance normal, both eyes and all related structures Neck: Neck: supple Resp: Effort & Inspection: normal respiratory effort Auscultation: clear to auscultation bilaterally Cardio: Rate: regular rate Rhythm: regular rhythm GI: Auscultation: normal bowel sounds Skin: General skin exam: normal color Neuro: Other: Speech disorganized but clear, strength 4 for throughout, upper extremity tremors noted Extrem: Other: right lateral thigh surgical dressing CDI, right thigh is soft and nontender to palpation Psych: Other: calm and cooperative Objective Data Vital Signs Vital Signs: Vital Signs - 24 hr 07/31/25 16:00 07/31/25 20:00 08/01/25 00:00 Temperature 96.5 F L 97.6 F Pulse Rate 84 84 68 Respiratory Rate 18 18 18 Blood Pressure 135/83 113/86 Pulse Oximetry 93 93 93 Oxygen Delivery Room Air Room Air Room Air 08/01/25 07:35 08/01/25 08:30 Temperature 96.4 F L Pulse Rate 76 76 Respiratory Rate 16 16 Blood Pressure 144/71 H Pulse Oximetry 95 95 Oxygen Delivery Room Air Room Air Intake/Output Intake/Output: Intake & Output 07/29/25 07/30/25 07/31/25 08/01/25 23:59 23:59 23:59 23:59 Intake Total 860 1100 1180 170 Balance 860 1100 1180 170 Meds/Results Medications: Active Medications Generic Name Dose Route Start Last Admin Trade Name Freq PRN Reason Stop Dose Admin Acetaminophen 650 mg 07/28/25 18:00 08/01/25 06:00 Acetaminophen 325 Mg Tablet PO 650 mg Q6HR NEHEMIAH Administration Hydrocodone Bitart/Acetaminophen 1 tab 07/28/25 15:18 07/31/25 19:11 Hydrocodone/Acetaminophen (*Crx) 5-325 Mg Tablet PO 1 tab Q4H PRN Administration Moderate Pain (4-6) Aspirin 81 mg 07/29/25 09:00 08/01/25 08:58 Aspirin 81 Mg Chewable Tablet PO 81 mg DAILY NEHEMIAH Administration Atorvastatin Calcium 40 mg 07/29/25 09:00 08/01/25 09:22 Atorvastatin 40 Mg Tablet PO Not Given DAILY NEHEMIAH Cephalexin HCl 500 mg 07/28/25 21:00 08/01/25 08:55 Cephalexin 500 Mg Capsule PO 08/02/25 20:59 500 mg Q12HR NEHEMIAH Administration Docusate Sodium 100 mg 07/29/25 20:00 08/01/25 08:59 Docusate Sodium 100 Mg Capsule PO 100 mg Q12HR NEHEMIAH Administration Donepezil HCl 10 mg 07/29/25 09:00 08/01/25 09:00 Donepezil Hcl 5 Mg Tablet PO Not Given DAILY [facility] Enoxaparin Sodium 40 mg 07/29/25 09:00 08/01/25 09:00 Enoxaparin 40 Mg/0.4 Ml Syringe SUB-Q 08/26/25 08:59 40 mg DAILY NEHEMIAH Administration Lisinopril 10 mg 07/29/25 09:00 08/01/25 08:55 Lisinopril 10 Mg Tablet PO 10 mg DAILY NEHEMIAH Administration Melatonin 5 mg 07/31/25 20:00 07/31/25 19:12 Melatonin 5 Mg Tablet PO 5 mg 2000 NEHEMIAH Administration Memantine 10 mg 07/28/25 17:00 08/01/25 09:00 Memantine 5 Mg Tablet PO Not Given BID [facility] Senna 8.6 mg 07/28/25 17:50 07/31/25 19:12 Sennosides 8.6 Mg Tablet PO 8.6 mg DAILY PRN Administration Constipation Tolnaftate 1 applic 07/29/25 09:00 08/01/25 09:00 Tolnaftate 1% Powder 45 Gm Btl TOPICAL 1 applic Q12HR NEHEMIAH Administration Quality VTE Prophylaxis VTE prophylaxis: pharmacologic ordered
[2025-08-01] MEDS: SENNOSIDES 8.6 MG TABLET PO (12:36)
[2025-08-01 16:35] VITALS: BP 110/71; PULSE 81; RESP 16; TEMP 36; O2SAT 94
[2025-08-01] MEDS: HYDROcodone/acetaminophen (*CRX) 5-325 MG TABLET 1 TAB PO (18:58)
[2025-08-01] MEDS: MELATONIN 5 MG TABLET PO (18:59)
--- NOTE | 2025-08-01 19:00 | PC.NURSE ---
Family requesting HS meds be given early
[2025-08-01 20:00] VITALS: PULSE 81; RESP 16; O2SAT 94
[2025-08-02] VITALS: BP 105/72; PULSE 88; RESP 20; TEMP 36; O2SAT 96
[2025-08-02] MEDS: ACETAMINOPHEN 325 MG TABLET 650 MG PO ×3 (05:41→17:08)
[2025-08-02 05:45] LABS: Hematocrit 35.8 % (35.0-42.0); Hemoglobin 11.1 g/dL (11.7-13.8); Mean Corpuscular HGB Conc 31.0 g/dL (32-36); Mean Corpuscular Hemoglobin 28.9 pg (27.0-31.0); Mean Corpuscular Volume 93.2 fL (78.0-102.0); Platelet Count Result 406 K/mm3 (150-420); Red Blood Count 3.84 M/mm3 (4.20-5.40); White Blood Count 8.8 K/mm3 (4.8-10.8)
[2025-08-02 06:02] LABS: Alanine Aminotransferase 47 U/L (6-35); Albumin Level 3.6 g/dL (3.5-5.1); Alkaline Phosphatase 92 U/L (38-126); Anion Gap 8 mmol/L (4-12); Aspartate Amino Transferase 51 U/L (14-36); Band Neutrophils Percent 0 % (0-6); Basophils Absolute Manual 0.00 K/mm3 (0-0.1); Basophils Percent Manual 0 % (0-1); Bilirubin,Total 0.7 mg/dL (0.2-1.3); Blood Urea Nitrogen 17 mg/dL (7-17); Calcium 9.4 mg/dL (8.4-10.2); Carbon Dioxide 28 mmol/L (22-30); Chloride 108 mmol/L (98-107); Eosinophils Absolute Manual 0.79 K/mm3 (0.02-0.50); Eosinophils Percent Manual 9 % (1-6); Estimated Glomerular Filt Rate > 60; Glucose 98 mg/dL (65-110); Lymphocytes Absolute Manual 1.58 K/mm3 (1.1-4.5); Lymphocytes Percent Manual 18 % (18-44); Monocytes Absolute Manual 0.70 K/mm3 (0.1-0.90); Monocytes Percent Manual 8 % (3-9); Neutrophils Absolute Manual 5.72 K/mm3 (1.3-6.7); Neutrophils Percent Manual 65 % (46-73); Osmolality Calculated 299 mOsm/kg (285-295); Potassium 3.8 mmol/L (3.4-5.0); Sodium 144 mmol/L (137-145); Total Protein 6.5 g/dL (6.3-8.2)
[2025-08-02 08:00] VITALS: BP 93/75; PULSE 89; RESP 16; TEMP 36.1; O2SAT 92
[2025-08-02 08:46] VITALS: BP 99/72
[2025-08-02] MEDS: ENOXAPARIN 40 MG/0.4 ML SYRINGE SUB-Q (11:42)
[2025-08-02] MEDS: MEMANTINE 5 MG TABLET 10 MG PO ×2 (11:43→17:08)
[2025-08-02] MEDS: ASPIRIN 81 MG CHEWABLE TABLET PO (11:43)
[2025-08-02] MEDS: DONEPEZIL HCL 5 MG TABLET 10 MG PO (11:43)
[2025-08-02] MEDS: CEPHALEXIN 500 MG CAPSULE PO (11:43)
[2025-08-02] MEDS: ATORVASTATIN 40 MG TABLET PO (11:44)
[2025-08-02] MEDS: TOLNAFTATE 1% POWDER 45 GM BTL 1 APPLIC TOPICAL ×2 (11:45→19:59)
[2025-08-02] MEDS: BISACODYL 10 MG SUPPOSITORY RECTAL (12:43)
[2025-08-02 16:00] VITALS: BP 115/72; PULSE 57; RESP 16; TEMP 37.1; O2SAT 96
[2025-08-02] MEDS: MELATONIN 5 MG TABLET PO (19:57)
[2025-08-02] MEDS: HYDROcodone/acetaminophen (*CRX) 5-325 MG TABLET 1 TAB PO (19:57)
[2025-08-03] VITALS: BP 121/76; PULSE 67; RESP 16; TEMP 36.4; O2SAT 93
[2025-08-03] MEDS: ACETAMINOPHEN 325 MG TABLET 650 MG PO ×4 (06:24→17:14)
[2025-08-03 07:55] VITALS: BP 131/75; PULSE 88; RESP 16; TEMP 36.1; O2SAT 97
[2025-08-03] MEDS: ATORVASTATIN 40 MG TABLET PO (08:40)
[2025-08-03] MEDS: ASPIRIN 81 MG CHEWABLE TABLET PO (08:40)
[2025-08-03] MEDS: MEMANTINE 5 MG TABLET 10 MG PO (08:43)
[2025-08-03] MEDS: ENOXAPARIN 40 MG/0.4 ML SYRINGE SUB-Q (08:46)
[2025-08-03] MEDS: TOLNAFTATE 1% POWDER 45 GM BTL 1 APPLIC TOPICAL ×2 (08:47→20:09)
--- NOTE | 2025-08-03 13:19 | PM.IMPN ---
Progress Note: A&P Assessment and Plan (1) Encounter for rehabilitation: Code(s): Z51.89 - Encounter for other specified aftercare Status: Acute Assessment and Plan: PT/OT eval and treat Speech consulted due to family reporting patient has trouble swallowing at times * Regular, Thin Liquids recommended * Patient will need assistance with feedings * Aspiration Precautions ordered Family is aware that her dementia may be a barrier to her rehabilitation, discussion with the spouse and family at bedside she will still need to meet therapy goals to remain in a swing bed program Spouse reports his main goal is for patient to stand and transfer to wheelchair and be able to walk short distances Patient is participating in therapy, patient ambulated with PT and nurse today in the hallway (2) Closed displaced fracture of right femoral neck: Code(s): S72.001A - Fracture of unspecified part of neck of right femur, initial encounter for closed fracture Status: Acute Assessment and Plan: 07/21 - Fall at home 07/22 - s/p Bipolar hemiarthroplasty right hip with Orthopedics Dr Cooper Activity: WBAT RLE DVT ppx: Lovenox 40 mg daily for 30 days total, EOT 08/26, Continue ASA 81 mg daily (Hx CVA) Dressing: Remove Mepilex 7 days post-op (07/29), Steri strips can be removed 08/05. OK to shower PT/OT ordered Follow-up with Dr Cooper in 4-6 weeks Pain appears controlled, monitor for reports of pain from patient patient denies pain when asked during visit today (3) Hypertension: Qualifiers: Hypertension type: primary hypertension Qualified Code(s): I10 - Essential (primary) hypertension Code(s): I10 - Essential (primary) hypertension Status: Acute Assessment and Plan: Continue Lisinopril 10 mg daily hold parameters on lisinopril, hold for SBP < 110 VS q 8 hr blood pressures reviewed and appear stable (4) UTI (urinary tract infection): Code(s): N39.0 - Urinary tract infection, site not specified Status: Acute Assessment and Plan: 07/21 Urine Cx positive for Klebsiella pneumoniae s/p IV ceftriaxone and PO Keflex, EOT 08/02 encourage PO fluids monitor for signs or symptoms of infection (5) Alzheimer disease: Code(s): G30.9 - Alzheimer's disease, unspecified; F02.80 - Dementia in other diseases classified elsewhere, unspecified severity, without behavioral disturbance, psychotic disturbance, mood disturbance, and anxiety Status: Acute Assessment and Plan: Continue Donepezil 10 mg& Memantine 10 mg daily Continue Melatonin 5 mg bedtime for sleep Practice Day night cycles Subjective Date/time seen: 08/03/25 13:19 Interval history: Patient seen for a follow up visit. Patient sitting up in recliner, in no acute distress. Patient just finished working with physical therapy. Patient participated and patient walked the halls with PT. Patient now very talkative, difficult to understand. Patient denies pain when asked. Patient was given a suppository and enema yesterday and has had multiple bowel movements since. Patient will continue on a bowel regimen in an effort to prevent further constipation. Patient completed PO cephalexin on 08/02 for her UTI. Encourage PO fluids as patient tolerates. Review of Systems Review of Systems: All systems reviewed & are unremarkable except as noted in HPI and below Exam Const: General: comfortable and no acute distress HENMT: Face/Nose/Sinus: Normal nares present Mouth: Yes moist mucous membranes Eyes: General: appearance normal, both eyes and all related structures Neck: Neck: supple Resp: Effort & Inspection: normal respiratory effort Auscultation: clear to auscultation bilaterally Cardio: Rate: regular rate Rhythm: regular rhythm GI: GI Palp: Yes Soft to palpation Auscultation: normal bowel sounds Skin: General skin exam: normal color and no rashes or lesions noted Neuro: Other: Speech disorganized but clear, strength 4 for throughout, upper extremity tremors noted Extrem: Other: right lateral thigh surgical dressing CDI, right thigh is soft and nontender to palpation Psych: Other: calm and cooperative Objective Data Vital Signs Vital Signs: Vital Signs - 24 hr 08/02/25 16:00 08/03/25 00:00 08/03/25 07:55 Temperature 98.7 F 97.5 F L 96.9 F L Pulse Rate 57 L 67 88 Respiratory Rate 16 16 16 Blood Pressure 115/72 121/76 131/75 Pulse Oximetry 96 93 97 Oxygen Delivery Room Air Room Air Room Air Intake/Output Intake/Output: Intake & Output 07/31/25 08/01/25 08/02/25 08/03/25 23:59 23:59 23:59 23:59 Intake Total 1180 620 960 400 Balance 1180 620 960 400 Meds/Results Medications: Active Medications Generic Name Dose Route Start Last Admin Trade Name Freq PRN Reason Stop Dose Admin Acetaminophen 650 mg 07/28/25 18:00 08/03/25 13:14 Acetaminophen 325 Mg Tablet PO 650 mg Q6HR NEHEMIAH Administration Hydrocodone Bitart/Acetaminophen 1 tab 07/28/25 15:18 08/02/25 19:57 Hydrocodone/Acetaminophen (*Crx) 5-325 Mg Tablet PO 1 tab Q4H PRN Administration Moderate Pain (4-6) Aspirin 81 mg 07/29/25 09:00 08/03/25 08:40 Aspirin 81 Mg Chewable Tablet PO 81 mg DAILY NEHEMIAH Administration Atorvastatin Calcium 40 mg 07/29/25 09:00 08/03/25 08:40 Atorvastatin 40 Mg Tablet PO 40 mg DAILY NEHEMIAH Administration Bisacodyl 10 mg 08/02/25 11:14 08/02/25 12:43 Bisacodyl 10 Mg Suppository RECTAL 10 mg DAILY PRN Administration Constipation Donepezil HCl 10 mg 07/29/25 09:00 08/03/25 08:46 Donepezil Hcl 5 Mg Tablet PO Not Given DAILY NEHEMIAH Enoxaparin Sodium 40 mg 07/29/25 09:00 08/03/25 08:46 Enoxaparin 40 Mg/0.4 Ml Syringe SUB-Q 08/26/25 08:59 40 mg DAILY NEHEMIAH Administration Lisinopril 10 mg 07/29/25 09:00 08/03/25 08:40 Lisinopril 10 Mg Tablet PO 10 mg DAILY NEHEMIAH Administration Melatonin 5 mg 07/31/25 20:00 08/02/25 19:57 Melatonin 5 Mg Tablet PO 5 mg 2000 NEHEMIAH Administration Memantine 10 mg 07/28/25 17:00 08/03/25 08:43 Memantine 5 Mg Tablet PO 10 mg BID NEHEMIAH Administration Polyethylene Glycol 17 gm 08/03/25 09:00 08/03/25 08:46 Polyethylene Glycol 3350 17 Gm Powd.Pack PO Not Given QAM NEHEMIAH Senna 8.6 mg 07/28/25 17:50 08/01/25 12:36 Sennosides 8.6 Mg Tablet PO 8.6 mg DAILY PRN Administration Constipation Tolnaftate 1 applic 07/29/25 09:00 08/03/25 08:47 Tolnaftate 1% Powder 45 Gm Btl TOPICAL 1 applic Q12HR NEHEMIAH Administration Trazodone HCl 25 mg 08/02/25 11:19 08/02/25 19:57 Trazodone Hcl 25 Mg Tablet PO 25 mg Q8H PRN Administration Agitation Quality VTE Prophylaxis VTE prophylaxis: pharmacologic ordered
[2025-08-03 16:00] VITALS: BP 152/82; PULSE 79; RESP 18; TEMP 36.1; O2SAT 95
--- NOTE | 2025-08-03 17:25 | PC.NURSE ---
Aricept and Namenda stopped per Josefina Mart r/t request for patient not to take these medications any longer.
[2025-08-03] MEDS: HYDROcodone/acetaminophen (*CRX) 5-325 MG TABLET 1 TAB PO (19:06)
[2025-08-03] MEDS: MELATONIN 5 MG TABLET PO (19:06)
[2025-08-04] VITALS: BP 142/82; PULSE 82; RESP 16; TEMP 35.8; O2SAT 97
[2025-08-04] MEDS: ACETAMINOPHEN 325 MG TABLET 650 MG PO ×3 (05:35→18:14)
[2025-08-04 08:00] VITALS: BP 140/69; PULSE 70; RESP 20; TEMP 36.4; O2SAT 93
[2025-08-04] MEDS: ENOXAPARIN 40 MG/0.4 ML SYRINGE SUB-Q (08:50)
[2025-08-04] MEDS: ASPIRIN 81 MG CHEWABLE TABLET PO (08:50)
[2025-08-04] MEDS: ATORVASTATIN 40 MG TABLET PO (08:50)
[2025-08-04] MEDS: TOLNAFTATE 1% POWDER 45 GM BTL 1 APPLIC TOPICAL ×2 (09:09→21:26)
[2025-08-04 16:00] VITALS: BP 136/62; PULSE 88; RESP 20; TEMP 36.6; O2SAT 94
[2025-08-04] MEDS: HYDROcodone/acetaminophen (*CRX) 5-325 MG TABLET 1 TAB PO (19:43)
[2025-08-04] MEDS: MELATONIN 5 MG TABLET PO (19:43)
[2025-08-04 20:00] VITALS: PULSE 87; RESP 18; O2SAT 95
[2025-08-05] VITALS: BP 135/71; PULSE 87; RESP 18; TEMP 36.4; O2SAT 95
[2025-08-05] MEDS: ACETAMINOPHEN 325 MG TABLET 650 MG PO ×3 (06:04→17:49)
[2025-08-05 08:00] VITALS: BP 135/66; PULSE 85; RESP 18; TEMP 36; O2SAT 94
[2025-08-05] MEDS: ATORVASTATIN 40 MG TABLET PO (08:08)
[2025-08-05] MEDS: ESCITALOPRAM OXALATE 10 MG TABLET PO (08:08)
[2025-08-05] MEDS: ENOXAPARIN 40 MG/0.4 ML SYRINGE SUB-Q (08:08)
[2025-08-05] MEDS: ASPIRIN 81 MG CHEWABLE TABLET PO (08:09)
[2025-08-05] MEDS: TOLNAFTATE 1% POWDER 45 GM BTL 1 APPLIC TOPICAL (08:09)
--- NOTE | 2025-08-05 11:34 | PM.IMPN ---
Progress Note: A&P Assessment and Plan (1) Encounter for rehabilitation: Code(s): Z51.89 - Encounter for other specified aftercare Status: Acute Assessment and Plan: PT/OT eval and treat Speech consulted due to family reporting patient has trouble swallowing at times * Regular, Thin Liquids recommended * Patient will need assistance with feedings * Aspiration Precautions ordered Family is aware that her dementia may be a barrier to her rehabilitation, discussion with the spouse and family at bedside she will still need to meet therapy goals to remain in a swing bed program Spouse reports his main goal is for patient to stand and transfer to wheelchair and be able to walk short distances Patient is participating in therapy, patient ambulated with PT in the hallways Discharge plan is for patient to return home with and 24 hour caregivers. Patient will need a hospital bed, wheelchair, bedside commode, shower chair, walker and any other items recommended by PT. Family aware and orders placed for hospital bed. (2) Closed displaced fracture of right femoral neck: Code(s): S72.001A - Fracture of unspecified part of neck of right femur, initial encounter for closed fracture Status: Acute Assessment and Plan: 07/21 - Fall at home 07/22 - s/p Bipolar hemiarthroplasty right hip with Orthopedics Dr Cooper Activity: WBAT RLE DVT ppx: Lovenox 40 mg daily for 30 days total, EOT 08/26, Continue ASA 81 mg daily (Hx CVA) Dressing: Remove Mepilex 7 days post-op (07/29), Steri strips can be removed 08/05. OK to shower PT/OT ordered Follow-up with Dr Cooper in 4-6 weeks Pain appears controlled, monitor for reports of pain from patient patient denies pain when asked during visit today (3) Hypertension: Qualifiers: Hypertension type: primary hypertension Qualified Code(s): I10 - Essential (primary) hypertension Code(s): I10 - Essential (primary) hypertension Status: Acute Assessment and Plan: Continue Lisinopril 10 mg daily hold parameters on lisinopril, hold for SBP < 110 VS q 8 hr blood pressures reviewed and appear stable (4) UTI (urinary tract infection): Code(s): N39.0 - Urinary tract infection, site not specified Status: Acute Assessment and Plan: 07/21 Urine Cx positive for Klebsiella pneumoniae s/p IV ceftriaxone and PO Keflex, EOT 08/02 encourage PO fluids monitor for signs or symptoms of infection (5) Alzheimer disease: Code(s): G30.9 - Alzheimer's disease, unspecified; F02.80 - Dementia in other diseases classified elsewhere, unspecified severity, without behavioral disturbance, psychotic disturbance, mood disturbance, and anxiety Status: Acute Assessment and Plan: Donepezil and memantine stopped due to patients advanced dementia, family requested and this is reasonable Continue Melatonin 5 mg bedtime for sleep Practice Day night cycles Subjective Date/time seen: 08/05/25 11:34 Interval history: Patient seen for a follow up visit. Patient denies acute pain. Patient is working with PT and OT. Patient tolerating diet and needs encouragement to drink fluids. Patient denies pain when asked. Patient does become anxious during transfers or with any standing. Difficult to assess if due to anxiety or pain. Trazodone PRN attempted and will attempt PRN pain medication in an attempt to determine what is causing her to push staff or family away. Discharge plan is for patient to return home with with 24 hour caregivers. The patient has a mobility limitation which significantly impairs their ability to participate in mobility related activites of daily living (MRADL) and A caregiver is available and willing to provide assistance Review of Systems Review of Systems: All systems reviewed & are unremarkable except as noted in HPI and below Exam Const: General: comfortable and no acute distress HENMT: Face/Nose/Sinus: Normal nares present Mouth: Yes moist mucous membranes Eyes: General: appearance normal, both eyes and all related structures Neck: Neck: supple Resp: Effort & Inspection: normal respiratory effort Auscultation: clear to auscultation bilaterally Cardio: Rate: regular rate Rhythm: regular rhythm GI: GI Palp: Yes Soft to palpation Auscultation: normal bowel sounds Skin: General skin exam: normal color and no rashes or lesions noted Neuro: Other: Speech disorganized but clear, strength 4 for throughout, upper extremity tremors noted Extrem: Other: right lateral thigh surgical dressing CDI, right thigh is soft and nontender to palpation Psych: Other: calm and cooperative Objective Data Vital Signs Vital Signs: Vital Signs - 24 hr 08/04/25 16:00 08/04/25 20:00 08/05/25 00:00 Temperature 97.8 F 97.6 F Pulse Rate 88 87 87 Respiratory Rate 20 18 18 Blood Pressure 136/62 135/71 Pulse Oximetry 94 95 95 Oxygen Delivery Room Air Room Air Room Air 08/05/25 08:00 Temperature 96.8 F L Pulse Rate 85 Respiratory Rate 18 Blood Pressure 135/66 Pulse Oximetry 94 Oxygen Delivery Room Air Intake/Output Intake/Output: Intake & Output 08/02/25 08/03/25 08/04/25 08/05/25 23:59 23:59 23:59 23:59 Intake Total 960 1120 1530 340 Balance 960 1120 1530 340 Meds/Results Medications: Active Medications Generic Name Dose Route Start Last Admin Trade Name Freq PRN Reason Stop Dose Admin Acetaminophen 650 mg 07/28/25 18:00 08/05/25 06:04 Acetaminophen 325 Mg Tablet PO 650 mg Q6HR NEHEMIAH Administration Hydrocodone Bitart/Acetaminophen 1 tab 07/28/25 15:18 08/04/25 19:43 Hydrocodone/Acetaminophen (*Crx) 5-325 Mg Tablet PO 1 tab Q4H PRN Administration Moderate Pain (4-6) Aspirin 81 mg 07/29/25 09:00 08/05/25 08:09 Aspirin 81 Mg Chewable Tablet PO 81 mg DAILY NEHEMIAH Administration Atorvastatin Calcium 40 mg 07/29/25 09:00 08/05/25 08:08 Atorvastatin 40 Mg Tablet PO 40 mg DAILY NEHEMIAH Administration Bisacodyl 10 mg 08/02/25 11:14 08/02/25 12:43 Bisacodyl 10 Mg Suppository RECTAL 10 mg DAILY PRN Administration Constipation Enoxaparin Sodium 40 mg 07/29/25 09:00 08/05/25 08:08 Enoxaparin 40 Mg/0.4 Ml Syringe SUB-Q 08/26/25 08:59 40 mg DAILY NEHEMIAH Administration Escitalopram Oxalate 10 mg 08/05/25 09:00 08/05/25 08:08 Escitalopram Oxalate 10 Mg Tablet PO 10 mg DAILY NEHEMIAH Administration Lisinopril 10 mg 07/29/25 09:00 08/05/25 08:08 Lisinopril 10 Mg Tablet PO 10 mg DAILY NEHEMIAH Administration Melatonin 5 mg 07/31/25 20:00 08/04/25 19:43 Melatonin 5 Mg Tablet PO 5 mg 2000 NEHEMIAH Administration Polyethylene Glycol 17 gm 08/03/25 09:00 08/05/25 08:08 Polyethylene Glycol 3350 17 Gm Powd.Pack PO 17 gm QAM NEHEMIAH Administration Senna 8.6 mg 07/28/25 17:50 08/01/25 12:36 Sennosides 8.6 Mg Tablet PO 8.6 mg DAILY PRN Administration Constipation Tolnaftate 1 applic 07/29/25 09:00 08/05/25 08:09 Tolnaftate 1% Powder 45 Gm Btl TOPICAL 1 applic Q12HR NEHEMIAH Administration Trazodone HCl 25 mg 08/02/25 11:19 08/04/25 21:26 Trazodone Hcl 25 Mg Tablet PO 25 mg Q8H PRN Administration Agitation Quality VTE Prophylaxis VTE prophylaxis: pharmacologic ordered
[2025-08-05] MEDS: SENNOSIDES 8.6 MG TABLET PO (11:54)
[2025-08-05 16:00] VITALS: BP 121/84; PULSE 83; RESP 16; TEMP 36.3; O2SAT 93
[2025-08-05 20:00] VITALS: PULSE 81; RESP 16; O2SAT 94
[2025-08-05] MEDS: HYDROcodone/acetaminophen (*CRX) 5-325 MG TABLET 1 TAB PO (20:15)
[2025-08-05] MEDS: MELATONIN 5 MG TABLET PO (20:18)
[2025-08-06] VITALS: BP 130/66; PULSE 72; RESP 18; TEMP 36.7; O2SAT 94
[2025-08-06] MEDS: ACETAMINOPHEN 325 MG TABLET 650 MG PO ×2 (05:37→12:32)
[2025-08-06 08:00] VITALS: BP 115/88; PULSE 82; RESP 20; TEMP 36.1; O2SAT 92
[2025-08-06] MEDS: ASPIRIN 81 MG CHEWABLE TABLET PO (08:36)
[2025-08-06] MEDS: ATORVASTATIN 40 MG TABLET PO (08:36)
[2025-08-06] MEDS: ESCITALOPRAM OXALATE 10 MG TABLET PO (08:36)
[2025-08-06] MEDS: ENOXAPARIN 40 MG/0.4 ML SYRINGE SUB-Q (08:36)
[2025-08-06] MEDS: TOLNAFTATE 1% POWDER 45 GM BTL 1 APPLIC TOPICAL ×2 (08:37→21:26)
--- NOTE | 2025-08-06 10:53 | PC.NURSE ---
Addendum entered by Mansi Hayes RN 08/06/25 11:53: Josefina AGUIRRE made aware, Stat CT ordered. Original Note: approximately 1035 went into pt room per family request. They asked this ghost writer to look at the patients face. Left mouth is drooping down. Left eye is WNL for patient. Patient unable to understand or follow command for further assessment. This is different from when this ghost writer assisted patient with her meal today at 0830, patient able to swallow and drink liquids without difficulty. Patient has been noted to extra tired yesterday or today.
--- NOTE | 2025-08-06 11:25 | PM.IMPN ---
Progress Note: A&P Assessment and Plan (1) Encounter for rehabilitation: Code(s): Z51.89 - Encounter for other specified aftercare Status: Acute Assessment and Plan: PT/OT eval and treat Speech consulted due to family reporting patient has trouble swallowing at times * Regular, Thin Liquids recommended * Patient will need assistance with feedings * Aspiration Precautions ordered Family is aware that her dementia may be a barrier to her rehabilitation, discussion with the spouse and family at bedside she will still need to meet therapy goals to remain in a swing bed program Spouse reports his main goal is for patient to stand and transfer to wheelchair and be able to walk short distances Patient is participating in therapy, patient ambulated with PT in the hallways Discharge plan is for patient to return home with and 24 hour caregivers. Patient will need a hospital bed, wheelchair, bedside commode, shower chair, walker and any other items recommended by PT. Family aware and orders placed for hospital bed. (2) Closed displaced fracture of right femoral neck: Code(s): S72.001A - Fracture of unspecified part of neck of right femur, initial encounter for closed fracture Status: Acute Assessment and Plan: 07/21 - Fall at home 07/22 - s/p Bipolar hemiarthroplasty right hip with Orthopedics Dr Cooper Activity: WBAT RLE DVT ppx: Lovenox 40 mg daily for 30 days total, EOT 08/26, Continue ASA 81 mg daily (Hx CVA) Dressing: Remove Mepilex 7 days post-op (07/29), Steri strips can be removed 08/05. OK to shower PT/OT ordered Follow-up with Dr Cooper in 4-6 weeks Pain appears controlled, monitor for reports of pain from patient (3) Hypertension: Qualifiers: Hypertension type: primary hypertension Qualified Code(s): I10 - Essential (primary) hypertension Code(s): I10 - Essential (primary) hypertension Status: Acute Assessment and Plan: Continue Lisinopril 10 mg daily hold parameters on lisinopril, hold for SBP < 110 VS q 8 hr blood pressures reviewed and appear stable (4) UTI (urinary tract infection): Code(s): N39.0 - Urinary tract infection, site not specified Status: Acute Assessment and Plan: 07/21 Urine Cx positive for Klebsiella pneumoniae s/p IV ceftriaxone and PO Keflex, EOT 08/02 encourage PO fluids monitor for signs or symptoms of infection (5) Alzheimer disease: Code(s): G30.9 - Alzheimer's disease, unspecified; F02.80 - Dementia in other diseases classified elsewhere, unspecified severity, without behavioral disturbance, psychotic disturbance, mood disturbance, and anxiety Status: Acute Assessment and Plan: Donepezil and memantine stopped due to patients advanced dementia, family requested and this is reasonable Continue Melatonin 5 mg bedtime for sleep Practice Day night cycles (6) AMS (altered mental status): Code(s): R41.82 - Altered mental status, unspecified Status: Acute Assessment and Plan: patient with acute onset of altered mental status, left facial droop, incomprehensible speech stat head/neck CTA completed without acute stroke family does not want patient transferred for higher level of care to have brain MRI completed patient not able to follow commands and has had difficulty in the past completing MRI's check labs and UA as patient recently completed treatment for a UTI monitor closely Subjective Date/time seen: 08/06/25 11:25 Interval history: Patient seen for an acute visit. I was notified by nursing staff that patient was noted to have new left sided facial drooping. Patient has been more confused since awakening in the morning and has had more difficulty with transfers. Patient does not follow commands to be able to complete a full neuro assessment. I assessed patient and did note left facial drooping, I was unable to get the patient to fully smile or grimace to assess if the drooping resolved. Patient was spontaneously moving all four extremities and I did not appreciate any notable difference in strength. Patient unable to say any words that I could comprehend. Stat head CT and stat Head/Neck CTA was ordered. No acute stroke was noted. Patient would be unable to lay still for an MRI and family declines transfer for this service. Lab work ordered and UA ordered as patient recently finished antibiotics for a UTI. Discussed goals of care and code status with family and would like patient to be a DNR with limited treatment. No intubation, no vasopressors, no transfer to a higher level of care, no central line placement. This ACP discussion took 25 minutes of face to face contact with the patients family and spouse. Review of Systems Review of Systems: All systems reviewed & are unremarkable except as noted in HPI and below Exam Const: Other: more confused, not following any commands, speech incomprehensible HENMT: Face/Nose/Sinus: Normal nares present Mouth: Yes moist mucous membranes Eyes: General: appearance normal, both eyes and all related structures Neck: Neck: supple Resp: Effort & Inspection: normal respiratory effort Auscultation: clear to auscultation bilaterally Cardio: Rate: regular rate Rhythm: regular rhythm GI: GI Palp: Yes Soft to palpation Auscultation: normal bowel sounds Skin: General skin exam: normal color and no rashes or lesions noted Neuro: Other: more confused, not able to follow commands, left facial droop noted, speech incomprehensible Extrem: Other: right lateral thigh surgical dressing CDI, right thigh is soft and nontender to palpation Psych: Other: more confused Objective Data Vital Signs Vital Signs: Vital Signs - 24 hr 08/05/25 16:00 08/05/25 20:00 08/06/25 00:00 Temperature 97.3 F L 98.0 F Pulse Rate 83 81 72 Respiratory Rate 16 16 18 Blood Pressure 121/84 130/66 Pulse Oximetry 93 94 94 Oxygen Delivery Room Air Room Air Room Air Intake/Output Intake/Output: Intake & Output 08/03/25 08/04/25 08/05/25 08/06/25 23:59 23:59 23:59 23:59 Intake Total 1120 1530 1375 150 Balance 1120 1530 1375 150 Meds/Results Medications: Active Medications Generic Name Dose Route Start Last Admin Trade Name Freq PRN Reason Stop Dose Admin Acetaminophen 650 mg 07/28/25 18:00 08/06/25 05:37 Acetaminophen 325 Mg Tablet PO 650 mg Q6HR NEHEMIAH Administration Hydrocodone Bitart/Acetaminophen 1 tab 07/28/25 15:18 08/05/25 20:15 Hydrocodone/Acetaminophen (*Crx) 5-325 Mg Tablet PO 1 tab Q4H PRN Administration Moderate Pain (4-6) Aspirin 81 mg 07/29/25 09:00 08/06/25 08:36 Aspirin 81 Mg Chewable Tablet PO 81 mg DAILY NEHEMIAH Administration Atorvastatin Calcium 40 mg 07/29/25 09:00 08/06/25 08:36 Atorvastatin 40 Mg Tablet PO 40 mg DAILY NEHEMIAH Administration Bisacodyl 10 mg 08/02/25 11:14 08/02/25 12:43 Bisacodyl 10 Mg Suppository RECTAL 10 mg DAILY PRN Administration Constipation Enoxaparin Sodium 40 mg 07/29/25 09:00 08/06/25 08:36 Enoxaparin 40 Mg/0.4 Ml Syringe SUB-Q 08/26/25 08:59 40 mg DAILY NEHEMIAH Administration Escitalopram Oxalate 10 mg 08/05/25 09:00 08/06/25 08:36 Escitalopram Oxalate 10 Mg Tablet PO 10 mg DAILY NEHEMIAH Administration Lisinopril 10 mg 07/29/25 09:00 08/06/25 08:36 Lisinopril 10 Mg Tablet PO 10 mg DAILY NEHEMIAH Administration Melatonin 5 mg 07/31/25 20:00 08/05/25 20:18 Melatonin 5 Mg Tablet PO 5 mg 2000 NEHEMIAH Administration Polyethylene Glycol 17 gm 08/03/25 09:00 08/06/25 08:36 Polyethylene Glycol 3350 17 Gm Powd.Pack PO 17 gm QAM NEHEMIAH Administration Senna 8.6 mg 07/28/25 17:50 08/05/25 11:54 Sennosides 8.6 Mg Tablet PO 8.6 mg DAILY PRN Administration Constipation Tolnaftate 1 applic 07/29/25 09:00 08/06/25 08:37 Tolnaftate 1% Powder 45 Gm Btl TOPICAL 1 applic Q12HR NEHEMIAH Administration Trazodone HCl 25 mg 08/02/25 11:19 08/04/25 21:26 Trazodone Hcl 25 Mg Tablet PO 25 mg Q8H PRN Administration Agitation Radiology Results: Ordering Physician: Josefina Mart APRN Date of Service: 08/06/25 Procedure(s): CTA brain carotid Accession Number(s): [id number] cc: Rodrigue Ralph MD; Radha Harper APRN; Josefina Mart APRN~ CT HEAD CTA NECK, CTA HEAD Clinical History: CVA symptoms, Lt. facial drooping, AMS Comparison: CT brain 07/21/2025 TECHNIQUE: Unenhanced axial images skull base to vertex Coronal, sagittal reformats Helical images thoracic inlet to vertex 100 mL Omnipaque 350 Coronal, sagittal reformats. Multiplanar MIPS. CT images acquired with automatic exposure control for dose reduction DLP: 1902 mGy-cm Findings: CT HEAD Age-related atrophy. Extensive white matter chronic microvascular ischemic changes. Sulci, ventricles: Unremarkable. No intracerebral hemorrhage. No evidence acute territorial infarct. No mass effect, midline shift. Bony calvarium intact. Visualized paranasal sinuses: Clear. Mastoid air cells: Clear. No abnormal foci of contrast enhancement. Patent dural venous sinuses. CTA NECK NASCET Criteria utilized Aortic arch: No aneurysm or dissection. Atherosclerotic disease Great vessel origins: No stenosis. CCAs: No dissection. No stenosis. Cervical ICAs: No dissection. No stenosis. Bulb calcifications. Vertebral Arteries: Patent. Lung Apices: Pleural effusions. Interlobular septal thickening. Coronary artery calcifications. Thyroid: Unremarkable. Nodes: No enlarged nodes. Bones: No acute bony abnormality. CTA HEAD: Aneurysms: 1 mm aneurysm right P1 segment. Axial series 6 image 140. 1 mm aneurysm right P-comm. Series 6 image 131. Intracranial ICAs: Patent. A few tiny foci of ectasia. ACAs and their distal branches: Patent, unremarkable. A-Comm: Identified. Patent, unremarkable. MCAs and their distal branches: Patent, unremarkable. Basilar artery: Patent, unremarkable. business continuity management director and their distal branches: Patent. P-Comms: Identified. IMPRESSION: CT HEAD: 1. No acute intracranial findings. CTA NECK: 1. No ICA stenosis or other acute arterial abnormality. CTA HEAD: 1. No large vessel arterial occlusive disease or other acute findings. 2. 1 mm aneurysm right P-comm. 3. 1 mm aneurysm right P1 segment. Reviewed, dictated and finalized at location . Quality VTE Prophylaxis VTE prophylaxis: pharmacologic ordered Hospitalist MIPS Advance Care Plan I have confirmed that the patient's Advanced Care Plan is present, code status is documented, or surrogate decision maker is listed in patient medical record.: Yes
--- NOTE | 2025-08-06 11:53 | PC.NURSE ---
CT completed this hour, patient tolerated well, awair results.
[2025-08-06 12:18] LABS: Hematocrit 33.3 % (35.0-42.0); Hemoglobin 10.5 g/dL (11.7-13.8); Immature Granulocyte Percent A 0.4 % (0.0-0.0); Lymphocytes Absolute Auto 1.41 K/mm3 (1.10-4.50); Mean Corpuscular HGB Conc 31.5 g/dL (32-36); Mean Corpuscular Hemoglobin 29.2 pg (27.0-31.0); Mean Corpuscular Volume 92.8 fL (78.0-102.0); Nucleated Red Blood Cells Absolute Auto 0.00 K/mm3 (0.00-0.00); Nucleated Red Blood Cells Perc 0.0 % (0-0.0); Platelet Count Result 406 K/mm3 (150-420); Red Blood Count 3.59 M/mm3 (4.20-5.40); White Blood Count 8.4 K/mm3 (4.8-10.8)
[2025-08-06 12:32] LABS: Alanine Aminotransferase 22 U/L (6-35); Albumin Level 2.9 g/dL (3.5-5.1); Alkaline Phosphatase 91 U/L (38-126); Anion Gap 13 mmol/L (4-12); Aspartate Amino Transferase 33 U/L (14-36); Bilirubin,Total 0.7 mg/dL (0.2-1.3); Blood Urea Nitrogen 7 mg/dL (7-17); Calcium 7.7 mg/dL (8.4-10.2); Carbon Dioxide 22 mmol/L (22-30); Chloride 98 mmol/L (98-107); Estimated Glomerular Filt Rate > 60; Glucose 90 mg/dL (65-110); Osmolality Calculated 274 mOsm/kg (285-295); Potassium 3.8 mmol/L (3.4-5.0); Sodium 133 mmol/L (137-145); Total Protein 5.2 g/dL (6.3-8.2)
[2025-08-06] MEDS: LORazepam INJ (*CRX) 2 MG/ML VIAL 0.5 MG IV PUSH (13:06)
[2025-08-06 13:40] LABS: Add Urine Microscopic? YES; Appearance Urine Clear (Clear); Glucose Urine UA Negative (Negative); Leukocyte Esterase Ur Trace LEU/UL (Negative); Nitrate Urine Negative (Negative); Specific Grav Ur 1.010 (1.010-1.020)
--- NOTE | 2025-08-06 14:20 | PC.NURSE ---
Approximately 1315 patient assisted to bed with GB and 2 assist. Pericare provided, Straight Cath Urine Spec obtained per clean catch protocole. Pericare completed again for incontinent episodes.
--- NOTE | 2025-08-06 14:22 | PC.NURSE ---
Patient resting in bed with respiration even and unlabored call light in reach.
[2025-08-06 16:00] VITALS: BP 150/68; PULSE 80; RESP 20; O2SAT 94
--- NOTE | 2025-08-06 18:14 | PC.NURSE ---
Meds and supper meal not administered. Patient sleeping.
[2025-08-06] MEDS: MELATONIN 5 MG TABLET PO (21:26)
[2025-08-06 23:48] VITALS: BP 155/83; PULSE 90; RESP 16; TEMP 36.3; O2SAT 96
[2025-08-07] MEDS: LORazepam (*CRX) 2 MG/ML ORAL CONCENTRATE 1 ML SYRINGE 0.5 MG SUBLINGUAL (14:15)
--- NOTE | 2025-08-07 16:34 | P.PNIM_ITS ---
Progress Note: A&P Assessment and Plan (1) Encounter for rehabilitation: Code(s): Z51.89 - Encounter for other specified aftercare Status: Acute Assessment and Plan: PT/OT eval and treat Speech consulted due to family reporting patient has trouble swallowing at times * Regular, Thin Liquids recommended * Patient will need assistance with feedings * Aspiration Precautions ordered Family is aware that her dementia may be a barrier to her rehabilitation, discussion with the spouse and family at bedside she will still need to meet therapy goals to remain in a swing bed program Spouse reports his main goal is for patient to stand and transfer to wheelchair and be able to walk short distances Patient is participating in therapy, patient ambulated with PT in the hallways on Sunday 08/05 Patient with acute change in status, now unable to participate in rehab (2) Closed displaced fracture of right femoral neck: Code(s): S72.001A - Fracture of unspecified part of neck of right femur, initial encounter for closed fracture Status: Acute Assessment and Plan: 07/21 - Fall at home 07/22 - s/p Bipolar hemiarthroplasty right hip with Orthopedics Dr Cooper Activity: WBAT RLE DVT ppx: Lovenox 40 mg daily for 30 days total, EOT 08/26, Continue ASA 81 mg daily (Hx CVA) Dressing: Remove Mepilex 7 days post-op (07/29), Steri strips can be removed 08/05. OK to shower PT/OT ordered Follow-up with Dr Cooper in 4-6 weeks Pain appears controlled, monitor for reports of pain from patient (3) Hypertension: Qualifiers: Hypertension type: primary hypertension Qualified Code(s): I10 - Essential (primary) hypertension Code(s): I10 - Essential (primary) hypertension Status: Acute Assessment and Plan: Continue Lisinopril 10 mg daily hold parameters on lisinopril, hold for SBP < 110 VS q 8 hr blood pressures reviewed and appear stable (4) UTI (urinary tract infection): Code(s): N39.0 - Urinary tract infection, site not specified Status: Acute Assessment and Plan: 07/21 Urine Cx positive for Klebsiella pneumoniae s/p IV ceftriaxone and PO Keflex, EOT 08/02 encourage PO fluids monitor for signs or symptoms of infection (5) Alzheimer disease: Code(s): G30.9 - Alzheimer's disease, unspecified; F02.80 - Dementia in other diseases classified elsewhere, unspecified severity, without behavioral disturbance, psychotic disturbance, mood disturbance, and anxiety Status: Acute Assessment and Plan: Donepezil and memantine stopped due to patients advanced dementia, family requested and this is reasonable Practice Day night cycles (6) AMS (altered mental status): Code(s): R41.82 - Altered mental status, unspecified Status: Acute Assessment and Plan: patient with acute onset of altered mental status, left facial droop, incomprehensible speech on 08/06 stat head/neck CTA completed without acute stroke family does not want patient transferred for higher level of care to have brain MRI completed patient not able to follow commands and has had difficulty in the past completing MRI's labs completed without acute abnormalities UA completed without signs of infection CXR completed without signs of infection on limited views Long discussion with family as it appears patient had a stroke or possible advancement of dementia Spouse would like patient to be DNR with comfort measures only comfort medications placed, oral medications stopped continue regular diet for comfort if patient is alert patient will need discharged to a detention with hospice consult on arrival CM to be notified in AM of change in condition and discharge planning needs Subjective Date/time seen: 08/07/25 16:34 Interval history: Patient seen for an acute visit. Patient today is minimally responsive to physical stimuli. Patient responds with mostly incomprehensible words when you shake her shoulder. Patient moans and cries out when staff attempts to roll and reposition her. Patient is not responsive enough to take oral medications or oral intake. Patient's labs drawn yesterday and appear stable. UA was collected and is without infection. Chest x-ray ordered today and limited views do not indicate pneumonia. Family at bedside and discussion regarding patient's acute change management lead previous two days was had. It appears that patient has had a stroke versus progression of her dementia. Patient has a history of strokes. Family does not want any additional testing or transfer to higher level of care initiated. Family would like patient to be a DNR with comfort measures only. Patient will need to be discharged to a detention with hospice consult on arrival. Comfort measures will be initiated here and orders will be placed. Review of Systems Review of Systems: All systems reviewed & are unremarkable except as noted in HPI and below Exam Const: Other: lethargic, not following any commands, speech incomprehensible HENMT: Face/Nose/Sinus: Normal nares present Mouth: Yes moist mucous mem branes Eyes: General: appearance normal, both eyes and all related structures Neck: Neck: supple Resp: Effort & Inspection: normal respiratory effort Auscultation: clear to auscultation bilaterally Cardio: Rate: regular rate Rhythm: regular rhythm GI: GI Palp: Yes Soft to palpation Auscultation: normal bowel sounds Skin: General skin exam: normal color and no rashes or lesions noted Neuro: Other: lethargic, does respond to physical stimuli, not able to follow commands, left facial droop noted, speech incomprehensible Extrem: Other: right lateral thigh surgical dressing CDI, right thigh is soft and nontender to palpation Psych: Other: more confused Objective Data Vital Signs Vital Signs: Vital Signs - 24 hr 08/06/25 23:48 Temperature 97.3 F L Pulse Rate 90 Respiratory Rate 16 Blood Pressure 155/83 H Pulse Oximetry 96 Oxygen Delivery Room Air Intake/Output Intake/Output: Intake & Output 08/04/25 08/05/25 08/06/25 08/07/25 23:59 23:59 23:59 22:59 Intake Total 1530 1375 410 0 Output Total 100 Balance 1530 1375 310 0 Meds/Results Medications: Active Medications Generic Name Dose Route Start Last Admin Trade Name Ajithq PRN Reason Stop Dose Admin Acetaminophen 650 mg 07/28/25 18:00 08/07/25 14:06 Acetaminophen 325 Mg Tablet PO Not Given Q6HR NEHEMIAH Acetaminophen 650 mg 08/07/25 12:19 Acetaminophen 650 Mg Suppository RECTAL Q6H PRN Mild Pain (1-3) or Fever Aspirin 81 mg 07/29/25 09:00 08/07/25 14:04 Aspirin 81 Mg Chewable Tablet PO Not Given DAILY NEHEMIAH Atorvastatin Calcium 40 mg 07/29/25 09:00 08/07/25 14:04 Atorvastatin 40 Mg Tablet PO Not Given DAILY NEHEMIAH Atropine Sulfate 1 drop 08/07/25 12:19 Atropine Sulfate 1% Ophth Soln 5 Ml Bottle SUBLINGUAL Q4H PRN Secretions Bisacodyl 10 mg 08/02/25 11:14 08/02/25 12:43 Bisacodyl 10 Mg Suppository RECTAL 10 mg DAILY PRN Administration Constipation Enoxaparin Sodium 40 mg 07/29/25 09:00 08/07/25 14:05 Enoxaparin 40 Mg/0.4 Ml Syringe SUB-Q 08/26/25 08:59 Not Given DAILY [facility] Escitalopram Oxalate 10 mg 08/05/25 09:00 08/07/25 14:05 Escitalopram Oxalate 10 Mg Tablet PO Not Given DAILY [facility] Lisinopril 10 mg 07/29/25 09:00 08/07/25 14:05 Lisinopril 10 Mg Tablet PO Not Given DAILY [facility] Lorazepam 0.5 mg 08/07/25 12:19 08/07/25 14:15 Lorazepam (*Crx) 2 Mg/Ml Oral Concentrate 1 Ml Syringe SUBLINGUAL 0.5 mg Q6H PRN Administration Anxiety Miscellaneous Information 1 each 08/07/25 00:01 08/07/25 14:04 Please Renew [place]. Per [employer] Procedure, It Will Discontinue If Not Renewed XX 09/06/25 00:00 Not Given CLARIFY [facility] Morphine Sulfate 5 mg 08/07/25 12:19 Morphine Sulfate Oral Conc Arlene (*Crx) 10 Mg/0.5 Ml Syringe PO Q4H PRN Pain Rated 7-10 Tolnaftate 1 applic 07/29/25 09:00 08/07/25 14:05 Tolnaftate 1% Powder 45 Gm Btl TOPICAL Not Given Q12HR [facility] Radiology Results: ITS Impressions Head/Neck CTA 08/06/25 11:38 IMPRESSION: CT HEAD: 1. No acute intracranial findings. CTA NECK: 1. No ICA stenosis or other acute arterial abnormality. CTA HEAD: 1. No large vessel arterial occlusive disease or other acute findings. 2. 1 mm aneurysm right P-comm. 3. 1 mm aneurysm right P1 segment. Chest X-Ray 08/07/25 09:36 IMPRESSION: 1. Mild bibasilar atelectasis but mild airspace disease not excluded. Consider PA and lateral films with deep inspiration. Quality VTE Prophylaxis VTE prophylaxis: pharmacologic ordered Hospitalist MIPS Advance Care Plan I have confirmed that the patient's Advanced Care Plan is present, code status is documented, or surrogate decision maker is listed in patient medical record.: Yes
[2025-08-08] VITALS: RESP 18
[2025-08-08 08:00] VITALS: BP 134/68; PULSE 88; RESP 16; TEMP 36.5; O2SAT 96
[2025-08-08] MEDS: ASPIRIN 81 MG CHEWABLE TABLET PO (12:10)
[2025-08-08] MEDS: ATORVASTATIN 40 MG TABLET PO (12:10)
[2025-08-08] MEDS: ESCITALOPRAM OXALATE 10 MG TABLET PO (12:10)
[2025-08-08] MEDS: TOLNAFTATE 1% POWDER 45 GM BTL 1 APPLIC TOPICAL ×2 (12:11→20:59)
--- NOTE | 2025-08-08 14:08 | PM.IMPN ---
Progress Note: A&P Assessment and Plan (1) Encounter for rehabilitation: Code(s): Z51.89 - Encounter for other specified aftercare Status: Acute Assessment and Plan: PT/OT eval and treat Speech consulted due to family reporting patient has trouble swallowing at times * Regular, Thin Liquids recommended * Patient will need assistance with feedings * Aspiration Precautions ordered Family is aware that her dementia may be a barrier to her rehabilitation, discussion with the spouse and family at bedside she will still need to meet therapy goals to remain in a swing bed program Spouse reports his main goal is for patient to stand and transfer to wheelchair and be able to walk short distances Patient is participating in therapy, patient ambulated with PT in the hallways on Sunday 08/05 Patient with acute change in status, now unable to participate in rehab (2) Closed displaced fracture of right femoral neck: Code(s): S72.001A - Fracture of unspecified part of neck of right femur, initial encounter for closed fracture Status: Acute Assessment and Plan: 07/21 - Fall at home 07/22 - s/p Bipolar hemiarthroplasty right hip with Orthopedics Dr Cooper Activity: WBAT RLE DVT ppx: Lovenox 40 mg daily for 30 days total, EOT 08/26, Continue ASA 81 mg daily (Hx CVA) Dressing: Remove Mepilex 7 days post-op (07/29), Steri strips can be removed 08/05. OK to shower PT/OT ordered Follow-up with Dr Cooper in 4-6 weeks Pain appears controlled, monitor for reports of pain from patient (3) Hypertension: Qualifiers: Hypertension type: primary hypertension Qualified Code(s): I10 - Essential (primary) hypertension Code(s): I10 - Essential (primary) hypertension Status: Acute Assessment and Plan: Continue Lisinopril 10 mg daily hold parameters on lisinopril, hold for SBP < 110 VS q 8 hr blood pressures reviewed and appear stable discussed with and he would like to continue lisinopril for now if patient takes it (4) UTI (urinary tract infection): Code(s): N39.0 - Urinary tract infection, site not specified Status: Acute Assessment and Plan: 07/21 Urine Cx positive for Klebsiella pneumoniae s/p IV ceftriaxone and PO Keflex, EOT 08/02 encourage PO fluids monitor for signs or symptoms of infection (5) Alzheimer disease: Code(s): G30.9 - Alzheimer's disease, unspecified; F02.80 - Dementia in other diseases classified elsewhere, unspecified severity, without behavioral disturbance, psychotic disturbance, mood disturbance, and anxiety Status: Acute Assessment and Plan: Donepezil and memantine stopped due to patients advanced dementia, family requested and this is reasonable Practice Day night cycles (6) AMS (altered mental status): Code(s): R41.82 - Altered mental status, unspecified Status: Acute Assessment and Plan: patient with acute onset of altered mental status, left facial droop, incomprehensible speech on 08/06 stat head/neck CTA completed without acute stroke family does not want patient transferred for higher level of care to have brain MRI completed patient not able to follow commands and has had difficulty in the past completing MRI's labs completed without acute abnormalities UA completed without signs of infection CXR completed without signs of infection on limited views Long discussion with family as it appears patient had a stroke or possible advancement of dementia Spouse would like patient to be DNR with comfort measures only comfort medications placed, oral medications stopped continue regular diet for comfort if patient is alert patient will need discharged to a half-way with hospice consult on arrival to coordination working with patient's family to arrange for discharge to half-way with hospice consult at arrival family's half-way of choice coming to evaluate patient today for placement plan for discharge either Friday or Friday Subjective Date/time seen: 08/08/25 14:08 Interval history: patient seen for follow-up visit. Patient was started on comfort measures yesterday and continues. Patient will be evaluated by family's choice of half-way today for possible placement. Patient has some alert periods today, however speech is still more garbled. Patient was able to eat a small amount of breakfast. Patient has a Oneil catheter in place for comfort. Family aware that patient will not qualify for inpatient hospice and care coordinators working to assist with discharge to a half-way with hospice consult on admission. Plan for discharge either Friday or Friday to half-way. Review of Systems Review of Systems: All systems reviewed & are unremarkable except as noted in HPI and below Exam Const: Other: Has had some weight., not following any commands, speech incomprehensible HENMT: Face/Nose/Sinus: Normal nares present Mouth: Yes moist mucous membranes Eyes: General: appearance normal, both eyes and all related structures Neck: Neck: supple Resp: Effort & Inspection: normal respiratory effort Auscultation: clear to auscultation bilaterally Cardio: Rate: regular rate Rhythm: regular rhythm GI: GI Palp: Yes Soft to palpation Auscultation: normal bowel sounds Skin: General skin exam: normal color and no rashes or lesions noted Neuro: Other: Has some periods of alertness, not able to follow commands, left facial droop noted, speech incomprehensible Extrem: Other: right lateral thigh surgical dressing CDI, right thigh is soft and nontender to palpation Psych: Other: more confused Objective Data Vital Signs Vital Signs: Vital Signs - 24 hr 08/08/25 00:00 Respiratory Rate 18 Intake/Output Intake/Output: Intake & Output 08/05/25 08/06/25 08/07/25 08/08/25 23:59 23:59 22:59 23:59 Intake Total 1375 410 0 90 Output Total 100 50 Balance 1375 310 -50 90 Meds/Results Medications: Active Medications Generic Name Dose Route Start Last Admin Trade Name Freq PRN Reason Stop Dose Admin Acetaminophen 650 mg 07/28/25 18:00 08/08/25 12:11 Acetaminophen 325 Mg Tablet PO Not Given Q6HR NEHEMIAH Acetaminophen 650 mg 08/07/25 12:19 Acetaminophen 650 Mg Suppository RECTAL Q6H PRN Mild Pain (1-3) or Fever Aspirin 81 mg 07/29/25 09:00 08/08/25 12:10 Aspirin 81 Mg Chewable Tablet PO 81 mg DAILY NEHEMIAH Administration Atorvastatin Calcium 40 mg 07/29/25 09:00 08/08/25 12:10 Atorvastatin 40 Mg Tablet PO 40 mg DAILY NEHEMIAH Administration Atropine Sulfate 1 drop 08/07/25 12:19 Atropine Sulfate 1% Ophth Soln 5 Ml Bottle SUBLINGUAL Q4H PRN Secretions Bisacodyl 10 mg 08/02/25 11:14 08/02/25 12:43 Bisacodyl 10 Mg Suppository RECTAL 10 mg DAILY PRN Administration Constipation Enoxaparin Sodium 40 mg 07/29/25 09:00 08/08/25 12:11 Enoxaparin 40 Mg/0.4 Ml Syringe SUB-Q 08/26/25 08:59 Not Given DAILY NEHEMIAH Escitalopram Oxalate 10 mg 08/05/25 09:00 08/08/25 12:10 Escitalopram Oxalate 10 Mg Tablet PO 10 mg DAILY NEHEMIAH Administration Lisinopril 10 mg 07/29/25 09:00 08/08/25 12:10 Lisinopril 10 Mg Tablet PO 10 mg DAILY NEHEMIAH Administration Lorazepam 0.5 mg 08/07/25 12:19 08/07/25 14:15 Lorazepam (*Crx) 2 Mg/Ml Oral Concentrate 1 Ml Syringe SUBLINGUAL 0.5 mg Q6H PRN Administration Anxiety Miscellaneous Information 1 each 08/07/25 00:01 08/07/25 23:05 Please Renew [place]. Per [employer] Procedure, It Will Discontinue If Not Renewed XX 09/06/25 00:00 Not Given CLARIFY ENHEMIAH Morphine Sulfate 5 mg 08/07/25 12:19 Morphine Sulfate Oral Conc Arlene (*Crx) 10 Mg/0.5 Ml Syringe PO Q4H PRN Pain Rated 7-10 Tolnaftate 1 applic 07/29/25 09:00 08/08/25 12:11 Tolnaftate 1% Powder 45 Gm Btl TOPICAL 1 applic Q12HR NEHEMIAH Administration Radiology Results: ITS Impressions Head/Neck CTA 08/06/25 11:38 IMPRESSION: CT HEAD: 1. No acute intracranial findings. CTA NECK: 1. No ICA stenosis or other acute arterial abnormality. CTA HEAD: 1. No large vessel arterial occlusive disease or other acute findings. 2. 1 mm aneurysm right P-comm. 3. 1 mm aneurysm right P1 segment. Chest X-Ray 08/07/25 09:36 IMPRESSION: 1. Mild bibasilar atelectasis but mild airspace disease not excluded. Consider PA and lateral films with deep inspiration. Quality VTE Prophylaxis VTE prophylaxis: pharmacologic ordered Hospitalist MIPS Advance Care Plan I have confirmed that the patient's Advanced Care Plan is present, code status is documented, or surrogate decision maker is listed in patient medical record.: Yes
[2025-08-08 16:00] VITALS: BP 105/46; PULSE 76; RESP 18; TEMP 36.3; O2SAT 92
[2025-08-08] MEDS: MORPHINE SULFATE ORAL CONC SOL (*CRX) 10 MG/0.5 ML SYRINGE 5 MG PO (19:35)
[2025-08-08 20:00] VITALS: PULSE 76; RESP 18; O2SAT 92
[2025-08-09] VITALS: BP 137/88; PULSE 71; RESP 17; TEMP 35.9; O2SAT 92
[2025-08-09 08:00] VITALS: BP 122/68; PULSE 56; RESP 18; TEMP 36; O2SAT 90
--- NOTE | 2025-08-09 09:04 | PC.NURSE ---
Per Abraham Li, while I am absent it is OK to give any information to Patti Chiang [phone],Granddaughter.
[2025-08-09] MEDS: ASPIRIN 81 MG CHEWABLE TABLET PO (09:10)
[2025-08-09] MEDS: ATORVASTATIN 40 MG TABLET PO (09:10)
[2025-08-09] MEDS: TOLNAFTATE 1% POWDER 45 GM BTL 1 APPLIC TOPICAL ×2 (09:10→20:23)
[2025-08-09] MEDS: ENOXAPARIN 40 MG/0.4 ML SYRINGE SUB-Q (09:10)
[2025-08-09 09:50] LABS: Influenza A QL RT-PCR Negative (Negative); Influenza B QL RT-PCR Negative (Negative); SARS-CoV-2 RNA PCR Negative (Negative)
[2025-08-09] MEDS: ACETAMINOPHEN 325 MG TABLET 650 MG PO ×3 (11:49→23:15)
[2025-08-09 20:00] VITALS: PULSE 56; RESP 18; O2SAT 90
[2025-08-09] MEDS: MORPHINE SULFATE ORAL CONC SOL (*CRX) 10 MG/0.5 ML SYRINGE 5 MG PO (23:16)
[2025-08-10] VITALS: BP 114/65; PULSE 65; RESP 16; TEMP 35.8; O2SAT 95
[2025-08-10] MEDS: MORPHINE SULFATE ORAL CONC SOL (*CRX) 10 MG/0.5 ML SYRINGE 5 MG PO (05:22)
[2025-08-10 08:00] VITALS: BP 147/78; PULSE 90; RESP 18; TEMP 36.8; O2SAT 96
[2025-08-10] MEDS: ATORVASTATIN 40 MG TABLET PO (08:58)
[2025-08-10] MEDS: ASPIRIN 81 MG CHEWABLE TABLET PO (08:58)
[2025-08-10] MEDS: TOLNAFTATE 1% POWDER 45 GM BTL 1 APPLIC TOPICAL (08:59)
[2025-08-10] MEDS: ENOXAPARIN 40 MG/0.4 ML SYRINGE SUB-Q (08:59)
[2025-08-10 16:00] VITALS: BP 112/50; PULSE 66; RESP 18; TEMP 36.1; O2SAT 92
[2025-08-10] MEDS: ACETAMINOPHEN 325 MG TABLET 650 MG PO (17:36)
--- NOTE | 2025-08-10 18:00 | PC.NURSE ---
Family at bedside when pt put back to bed w/ assist. They report pt usually goes to bed and is asleep by 7 pm. Spouse requesting her trazadone be given at this time to help her sleep all noc. Upon review of meds, no noted Trazadone ordered. companion caregiver Kimmie informed, orders were dc'd when placed on hospice meds. Pt will be given po Lorazepam liquid as per order. Pts spouse and daughter leaving for tonight after meds given.
[2025-08-10] MEDS: LORazepam (*CRX) 2 MG/ML ORAL CONCENTRATE 1 ML SYRINGE 0.5 MG SUBLINGUAL (18:01)
[2025-08-10 20:00] VITALS: PULSE 85; RESP 18; O2SAT 96
[2025-08-11] VITALS: BP 133/76; PULSE 76; RESP 16; TEMP 36.7; O2SAT 95
[2025-08-11] MEDS: ACETAMINOPHEN 325 MG TABLET 650 MG PO (06:15)
[2025-08-11 08:00] VITALS: BP 139/78; PULSE 75; RESP 16; TEMP 36.7; O2SAT 94
--- NOTE | 2025-08-11 09:05 | P.DS_ITS ---
DS: Admitting Diagnosis Discharge Date 08/11/2025 Admitting Diagnosis Deconditioned/ UTI/ post surgical repair right arthroplasty DS: Discharge Diagnosis Discharge Diagnosis (1) Encounter for rehabilitation: Code(s): Z51.89 - Encounter for other specified aftercare Status: Acute (2) Closed displaced fracture of right femoral neck: Code(s): S72.001A - Fracture of unspecified part of neck of right femur, initial encounter for closed fracture Status: Acute (3) Hypertension: Qualifiers: Hypertension type: primary hypertension Qualified Code(s): I10 - Essential (primary) hypertension Code(s): I10 - Essential (primary) hypertension Status: Acute (4) UTI (urinary tract infection): Code(s): N39.0 - Urinary tract infection, site not specified Status: Acute (5) Alzheimer disease: Code(s): G30.9 - Alzheimer's disease, unspecified; F02.80 - Dementia in other diseases classified elsewhere, unspecified severity, without behavioral disturbance, psychotic disturbance, mood disturbance, and anxiety Status: Acute (6) AMS (altered mental status): Code(s): R41.82 - Altered mental status, unspecified Status: Acute Assessment and Plan: patient with acute onset of altered mental status, left facial droop, incomprehensible speech on 08/06 stat head/neck CTA completed without acute stroke family does not want patient transferred for higher level of care to have brain MRI completed patient not able to follow commands and has had difficulty in the past completing MRI's labs completed without acute abnormalities UA completed without signs of infection CXR completed without signs of infection on limited views Long discussion with family as it appears patient had a stroke or possible advancement of dementia Spouse would like patient to be DNR with comfort measures only comfort medications placed, oral medications stopped continue regular diet for comfort if patient is alert patient will need discharged to a halfway with hospice consult on arrival to coordination working with patient's family to arrange for discharge to halfway with hospice consult at arrival family's halfway of choice coming to evaluate patient today for placement plan for discharge either Friday or Friday DS: Summary Hospital Course Reason for hospitalization: deconditioned/ rehab postop right arthroplasty/ UTI/ AMS Hospital Course: Admission: Patient was a 79 yo female with PMH for Dementia and CVA who was admitted to [facility] from 07/22-07/28/25 after a fall at home. She fell backwards after going up 2 steps in the garage hitting her head against a garbage can. The patient was found lying flat on her back on the garage floor. She was unable to ambulate after this and her right leg was noted to be shortened. XR Ray of the Right leg found a right femoral neck fracture. CT head did not indicate any acute Intracranial injury, pt was not on blood thinners prior to the fall. Orthopedics Dr Cooper was consulted for the right femoral neck fracture and patient underwent Bipolar hemiarthroplasty right hip on 07/22/25. Orthopedics has indicated that patient can be WBAT to the RLE. Patient does require Lovenox for 30 days total from the date of surgery. Hospital Course: Patient was admitted to [facility] bed for rehabilitation post right arthroplasty. during patient's admission she was also noted to have a urinary tract infection which she was treated and completed her antibiotic therapy Rocephin was transitioned to oral Keflex, urine culture grew Klebsiella pneumoniae. during patient's hospitalization for rehab she experienced acute onset of altered mental status, left facial droop, incomprehensible speech on 08/06 at which time astat head/neck CTA completed without acute stroke. previous provider noted that she had spoke with family and they did not want patient transferred for higher level of care to have brain MRI completed patient not able to follow commands and has had difficulty in the past completing MRI's labs completed without acute abnormalities, UA completed without signs of infection, CXR completed without signs of infection on limited views. previous provider had also long discussion with family regarding patient's current code status at which time they requested patient be placed a DNR with comfort measures only at that time however patient improved after 24-48 hours and was back participating with physical and occupational therapy and it was requested patient to discharge to a [facility] facility for continued physical and occupational therapy and would hold off on hospice consult. patient was seen assessed at discharge lethargic likely secondary to receiving Ativan overnight restlessness but would respond to name and sternal rub. Family was at bedside and updated discharge to [facility] facility at which time they did request patient has Oneil catheter remain in place at this time which I instructed they could attempt voiding trials the [facility] facility. patient close to baseline but did report poor appetite and oral intake. Patient was discharged to [facility] facility with orders for physical, occupational and speech therapy. Status at Discharge Functional status at discharge: uses cane/walker Overall status at discharge: patient is progressing back to baseline Time Spent with Patient Time attestation: Total time spent providing and/or coordinating discharge services: Time spent: Greater than 30 minutes Exam Const: General: comfortable and no acute distress Other: lethargic able to answer yes or no questions HENMT: Face/Nose/Sinus: Normal nares present Mouth: Yes dry mucous membranes Eyes: General: appearance normal, both eyes and all related structures Neck: Neck: supple Resp: Effort & Inspection: normal respiratory effort Auscultation: clear to auscultation bilaterally Cardio: Rate: regular rate Rhythm: regular rhythm GI: Auscultation: normal bowel sounds Urinary Catheter: Urinary Catheter: patent and draining and urine clear Skin: General skin exam: normal color and no rashes or lesions noted Neuro: Other: waxing and waning with mental status gait is unsteady and weak and intermittently working with PT/OT Extrem: Other: right lateral thigh surgical dressing CDI, right thigh is soft and nontender to palpation Psych: Other: unable to assess DS: Data Imaging Radiologist's impression: Radiology Results: ITS Impressions Head/Neck CTA 08/06/25 11:38 IMPRESSION: CT HEAD: 1. No acute intracranial findings. CTA NECK: 1. No ICA stenosis or other acute arterial abnormality. CTA HEAD: 1. No large vessel arterial occlusive disease or other acute findings. 2. 1 mm aneurysm right P-comm. 3. 1 mm aneurysm right P1 segment. Chest X-Ray 08/07/25 09:36 IMPRESSION: 1. Mild bibasilar atelectasis but mild airspace disease not excluded. Consider PA and lateral films with deep inspiration. Discharge Plan Discharge Attending physician on discharge: Farroll,Aundrea Bryan Consulting providers: Nelly Valdez Discharging Clinician: Nelly Valdez Anticipated Discharge Date/Time: 08/11/25 09:17 Patient Disposition: SNF Activity: may shower and as tolerated Diet: as tolerated Discharge Instructions: Discharge Instructions: Ortho instructions: DOS: 07/22/25. Bipolar hemiarthroplasty right hip. * Follow up in office or virtually in 4-6 weeks with xrays. Please call [facility] for appointment details. * Remove Mepilex dressing at 7 days post op. Remove steristrips at 14 days post op. May shower. No soaking. * PT: Weight bearing as tolerated with a walker. Abduction pillow when at rest to decrease risk of dislocation. * DVT prophylaxis: continue Lovenox for 30 days total * Pain medication: Tylenol. Limit narcotics due to dementia. * Bowel Regiment 1). Urinary retention: * continue urinary catheter ensure good hygiene and catheter care * may attempt voiding trials at [facility] facility 2). generalized weakness * continue with PT/OT /ST as tolerated * encourage oral water intake and oral intake * added Megace to increase appetite * encourage Q 2 turns while in bed to reduce risk of pressure ulcers * recommend protein shakes with each meal How can you care for yourself at home? ? Keep track of any new symptoms or changes in your symptoms. ? Rest until you feel better. ? Be safe with medicines. Take your medicines exactly as prescribed. Call your doctor if you think you are having a problem with your medicine. ? Do not drive after taking a prescription pain medicine. ? Ensure to follow-up with primary care physician as indicated and provide updated medication list provided to you at discharge. When should you call for help? Call 911 anytime you think you may need emergency care. For example, call if: ? You passed out (lost consciousness). Call your doctor now or seek immediate medical care if: ? You have new symptoms like fever, difficulty breathing, Chest pain, vomiting, or rash. ? You have new or different pain. ? You are confused and are having trouble thinking clearly. ? Your symptoms are getting worse. Watch closely for changes in your health, and be sure to contact your doctor if: ? You do not get better as expected. Patient Instructions: Dementia (GEN), Oneil Catheter Placement and Care (DC), Fall Prevention for Older Adults (DC) Patient Language: Bruneian Stand Alone Forms: General Discharge Information, Assisted Discharge Follow-up/Referrals: Kris Cooper MD [Physician, Orthopedics] - Keep Reg. Scheduled Appt. Referral Note: 4-6 week video f/u Discharge Medications: New acetaminophen 325 mg Tablet 650 mg PO Q6HR Qty: 1 0RF sennosides [Senokot] 8.6 mg Tablet 8.6 mg PO DAILY PRN (Reason: Constipation) Qty: 1 0RF enoxaparin [Lovenox] 40 mg/0.4 mL Syringe 40 mg subcut DAILY Qty: 12 0RF Rx Instructions: 12 more doses to complete 30 days post-op tolnaftate 1 % Powder 1 applic topical Q12HR Qty: 2 0RF bisacodyl 10 mg Suppository 10 mg RECTAL DAILY PRN (Reason: Constipation) Qty: 1 0RF trazodone 50 mg tablet 50 mg PO HS Qty: 1 0RF megestrol 40 mg tablet 40 mg PO BID Qty: 1 0RF Continued aspirin 81 mg tablet,chewable 81 mg PO DAILY atorvastatin 40 mg tablet 40 mg PO DAILY Qty: 90 1RF lisinopril 10 mg tablet 10 mg PO DAILY Qty: 90 1RF Discontinued docusate sodium [Stool Softener] 100 mg tablet 100 mg PO BID cephalexin 500 mg Capsule 500 mg PO Q12HR Qty: 5 0RF Patient Comments: 5 days more then DC memantine 10 mg tablet 10 mg PO BID Qty: 180 0RF donepezil 10 mg tablet 10 mg PO DAILY Qty: 90 0RF Date of admission: 07/28/25 13:40 Primary Care Provider: Radha Harper Admitting Provider: Stepan Ralph Attending physician on admission: Stepan Ralph Condition: Stable Quality VTE Prophylaxis VTE prophylaxis: pharmacologic ordered -Patient's previous records reviewed on admission -ER notes reviewed in detail on admission -discussed all findings and current treatment plan with patient/Family/POA -Consultations reviewed for recommendations -Patient's disposition for safe discharge discussed with showcase trimmer -radiology imaging, EKG and test results I have personally reviewed and interpreted unless otherwise specified Dictation performed by [employer] direct speech recognition software, therefore director prospect variants and typographical errors may occur. Hospitalist MIPS Heart Failure (Exclusion) Patient has history of Heart Transplant or Left Ventricular Assistive Device?: No IF YES, STOP HERE Heart Failure (Qualifier) Patient has current or prior documentation of LVEF less than or equal to 40%, or mod/servere depressed LVSF?: No IF NO, STOP HERE
[2025-08-11] MEDS: ASPIRIN 81 MG CHEWABLE TABLET PO (09:28)
[2025-08-11] MEDS: ATORVASTATIN 40 MG TABLET PO (09:28)
[2025-08-11] MEDS: TOLNAFTATE 1% POWDER 45 GM BTL 1 APPLIC TOPICAL (09:28)
[2025-08-11] MEDS: ENOXAPARIN 40 MG/0.4 ML SYRINGE SUB-Q (09:29)
--- NOTE | 2025-08-11 10:28 | PC.NURSE ---
Today at 1005 patient discharged via ambulance to [facility] in [facility]. Family to meet her there. Discharge information sent via fax to [facility]. Report called to [facility] today at 0950 this facility number given for any questions. Patient leaves facility alert to self, unable to make needs known, Oneil catheter in place per family desires, patent and draining yellow, cloudy, viscous urine with sediment. LCTA, she shows no distess at this time. She was transferred to [facility] via 1 staff member and 2 EMS members without distress then closed eyes and remained asleep. Ambulance in route to [facility].
--- NOTE | 2025-08-15 10:34 | PC.NURSE ---
discharge call back, daughter called to let us know she is settled at [facility], states are transitioning to hospice
== END 2025-08-11 10:05 | DRG 560 ==
PROVIDERS: Nurse Practitioner Adult Health; Admitting Provider Internal Medicine; PCP Nurse Practitioner Family; Visit Provider Internal Medicine
DX: S72.001D Fracture of unspecified part of neck of right femur, subsequent encounter for closed fracture with routine healing (principal); N39.0 Urinary tract infection, site not specified; W19.XXXD Unspecified fall, subsequent encounter; Z86.73 Personal history of transient ischemic attack (TIA), and cerebral infarction without residual deficits; F02.80 Dementia in other diseases classified elsewhere, unspecified severity, without behavioral disturbance, psychotic disturbance, mood disturbance, and anxiety; G30.9 Alzheimer's disease, unspecified; G47.30 Sleep apnea, unspecified; I10 Essential (primary) hypertension; K21.9 Gastro-esophageal reflux disease without esophagitis; R29.810 Facial weakness; R47.81 Slurred speech; Z66 Do not resuscitate; Z79.82 Long term (current) use of aspirin
CPT/HCPCS: 36415; 70496; 70498; 71045; 80053; 81001; 85025; 87636; 92526; 92610; 97110; 97161; 97166; 97530; 97535; A9270; J1650; J2060; Q9967